=== PATIENT | male | born 1955 | race Caucasian/White ===

== ENCOUNTER 2023-03-21 09:50 | Outpatient (OUT) | payer MEDICARE, SELFPAY ==
--- NOTE | 2023-03-21 | XR_ITS ---
The [address] [address] Patient Name: KRISTINA HINOJOSA MRN: [id number] date: 1955 Sex: M Assigned Patient Location: [facility] Current Patient Location: Accession/Order Number: [id number] Exam Date: 03/21/2023 10:20 Report Date: 03/22/2023 11:05 At the request of: STEPHENIE JACK Procedure: XR ankle SHRUTHI min 3V EXAMINATION: XR foot SHRUTHI min 3V, XR ankle SHRUTHI min 3V HISTORY: BILATERAL FOOT PAIN , bilateral ankle pain COMPARISON: No relevant comparison available. FINDINGS: RIGHT FINDINGS: BONES: Calcaneal plantar spur. No significant arthropathy or acute abnormality. SOFT TISSUES: No visible soft tissue swelling. OTHER: Negative. LEFT FINDINGS: BONES: Prior amputation of the fourth toe at the proximal interphalangeal joint. Prior amputation of the fifth toe and majority of the metatarsal. Suspect old healed fractures of the second, third, and fourth metatarsals. No acute fracture, dislocation, or suspicious bone abnormality. SOFT TISSUES: No visible soft tissue swelling. OTHER: Negative. XR/XR ankle SHRUTHI min 3V IMPRESSION: RIGHT CONCLUSION: No acute bone abnormality or significant degenerative changes of the ankle or foot. LEFT CONCLUSION: Chronic surgical changes of the foot. No acute or suspicious findings of the ankle or foot. Electronically authenticated by: FRANCISCA HAWK Date: 03/22/2023 11:05
--- NOTE | 2023-03-21 | XR_ITS ---
The [address] [address] Patient Name: KRISTINA HINOJOSA MRN: [id number] date: 1955 Sex: M Assigned Patient Location: [facility] Current Patient Location: Accession/Order Number: [id number] Exam Date: 03/21/2023 10:20 Report Date: 03/22/2023 11:05 At the request of: STEPHENIE JACK Procedure: XR foot SHRUTHI min 3V EXAMINATION: XR foot SHRUTHI min 3V, XR ankle SHRUTHI min 3V HISTORY: BILATERAL FOOT PAIN , bilateral ankle pain COMPARISON: No relevant comparison available. FINDINGS: RIGHT FINDINGS: BONES: Calcaneal plantar spur. No significant arthropathy or acute abnormality. SOFT TISSUES: No visible soft tissue swelling. OTHER: Negative. LEFT FINDINGS: BONES: Prior amputation of the fourth toe at the proximal interphalangeal joint. Prior amputation of the fifth toe and majority of the metatarsal. Suspect old healed fractures of the second, third, and fourth metatarsals. No acute fracture, dislocation, or suspicious bone abnormality. SOFT TISSUES: No visible soft tissue swelling. OTHER: Negative. XR/XR foot SHRUTHI min 3V IMPRESSION: RIGHT CONCLUSION: No acute bone abnormality or significant degenerative changes of the ankle or foot. LEFT CONCLUSION: Chronic surgical changes of the foot. No acute or suspicious findings of the ankle or foot. Electronically authenticated by: FRANCISCA HAWK Date: 03/22/2023 11:05
== END 2023-03-21 09:51 | disposition home or self-care (01) ==
PROVIDERS: Visit Provider Podiatrist Foot & Ankle Surgery
DX: M25.571 Pain in right ankle and joints of right foot (principal); M25.572 Pain in left ankle and joints of left foot; M77.31 Calcaneal spur, right foot
CPT/HCPCS: 73610; 73630

== ENCOUNTER 2023-04-20 08:41 | Outpatient (OUT) | payer MEDICARE, SELFPAY ==
--- NOTE | 2023-04-20 08:43 | CT_ITS ---
[address] [address] Patient Name: KRISTINA HINOJOSA MRN: [id number] date: 1955 Sex: M Assigned Patient Location: CT Current Patient Location: CT Accession/Order Number: [id number] Exam Date: 04/20/2023 08:52 Report Date: 04/20/2023 09:49 At the request of: STEPHENIE JACK Procedure: CT ankle LT wo con EXAMINATION: CT ankle LT wo con HISTORY: Left Ankle Degenerative Joint Disease, Spastic Deformity COMPARISON: No relevant comparison available. TECHNIQUE: Multi-planar CT images were created without and/or with IV contrast according to examination type. Dose reduction techniques were achieved by using automated exposure control and/or adjustment of mA and/or kV according to patient size and/or use of iterative reconstruction technique. FINDINGS: BONES: No fracture, dislocation, bone lesion. SOFT TISSUES: Negative. No visible soft tissue swelling. EFFUSION: None visible. OTHER: Negative. CT/CT ankle LT wo con IMPRESSION: 1. No acute bone abnormality or suspicious bone lesion. 2. Minimal degenerative joint disease. Electronically authenticated by: FRANCISCA HAWK Date: 04/20/2023 09:49
--- NOTE | 2023-04-20 10:18 | CA_ITS ---
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 PVR waveforms with normal upstroke, blunted amplitude in the LLE and abnormal B/L JOHN Right: - no pressure gradients between cuffs - abnormal JOHN - normal TBI Left: - no pressure gradients between cuffs - abnormal JOHN - normal TBI Impression: - elevated indices (B/L thigh, right calf, right PT/DP and left PT) consistent with calcified, noncompressible arterial delcid. - nondiagnostic segmental pressures due to diffusely elevated indices, consistent with calcified arterial delcid. - B/L TBI, which are not influenced by arterial wall calcification, are not decreased and suggestive of normal arterial evaluation w/o hemodynamically significant stenosis. - clinical correlation advised Electronically Signed On 04-22-2023 11:39:19 EST by KAREN BOWMAN
== END 2023-04-20 08:42 | disposition home or self-care (01) ==
LOC: CT 08:41
PROVIDERS: Visit Provider Nurse Practitioner Family
DX: M19.072 Primary osteoarthritis, left ankle and foot (principal); M21.6X2 Other acquired deformities of left foot; R09.89 Other specified symptoms and signs involving the circulatory and respiratory systems
CPT/HCPCS: 73700; 93923

== ENCOUNTER 2023-08-31 15:56 | Emergency (ER) | payer MEDICARE, SELFPAY ==
[2023-08-31] VITALS (8 sets, daily range): BP systolic 143–178; BP diastolic 91–115; PULSE 91; TEMP 36.7; O2SAT 93–97; BMI 21.6
--- NOTE | 2023-08-31 16:23 | ED.FALL1 ---
Documented by User: Meagn Moran 08/31/23 18:24 HPI HPI - Fall General Chief Complaint: Fall Stated Complaint: LACERATION Time Seen by Provider: 08/31/23 16:02 Source: patient Mode of arrival: Wheelchair Limitations: no limitations History of Present Illness HPI Narrative: 67-year-old male presents to the emergency room by personal vehicle chief complaint of a laceration to the right forehead. Patient has significant laceration after he tripped over a rug in his kitchen.. Patient has no loss of consciousness. Denies any neck pain. He is alert and oriented no acute distress.Pain is noted upon arrival patient has a towel to his face.Patient is uncertain of his last tetanus immunization. Patient denies any headache blurred vision or double vision. He denies being on blood thinners. Related Data Home Medications ?Medication ?Instructions ?Recorded ?Confirmed atorvastatin 20 mg tablet mg 08/31/23 fluoxetine 10 mg capsule mg 08/31/23 pramipexole 0.5 mg tablet mg 08/31/23 Previous Rx's ?Medication ?Instructions ?Recorded cephalexin 500 mg capsule 500 mg PO BID 10 days #20 caps 08/31/23 Allergies Allergy/AdvReac Type Severity Reaction Status Date / Time Penicillins Allergy Intermediate Verified 08/31/23 16:00 acetaminophen [From Vicodin] AdvReac Intermediate Verified 08/31/23 16:00 hydrocodone [From Vicodin] AdvReac Intermediate Verified 08/31/23 16:00 Opioid HPI Opioid Management Most Recent Pain and Opioid Data: Last Pain Scale 3 08/31/23 18:13 Last MAR Pain Assessment 08/31/23 18:13 Review of Systems ROS Narrative All Systems are negative except as noted/marked.All systems reviewed and otherwise negative Exam Narrative Exam Narrative: A Nurses note and vital signs reviewed and patient is not hypoxic. General: The patient appears well and in no apparent distress. Patient is resting comfortably on cart. Skin: Warm, dry, no pallor noted. complex forehead laceration Head: Normocephalic, complex right forehead laceration measuring 3x0.5 cm in length and width, skull is visualized and intact, small portion of subcutaneous fat and muscle exposed neck: no midline tenderness, full range of motion Eye: Normal conjunctiva, no drainage, EOMI. PERRL Ears, Nose, Mouth, and Throat: oral mucosa is moist. Nares patent. Mouth without vesicles. Ear canals patent. Tm's without Erythema Cardiovascular: Regular Rate and Rhythm Respiratory: Patient is in no distress, no accessory muscle use, lungs are clear to auscultation, no wheezing, rales or rhonchi Back: non-tender, no CVA tenderness bilaterally to percussion. Musculoskeletal: The patient has no evidence of calf tenderness, no pitting edema, symmetrical pulses noted bilaterally Neurological: A&O x4, normal speech Psychiatric: Cooperative Constitutional Vital Signs, click to edit/add: Last Vital Signs Temp 98.0 F 08/31/23 16:01 Pulse 91 H 08/31/23 16:01 Resp 16 08/31/23 16:01 BP 153/99 H 08/31/23 18:12 Pulse Ox 95 08/31/23 18:12 O2 Del Method Room Air 08/31/23 16:01 Course Vital Signs Vital signs: Vital Signs Temperature 98.0 F 08/31/23 16:01 Pulse Rate 91 H 08/31/23 16:01 Respiratory Rate 16 08/31/23 16:01 Blood Pressure 178/115 H 08/31/23 16:01 Pulse Oximetry 97 08/31/23 16:01 Oxygen Delivery Method Room Air 08/31/23 16:01 Temperature 98.0 F 08/31/23 16:01 Pulse Rate 91 H 08/31/23 16:01 Respiratory Rate 16 08/31/23 16:01 Blood Pressure 153/99 H 08/31/23 18:12 Pulse Oximetry 95 08/31/23 18:12 Oxygen Delivery Method Room Air 08/31/23 16:01 MDM - Fall MDM Narrative Medical decision making narrative: 67-year-old male presents to the emergency room by personal vehicle chief complaint of a laceration to the right forehead. Patient has significant laceration after he tripped over a rug in his kitchen.witness by Patient had no loss of consciousness. alert and oriented, Denies any neck pain. He is alert and oriented no acute distress.Pain is noted upon arrival patient has a towel to his face.Patient is uncertain of his last tetanus immunization. Patient denies any headache blurred vision or double vision. He denies being on blood thinners. Emergency room, patient's laceration was examined, patient was alert and oriented had child with face. Complex laceration is noted. Patient was taken over CT scan after the wound was initially cleaned and pressure dressing was applied. CT scan was read negative by radiology. Patient is alert and oriented. He has been joking and laughing during the entire stay here in emergency room. Complex laceration was performed by myself.Will be discharged home he was medicated here with Tylenol and denied any other need for medication. He will be discharged home with close head injury, laceration and suture instructions. Patient and at bedside agree with plan of care. Patient will return to primary care physician for suture removal in 7 to 10 days. procedure note:3cm x 0.5cm complex Laceration was cleaned and prepped in sterile fashion. area was injected with lidocaine 1% x 6 cc locally to the area. Patient's wound was then vigorously irrigated with Hibiclens normal saline and hydrogen peroxide. Bleeding was controlled. No pulsatile bleeding is noted. Wound was closed in 2 layer fashion. 5-0 Vicryl were used to subcutaneously pulled muscle layer and subcutaneous fat reapproximated. Patient's external wound was then reapproximated with 6-0 Ethilon suture x 12 sutures Pulsatile bleeding was noted small area of swelling is noted pressure dressing applied by nursing staff as well as bacitracin. Patient was discharged home with Keflex. patient and agreed with plan of care where he would be discharged home. Differential Diagnosis Differential diagnosis: Likely other (fall, facial laceration, closed head injury) Medical Records Attestation: I reviewed the patient's medical records. Imaging Data head ct: Radiologist's impression: ITS Impressions Head CT 08/31/23 16:44 IMPRESSION: No CT evidence of acute intracranial abnormality. No acute fracture. Right supraorbital soft tissue hematoma with associated laceration. No evidence for orbital hematoma. Electronically authenticated by: ANNAMARIA VIDES Date: 08/31/2023 17:17 Discharge Plan Discharge Stand Alone Forms: Portal Instructions Chief Complaint: Fall Clinical Impression: Head injury, Fall, Complex laceration of face Patient Disposition: Home, Self-Care Time of Disposition Decision: 17:56 Condition: Good Prescriptions / Home Meds: New cephalexin 500 mg capsule 500 mg PO BID 10 Days Qty: 20 0RF No Action atorvastatin 20 mg tablet pramipexole 0.5 mg tablet fluoxetine 10 mg capsule Print Language: Bangladeshi Instructions: Laceration (ED), Head Injury (ED), Fall Prevention (ED) Referrals: Physician,Non-Staff, [Physician] - 1 week Discharge Date/Time: 08/31/23 18:30 Documented by User: Fidencio Ac MD 08/31/23 21:57 HPI HPI - Fall General Chief Complaint: Fall Stated Complaint: LACERATION Time Seen by Provider: 08/31/23 16:02 Related Data Home Medications ?Medication ?Instructions ?Recorded ?Confirmed atorvastatin 20 mg tablet mg 08/31/23 fluoxetine 10 mg capsule mg 08/31/23 pramipexole 0.5 mg tablet mg 08/31/23 Previous Rx's ?Medication ?Instructions ?Recorded cephalexin 500 mg capsule 500 mg PO BID 10 days #20 caps 08/31/23 Allergies Allergy/AdvReac Type Severity Reaction Status Date / Time Penicillins Allergy Intermediate Verified 08/31/23 16:00 acetaminophen [From Vicodin] AdvReac Intermediate Verified 08/31/23 16:00 hydrocodone [From Vicodin] AdvReac Intermediate Verified 08/31/23 16:00 Opioid HPI Opioid Management Most Recent Pain and Opioid Data: Last Pain Scale 3 08/31/23 18:13 Last MAR Pain Assessment 08/31/23 18:13 Exam Constitutional Vital Signs, click to edit/add: Last Vital Signs Temp 98.0 F 08/31/23 16:01 Pulse 91 H 08/31/23 16:01 Resp 16 08/31/23 16:01 BP 153/99 H 08/31/23 18:12 Pulse Ox 95 08/31/23 18:12 O2 Del Method Room Air 08/31/23 16:01 Course Vital Signs Vital signs: Vital Signs Temperature 98.0 F 08/31/23 16:01 Pulse Rate 91 H 08/31/23 16:01 Respiratory Rate 16 08/31/23 16:01 Blood Pressure 178/115 H 08/31/23 16:01 Pulse Oximetry 97 08/31/23 16:01 Oxygen Delivery Method Room Air 08/31/23 16:01 Temperature 98.0 F 08/31/23 16:01 Pulse Rate 91 H 08/31/23 16:01 Respiratory Rate 16 08/31/23 16:01 Blood Pressure 153/99 H 08/31/23 18:12 Pulse Oximetry 95 08/31/23 18:12 Oxygen Delivery Method Room Air 08/31/23 16:01 MDM - Fall MDM Narrative Medical decision making narrative: 67-year-old male presents to the emergency room by personal vehicle chief complaint of a laceration to the right forehead. Patient has significant laceration after he tripped over a rug in his kitchen.witness by Patient had no loss of consciousness. alert and oriented, Denies any neck pain. He is alert and oriented no acute distress.Pain is noted upon arrival patient has a towel to his face.Patient is uncertain of his last tetanus immunization. Patient denies any headache blurred vision or double vision. He denies being on blood thinners. Emergency room, patient's laceration was examined, patient was alert and oriented had child with face. Complex laceration is noted. Patient was taken over CT scan after the wound was initially cleaned and pressure dressing was applied. CT scan was read negative by radiology. Patient is alert and oriented. He has been joking and laughing during the entire stay here in emergency room. Complex laceration was performed by myself.Will be discharged home he was medicated here with Tylenol and denied any other need for medication. He will be discharged home with close head injury, laceration and suture instructions. Patient and at bedside agree with plan of care. Patient will return to primary care physician for suture removal in 7 to 10 days. procedure note:3cm x 0.5cm complex Laceration was cleaned and prepped in sterile fashion. area was injected with lidocaine 1% x 6 cc locally to the area. Patient's wound was then vigorously irrigated with Hibiclens normal saline and hydrogen peroxide. Bleeding was controlled. No pulsatile bleeding is noted. Wound was closed in 2 layer fashion. 5-0 Vicryl were used to subcutaneously pulled muscle layer and subcutaneous fat reapproximated. Patient's external wound was then reapproximated with 6-0 Ethilon suture x 12 sutures Pulsatile bleeding was noted small area of swelling is noted pressure dressing applied by nursing staff as well as bacitracin. Patient was discharged home with Keflex. patient and agreed with plan of care where he would be discharged home. I, Dr Ac, have reviewed the above progress note and course of action in the ER; agree with the above. I have gone over history and physical, and discussed disposition and treatment plan with the patient. Imaging Data head ct: Radiologist's impression: ITS Impressions Head CT 08/31/23 16:44
--- OUTSIDE RECORDS SUMMARY | 2023-08-31 16:31 | XMS_ITS | CCD ---
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 [id number]#1.00CD:127 [facility] Consent to Photographon Consent to Photograph [id number]#1.00CD:127 [facility] Correspondence - Woundon Correspondence - Wound [id number]#1.00CD:127 [facility] Correspondence - Wound [id number]#1.00CD:127 [facility] Correspondence - Wound [id number]#1.00CD:127 [facility] HIPAA Forms Officeon 023 HIPAA Forms Office [id number]#1.00CD:127 [facility] Consent for Treatmenton Consent for Treatment [id number]#1.00CD:127 [facility] Multi-Wound Charton 07-04-19 Multi-Wound Chart [id number]#1.00CD:127 [facility] Physician Orderon 07-04-2022 Physician Order [id number]#1.00CD:127 [facility] Procedure - Woundon 07-04-19 Procedure - Wound [id number]#1.00CD:127 [facility] Progress Note - Woundon Progress Note - Wound [id number]#1.00CD:127 [facility] Correspondence - Woundon Correspondence - Wound [id number]#1.00CD:127 [facility] Coding Summary.on 05-30-2022 Coding Summary. CD:[id number] Gh0bWw +PGhlYWQ+CD3FBZTbN56xsYUer K9XS7eYBQ1GTNCBQVIEKP8XCS7 epTR0PDrkV7RzntYj XmiwgHDnXH51KAb9VYL6kQigGW bjlN0xeHTlI4m1WfScZD68oU53 ZYfqEIFwVtD2JpBskeoshCTe J7rfRaYjwZDcFhr+PHRhYmxlIH zaCVLrWRxzAFMhQfJnyAmtQQ9v Nd3mDDDcELKwcKcznZQzBsKf g2hyVXDwOGvrGZ4ekXsgK9XstY D5UBMrf1g9Ci84lCE+PHRkIHN0 jDqhEMsbv532GtXad8ptEWE3 eIWiTSwbIFW4B97hz1R1KJGiWQ VfRDB0hKC6rD6hwRmcbqsxU5Av yACvTtV5EHD8eEPygF2qbUic zzjhvV0fVbd+Z28MUC5NPGLIMB 6JPue1J9QyUwjlrXJ+KT54PWDt LZ91pTSciKFib8vmcKx6KoEe UDMoSTG3wHokQSwvx7ZmHUDtE8 2wrJRxz8B4CIUclUdxdCDxFrEc oTR2vN4fBEysszdjk5dvuwkk Ttulr7ibvu53iE33X65aIUsqFV OlLFS4RTOxQMNshSucbo5izG7b Ii8+EXhlh1wbm5rmwDg0VyOo IDYosxPtoYluFHE4y7GfZq13O7 OqlUhsr8EwCki8vn11dBUoy9K6 uLD2KKwwVNElqF6mDOwpKgI0 MKAxKaWdhX48uXNqPNjzSl4vvN mqmKipOA5jYFXvkwdtLSQrpW5b QYHjmYIktMclMY2vDSOmvcau e190QxTtDCP3NLQxqKHgN9KudW 0vUdOxJOJhKMGmV2TmiZSmSYyj N991ZVllIyE3KPMlwoXcV8Oe LDXgbGcaTvW4g7D1Ye1Ov8Khul tdUVC7RJalHEDsOePrNgFbOrJ0 R1BpRqg8CQJvaVqnWI7wM6Hv MGZmvqaymfqxfHB6HUMfGYBkfH 58lZOkOAliFd1ts1J6x132PLWn WNJydJ63Bp8trZldXQGllJOO mG3ktcuay8qqwimzExQxFTYjEY i6FMr5BOCruRxnVeHdQCC1ZgS9 BMF7lTYpsW5klKnrswqjzO3z Oyc+D43qtR5aCLZ5FDH8obiaWP ScstNsMI70DM01C9JwSjkajRMi bGU+QFCyqyUoiGuiOH1iIkMp w7nes7IxAYeaX4NgBIUhIXccVv e7OYBpGPQ0rDL8gT2uHHKlJOjs k5S5aNS9X1EzykOmds0dz9pc BZCvPGmuB16cvIBeg1J5LZTjsD C8VCOkhJbpXxIhdX35Mpp+PGNv sIzbe6JxSlvgy8qjs3dbzAy4 KpVnBRPvajKxhXdhDEB8v3LvIb 67F20dMNbuLSVwSBZoONUtEUDq vAylym0hvK7cNa1+PGNvbCB3 wPX4fF1qKDXuUqD9RSjdO676Om NldAMcMfbcr3sab7svoPp1QrVy OJWebhVemWztDGX0i1CyUg01 T42tOGfbUBRfTLSyQQEgFSLxiN jnhp6ktQ9xVa3+DC0kz3wnxl70 cC65tLI+WENzCSE0rAchLHnx BCBieI7pKCulPuP8JWQsLnRciQ 10eDPvQAvbIy3wcRubcXdlNM9f XTPiuguih361CuWxz4bhLRVl dJQwTQvcAAK5R73aw8X0GWDpWI MyKIJ8kDP8lT0wvPbnehtcjEQq tTktkpNscMqnVXaiFJtzL870 IHRvcDsnPlBhdGllbnQgTmFtZT m8Y0IyOeu8NXLqqGzvYO2zfSFe BQmnUc1nbFcmcRxoVA5eQQNv dhitt271KpKct4axQDZhkBIrOA obHYI7H42xo7L4UOVgUZSbLPG9 bYS4pN2qyNmssiiocDIctRnw stVxdNlnILisUIqgL182VLHbdV qeOkUlcgWsISQylAK9JD95UF70 xFXnf2R1jKO8J9YxLYBbwqvf ogwprTO3KGEbTTSrbZ83Ci9yvP qfWc8hBCXgERE3LGYskYMrR6Uk fB1zSfXjCZZbLOHcG1HqkXRf QEkpF186RNblXuL7AJNfhkQqS2 XqCZWkvJakZaY7u4R3Jp4XO8H1 ZH46HG02yUXoy2T4fRP8I2Gl QDXfskefnajebYK8EWBkTSRkxW 75Pw6qqZmpCh8mDPAcEPK8MZYq aWLgJ6SxdH2fLdEnJRIgFHUd U0DvtGKdEKkjC362CHcjZbQ1EA PciiOvT4MkKRCzbYcgEbA6d3F0 Rj4IGFc3XR68SS78cBOmx4K3 sCE0O2MxMWPvgamrirzggTJ6QH CuBPOfqQ69Nf6jlFddCu7aRJMp ABQ2ERQghBBtR3OknO3yDbFl NPGtXIMdX9FppIPpYHveX806DQ nwHmT6TOEpbbLlR1AxLGXrkOdx RzH0o4B4Oy0EMHSiHR24FKQ1 bZC4EC01TH71J0WyGznhfCXjwJ U+PHRhYmxlIHdpZHRoPScxMDAl OtRvdRsoBC0wKo3qBEFyIOVw lHnwmEMvMqZfk7vqWIMqMEbuNV 5ibRpdC1QbkNI3AIBnl6i1Jz53 W99hA4TzoKV+USGsdFH1uFT4 xR4rJyDnIdJ5CRvwH676VsYehQ QcUmhkc7ykz6zulVc7MrZ0RXFr shBvpSufMTT4x7ZlZz78N22u IHdpZHRoPSIxNSUiIHZhbGlnbj 6wdS8qYg2+ZEMhbJW0pWB9gV5l GoUiQdX6JIwbU804DhMxhGMo Qptoz9bzd4aeoUz2VkUdQOCytd OtaWucHGS7p1WrPm34R0GkiHcx r0MgPsr0pe15wYCxz6T4aWO7 H1JoPMPcofkhvQKthFmzYQ4uGP LzqeyrTKHuaP3vZGTrT1k2MxQj EkB8FHnbO8TkjzM7SHIwhSOn MVgeTWZ2G75kz8Z4USEgTXRfEX S8fPP7dR1nqMtgvinrhKIbcDrq wmTvrTxfJHlcKGuhK204EMPv gXoqALFfqC9cGADbyTRqlUgoTA 4wNTBpbjsnPkxPTlosIERBVklE GN21H8EdOde8WMWtqFrhSJ5q jTPyCAqeRo7ifAuyrBvoDU8lGL TecyiwIMBwzT8wZOLpiKFqjVvo CS4hTSEofhzdx741WsCeENH0 ZZFsbZOwR3IcaJ3dQzMaVTJzND EvS7EhkQQiFMykD819TJakUuB1 UWYlpvDmN0EhHMVqyVgyGyC9 j0N3Ss2hGu5dLP3aHHU2LS48OP 21vIBbb9G0mEO1Q9StNATyqrad msdipVN9HTVjEFEazT97jXCi PKkhQk8wd4C1c531QQDcOBLfzQ 96Hw1tgQbgDAMnjWHCmM8rxclz d3feskibFnJsBUUjIJk2YKv5 NSWrzJuoEnGtLRY8GnW9CWE7mS GsaO6afWopbyvkgL7zJbn+Njgg GAZshuQ5P0VdFmj9ZAOmoJcp AR0unMAbGTmmGm2zwYevjCnyMO 1hBVCtsplbIFBfrT1fIZHkgVTd cJabQJ8wIWErionyu605WqHq INW6FQVxgZMpL0YpqN3xArNeLF BbJPLiN4NhxENwRQnzS235ILib QgL8QAHiolRoG6QtYMYsrNbo CmB7t5C8Jt1YCVcyUH58NY34gC Htq2V3ePG5Y3RlQSJebnwfpedb hBK5JRXwLCXqxW66nGHxVPaz Cz4oi2D6s943WCPvTYVfsN91Yz 0viMbcACDvsVBZiU9kzeife9sp jrurFpZdXZVvTCr1LSq6YGJj bEodIuMfLFX3GdU7BXZ0dOAleG 4uwKsoyflwaN8iVjj+TGFiIERy t5Hmz2MoKI13IL08X0EmVsmt dGFibGU+PHRhYmxlIHdpZHRoPS mpCNHsUjFsuXcjOC4sBv0jDHEw ZMNhzMydeVAvJeHoo5amBAEl OQhpFI0kxLabR3TcyQY5BOIjw5 n5Ri68P83eQ5ZpdRA+PGNvbCB3 kUS3hZ9lMsWkHnI6LJhhB018 NgBbtBWmVelmw1fws7gszCh8Db TbNLOanzAsnCodWWV0m9YuKt81 Q50rBPywCCLqWTEiNJMfUNYe zByccl4ciE5cAh6+AYTsoJR4zV D0sZ2zXjZfVfU8AJhyB961FzCs fZHcWdbwN45mJ4SmwQT+PHRy Cxf4QAReuNbcLU1kkJUdWZuwRr 2cYZO5DnLcRcYfPRhvV5AhOFPd lhhrvpwlgMX1EREyIVJjyS50 Te0pnAbmQx1nGRVjPMS7JZMhgF VgT7QglP4pMsPvXIWyPVZeE4Ox hJFgCQktG015JMlrPhT7USPx haCjM2UxPMUxuLikMxT0d8Z2Ew 9ZeUlqgPLkIZ7fSnWxIGn3Z5Ym Mzp1IBYsuZbeTC2cbVKhIFmu Qg5ktZtgsAouKZ0bLUAgsrpyn6 91JaJtj8ezRVVifVAwKOwiANS1 E79sg4M1RTCxPTOmDHI1yXV5 qQ9anHrbiztayDKslRzqogAlbA rbVKjjYSmnJ013BZLtfNczYkIP Toz7W9YnSlt9FECqtOgcOK6t iNMsOQgqKl6ruDdbzHpcEL0zQU Amhnhno107ZtKwd7baQTOkrKUk ZObdJGJ5K75qi1J6KLBuJFFh YUQ4wJP1eP0cgSqfimylyTEkqK cktmCfkKjcQInxUJodH789RTIt vPsiGp8ANcx9C5VoMco0WXKw yZihAT8maPWpJVhlEh4acQwnlT otVQ9wYAMsgrhtx001IfWrr1ht BZRpbRNrGQnrVGG9U26cm6L2 AFXaUPWwSKO6uVS7tF3ruZiddm ogbGVmdDsgdmVydGljYWwtYWxp P960ONNhlZbmGgRleRRbOldc dGQ+GN22da90Z0PwMyujZgs3JQ QpXAS5kZC3nS1rBRAgYXpxx2Q5 dVY3J6SnosDnuh2sy8fwMJFl ZTog (more content not included)... [facility] Physician Orderon 05-23-2022 Physician Order [id number]:127 Normal [facility] US liveron 09-19-[address] [address] Ultrasound Report Signed Patient: Kristina Hinojosa MR#: [id number] : 1955 Acct:[id number] Age/Sex: 65 / M ADM Date: 09/19/21 Loc: Room: Type: [facility] Attending Dr: Gordo White MD Ordering Provider: Gordo White MD Date of Service: 09/19/21 US/US liver: Abnormal liver enzymes;Hepatitis C Copies to: Gordo White MD EXAMINATION TYPE: US liver DATE OF EXAM ORDERED: 09/19/2021 7:51 AM HISTORY: History of gallstones. Hepatitis C. COMPARISON: 03/12/2010 TECHNIQUE: Realtime imaging limited to the right upper quadrant was performed. FINDINGS: Echogenic stones are noted in the gallbladder lumen some of which may be attached or adherent to the gallbladder wall. The largest measures 2.4 cm. There is echogenic debris similar to the prior exam. The gallbladder wall is mildly thickened at 4 mm in thickness. The common bile duct is normal in diameter at 4 mm. No intrahepatic or extrahepatic biliary dilatation is seen. The liver is echogenic in respect to the right renal cortex suggesting diffuse hepatocellular disease. This most likely represents hepatic steatosis. Hepatopedal flow is noted in the main portal vein. Partial visualization of the right kidney reveals no gross hydronephrosis. Partial visualization of the pancreas reveals no abnormality. ? US/US liver IMPRESSION: Stones are noted in the gallbladder lumen increasing when compared prior exam with mild gallbladder wall thickening measuring up to 4 mm. If there is ongoing clinical concern for acute cholecystitis, further evaluation with nuclear medicine hepatobiliary imaging may be helpful. The liver is echogenic in respect to the right renal cortex suggesting diffuse hepatocellular disease. This most likely represents hepatic steatosis. Hepatopedal flow is noted in the main portal vein. Impression dictated by: Jamie Maza M.D.09/19/2021 9:47 AM Dictation Location: [place] [address] Tech: [facility] Transcribed By: PRISCILA 09/19/21946 Dictated By: Jamie Maza II, MD 09/19/2139 Signed By: 09/19/21946 [facility] Complete Blood Count Auto Di ffon 09-14-2021 Basophils (Bld) [#/Vol] 0.0 10*3/uL Normal 0.0-0.2 [facility] Comment on above: Order Comment: Reaso n for Exam Abnormal liver enzymes;Hepatitis C Result Comment: PERF ORMED BY: [place] [address] PATHOLOGIST MATERIALS MANAGEMENT CLERK NEFTALY BRANDT M.D. Performed By: #### C BC, CMP, PT #### [address] #### HCV RNAQNT #### [facility] , Basophils/100 WBC (Bld) 0.1 % Normal . [facility] Comment on above: Order Comment: Reaso n for Exam Abnormal liver enzymes;Hepatitis C Performed By: #### C BC, CMP, PT #### [place] [address] [place] #### HCV RNAQNT #### [facility] , Eosinophils (Bld) [#/Vol] 0.4 10*3/uL Normal 0.0-0.45 [facility] Comment on above: Order Comment: Reaso n for Exam Abnormal liver enzymes;Hepatitis C Performed By: #### C BC, CMP, PT #### [address] #### HCV RNAQNT #### [facility] , Eosinophils/100 WBC (Bld) 3.4 % Normal . [facility] Comment on above: Order Comment: Reaso n for Exam Abnormal liver enzymes;Hepatitis C Performed By: #### C BC, CMP, PT #### [facility] [address] [place] [address] [place] #### HCV RNAQNT #### [facility] , Erythrocyte distribution width (RBC) [Ratio] 14.8 % Normal 12.0-14.8 [facility] Comment on above: Order Comment: Reaso n for Exam Abnormal liver enzymes;Hepatitis C Performed By: #### C BC, CMP, PT #### [facility] [address] [place] [address] [place] #### HCV RNAQNT #### [facility] , Hematocrit (Bld) [Volume fraction] 47.5 % Normal 38.8-50.0 [facility] Comment on above: Order Comment: Reaso n for Exam Abnormal liver enzymes;Hepatitis C Performed By: #### C BC, CMP, PT #### [facility] [address] [place] [address] [place] #### HCV RNAQNT #### [facility] , Hemoglobin (Bld) [Mass/Vol] 15.7 g/dL Normal 13.0-17.0 [facility] Comment on above: Order Comment: Reaso n for Exam Abnormal liver enzymes;Hepatitis C Performed By: #### C BC, CMP, PT #### [address] #### HCV RNAQNT #### [facility] , Lymphocytes (Bld) [#/Vol] 4.2 10*3/uL Normal 1.00-4.8 [facility] Comment on above: Order Comment: Reaso n for Exam Abnormal liver enzymes;Hepatitis C Performed By: #### C BC, CMP, PT #### [address] #### HCV RNAQNT #### [facility] , Lymphocytes/100 WBC (Bld) 39.8 % Normal . [facility] Comment on above: Order Comment: Reaso n for Exam Abnormal liver enzymes;Hepatitis C Performed By: #### C BC, CMP, PT #### [facility] [address] [place] [address] [place] #### HCV RNAQNT #### [facility] , MCH (RBC) [Entitic mass] 27.7 pg Normal 27.5-35.2 [facility] Comment on above: Order Comment: Reaso n for Exam Abnormal liver enzymes;Hepatitis C Performed By: #### C BC, CMP, PT #### [facility] [address] [place] [address] [place] #### HCV RNAQNT #### [facility] , MCV (RBC) [Entitic vol] 83.8 fL Normal 83.5-101 [facility] Comment on above: Order Comment: Reaso n for Exam Abnormal liver enzymes;Hepatitis C Performed By: #### C BC, CMP, PT #### [facility] [address] [place] [address] [place] #### HCV RNAQNT #### [facility] , Mean Corpuscular HGB Conc 33.0 g/dL Normal 32.5-35.6 [facility] Comment on above: Order Comment: Reaso n for Exam Abnormal liver enzymes;Hepatitis C Performed By: #### C BC, CMP, PT #### [facility] [address] [place] [address] #### HCV RNAQNT #### [facility] , Monocytes (Bld) [#/Vol] 1.1 10*3/uL High 0.0-0.8 [facility] Comment on above: Order Comment: Reaso n for Exam Abnormal liver enzymes;Hepatitis C Performed By: #### C BC, CMP, PT #### [facility] [address] [place] [address] #### HCV RNAQNT #### [facility] , Monocytes/100 WBC (Bld) 10.2 % Normal . [facility] Comment on above: Order Comment: Reaso n for Exam Abnormal liver enzymes;Hepatitis C Performed By: #### C BC, CMP, PT #### [facility] [address] [place] [address] [place] #### HCV RNAQNT #### [facility] , Neutrophils (Bld) [#/Vol] 4.9 10*3/uL Normal 1.8-7.7 [facility] Comment on above: Order Comment: Reaso n for Exam Abnormal liver enzymes;Hepatitis C Performed By: #### C BC, CMP, PT #### [facility] [address] [place] [address] [place] #### HCV RNAQNT #### [facility] , Neutrophils/100 WBC (Bld) 46.5 % Normal . [facility] Comment on above: Order Comment: Reaso n for Exam Abnormal liver enzymes;Hepatitis C Performed By: #### C BC, CMP, PT #### [facility] [address] [place] [address] [place] #### HCV RNAQNT #### [facility] , Nucleated RBC/100 WBC (Bld) [Ratio] 0.1 % Normal 0-0.5 [facility] Comment on above: Order Comment: Reaso n for Exam Abnormal liver enzymes;Hepatitis C Performed By: #### C BC, CMP, PT #### [facility] [address] [place] [address] [place] #### HCV RNAQNT #### [facility] , Platelet mean volume (Bld) [Entitic vol] 8.3 fL Normal 6.6-10.1 [facility] Comment on above: Order Comment: Reaso n for Exam Abnormal liver enzymes;Hepatitis C Performed By: #### C BC, CMP, PT #### [facility] [address] [place] [address] [place] #### HCV RNAQNT #### [facility] , Platelets (Bld) [#/Vol] 398 10*3/uL Normal 150-450 [facility] Comment on above: Order Comment: Reaso n for Exam Abnormal liver enzymes;Hepatitis C Performed By: #### C BC, CMP, PT #### [facility] [address] [place] [address] [place] #### HCV RNAQNT #### [facility] , RBC (Bld) [#/Vol] 5.67 10*6/uL High 3.90-5.60 [facility] Comment on above: Order Comment: Reaso n for Exam Abnormal liver enzymes;Hepatitis C Performed By: #### C BC, CMP, PT #### [facility] [address] [place] [address] #### HCV RNAQNT #### [facility] , WBC (Bld) [#/Vol] 10.6 10*3/uL Normal 4.5-11.0 [facility] Comment on above: Order Comment: Reaso n for Exam Abnormal liver enzymes;Hepatitis C Performed By: #### C BC, CMP, PT #### [facility] [address] [place] [address] #### HCV RNAQNT #### [facility] , Comprehensive Metabolic Pane tommy 09-14-2021 Albumin [Mass/Vol] 4.0 g/dL Normal 3.2-5.5 [facility] Comment on above: Order Comment: Reaso n for Exam Abnormal liver enzymes;Hepatitis C Performed By: #### C BC, CMP, PT #### [facility] [address] [place] [address] #### HCV RNAQNT #### [facility] , Albumin/Globulin [Mass ratio] 1.5 {ratio} Normal [facility] Comment on above: Order Comment: Reaso n for Exam Abnormal liver enzymes;Hepatitis C Performed By: #### C BC, CMP, PT #### [facility] [address] [place] [address] #### HCV RNAQNT #### [facility] , ALP [Catalytic activity/Vol] 52 U/L Normal 32-92 [facility] Comment on above: Order Comment: Reaso n for Exam Abnormal liver enzymes;Hepatitis C Result Comment: PERF ORMED BY: [place] [address] PATHOLOGIST MATERIALS MANAGEMENT CLERK NEFTALY BRANDT M.D. Performed By: #### C BC, CMP, PT #### [facility] [address] [place] [address] [place] #### HCV RNAQNT #### [facility] , ALT [Catalytic activity/Vol] 14 U/L Normal 10-60 [facility] Comment on above: Order Comment: Reaso n for Exam Abnormal liver enzymes;Hepatitis C Performed By: #### C BC, CMP, PT #### [facility] [address] [place] [address] #### HCV RNAQNT #### [facility] , AST [Catalytic activity/Vol] 12 U/L Normal 10-42 [facility] Comment on above: Order Comment: Reaso n for Exam Abnormal liver enzymes;Hepatitis C Performed By: #### C BC, CMP, PT #### [facility] [address] [place] [address] #### HCV RNAQNT #### [facility] , Bilirubin [Mass/Vol] 0.9 mg/dL Normal 0.3-1.2 [facility] Comment on above: Order Comment: Reaso n for Exam Abnormal liver enzymes;Hepatitis C Performed By: #### C BC, CMP, PT #### [facility] [address] [place] [address] [place] #### HCV RNAQNT #### [facility] , Calcium [Mass/Vol] 9.8 mg/dL Normal 8.2-10.2 [facility] Comment on above: Order Comment: Reaso n for Exam Abnormal liver enzymes;Hepatitis C Performed By: #### C BC, CMP, PT #### [facility] [address] [place] [address] [place] #### HCV RNAQNT #### [facility] , Chloride [Moles/Vol] 102 mmol/L Normal 95-114 [facility] Comment on above: Order Comment: Reaso n for Exam Abnormal liver enzymes;Hepatitis C Performed By: #### C BC, CMP, PT #### [facility] [address] [place] [address] [place] #### HCV RNAQNT #### [facility] , CO2 [Moles/Vol] 21.7 mmol/L Low 22.0-30.0 [facility] Comment on above: Order Comment: Reaso n for Exam Abnormal liver enzymes;Hepatitis C Performed By: #### C BC, CMP, PT #### [facility] [address] [place] [address] [place] #### HCV RNAQNT #### [facility] , Creatinine [Mass/Vol] 1.01 mg/dL Normal 0.64-1.27 [facility] Comment on above: Order Comment: Reaso n for Exam Abnormal liver enzymes;Hepatitis C Performed By: #### C BC, CMP, PT #### [facility] [address] [place] [address] [place] #### HCV RNAQNT #### [facility] , Estimated GFR ( Charmaine > 60 [facility] Comment on above: Order Comment: Reaso n for Exam Abnormal liver enzymes;Hepatitis C Result Comment: GFR estimated reference range: According to KDOQI guidelines, <60 ml/min/1.73m2 is sufficient to diagnose a patient with chronic kidney disease. Performed By: #### C BC, CMP, PT #### [facility] [address] [place] [address] [place] #### HCV RNAQNT #### [facility] , Estimated GFR (Non- Am > 60 Normal [facility] Comment on above: Order Comment: Reaso n for Exam Abnormal liver enzymes;Hepatitis C Performed By: #### C BC, CMP, PT #### [facility] [address] [place] [address] [place] #### HCV RNAQNT #### [facility] , Globulin (S) [Mass/Vol] 2.6 g/dL Normal [facility] Comment on above: Order Comment: Reaso n for Exam Abnormal liver enzymes;Hepatitis C Performed By: #### C BC, CMP, PT #### [facility] [address] [place] [address] [place] #### HCV RNAQNT #### [facility] , Glucose [Mass/Vol] 102 mg/dL High 70-100 [facility] Comment on above: Order Comment: Reaso n for Exam Abnormal liver enzymes;Hepatitis C Result Comment: [place] Glucose Reference Range is dependent on time and content of last meal. Glucose of more than 200 mg/dL in a nonstressed, ambulatory subject supports the diagnosis of Diabetes Mellitus. ADA recommended reference range Performed By: #### C BC, CMP, PT #### [facility] [address] [place] [address] [place] #### HCV RNAQNT #### [facility] , Potassium [Moles/Vol] 4.4 mmol/L Normal 3.5-5.1 [facility] Comment on above: Order Comment: Reaso n for Exam Abnormal liver enzymes;Hepatitis C Performed By: #### C BC, CMP, PT #### [place] [address] [place] #### HCV RNAQNT #### [facility] , Protein [Mass/Vol] 6.6 g/dL Normal 6.1-7.9 [facility] Comment on above: Order Comment: Reaso n for Exam Abnormal liver enzymes;Hepatitis C Performed By: #### C BC, CMP, PT #### [facility] [address] [place] [address] [place] #### HCV RNAQNT #### [facility] , Sodium [Moles/Vol] 135 mmol/L Low 136-146 [facility] Comment on above: Order Comment: Reaso n for Exam Abnormal liver enzymes;Hepatitis C Performed By: #### C BC, CMP, PT #### [facility] [address] [place] [address] [place] #### HCV RNAQNT #### [facility] , Urea nitrogen [Mass/Vol] 11 mg/dL Normal 9-23 [facility] Comment on above: Order Comment: Reaso n for Exam Abnormal liver enzymes;Hepatitis C Performed By: #### C BC, CMP, PT #### [facility] [address] [place] [address] [place] #### HCV RNAQNT #### [facility] , Hep C RT-PCR, Qnt (Non-Graph )on 09-14-2021 Hepatitis C Quantitation Not detected Normal . [facility] Comment on above: Order Comment: Reaso n for Exam Abnormal liver enzymes;Hepatitis C Performed By: #### C BC, CMP, PT #### [facility] [address] [place] [address] [place] #### HCV RNAQNT #### [facility] , Test Information: Normal . [facility] Comment on above: Order Comment: Reaso n for Exam Abnormal liver enzymes;Hepatitis C Result Comment: The quantitative range of this assay is 15 IU/mL to 100 million IU/mL. Performed at: [address] [id number] Commissioned Security Officer: Hipolito Galarza MD, Phone: [phone] PERFORMED BY: [place] [address] PATHOLOGIST MATERIALS MANAGEMENT CLERK NEFTALY BRANDT M.D. Performed By: #### C BC, CMP, PT #### [facility] [address] [place] [address] #### HCV RNAQNT #### [facility] , Prothrombin Time INRon 09-14 INR Coag (PPP) [Relative time] 1.2 {INR} Normal [facility] Comment on above: Order Comment: Reaso n for Exam Abnormal liver enzymes;Hepatitis C Result Comment: INR Therapeutic Range A) Pre- and Peroperative OAT started two weeks before surgery. NOT HIP SURGERY: 1.5 - 2.5 HIP SURGERY: 2 - 3 B) Primary and secondary prevention of venous THROMBOSIS: 2 - 3 C) Active venous thrombosis, pulmonary embolism and prevention of recurrent venous thrombosis: 2 - 3 D) Prevention of arterial thromboembolism including patients with mechanical heart valves: 3 - 4.5 PERFORMED BY: [place] [address] PATHOLOGIST MATERIALS MANAGEMENT CLERK NEFTALY BRANDT M.D. Performed By: #### C BC, CMP, PT #### [facility] [address] [place] [address] [place] #### HCV RNAQNT #### [facility] , PT Coag (PPP) [Time] 13.4 s High 9.0-12.9 [facility] Comment on above: Order Comment: Reaso n for Exam Abnormal liver enzymes;Hepatitis C Performed By: #### C BC, CMP, PT #### [facility] [address] #### HCV RNAQNT #### [facility] , COMPREHENSIVE METABOLIC PANE Tommy 06-21-2021 Albumin [Mass/Vol] 4.4 g/dL Normal 3.6-5.1 [facility] Comment on above: Performed By: #### 7 600, 50177 #### [facility] [place] [address] [employer]ing Machine Operator: Cullen Barroso MD Albumin/Globulin [Mass ratio] 1.5 {ratio} Normal 1.0-2.5 [facility] Comment on above: Performed By: #### 7 600, 66082 #### [facility] [place] [address] [employer]ing [employer] Operator: Cullen Barroso MD ALP [Catalytic activity/Vol] 59 U/L Normal 35-144 [facility] Comment on above: Performed By: #### 7 600, 97968 #### [facility] [place] [address] [employer]ing Machine Operator: Cullen Barroso MD ALT [Catalytic activity/Vol] 14 U/L Normal 9-46 [facility] Comment on above: Performed By: #### 7 600, 70989 #### [facility] [place] [address] [employer]ing Machine Operator: Cullen Barroso MD AST [Catalytic activity/Vol] 12 U/L Normal 10-35 [facility] Comment on above: Performed By: #### 7 600, 64381 #### [facility] [address] [place] [address] [employer]ing Machine Operator: Cullen Barroso MD Bilirubin [Mass/Vol] 0.6 mg/dL Normal 0.2-1.2 [facility] Comment on above: Performed By: #### 7 600, 94806 #### [facility] of [address], [address] [place] [address] [employer]ing Machine Operator: Cullen Barroso MD BUN/CREATININE RATIO NOT APPLICABLE Normal 6-22 [facility] Comment on above: Performed By: #### 7 600, 57747 #### [facility] of [address], [address] [place] [address] [employer]ing Machine Operator: Cullen Barroso MD Calcium [Mass/Vol] 10.0 mg/dL Normal 8.6-10.3 [facility] Comment on above: Performed By: #### 7 600, 51457 #### [facility] of [address], [address] [place] [address] [employer]ing Machine Operator: Cullen Barroso MD Chloride [Moles/Vol] 107 mmol/L Normal 98-110 [facility] Comment on above: Performed By: #### 7 600, 26060 #### [facility] of [address], [address] [place] [address] P[employer] Threading Machine Operator: Cullen Barroso MD CO2 [Moles/Vol] 28 mmol/L Normal 20-32 [facility] Comment on above: Performed By: #### 7 600, 86444 #### [facility] of [address], [address] [place] [address] [employer]ing Machine Operator: Cullen Barroso MD Creatinine [Mass/Vol] 0.89 mg/dL Normal 0.70-1.25 [facility] Comment on above: Result Comment: For patients >49 years of age, the reference limit for Creatinine is approximately 13% higher for people identified as -[place]ore[place]. Performed By: #### 7 600, 95361 #### [facility] of [address], [address] [place] [address] P[employer] Threading Machine Operator: Cullen Barroso MD eGFR NON-AFR. GIBRALTARIAN 88 mL/min/1.73m2 Normal > OR = 60 [facility] Comment on above: Performed By: #### 7 600, 55068 #### [facility] of [place] [address] P[employer] Threading Machine Operator: uCllen Barroso MD GFR/1.73 sq M.predicted among blacks MDRD (S/P/Bld) [Vol rate/Area] 103 mL/min/{1.73_m2} Normal > OR = 60 [facility] Comment on above: Performed By: #### 7 600, 29115 #### [facility] of [address], [address] [place] [address] P[employer] Threading Machine Operator: Cullen Barroso MD Globulin (S) [Mass/Vol] 2.9 g/dL Normal 1.9-3.7 [facility] Comment on above: Performed By: #### 7 600, 68591 #### [facility] of [place] [address] [employer]ipe Threading Machine Operator: Cullen Barroso MD Glucose [Mass/Vol] 88 mg/dL Normal 65-99 [facility] Comment on above: Result Comment: Fasting reference interval Performed By: #### 7 600, 48381 #### [facility] [place] [address] Pipe Threading Machine Operator: Cullen Barroso MD Potassium [Moles/Vol] 4.6 mmol/L Normal 3.5-5.3 [facility] Comment on above: Performed By: #### 7 600, 58039 #### [facility] of [place] [address] Pipe Threading Machine Operator: Cullen Barroso MD Protein [Mass/Vol] 7.3 g/dL Normal 6.1-8.1 [facility] Comment on above: Performed By: #### 7 600, 24808 #### [facility] of [place] [address] [employer]ing Machine Operator: Cullen Barroso MD Sodium [Moles/Vol] 140 mmol/L Normal 135-146 [facility] Comment on above: Performed By: #### 7 600, 10393 #### [facility] [address], [address] [place] [address] P[employer] Threading Machine Operator: Cullen Barroso MD Urea nitrogen [Mass/Vol] 24 mg/dL Normal 7-25 [facility] Comment on above: Performed By: #### 7 600, 42370 #### [facility] [address], [address] [place] [address] Pipe Threading Machine Operator: Cullen Barroso MD LIPID PANEL, [facility] 05-29 Cholesterol [Mass/Vol] 145 mg/dL Normal <200 [facility] Comment on above: Order Comment: FASTI NG:YES FASTING: YES Performed By: #### 7 600, 90515 #### [facility] [address], [address] [place] [address] Pipe Threading Machine Operator: Cullen Barroso MD Cholesterol in HDL [Mass/Vol] 39 mg/dL Low > OR = 40 [facility] Comment on above: Order Comment: FASTI NG:YES FASTING: YES Performed By: #### 7 600, 61279 #### [facility] [address], [address] [place] [address] Pipe Threading Machine Operator: Cullen Barroso MD Cholesterol in LDL [Mass/Vol] 93 mg/dL Normal [facility] Comment on above: Order Comment: FASTI NG:YES FASTING: YES Result Comment: Refe rence range: <100 Desirable range <100 mg/dL for primary prevention; <70 mg/dL for patients with CHD or diabetic patients with > or = 2 CHD risk factors. LDL-C is now calculated using the Rosales calculation, which is a validated novel method providing better accuracy than the Friedewald equation in the estimation of LDL-C. Frank SS et al. JOSE LUIS. 2013;310(19): 4320-8841 (http://education.Uber.com.Qloo/faq/WQR630) Performed By: #### 7 600, 77246 #### [facility] [address], [address] [place] [address] Pipe Threading Machine Operator: Cullen Barroso MD Cholesterol.total/ Cholesterol in HDL [Mass ratio] 3.7 {ratio} Normal <5.0 [facility] Comment on above: Order Comment: FASTI NG:YES FASTING: YES Performed By: #### 7 600, 29714 #### [facility] [place] [address] P[employer] Threading Machine Operator: Cullen Barroso MD NON HDL CHOLESTEROL 106 mg/dL (calc) Normal <130 [facility] Comment on above: Order Comment: FASTI NG:YES FASTING: YES Result Comment: For patients with diabetes plus 1 major ASCVD risk factor, treating to a non-HDL-C goal of <100 mg/dL (LDL-C of <70 mg/dL) is considered a therapeutic option. Performed By: #### 7 600, 49410 #### [facility] [place] [address] Pipe Threading Machine Operator: Cullen Barroso MD Triglyceride [Mass/Vol] 50 mg/dL Normal <150 [facility] Comment on above: Order Comment: FASTI NG:YES FASTING: YES Performed By: #### 7 600, 17535 #### [facility] [place] [address] Pipe Threading Machine Operator: Cullen Barroso MD [email or web address] 12-15-2020 Albumin [Mass/Vol] 4.5 g/dL Normal 3.6-5.1 [facility] Comment on above: Performed By: #### 1 0231, 14299, 3390 #### [facility] [place] [address] Pipe Threading Machine Operator: Cullen Barroso MD Albumin/Globulin [Mass ratio] 1.7 {ratio} Normal 1.0-2.5 [facility] Comment on above: Performed By: #### 1 0231, 85942, 1860 #### [facility] [place] [address] Pipe Threading Machine Operator: Cullen Barroso MD ALP [Catalytic activity/Vol] 56 U/L Normal 35-144 [facility] Comment on above: Performed By: #### 1 0231, 02598, 7600 #### [facility] of [address], [address] [place] [address] Pipe Threading Machine Operator: Cullen Barroso MD ALT [Catalytic activity/Vol] 17 U/L Normal 9-46 [facility] Comment on above: Performed By: #### 1 0231, 97212, 7600 #### [facility] of [address], [address] [place] [address] Pipe Threading Machine Operator: Cullen Barroso MD AST [Catalytic activity/Vol] 15 U/L Normal 10-35 [facility] Comment on above: Performed By: #### 1 0231, 43981, 7600 #### [facility] of [address], [address] [place] [address] Pipe Threading Machine Operator: Cullen Barroso MD Bilirubin [Mass/Vol] 0.5 mg/dL Normal 0.2-1.2 [facility] Comment on above: Performed By: #### 1 0231, 25844, 7600 #### [facility] of [address], [address] [place] [address] Pipe Threading Machine Operator: Cullen Barroso MD BUN/CREATININE RATIO NOT APPLICABLE Normal 6-22 [facility] Comment on above: Performed By: #### 1 0231, 28371, 7600 #### [facility] of [place] [address] Pipe Threading Machine Operator: Cullen Barroso MD Calcium [Mass/Vol] 10.3 mg/dL Normal 8.6-10.3 [facility] Comment on above: Performed By: #### 1 0231, 67693, 7600 #### [facility] of [place] [address] Pipe Threading Machine Operator: Cullen Barroso MD Chloride [Moles/Vol] 108 mmol/L Normal 98-110 [facility] Comment on above: Performed By: #### 1 0231, 20512, 7600 #### [facility] of [address], [address] [place] [address] Pipe Threading Machine Operator: Cullen Barroso MD CO2 [Moles/Vol] 24 mmol/L Normal 20-32 [facility] Comment on above: Performed By: #### 1 0231, 32798, 7600 #### [facility] [address], [address] [place] [address] Pipe Threading Machine Operator: Cullen Barroso MD Creatinine [Mass/Vol] 0.82 mg/dL Normal 0.70-1.25 [facility] Comment on above: Result Comment: For patients >49 years of age, the reference limit for Creatinine is approximately 13% higher for people identified as -[place]ore[place]. Performed By: #### 1 0231, 60292, 7600 #### [facility] [address], [address] [place] [address] Pipe Threading Machine Operator: Cullen Barroso MD eGFR NON-AFR. GIBRALTARIAN 92 mL/min/1.73m2 Normal > OR = 60 [facility] Comment on above: Performed By: #### 1 0231, 26308, 7600 #### [facility] [address], [address] [place] [address] Pipe Threading Machine Operator: Cullen Barroso MD GFR/1.73 sq M.predicted among blacks MDRD (S/P/Bld) [Vol rate/Area] 106 mL/min/{1.73_m2} Normal > OR = 60 [facility] Comment on above: Performed By: #### 1 0231, 56581, 7600 #### [facility] [place] [address] Pipe Threading Machine Operator: Cullen Barroso MD Globulin (S) [Mass/Vol] 2.6 g/dL Normal 1.9-3.7 [facility] Comment on above: Performed By: #### 1 0231, 99953, 7600 #### [facility] [place] [address] Pipe Threading Machine Operator: Cullen Barroso MD Glucose [Mass/Vol] 109 mg/dL Normal 65-139 [facility] Comment on above: Result Comment: Non-fasting reference interval For someone without known diabetes, a glucose value between 100 and 125 mg/dL is consistent with prediabetes and should be confirmed with a follow-up test. Performed By: #### 1 0231, 17303, 7600 #### [facility] [place] [address] Pipe Threading Machine Operator: Cullen Barroso MD Potassium [Moles/Vol] 4.5 mmol/L Normal 3.5-5.3 [facility] Comment on above: Performed By: #### 1 0231, 70522, 7600 #### [facility] [place] [address] Pipe Threading Machine Operator: Cullen Barroso MD Protein [Mass/Vol] 7.1 g/dL Normal 6.1-8.1 [facility] Comment on above: Performed By: #### 1 0231, 50232, 7600 #### [facility] [place] [address] Pipe Threading Machine Operator: Cullen Barroso MD Sodium [Moles/Vol] 139 mmol/L Normal 135-146 [facility] Comment on above: Performed By: #### 1 0231, 75251, 7600 #### [facility] [place] [address] Pipe Threading Machine Operator: Cullen Barroso MD Urea nitrogen [Mass/Vol] 19 mg/dL Normal 7-25 [facility] Comment on above: Performed By: #### 1 0231, 12509, 7600 #### [facility] [place] [address] Pipe Threading Machine Operator: Cullen Barroso MD HCV RNA, QN,REAL TIME PCR W/ REFL GENOTYPE, LIP[facility]on 12-15-2020 COMMENT Normal [facility] Comment on above: Result Comment: This test was performed using Real-Time Polymerase Chain Reaction. Reportable Range: 15 IU/mL to 100,000,000 IU/mL (1.18 Log IU/mL to 8.00 Log IU/mL). The analytical performance characteristics of this assay have been determined by [employer]. The modifications have not been cleared or approved by the FDA. This assay has been validated pursuant to the CLIA Regulations and is used for clinical purposes. For more information on this test, go to: http://Amoobi.Bringrr/faq/FAT36c1 (This link is being provided for informational/ Educational purposes only.) Performed By: #### 1 0231, 62795, 7600 #### [facility] [address], [address] [place] [address] Pipe Threading Machine Operator: Cullen Barroso MD HCV RNA, QUANTITATIVE REAL TIME PCR Not detected Normal NOT DETECTED [facility] Comment on above: Performed By: #### 1 0231, 07488, 7600 #### [facility] [address], [address] [place] [address] Pipe Threading Machine Operator: Cullen Barroso MD LIPID PANEL, [facility] 07- Cholesterol [Mass/Vol] 130 mg/dL Normal <200 [facility] Comment on above: Order Comment: FASTI NG:NO FASTING: NO Performed By: #### 1 0231, 89786, 7600 #### [facility] [address], [address] [place] [address] Pipe Threading Machine Operator: Cullen Barroso MD Cholesterol in HDL [Mass/Vol] 41 mg/dL Normal > OR = 40 [facility] Comment on above: Order Comment: FASTI NG:NO FASTING: NO Performed By: #### 1 0231, 27591, 7600 #### [facility] [address], [address] [place] [address] Pipe Threading Machine Operator: Cullen Barroso MD Cholesterol in LDL [Mass/Vol] 77 mg/dL Normal [facility] Comment on above: Order Comment: FASTI NG:NO FASTING: NO Result Comment: Refe rence range: <100 Desirable range <100 mg/dL for primary prevention; <70 mg/dL for patients with CHD or diabetic patients with > or = 2 CHD risk factors. LDL-C is now calculated using the Rosales calculation, which is a validated novel method providing better accuracy than the Friedewald equation in the estimation of LDL-C. Frank MOREIRA et al. JOSE LUIS. 2013;310(19): 2079-3500 (http://education.Uber.com.Qloo/faq/KIL113) Performed By: #### 1 0231, 50703, 7600 #### [facility] [address], [address] [place] [address] Pipe Threading Machine Operator: Cullen Barroso MD Cholesterol.total/ Cholesterol in HDL [Mass ratio] 3.2 {ratio} Normal <5.0 [facility] Comment on above: Order Comment: FASTI NG:NO FASTING: NO Performed By: #### 1 0231, 33986, 7600 #### [facility] [address], [address] [place] [address] Pipe Threading Machine Operator: Cullen Barroso MD NON HDL CHOLESTEROL 89 mg/dL (calc) Normal <130 [facility] Comment on above: Order Comment: FASTI NG:NO FASTING: NO Result Comment: For patients with diabetes plus 1 major ASCVD risk factor, treating to a non-HDL-C goal of <100 mg/dL (LDL-C of <70 mg/dL) is considered a therapeutic option. Performed By: #### 1 0231, 82218, 7600 #### [facility] [address], [address] [place] [address] Pipe Threading Machine Operator: Cullen Barroso MD Triglyceride [Mass/Vol] 42 mg/dL Normal <150 [facility] Comment on above: Order Comment: FASTI NG:NO FASTING: NO Performed By: #### 1 0231, 25283, 7600 #### [facility] [address], [address] [place] [address] Pipe Threading Machine Operator: Cullen Barroso MD OPERATIVE REPORT CLDon 10-15 OPERATIVE REPORT [facility] ([facility] [address] [facility] [address] [place], [place] [address] [place] [address] [place], [place] [address] [place], [place] [address] Patient Name: KRISTINA HINOJOSA Visit ID: [id number] : 1955 OPERATIVE REPORT Date: 10/16/2019 Surgeon: Benjamin Castrejon MD Anesthesia: Topical. PREOPERATIVE DIAGNOSIS: Cataract, left eye. POSTOPERATIVE DIAGNOSIS: Cataract, left eye. PROCEDURE: Phacoemulsification of the cataract in the left eye with posterior chamber lens implant of the left eye. OPERATIVE TECHNIQUE: The patient was given topical anesthesia and prepped and draped in the usual sterile manner. The operating microscope was placed over the eye. A wire lid speculum was placed. A clear corneal incision was made superiorly with the keratome. The anterior chamber was filled with preservative-free lidocaine then Viscoat. A stab incision was made at the 3 o'clock position. The anterior capsulotomy was performed via capsulorrhexis. Hydrodissection and then phacoemulsification of the lens nucleus was carried out without complications. Irrigation and aspiration were used to remove the cortical material. A posterior capsule polisher was then used. Provisc was used to inflate the capsular bag, and then a foldable posterior chamber lens implant was inserted into the capsular bag and well centered. Irrigation and aspiration were used to remove the Provisc. The wound was inspected and deemed to be watertight without sutures. Finally, moxifloxacin plus steroids were injected into the anterior chamber. The patient was then transferred to the recovery room in stable condition. Author: Benjamin Castrejon MD REID/MODL/[id number] Electronically Authenticated by: Benjamin Castrejon MD on 10/30/2019 12:[address] [facility] WITHOUT IV CONTRAST Patient Name: KRISTINA HINOJOSAPatient : 1955Examination: CT LUMBAR SPINE WITHOUT IV CONTRASTDate of Exam: 05/30/2018 7:57 PMOrdering Provider: SERA NESBITT MDComparison: NoneRelevant Clinical Information: Unspecified fall; Pain of left hipjointCONTRAST: None.TECHNIQUE: Axial imaging of the lumbar spine without intravenouscontrast. Sagittal and coronal reformats were performed. This CT examwas performed using one or more of the following dose reductiontechniques: automated exposure control, adjustment of the mA and/or kVaccording to patient size, or use of iterative reconstructiontechnique.DI SCUSSION:Bones: Vertebral height is preserved. No fracture. No interosseouslesion.Interve rtebral discs: Mild degenerative disc disease L1-L5.Degenerative change in facet joints at L4-S1. The sacroiliac joint isfused. Soft tissue: Prevertebral and paravertebral soft tissues are withinnormal limits.IMPRESSION: 1. Mild lumbar spondylosis.2. No acute findings.Professional Interpretation by RadiologyElectronically Signed By: Fidencio Rushing MD On: 05/30/2018 8:[address] [facility] HAND RIGHT MIN 3 VIEWSon HAND RIGHT MIN 3 VIEWS Patient Name: KRISTINA Mckenzie : 1955Examination: HAND RIGHT MIN 3 VIEWSDate of Exam: 05/30/2018 7:57 PMOrdering Provider: SERA NESBITT MDComparison: NoneRelevant Clinical Information: Unspecified fall; Pain in finger ofright handNUMBER OF VIEWS: 3DISCUSSION:Bones: No fracture or osseous lesion.Joints: Mild osteoarthritis at the third metacarpophalangeal joint.Osteoarthritis of the second distal interphalangeal joint. Milddegenerative change at the fifth IP joint.Soft tissues: Unremarkable.IMPRESSION:1. No acute osseous findings.2. Moderate osteoarthritis second DIP joint.3. Mild osteoarthritis third MCP and fifth DIP joints.Professional Interpretation by RadiologyElectronically Signed By: Fidencio Rushing MD On: 05/30/2018 8:[address] [facility] Vital Signs Date Time Vital Sign Value Performing Clinician Facility 11-09-2021 10:30-0400 Body height Gordo White Other [facility] Other 11-09-2021 10:30-0400 Body mass index (BMI) [Ratio] 22.71 kg/m2 Gordo White Other [facility] Other 11-09-2021 10:30-0400 Body weight 65.77 kg Gordo White Other [facility] Other 11-09-2021 10:30-0400 Diastolic blood pressure 96 mm[Hg] Gordo Hunt [facility] Other 11-09-2021 10:30-0400 Systolic blood pressure 137 mm[Hg] Gordo White Other [facility] Other 08-29-2021 14:15-0400 Body height Gordo White Other [facility] Other 08-29-2021 14:15-0400 Body mass index (BMI) [Ratio] 23.65 kg/m2 Gordo White Other [facility] Other 08-29-2021 14:15-0400 Body weight 68.49 kg Gordo White Other [facility] Other 08-29-2021 14:15-0400 Respiratory rate 18 /min Gordo White Other [facility] Other 08-29-2021 14:15-0400 SaO2% (BldA) [Mass fraction] 97 % Gordo White Other [facility] Other Encounters Encounter Date Encounter Type Care Provider Facility Start: 08-28-2023 [facility]ss[facility] Start: 07-18-2022 End: 07-19-2022 ambulatory Adonis Beebe [facility] Start: 07-18-2022 End: 07-18-2022 Patient encounter procedure Adonis Beebe [facility] Start: 07-11-2022 End: 07-12-2022 ambulatory Adonis Beebe [facility] Start: 07-11-2022 End: 07-11-2022 Patient encounter procedure Adonis Beebe [facility] Start: 07-04-2022 End: 07-05-2022 ambulatory Adonis Beebe Facility[facility] Start: 05-23-2022 End: 05-23-2022 Lab Drop off Adonis Beebe [facility] Start: 05-18-2022 End: 05-24-2022 ambulatory Adonis Beebe Facility[facility] Start: 11-09-2021 End: 11-09-2021 ambulatory Gordo Barneyormack Other [facility] Other Start: 11-09-2021 Office outpatient visit 15 minutes Gordo White [facility] Start: 08-29-2021 End: 08-29-2021 ambulatory Gordo White Other [facility] Other Start: 08-29-2021 Office outpatient ne w 45 minutes Gordo White [facility] Gastro[facility] Procedures Date Procedure Procedure Detail Performing Clinician Start: 04-04-2023 Adult depression scr eening assessment Tyler Billy DO Work Phone: Start: 02-28-2023 Colonoscopy Tyler lujan DO Work Phone: Plan of Treatment Date Care Activity Detail Author Start: 02-28-2033 Screening for malignant neoplasm of colon Colonoscopy [facility] Start: 09-13-2025 DTaP,Tdap and Td Vaccines (2 - Td or Tdap) DTaP,Tdap and Td Vaccines (2 - Td or Tdap) [facility] Start: 04-04-2024 Adult BMI Screening Adult BMI Screening [facility] Start: 04-04-2024 Depression Screening Depression Screening [facility] Start: 04-04-2024 Fall Risk Screening Fall Risk Screening [facility] Start: 04-04-2024 Tobacco Screening Tobacco Screening [facility] Start: 01-27-2024 Influenza vaccination Influenza Vaccine [facility] Start: 09-27-2023 End: 09-27-2023 Patient encounter procedure 09/27/2023 11:40 AM EDT Office Visit [facility] [address] [place] [address] [facility] Start: 09-22-2023 Medicare Annual Wellness Visit Medicare Annual Wellness Visit [facility] Start: 05-16-2017 Administration of varicella zoster vaccine Zoster (Shingles) Vaccine (2 of 3) [facility] Immunizations Immunization Date Immunization Notes Care Provider Fa cili 04-04-2023 Influenza Vaccine, Quadrivalent, Adjuvanted Tyler Furlong DO Work Phone: [facility] 04-04-2023 influenza virus vacc ine, unspecified formulation Tyler Furlong DO Work Phone: [facility] 02-06-2020 Seasonal, quadrivale nt, recombinant, injectable influenza vaccine, preservative free Tyler Furlong DO Work Phone: [facility] 01-29-2019 pneumococcal conjuga te vaccine, 13 valent Tyler Furlong DO Work Phone: [facility] 01-29-2019 Seasonal, quadrivale nt, recombinant, injectable influenza vaccine, preservative free Tyler Furlong DO Work Phone: [facility] 06-13-2018 influenza, injectabl e, quadrivalent, preservative free Tyler Furlong DO Work Phone: [facility] 03-21-2017 influenza, injectabl e, quadrivalent, preservative free Tyler Furlong DO Work Phone: [facility] 03-21-2017 zoster vaccine, live Tyler Furlong DO Work Phone: [facility] 03-21-2017 zoster vaccine, unspecified formulation Tyler Furlong DO Work Phone: [facility] 03-14-2016 influenza, injectabl e, quadrivalent, preservative free Tyler Furlong DO Work Phone: [facility] 09-14-2015 tetanus toxoid, redu marilin diphtheria toxoid, and acellular pertussis vaccine, adsorbed Tyler Billy DO Work Phone: [facility] [facility] 03-09-2015 influenza, high dose seasonal, preservative-free Tyler Billy DO Work Phone: [facility] 08-26-2014 meningococcal polysaccharide (groups A, C, Y and W-135) diphtheria toxoid conjugate vaccine (MCV4P) Tyler Billy DO Work Phone: [facility] 08-26-2014 pneumococcal polysaccharide vaccine, 23 valent Tyler Billy DO Work Phone: [facility] 02-08-2011 influenza, seasonal, injectable Tyler Billy DO Work Phone: [facility] 03-16-2008 influenza virus vacc ine, whole virus Tyler Billy DO Work Phone: [facility] Payers Date Payer Category Payer Medicare [employer] MEDICARE UHC MEDICARE ADVANTAGE HMO [id number] 2022-Present [phone] [address] [address] [place] [address] [id number] 2022 Self-pay 2022 Private Health Insurance [id number] 2021 Medicare [id number] 1955 Unknown [id number] 1955 Unknown [id number] 1955 Unknown [id number] 1955 Unknown [id number] Medicaid [id number] Medicare [id number] Social History Date Type Detail Facility Start: 09-21-2022 End: 04-04-2023 Sex Assigned At [facility] Tobacco smoking status No Smokin g Status Entered [facility] Start: 02-28-2023 Tobacco smoking stat us MDIS Ex-smoker [facility] End: 05-28-1996 History of tobacco use Current smoker [facility] End: 05-28-1996 History of tobacco use Cigarette Smoker [facility] Start: 09-21-2022 End: 02-28-2023 Cigarettes smoked current (pack per day) - Reported 1.5 [facility] Start: 02-28-2023 Tobacco use and exposure Forme r smokeless tobacco user [facility] End: 05-28-1998 History of tobacco use User of smokeless tobacco [facility] Start: 04-04-2023 Alcohol intake Ex-drinker (finding) [facility] Do you belong to any clubs or organizations such as lutheran groups, unions, fraternal or athletic groups, or school groups? No [facility] Are you now , , , , never or living with a partner? [facility] How often to you hav e a drink containing alcohol? Never [facility] How many standard dr inks containing alcohol do you have on a typical day? Patient does not drink [facility] Do you feel stress - tense, restless, nervous, or anxious, or unable to sleep at night because your mind is troubled all the time - these days [OSQ] Not at all [facility] Start: 1955 Sex Assigned At Not on file [facility] Evaluation note 11-09-2021 Note Date & Type Note Facility 11-09-2021 Evaluation note Encounter Date Diagnosis Assessment Notes Oct, Hepatitis C (ICD-10 - B19.20) Oct, Abnormal liver enzymes (ICD-10 - R74.8) RTO 1 YR 15 Oct, 2021 Fatty liver (ICD-10 - K76.0) START VITAMIN E [facility] [employer] Other Evaluation note 08-29-2021 Note Date & Type Note Facility 08-29-2021 Evaluation note Encounter Date Diagnosis Assessment Notes Aug, Abnormal liver enzymes (ICD-10 - R74.8) will order testing. Aug, Hepatitis C (ICD-10 - B19.20) we will order some testing for this as patient does want to donate blood. [employer] [facility] [employer] Other Evaluation + Plan note Note Date & Type Note Facility Evaluation + Plan note No data available for this section [facility] Evaluation + Plan note Note Date & Type Note Facility Evaluation + Plan note Future Appointments Appointment Date:07/18/2022 01:45:00 PM Scheduled Provider:Adonis Beebe DPM [facility] Appointment Type: Follow Up Visit ([facility]) [facility] History general Narrative - Reported Note Date & Type Note Facility History general Narrative - Reported Type Medical History Hep C Medical History hyperlpidemia Surgical History left foot [facility] [employer] Other Hospital Discharge instructions Note Date & Type Note Facility Hospital Discharge instructions No data available for this section [facility] Instructions Note Date & Type Note Facility Instructions Not on filedocumented in this en counter [employer] [facility] [facility] Progress note Note Date & Type Note Facility Progress note No data available for this section [facility] Summary Purpose Family History No Family History Records FoundNo Family History Records FoundNo Family History Records FoundNo Family History Records FoundNo Family History Records Found Advance Directives No Advanced Directives Records FoundNo Advanced Directives Records FoundNo Advanced Directives Records FoundNo Advanced Directives Records FoundNo Advanced Directives Records Found Additional Source Comments (unrecognized sect ion and content) No Status Records FoundNo Status Records FoundNo Status Records FoundNo Status Records FoundNo Status Records Found INFORMATION SOURCE (unrecogn ized section and content) DATE CREATED AUTHOR 05/31/2018 [facility] DATE CREATED AUTHOR AUTHOR'S ORGANIZ ATION 10/30/2019 [facility] DATE CREATED AUTHOR AUTHOR'S ORGANIZ ATION 06/21/2021 [facility] DATE CREATED AUTHOR AUTHOR'S ORGANIZ ATION 09/20/2021 [facility] DATE CREATED AUTHOR AUTHOR'S ORGANIZ ATION 10/04/2022 Blank[place]hip Eddi [facility] REASON FOR VISIT (unrecogniz ed section and content) Reason Comments Med Refill Patient Care team informatio n (unrecognized section and content) 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 This clinical summary was aggregated from multiple sources. Caution should be exercised in using it in the provision of clinical care. This summary normalizes information from multiple sources, and as a consequence, information in this document may materially change the coding, format and clinical context of patient data. In addition, data may be omitted in some cases. CLINICAL DECISIONS SHOULD BE BASED ON THE PRIMARY CLINICAL RECORDS. [employer] provides no warranty or guarantee of the accuracy or completeness of information in this document.
--- NOTE | 2023-08-31 16:44 | CT_ITS ---
The [address] [address] Patient Name: KRISTINA HINOJOSA MRN: [id number] date: 1955 Sex: M Assigned Patient Location: ER Current Patient Location: [facility] Accession/Order Number: [id number] Exam Date: 08/31/2023 16:40 Report Date: 08/31/2023 17:17 At the request of: CURT TO Procedure: CT head/brain wo con EXAM: CT head/brain wo con HISTORY: laceration fall right eyebrow COMPARISON: None. TECHNIQUE: Axial CT scans through the head were obtained without IV contrast administration. Dose reduction techniques were achieved by using: automated exposure control and/or adjustment of mA and /or kV according to patient size and/or use of iterative reconstruction technique. FINDINGS: There is no evidence of acute intracranial hemorrhage or abnormal extra-axial fluid collection. No mass effect or midline shift is seen. There is no evidence of large acute territorial infarction. There is no hydrocephalus. Mild enlarged ventricles and sulci, consistent with age appropriate cerebral atrophy. To the limit of CT, the posterior fossa appears unremarkable. No definite acute fracture is identified. There is right supraorbital soft tissue hematoma with dermal laceration. The visualized orbits show no abnormality. The visualized paranasal sinuses show no air-fluid level. Mastoid air cells are clear. CT/CT head/brain wo con IMPRESSION: No CT evidence of acute intracranial abnormality. No acute fracture. Right supraorbital soft tissue hematoma with associated laceration. No evidence for orbital hematoma. Electronically authenticated by: ANNAMARIA ROBERTSU Date: 08/31/2023 17:17
[2023-08-31] MEDS: ADACEL DIPH,PERTUSS(ACELL),TET VAC/PF 0.5 ML ADULT SYRINGE IM (16:54)
[2023-08-31] MEDS: LIDOCAINE HCL 1% 100 MG/10 ML MDV INJ (16:55)
[2023-08-31] MEDS: SODIUM CHLORIDE 0.9% IRRIG SOLUTION 1,000 ML BOTTLE 1000 ML IRR (17:37)
[2023-08-31] MEDS: ACETAMINOPHEN 500 MG TABLET 1000 MG PO (18:13)
[2023-08-31] MEDS: BACITRACIN 0.9 GM PACKET 1 PACKET TOPICAL (18:14)
== END 2023-08-31 18:30 | disposition home or self-care (01) ==
PROVIDERS: Emergency Provider Emergency Medicine; PCP Nurse Practitioner Family
DX: S01.81XA Laceration without foreign body of other part of head, initial encounter (principal); S09.90XA Unspecified injury of head, initial encounter; Z23 Encounter for immunization; W18.09XA Striking against other object with subsequent fall, initial encounter; Z79.899 Other long term (current) drug therapy
CPT/HCPCS: 12013; 70450; 90471; 90715; 99285

== ENCOUNTER 2023-10-17 08:44 | Emergency (ER) | payer MEDICARE, SELFPAY ==
[2023-10-17 08:52] VITALS: BP 116/80; PULSE 99; TEMP 37.1; O2SAT 97; BMI 20.8
--- OUTSIDE RECORDS SUMMARY | 2023-10-17 09:12 | XMS_ITS | CCD ---
Author Organization [facility] Care Team Providers Care Youth Development Professional Name Role Phone Gordo White Unavailable [phone] Tj Krishnan III Primary Care Physician Natividad Crowley Unavailable Unavailable DolAdonis nair Attending Unavailable DolceAdonis Referring Unavailable Dolce, Adonis Xiong Attending Unavailable DolceAdonis Attending Unavailable DolceAdonis Attending Unavailable DolAdonis nair Admitting Unavailable Gold BACTERIOLOGIST FOOD-Lizette PETERS Primary Care Provider MARY JO CUNHA Attending Unavailable LIZETTE MALCOLM Referring Unavailable LIZETTE MALCOLM Primary Care Unavailable TYLER BILLY Referring Unavailable LIZETTE MALCOLM Primary Care Unavailable LIZETTE MALCOLM Attending Unavailable LIZETTE MALCOLM Referring Unavailable LIZETTE MALCOLM Primary Care Unavailable Allergies Allergy Classification Reported Allergen(s) Allergy Type Date of Onset Reaction(s) Facility (2 sources) Penicillin G Drug Allergy Unknown [facility] Other (5 sources) Acetaminophen / HYDROcodone; Translations: [acetaminophen-hy drocodone] Drug Allergy 3 Nausea And Vomiting, Vomiting [facility] (6 sources) Penicillins; Translations: [penicillins] Drug allergy 3 Hives, Rash [facility] (1 source) Acetaminophen / HYDROcodone; Translations: [HYDROCODONE-ACET AMINOPHEN] Drug Allergy 3 [facility] Medications Current Medications Medication Drug Class(es) Dates [...] Refills(s) 0 Start Date: 09/18/20 Status: Ordered hojaavel-ffky-LF-calcium &mins (THERAGRAN-M) 9 mg iron-400 mcg tablet (1 source) yqrzdzfu-sgap-UA -calcium &mins (THERAGRAN-M) 9 mg iron-400 mcg tablet Take 1 tablet by mouth in the morning. 0 Active Oxybutinin XL 5mg (2 sources) Oxybutinin XL 5m g Active oxybutynin chloride 5 mg oral tablet (1 source) Cholinergic Muscarinic Antagonist Star t: 09-2 5-20 23 take 1 tablet by mouth three times daily oxybutynin (DITROPAN) 5 mg tablet Take 1 tablet (5 mg total) by mouth 3 (three) times a day. 270 tablet 1 02/19/2023 Active pramipexole dihydrochloride 0.5 mg oral tablet (4 sources) Nonergot Dopamine Agonist Star t: 05-0 08-14 23 End: 04-0 220 24 take 1 tablet by mouth once daily pramipexole (MIRAPEX) 0.5 mg tablet Take 1 tablet by mouth nightly 30 tablet 1 08/28/2023 Active take 1 tablet by josh th every twenty-four hours Pramipexole Dihydrochloride 0.125 MG 1 tablet Orally Once a day Active Problems Active Problems Problem Classification Problem Date Documented Date Episodic/Chronic Acquired foot deformities (3 sources) Acquired hallux valgus; Translations: [Hallux valgus [...] hepatitis C] Onset: 08-29-2021 Resolved: 11-09-2021 Episodic Intracranial injury (1 source) Unspecified intracranial injury with loss of consciousness of unspecified duration, sequela; Translations: [Unspecified intracranial injury with loss of consciousness of unspecified duration, sequela] Onset: 10-09-2023 Episodic Osteoarthritis (2 sources) Osteoarthritis of joint of right hand; Translations: [Primary osteoarthritis, right hand] Onset: 05-08-2019 02-08-2022 Chronic Other acquired deformities (1 source) Contracture of joint of left ankle; Translations: [Contracture, left ankle] Onset: 04-04-2023 04-04-2023 Chronic Other acquired deformities (1 source) Contracture, left ankle; Translations: [Contracture, left ankle] Onset: 04-04-2023 Chronic Other connective tissue disease (1 source) Contracture of muscle, left upper arm; Translations: [Contracture of muscle, left upper arm] Onset: 10-09-2023 Episodic Other diseases of bladder and urethra (1 source) Overactive bladder; Translations: [Overactive bladder] Onset: 02-06-2020 02-08-2022 Chronic Other hereditary and degenerative nervous system conditions (1 source) Restless legs; Translations: [Restless legs syndrome] Onset: 02-08-2022 02-08-2022 Chronic Other hereditary and degenerative nervous system conditions (1 source) Mild cognitive impairment, so stated; Translations: [Mild cognitive impairment of uncertain or unknown etiology] Onset: 10-09-2023 Chronic Other hereditary and degenerative nervous system conditions (1 source) Restless legs syndrome; Translations: [Restless legs syndrome] Onset: 02-08-2022 Chronic Other injuries and conditions due to external causes (1 source) History of falling; Translations: [History of falling] Onset: 10-09-2023 Episodic Other liver diseases (1 source) Steatosis of [...] ago caused residual problems with gait 11-05-2012 Unclassified (1 source) ER/ Stitch removal Onset: 09-10-2023 Past or Other Problems Problem Classification Problem Date Documented Da te Episodic/Chronic Acquired foot deformities (1 source) Acquired deformity of left foot; Translations: [Other acquired deformities of left foot] Onset: 04-04-2023 04-04-2023 Episodic Diabetes mellitus without complication (1 source) Prediabetes; Translations: [Prediabetes] Onset: 04-01-2015 09-14-2022 Episodic Mood disorders (1 source) Mood disorders [...] Facility Correspondence - Woundon Correspondence - Wound [id number]:127 Normal [facility] Nursing Note - Woundon 07-21 Nursing Note - Wound [id number]#[id number]:127 Normal [facility] Coding Summary.on 07-19-2022 Coding Summary. CD:[id number] Gh0bWw +PGhlYWQ+XZ7ZKPBnD21erHMmw V3OF9nDIU8WEXTAGMDPBY4WXR9 bnLT0YJvbI4WyaqXu IpmzjVCaTN06ENp0ACT7aGwrZP imoI3hjPGuB0i4KfGcCE51lE90 LGctHMFhGgP6CuRmphymzFBg C2keTpXgeXFsBcd+PHRhYmxlIH qkARFhTShsFBTeZoPqoMgvQR0a Kg0yUINcDTCsmIpllGZaAbMa r8zyKMRyFWivCO8vzDdlS1AtlM H2EXNze9b4Pv61aAC+PHRkIHN0 eVueNOtlx828TkDde8pjQCM4 kWYlABznFYR8F33ev4G5EFPfZN CdYZJ6vAA1hK3zfZuhhumzV7Hv tTGoQvD6AEN4oZGdbL4onZfl jppdjS8xIei+J37QTM2EMRZFDY 1QVuo3R3IzLinhvFS+KM11LSVc RC74vCTtqZBdh5blrEa5VtZa JDOgXBA6cXpgGSpfa8JgAOEoZ3 0igBRal3U1DIDdiTfxaMRxUoIx xKI0mX5yZRzgrgacw5azroai Ceucr3ejog03vK30N03fSOuzQR LtRMR9DXRhNMEzaEprfu3hxZ7c Ii8+JOhdd5gms0vylQq1AuMi GLJfycArcEffWGZ4r1FxOw87X1 SagEili6SmBmo8mk75iLLaj3K6 gKP2OZdzXBWzqC2iFHmmHoG5 XTXzXfNiaL40kJFoVHmdLd2lpV oriFbzNU0gBPFsvippYYCroM3d WDEkyGEmfEvxHN3iRDKpctes l486SfEnWEY3SDQqeLOlF5WjoB 4eKqKxBDSeMGJlD9IiwFSkQPoh Q701TAsiTpQ3VJCoxuMkF4Wo ZZVekUbnFbW0d8E2Ag8Wh7Rjcy frEUN4HLrtZHYvYoWjFwGkQxD5 E6LeKvi3PERjvSrpEN7sD9Ru XJWifdzumkpmsCD4TDMxNXYnfD 35yRClOCgeAk3bz2Q9r136UCGm XNPwhJ83Uu2xuTzhBTGasTTN fB7tdtfio6twwpeeIuAuISMsVA c6AIm8QXPvjGuvPvUcEVD0OaD6 GNL3oZZzdK7rjXagjflowL3f Oyc+W89yxT3tQER6TZX3htieAA LvapDaNX91EE52O7SvFivczFRv bGU+TXRagmCuqVaoRL6lSwSz l0ufj0KbJVovH8HiQQJqYZepQc y2PODhNVG9zDP4mW8dCKXmSMll y3S7dCM1Q5SormTmrq0pf0qy ZHDcUYspN47voJDsd2X1PZSomM G2QYJhpFrxXuFonH70Mvm+PGNv yEelp5AoToaan0sdc6onuHt8 ZiPlRYOiliXtjIxjXCM5n9HkKi 92O43wMOsyJOEoVISoZDNaYVLe eObwvg4izE7qKi1+PGNvbCB3 zQU9mF9wOVFnOuL5QIgnP129Hy JyaVJlHjdok8ein8xvzKn3WjZv UPSdhaDogBiiGGG7c3OnTg24 X69vAFnhOMHhTCDnMYDfQAZjtS viwl2sxO5wMv5+QK1dp9dtde82 iB61qVF+KAVkLBU6sFmdCKdv SCPjxA9xGZacZrC9KKAaAuUpdU 28vVPlKYawFe4adGcwaDcbWG0g DLGyyfxgp332HaIih2lzOGAz vOWoCCieWZM8T82jw7T8DNXfSW VtKKO8bZY5lC1mdHtfrbthqDBe fTmrwgXvkRtxZSwhUFgsL015 IHRvcDsnPlBhdGllbnQgTmFtZT q4O8OcAjq8KRLmqWgvWI9laOQn USkzPf1rrJhfrJfbTU2tWKAj qjspm807YqDme3beHOWitQDyWN nkGKT3C09sr0L2TYOuAMQeFUP0 dKQ7iC4xxFrurqjvzCLqkLab ifKvbSuqWKauQHlmU178YBPgeO ggXoThusFaCBVmfTA6SN84ON62 pEDiz0C9zFL1C0RpTNXtbtmx tqiolDI9SAVnYFIbiR43Eg4dqK wzJx7lSUXgTGT2EYXlkNClK0Yc kI1hZeGvZPSjDXEbP5OfnCVn HAeqM687NFteIhA5IIHqplIyX1 HyTKYacQzcHwF1c0W6Qi5CU5S1 AN06DG46nYAht4A9jRR2Z7Xy YOXllsaeyrpczBR9YJDeXVKmjD 56Nl2vkYfaIe4bDQFzXRI5PLFt qYEzG7TdkT1sFnYqWGBvQFJe Z3QriMHtRTjcA141OYfyTeH7IN GmkuPvO2HmHQPefMsaBlP9w0L0 Wh1IWOv9YQ69UM29vZWbi8Y2 uEV5U7UuIQNosskkfdvkgPE9ST FbMWEgsY60Zq0zuRgzVd9kDZRf NYA5CJWhyNWcL5OiyJ5bYlNa QOHeTEQgD9RruNAlXMcvW578GQ isQaH8BXHenyQqG8FwZKHocXew NeA4t4Z7Vd5UGHPoGD68VOP5 rSP8FK06DA34L0InRmpuxNWraM U+PHRhYmxlIHdpZHRoPScxMDAl JxVpgDibIR1sKt9lFHRvLUMz bQkpiYToTtVdf6quJKCzMXpiWZ 1wmTghK7WorMH0FJYgj4n1Tb45 H46vU7PrzVO+VMYfqZA3rKM7 bC6fPePbRrX1XQojD415ReDfiZ LuBjhin0sbq4mctOk8FoF7FKUc umMuqUjvKHW6g6FuSx75M61i IHdpZHRoPSIxNSUiIHZhbGlnbj 7zkX6lUm2+SZMwkKA2gZI7lU0z IqXwIxL8HIabP180IhFzbYCz Ztgjn8ksy5jjeYq3MsAvASStyz OkiDtiRBC3m1WzCs48M2OrnLcy x6ZoAuf2di30qKNnf8O2kIO3 T3WoHPCxtrcjbAWwmSvdPF0hFD DjcmrfPMFcxO5vGEXjS0s3XxCl SrR0TXpcS9ZywxZ9OZSsgHUz CKoqENN1N50qf0I5QFYbTGItEB Y6tHY8tK4kqJpdvvxnsZJqjUeo idJlhAvaXHphFCsxO602NRKw iEpcYEWqtL4qSFXgsZUetMejVM 4wNTBpbjsnPkxPTlosIERBVklE KY20I7DeYdk9MYXilVijID3q eKUxOPznXd9ivEcqqFbjAV0vDW JqyvksPKHxoL4lPIUanLKylZkp YK2sFTWomtpgo201KfSdDXB7 ERGxdRShI8HmcC7mFhJnVXMgWV JsK8DrcZImSDdpT709SBrjHfJ5 AYZgwdHqL0SgMVViuLrcWzB9 z3D0Bm8fUe7yCP1wDSI9YJ90PJ 74fQWob4W5wGG2I8HeXBTcsqkb iwgkfHU0GBKfTHFuyI08oZZs UClsTc1ae4X0v025XAHxEPWluQ 53Rh1alLcdDQTnlEUNrF5vqbbr b2czzksrEtZgZITiLHt0KGa2 RQNdkDkqTvGtLIO8HfE8ZWD9wZ UymO5ujGcgtojckM8nYfy+Njgg LKCqzoM0S1DgBmj2BUPfgAql PT4ruSHaHQqcTb1plWlszYwsQW 0uSINgmuerOLWfkE2fZPQmxQZx uLqeYY5lGVShilygo838MxQq OMZ1URLsdRZmG4PknC7pQgZbUA DaVSJfD5IwnKAyFUfvI961XMig LpV5CSSthpGrA9RdDGLwlPux QyO4m2J0Im9PZXyeCF85JN38aB Lvs3A5nGM6D5JmJOHyrfzkygjh mER9OOWsSJSxxT02zRRsXSnj Ee0wl1U9e742MBZxTXMkcL46Uq 3rxWwlWUNiuOFPzV0rdbowu5sk hwqfBtEaCTQeEWl6PRi1KMMf pZwhGtDqBKQ1EiZ6FQQ8zZYfjP 7vjYawoupmlL7sXdk+X5Y4jYQ6 aWVudDwvdGQ+AT31lt69D4Ym RiaiGat6WALnYRJ5jEF2pB8aWS RcZJkdh8Z7wMQ0K6PiznUneu7d x1ynPIRhPVieH12byFIpl1K1 AEOewMJ7WEZalUrpIjDuzU87Pi c+ANMvzLzsy0SgIkdyo4huq3xw nXz3JkXdHMQvcrEjsVzzUJJ9 l1YfIs93V63eZDfmCNZiKGBaAJ ViAITwwPomxi2ybC1wCq1+PGNv dOC5eJJ3wA7oMzBzDsZ5MBte X594SsAepPTwCqhms4lrb2gxdY r7NaJqXTCnqgEifVifTDS0f6Fu Qt85D2XcgBwkw6LsSeo2uw66 oZVdc1J1pCC6I6UgHAGlbzvbpS PodChbTM1zOHTyekiqIHJicX5b MIDiG5l3JvUvCeC8GQfwB3Xi ssG7IFGjgIBeOJXavLEAjB3dvm nca3zwqireAiYvUUJyMUf9SCi6 FSLeuKnoJwIlZCW9ByA7HUN0 tZPghQ6cjAkqojyxaZ5eAjy+UG j9m7lzwEYqDY5exNY7JF06FJ01 mUJvl7O4pUR1U1NfTRSacxht ikdxfKO2LOTgEONxdD41Ga4dgI okWx2nYGBxQVC5LUBzrLXuZ0Di lH6wJdQsLGCmGGWqJ6ItsUVe PBzjO865UBrrOaS0GIBhwdVoH7 KbWSXnaPkzYfB4o2X2Jz2WFE00 MJ31UH73zMCtd2W0tYL2X6Zb LSHfwmlgjlvcoJO4XMPhIZNlvV 88Wg3byLpqTy3fOYInMBB0EJSc uEGgD4XjkJ6eDhTkRGIqKIBs W2ImhVZsPMuoQ680STzyRjW6BG KatrXbQ3OsWYWntZimGnR1y0H1 Pr6RZf50NY35OM57dMWhb0E3 zGQ4K4CaYGOscmuusgkfvLX4HU ScSHClwO18Sh1iiOdbFu4xSJRk CNN3XGKdoEHdJ1AkpY9wViNf PFXlZPUkN3NvjKKwAPinI685KM kvKkY0RNEqubTdZ9AtBMYaqEdx FyC3p4X2Zp6QMTgryhd9J9Le PjwvdHI+NU47WOEfOV94aJYxiR Luy8qtiPg8EvBfXOQgKQO9aXqm SXsau0RlXWGcI26bvISpu5E4 IGNv (more content not included)... Normal [facility] Consent for Treatmenton 06-29 Consent for Treatment [id number]#1.00CD:127 Normal [facility] Multi-Wound Charton 07-18-19 Multi-Wound Chart [id number]#1.00CD:127 Normal [facility] Nursing Assessment - Woundon 07-18-2022 Nursing Assessment - Wound [id number]#1.00CD:127 Normal [facility] Physician Orderon 07-18-2022 Physician Order [id number]#1.00CD:127 Normal [facility] Progress Note - Woundon - Progress Note - Wound [id number]#1.00CD:127 Normal [facility] Coding Summary.on 07-12-2022 Coding Summary. CD:[id number] Gh0bWw +PGhlYWQ+EZ4TUDUyV68kiTYql Z7UG7xMYE4OMAIMPFUYDE3HRK4 slEA5KGbzW0XmmtMl XoigsRDpKH61YCb5DGV2hWliRZ xeqC2mrPQxO3r6OaQiCA71tS79 MZtuHFUjQpL5XhLjuqnnwRHo I0ajMiOjyNEmRzy+PHRhYmxlIH qgTOMyHHsvAKLkXnLfePxxVD9p Bn4vRRKyXTQdyCchjWXtSvHq g2qcKIOmRHhcRS5mjAatH0XibW R3BDRof8v5Mw12fLL+PHRkIHN0 dJmiZCnwi890YbKlj7itESC6 gGOuDVxzIND4K20jr6L3WTLlOG PfDGF7gPP4jE2oyAylojnoY1Vo bPGzTfW6SIU2bDJskT0qzRuz smtryY4eNey+A45VCJ4TRTVSJF 5TQqa6E9QfVglmdTD+XO41YRLd MF57dZJolKReu2tcqGn1MzSt GEIpETQ9bQsaNUcrc8DbGJRuB3 0tqHSvj2R3AMJupVttlIEyAqSa eKN0sW1fVEtbsxbux3jzjxlj Rgscf3tonx43mY86I54mSLssLH QmSMM9IAAqEOZudTuvbd9ffR8f Ii8+SCoty7vbz2stoOa0HvLr MCLjhyYluVymAAZ4p6NhUm31C7 UueKghp2LoVhw3nh06bJQyd7H3 wLQ4ZSsdOTAdoP3xFZprAfT6 WQSqUcVgnS56zJQdHVfpFj3fhX anfVekNT6iCEVtjoqsOSRxwN2c XNLluOUhmOtjFS4cYYQgbjij d837UjRkUEA5PKCqcMVxF0ZbfA 4nBmOlVLMcSHPrT7LdjGGfUTyx A278FEjpAsG1TYYptqNiH4Mv TZCwvYsiKuI8z4L7Mz1Nx3Ugrj hdWZQ7ZRuoVFPhSmD4QaYmGjJ5 N3EoLym5TSFaxJfbDG5oP8Xj EHHoqltvbwpvmND0VBVxPYWugF 88mAEuIAhaVi4xu5Q5k912PZAl ZMKrsS20Mo9tjRruSSAebAOW bQ1drxfop6qucvfwRbUmMDDuOA y3HAt6PATipBkgTjFuLAM6ZyB0 KMC7eNFkyB3kbCgyjoxkzT2h Oyc+G84heZ5oBVX7OIF4bdumLU EgloGaKM81QV04P8DgQmrorGCh bGU+CQVnuyPtwNpyBS3vXcEm m7bhx7OzZMkeW2RbZHMsIJpsSw e1SXUuCGA2dUE4pO4eJIDzXQce p6V0qOS2O9GfpxTung3au2qj IOBbGHfiL18rjLRcu3G4DJBhhZ T4VXJpkPqtCwRhuM42Fat+PGNv cLvxp0EvZljom9ozp8wapZf9 PqEvEPRpzqLvbLboVWV8w1SzNd 07U04nNSxaFKSpGVGcABRgPKUo uKslgr2sbW6mOb9+PGNvbCB3 wHS6zM2iIKEyPaX5TOnzL733Wh VycWHjCtzpq3tzt9dtqQb6MzPg LYGwpwDjlTdlIRN0r4KxEb34 E71lOQgvZIMsPRZkRZYgLQXfgA bccr2zzD5zMg6+QX6jq0pusj68 lH64aLR+EQKwFFZ2cDydBFza BYOcrA4oGMwfVlB1XLFfUdDfmL 40yQUsKYtiNt2fpFowtWoiJA6s YRQgxxfyn224SqVvk6plDPEm tXPtESbdRES6K77ns8E8HXBfTQ DyUJH5yLK8rX4wrYuyghdvxOAn oNjqsjNhyQilCQcyZDnmC679 IHRvcDsnPlBhdGllbnQgTmFtZT c2R3HsAhp8HVRqmIhiRY7zcRBe FKdcIr6stXuafVqoON7cGZAh suozq416NgCvu2fiJSXnxQVqFN xxFCG0I79gj6D7AWTzMLKjRQT0 zBR6pD6aeFseqeaehACinJqp duExnZmhGJfmPSguP534XINwcC tuMuXrngKeSAZbnBV5LB58VK36 qANkl7B0sFE0K8BtTIFndeks oqtcoBB4SSQlIOGuzF69Cm2mzQ vjBs2yWLCsCBK9BPMamXFgC6Mc uM1iGmPuVYCkISPmF8HthCHn GOczB232XFdoAbL2ZGZwokHgO1 SbJPLldGpoRhM7k3O5Uf8TU1L2 YR08HO16iMTxg6N6jKB4A0Ma UYCrxkhjaifpnXS3VKJeQOQfbS 66Qf6dvEhwQk5cZJXlVTX5IYCz bOZyP4GphS2pQeYyXOFdCGNz Z6AdtQNiSHgsZ476VTzgClT1UN RlkwTfB8ImHYGbtKqkGqX3g9D5 Gp9NWUc4MN99NH55hRKch0H7 hWL8K9CjTUQzclyvvmejdHB1AJ NnOEHbiK36Jo4rbWarKe4fVJHq IYY4BIKukLWhK9WlzY2rYfVw HZLkJSQvU0AvjUMcSIutN098ZS qhUoT1KCCehtSvX9TuMRJcoXrb IhO7e7I5Pk4QKRHyAU06EVT5 nWX5VD86BK16D8MkQyrxxRRkjB U+PHRhYmxlIHdpZHRoPScxMDAl CeMolHoaHH3aLl5pTMCnYKNz rCedeTTyNoOtp8krNKRdMKgqNL 0lkNjnJ2VfoPD3BXAeo1c5Tk20 H48xU7HacXF+HGHrpBP5yUR2 oW0uRsRxWrI3DOyeV534OcXnhC LuTbngp8zqw4kxqIc9VhF2OSUr fgOkmVrwRLF1q4UgSe06K71o IHdpZHRoPSIxNSUiIHZhbGlnbj 3klH9mIq4+GKOreFR0kQL0pO8l DvVtHcF0ZIizH867IhFleVWl Ffkcj2prt7vgtXz9TbGpDZObel JulQddCSE2p9IwHa70J6WdyKno s3RvObn4xx20eJYkg3Y1vRY2 G0VnAOKnapxwuCJcpKzmFE3jXZ BuqjqeHGTbvY6wOLLcB0p6LcTq StT2SGztB9HlhzT6AOCccXSl HDvhTRV8P34he3W4OZUvDHHwFY C7hTP9nE5vrRpsqyausJPcsCth snHvoBzpDBjmTXckP831FONx aGdjQIWtvJ7qQONtlXSjxYssJU 4wNTBpbjsnPkxPTlosIERBVklE BX95K0YuYos2DSSlgRztVY8j vAYjTThtXj9qxTvjlMdlIV6wOL BykbmzRYYsmI9kEZQmqSYtqNws RM7nSUDhojgao324KfVsYYO5 CNAccXKkK5FfyX7tVpJlUKYzNH ZsO2VzxMBwEAdlG919PCqkBmN3 IIYhjiWrZ2WgNPPjkMgvWuQ1 r7X0Sd9nRl6bHA1lDAS8DD20KG 75cTRrg7N7cXI5N4FeENTlmaui qodujTF8MOGiMJAubM58jYGi JUafWn9dn0K1v549VRDdOCVfuD 25So9qxAvpUPGznXMYnD1kihlh h2mhtttrOkBpSAThCNv1WSt7 TGJglEocPaBkKYT9LdY9QAI1wC TjhI8tfAptlgyrjB1tPoq+Njgg FHTbsmY0N7TnNus9RIOnhEkm JG8pjVKfTFxpZt4tbUcdoXgpOL 9aBXUghqpwNGWcmT8eVKYnaBVh rAmoKS5pUXZpxlllf613HsKy OMI9RXMceHIcO5BxzQ7iCpDzHV EqIIDqS5PreTCmDScuB401NBtu KrI5DBCplfHvI2QvBTIdwVcp UlJ1f6Z1Lg8DKSjyMR17VP65aX Ata5X3gTL2T5GeWXJvcpodmgyj tAC7NMYkVQPecG42jDKeWPxl Bc8aj2I3u561WEHvOUDwwS31Pt 5ojKibSKEfyCLUdB3skkljl9va lxerBhGnSPJeYWv9EDv4WUUw iJnfTkRcPJD1UfN2PEY8xLPjnZ 5qaEfvoularW8wPfl+F0C6eIU3 aWVudDwvdGQ+BD85nc90Q4Yg JmsiZpe4ZPZaSJK3pOU5bF5pKD KaYBbbp2T3lRV6H0EngaJscf4h c5vaEZFwMHtqC98xzXQri3I8 KRGbtGO3GRCpwBeoOuBvdR09Jj c+JKWrxNkad9FsEroyj8psn3fj vZz5FaUkLURqhxNxwLibJOS2 y3FwHm55E09rITjiJJYjFORfMD ApNQSvzUalfr3riU1fBx7+PGNv oYQ8dXP2wL0tUtUfEcY5EDdl J985YqKypDTrBfonm4off0snlD g9XiSkASYefpJheBrxWWW9s4Gs Ye86S7AhxGubj6LzKoo2wh84 nUZtx6N4zTW5K6KdXKVxjkahlZ KktFziKU3aWIUxitfiXDQkjQ3m ZRCtY2u4RvYiUiA9SAgyM1Hg lwF8ERMdxJDmHOMreHROvB8mvs jsw0bweyynMxQbNHHxMNu4XVp6 IKDsdPhqBbEqAYQ6EsV0NMG3 bWRozE2qxFvixuwltZ6eEnz+UG j7v3pzzOXfBQ1znZT9LP88OR48 kWOol9C7lDS4Y6MtYJMwpngv evulsSJ4ZMAkBSNljG13Vz4cvV qoMb2hSADaGWQ2YAHvhFKlD0He bU1gCjReOEHrXTPaC3KmaWEj BTjtN995QYzxYxS9OATpjgIvR5 MtLYJhrVuvNqW8x0T9Ls0NZZ34 DC53NC21eKMyo6M0tMC9U6Hu CTEolqbfnmgjtCR2BWGdNJBbaJ 67Xs7xsXmbOa8cWITiKRQ0XNTe nVQpF9JkoI4rGtKmXNKbSUUr H5SlrTDgQEcsO324LUhrScM7CR AvuyIkW0RjNWCzpFolBhI1y2Y3 Xw3QLe01PZ13TD50cPUms2B2 oYO2T8EfBIQpuatpqhikaFK8TZ MtMGCssH37Fu8hlUzgNp4iDVNm YCX9VJZfkMPoJ1EviX9sLeVe ASPbZDDiQ6CtoNPjXDggA289UH uoZlL2XXOhziEpX4GhFXFlrAxo RvA3x0Y8Zv0ELEzwypu7S6Ha PjwvdHI+EX95WXUfMK51wOBciB Jfc1wrbRy0GdCtJBXbGKN8vPza ZTbuw8GmOKGzJ76elPPbl7W4 IGNv (more content not included)... Normal [facility] Coding Summary.on 07-11-2022 Coding Summary. CD:[id number]:[id number] Gh0bWw +PGhlYWQ+LG6MTXRhJ25ilFRdz K7OC5mAZV4KFRTOJYJHTE2XQT7 wcMX8RFliM4JittHp BzlakMAjHY11VFa7ORR9kIhnIS nguA2cuVUzU7j1AkHxML50eM13 XWftWYAuOzT2GiYlnvmqeSEk A2riIdWysEVtEtz+PHRhYmxlIH wwBMJkKTdcLCTqXiGrwVqjIM6m Tz9bARWhTESblPrpvZHuBpIl b0dvJZLxBOxxZD3qqTrnO8AdfC O2XERpc0j1Rx37oCX+PHRkIHN0 aPdaHIvbp994McHen8dmAJB0 mXKrWRkkRNI5X81gi5K9CFHfGK NlXWI1sBT6qB4kyFnxobssH2Sq lLZyRbD4ZVT2rLOjeZ8zdBfd mbwhuB5xFzd+D41ORD8IRICGZK 0LOym3X4GySobonCY+NC10TLRi YY66oVYogSSct8szuOu3WvNe WBQfJNQ6gRnnUNfjk4ToCKEhQ9 4bhTQrq9H9LIKwjYpbgDElYxKu tEZ4pI5fVFjycrody3fldnic Bnczo8egyb69bR02N85bDXbwEF ViWDN0QLCvKWPrvAmalc1vfQ6n Ii8+DDymw2ioo0ertXr9OmVw ADAzzlTraEcyNSZ9i8CkJi09M2 HxcUxdf0EtPde5jn74pVAbx6V6 fVS8DVfhQGOteJ4nVJsyPaF6 LXEqNaWjeQ66zSQoHWcwIm3ydQ naqUzwCV1vWJMczpavVEMteD6v ULZtdAPiiVdlXR2pVUNhbovp s824GoUhLXO4HVUgfPZuQ1JaaQ 1uTvHuSDPgAYItN6BbfBVyWKiw D620SPowTdB5OAYlsdFeL9Fg ZLDilSnaXfT3t8S7Uj3Im9Aiod gqZBD5HXuxXKSuTiL9JoErBdP6 D6DpGnk7COHrtUixYV4sR3Sm HHNticzwdgtypJM5MIBoKVKmrM 36nIWcLFcdLq3wk6Z9r666ZGTs WYBktY35Jj8kdWtcJIMbqWAH kZ9kcjmyz7rvtkojOnVcQJSeSW f7CPg3GOYzeGfvQnBnXOA8XlL6 VJP6jLVdzZ7rjUjegnxizR8m Oyc+N62gkK0eFRU7EWE9zmdmWC JujgNuIJ08QP14A5CpWfbgwWMy bGU+GZRiyiOipNatXV0lMzJc b8owj4NrCVyiC9RjLOJuIKqwJt d2KJWeYBL0hTQ6bJ6fBYQnIOtf l5P5nPX1A7FfzfHhwq0fe0on XVNiDDpwO59rrHWjx5V7HMSxgV E4QHOwrYbeAkQdfK73Qes+PGNv hWmye9GsOcpiv4rqp1gtnVt3 KpKwOUOsiaItrRcqSBB9k6GnVp 65D13eXSybEMPhRVYgTFGlPCMm aKrcmr6adQ8sLg7+PGNvbCB3 gCU5dC3rXUInGhT7WWoyW766Dn FpkMIlQfznt6fin2pzdHc5OeZm ROKmviEpcAxiCHE7n2FhXx37 H79bEAnhIEVfECKrXHDyFGQtuA dedm1kxE7aHn3+YX5yg7ebri82 hB35sAN+KNIwINL9yIqsVOjd YPAvkM2oZIjiPhO5OGMtBwTwbA 78bFTqLVlrPr3jpQunpZdgQH4z RPQzalcob027LdJci2qrNWSs pYOuWJapWRN5H85kz5S5TWSrUF MpRYW5kGA4cS1dgAbipyukkYCv qOihwsSduCpfCPhhSPuiS173 IHRvcDsnPlBhdGllbnQgTmFtZT e0R0GgKtw3GMAvdDdgUK0uhLKv PHbeXf6agBztdEeeDV3cUZRr siuxq869EuFdy5riEHRvmVLaLI gqMFF3J27hi2T2FNQeVOReBUE6 oTE1xY0drHafswedlPNstCex feZtqKjlYBzeRErcQ518KLJjaZ iaObFubrLcICCheUH9PY58IV89 qZVdr3Z4nEW9Q0SmWGVqiova jfrwgEJ1ZGSxHEDibJ27Dn6rzM xxZi0uGIVfTNA4LEDciGPrA0Mj sO3dXkMtMWXeUXHeX1UluTSo TChcP965GBmvPwN6DSYtmpUuT0 PpSPDtxLawQvN8x7Y3Gh9EA2A0 RG16RA33xJHos6Q8bSW9C8Vj UAGartvhhobqfDO7NOEbJSXltB 68Nc0mvNsgWm7jFQLjYAF8BHSj dFUdL2GmxK6rMwXoOEJuZJHj Y9CsiCRnCUkkR428UDtsOpE6DK WiecXwQ1KzEECcjQodStU3p8A9 Ik7GATk7DK04ZD11uXZif1M4 xOS4J6WgTPOfiodulsczbCJ8NE KqINNecA79Mt9bzXuqKv9fAADc XQQ6MYKleHSxX3IiwR0oChOd RYLrARFaY1ZdoRDgOMboF791ID awTwK0EISsfeSgU5MdQFQagCgh TiH8z9J2Bm6WOZBdHJ47JTM7 pWD3JR89EF86U5ZoMryjrDCcvH U+PHRhYmxlIHdpZHRoPScxMDAl OvZnuNzwXP4hVv1bESUmAZVx tYxvgUBmZxNqk2dlTDYiHUfrIW 2myGpkH3DfjUD6FWYoe9h2Lv54 T31zC0BduDF+FGHqhPR0oZW8 sA5wHeNzPcR7OUaeS617ZrZldA HtLvnzz0vre3bpjAx7TsI7AZQh xrDbhPgfZUB7f4JfGw21M49x IHdpZHRoPSIxNSUiIHZhbGlnbj 8joD9tHy7+DVQtqIZ9sDX5jU8n BlGwCmV8NAbwS669IyDzpZZl Rrxlg0xol0usxSz2CiUkJSQxsf MujSsfYWW2x7UyNq01V7DqaYqz h1ZzRnl2il81nSWdo0K7vIV3 F9FvCOIjkqqxxYDwfSauEN4yGK DcallqPRIlqG6gKDJbR8x7FgFt EeM1PQwvL2GuxeR7INNkuNJc VMazCLG6R81wi8W4YLNmYXQgCJ G4pPL5wY3kzBeruasecFQelVvp wgFvwQhzARpvTTvyB334MBHc xObbGRIylI6zJPBsqZXfvApyWM 4wNTBpbjsnPkxPTlosIERBVklE GO80M5JkFwi8XNIowFxlQU0p uZDaPNujBg6zaGqtkFtyJG9hPV AcbjrqRKKtxD4cHEDjpVJouZmx QG5nQPAdeyyzk893QhAjBSK0 JPBybHZwL1YrzG4lAoFqUWRzJA IlC0YgbYUcYJfcN396HVyhKoJ7 UHXrngBjZ7DbJCWivYonQqN2 h3R4Qf0oOm4cUN5iZQV3BL32CU 55zPHgi8K2bGW4J8BeIVDvghwj ndxrkNA7AVSfZFSzuY89yLMg YXhfYq4yk4V1s911LELgCIQfsN 10Hb5elUqoXBDorRLAsA7wkqhh z7yzbpigXqQtBEPhPHp8ROh4 DHNjhSdmPtYjKMP1KuU2ZCE5iR QkkA2koWcxbzsckV4rEbv+Njgg JLHcvgK2C7XuMtf0VKKmgYwv DZ5khGKoOMclDd4bqElvxSluHP 8tEBNyoltnOEQfaL8oAODqwDBo yYntNX1qCKMqcclis122JjEo LUV6QJKcaNSiR2FftR4uAhHvZA IzHEKhG4SyyDQaLIpmG846YXnn QgF7NOQmfnOrP5OxQMRuiEtp ShP8y2D4Jk7QAIgrXB95GF39tU Bdg7B5yVO7W1WzAYKxwgudrrek gNY2OVAxTXCcjW69jBFgOQts Ye9yj7F5f286OLUgEQSefI04Mn 5dvGrfEPDszLCJfN3waocix3en kqaoOdTuJMXzZEj6TMq0WXZi dAkcEwRnNFF8NgL4CEJ8aLXdaQ 0dzIzvhqufwK2wGnx+L3C6tJW7 aWVudDwvdGQ+JQ67nb36N1Fb HvcmIif4YKVnKXD9sNU3gY0iZG IjYRkky8V8cGO7N1XdbiSjzi1a e4ktDBLjSTmoC12hxTStx4Y4 EZIygWT3OMPevJvyCdPsmG30Ke c+ZQWvrSsdk0SdFdmig5apc6ld lNi9TpGoHQMqydAnlSpxPKU5 p8GvSk70T11oQYotLTAxAWUaCY ImUKDkmQdjhy4vuG8vAr6+PGNv jNA4fWL7sX6hZlXbCpM7UHjb O353ZdRsxCZyEhaup9bfa8vaoI j0VdVrGBYyzwTybVqmIDX3t5Sc Qw10G7DhpExvh5PtNdv4aq27 qOVcf4N0nUB8W0IdGGGmafvvgQ FonMeaGG3zBMJvgipdAJScpB5d OVHhC6s5NlJuNeT1STirQ4Fc mtW5BBAmaDEdPSRzmNMCvB5fam ubc1jpolvkXpTeFWKtCNi7NJl5 AXUsaDxbPsOfZKJ5HeP4HEI7 gFKhgU4ksOpthspylL7rAlo+UG g9e8fzbRZxEP7pvCP2HA66FD95 lOIfy0U7bNX8L1TrZBFhbjuk jxdwnOT6LFTuEOYtgF04Cj6gfV phXv7gUBOkQYJ3CURdaJGvR7Ag wN2qLgZkXYMvIFPjB2PwyPUs VFjtA871LLdcFhQ8LEYpvnJwZ5 HiCGIarPjkNpP4w7O9Ij4FIE33 VV24HL14dLMco5V6uDS1M3Mr UTIqroltqpicaJC4PCNuDLYrkJ 26Rs3nfNxuSm2fHDIxGYS7GQJs pLIhP5MksO6sSuBzYWJwZZBx K0YrcHDlHZvoH019DSssTzG4OE HgcqJiM1TeVNTdaChpSvK3l8D7 Ke3EVr83ZU42LY67pNIle4K5 rVS1I3QdGFEtdtltqcjmvSP8SR NmXPCtbH06Sa7nmFmvIg5xTEXl PAV9XIEhcPWpB3ExrY9gPeXt PBYjQYGtI6ZgpLKtKHqpD173VH oxQiK1SSFxfeGcX3LcPHWsdOya XlM3n8Y5Li0XBIvhqal2C6Ef PjwvdHI+QV29GEOlNX31tLEhxM Uzl8npmRq4VoVkJGOcXXL8fVry WOzeo3NeKUNsU66fwOAxm5P3 IGNv (more content not included)... Normal [facility] Consent for Treatmenton 06-28 Consent for Treatment [id number]#1.00CD:127 Normal [facility] Multi-Wound Charton 07-11-19 Multi-Wound Chart [id number]#1.00CD:127 [facility] Nursing Note - Woundon 07-11 Nursing Note - Wound [id number]#1.00CD:127 [facility] Physician Orderon 07-11-2022 Physician Order [id number]#1.00CD:127 [facility] Nursing Note - Woundon 07-07 Nursing Note - Wound [id number]#2.00CD:127 [facility] Nursing Assessment - Woundon 07-06-2022 Nursing Assessment - Wound [id number]#1.00CD:127 [facility] Consent for Procedure/Surger yon 07-05-2022 Consent for Procedure/Surgery [id number]#1.00CD:127 [facility] Consent for Procedure/Surgery [id number]#1.00CD:127 [facility] Consent to Photographon Consent to Photograph [id number]#1.00CD:127 [facility] Correspondence - Woundon Correspondence - Wound [id number]#1.00CD:127 [facility] Correspondence - Wound [id number]#1.00CD:127 [facility] Correspondence - Wound [id number]#1.00CD:127 [facility] HIPAA Forms Officeon 023 HIPAA Forms Office [id number]#1.00CD:127 [facility] Consent for Treatmenton Consent for Treatment [id number]#1.00CD:127 [facility] Multi-Wound Charton 07-04-19 23 Multi-Wound Chart [id number]#1.00CD:127 [facility] Physician Orderon 07-04-2022 Physician Order [id number]#1.00CD:127 [facility] Procedure - Woundon 07-04-19 Procedure - Wound [id number]#1.00CD:127 [facility] Progress Note - Woundon Progress Note - Wound [id number]#1.00CD:127 [facility] Correspondence - Woundon Correspondence - Wound [id number]#1.00CD:127 [facility] Coding Summary.on 05-30-2022 Coding Summary. CD:[id number]:[id number] Gh0bWw +PGhlYWQ+IP0EBKBaA21yzQBtc F4EF5wEXC1TWUXXJOAQVV9HIW1 vvLP2COtlZ7TejvUe WnnqxRTdWS54WEf3FJX4yIruVD jioU0kxOTrP3y4QbTrMS70kO67 QUdtJLKiLeJ1AvXuvnmfyDCh H0xwXwCytCAwEoq+PHRhYmxlIH lrHMSgYDxzFDRwIfLfwQqjNI0t Wa7oONQiBQKbxNvksIDtSaEh a0mhUEWsNIqdMJ6cdHlnQ2IciN C5WADfu0f4Qm04sRF+PHRkIHN0 iScdLZssn913UcAsi8sjZDU7 jCBaSAnvLWF7X71bc9Z7LZOhPF OcNIY6tOG6qM5nrDafaarnX6Us vOBdTuJ9YTX4eUSmrU2gtKba rrvwpX1nXbw+W87OPO8OJOLLHP 7LDyq6B5EtFqjfiFY+WM78ZEYi TL55nMLymRLlu1pidUv7PeAy JSInUOS8iHqfZNikw8YzRSZyH9 0fiAOij6U7SWLntWljcEVzJkSi uRH0rB7wDInsobycm0sabeet Miqrp5pden70fP41Z32nBKyoGD TaXPZ7HLXcIOVnjHchup9nrX2z Ii8+SYnbn7jhk0vsqOg5NlRp TEKodkQxkYwfPHS0a8TnMv36V2 YwlQkpd5EgOln3sd44cUOnn3E9 oSW7UCvqQUCsuQ1mGOjnJlM8 WLVeNaRdcP92jVQlPNqdNy5hkB yknKlhFQ9qHMThdgdiPQDcuC2b ZOLblCAvvDxqEY3mILDwjtmb q177BfYoGQL3XZRblVHhA2YakQ 7mTvWzDQGyRTOkA4ZzaLNfVOlp L029PDpiDtE1WENukoEhD3Vd RRKnfUyaTlQ7w3B3Si0Ca4Rzpn eoYDR9VYarSQXmIrQhSxRaFxV9 E3AbSqq1SCTkjRojWZ0iS3Dp DKGvbhcbbwvhqQM2ZMAbYUKgbL 23qSFzCGysSe5sy1I8h375ZFRm FQAxkY13Yd3toZmjOQMnuBAD lC2mvzatq7jigydoAtCbAQTpWT d7QYv1JFIfdPhoDmGwVDO1LyS3 WBL2bBQydO3nnRjbwwnqkP7h Oyc+S67elW1bMDQ2XVH4bnjbJR LbonJzFP23NO43K7WcFpfmyMVm bGU+WEHjquOhkWisKS8eWfIb k1tud7ZnTKmsJ0KtDKUyRBcbBn g3AYOwSZJ7lXF4fX3qXBSsPLll g2D2yID3C0FsgrWoix1jq3vg TROgOIppS02dhTDvv4M7RWNqcJ J7WUJxpZotExCpgR51Npd+PGNv aWihn6JtBlhgv6uem4hkkPw2 OqZhHXGodsBnlFbbFTE3d0SeJw 88Y46lVZpwHFCkAFWsYJJaEUBg lSjkag7vtV0sDr6+PGNvbCB3 iHU7kQ4vBZVzQpN1CMubQ992Dj HrwFJaMheco6zxl7yrxCi3CjUy WKUtugRfnBgzMIX5o7QwQe05 M66vHOoxBEOdIJUyWBAhVJXglX ahsx2rjS6lBz9+UF1mp4obna31 zY59oAL+FUZiOYC8uSsfZJrv DENyuG9oUVuaQcY4HSWoFrOfmQ 12iFVnWCtrQq5hnYulvOegMT1k EUTrkkndf113QlDwx0ltARHc fWPbCCbuFXG0F63hy6C6XLIcZI VkMKF5wCR6xQ4rrGwxcnjbpZDw rDzryoElwBaoIFffWBsgI861 IHRvcDsnPlBhdGllbnQgTmFtZT g4C8KqEph9PLTwmVpeHG6clDGw QJniKi5ybPrszLheYN0tPRDz cflpg655LrGmk2qlPGWljXRiZO fvUQW9I37fw9R6DRRoIMUqXHP5 eMJ6gZ6eoYsgsprwrULtdUjo bqKoeNwdDNlgQJcgN432NOAqjP oxDdTbwvJcEPZmxZN6LJ01XG75 nRIha9U5uWC5T8JlOPJlbolt qhznrIL3UPXxAABumB46Nq4xfF vjYp7jDUXaKCR0BPWhgMYyL0Gm rZ6qArJrMOFzCMPsC8AhbJQy PZqwE508WYboPxZ6BFRkotVsA5 HzHHEpwHipCmD6y8E5Fh2NT5Y4 OQ69GY84tKItb0R0kYA5V7Vf WHGtftrstbuflXJ6OBTlTFEwkD 08Mz1pmEmkHd2sXJLmAOQ4NXYf xBHiI6HvuR2uOdSgGTKrNKWn F7EclMSrAFcaY870VXjkRjT3MK CxfkZzA7KuTWQnyBljTvO4l9Q2 Vx4SHMi1KH84QM77lSSjc7X8 pXY9B3JpQKIqlqrbiitclRD0LF FcTTWsyX08Wg3jgFiaVs6uZUGs JTE7KPHtuXSrV7HjbT4oFaDn LOElQILiS0FdpPYtIKopP266QP ihLoQ4GGLvpnIiV5BhUPVvaCml DiE6y2C5Mb7EHHGoQA94GYU8 gPB9TQ41TR90I4WdAjupnHNtqA U+PHRhYmxlIHdpZHRoPScxMDAl LhCtnVjnCP0yMb1rZYXhIHQc wDdzdBKjMsCxt0akLWObEFtlCM 5yhNglN9PjyMH4FFVht3h6Rg56 S26iU7XsmFG+CDMprTL0sIN2 bC2mDlHvZqO2KMgwJ765KnDjtY SrTwbep1dmn8vddXs8JdG4DTRq xzEemHaxBLY6p7HrYx69B76k IHdpZHRoPSIxNSUiIHZhbGlnbj 9ncK2hLs5+YXWqsJR2eDP1aD0m LjLjHlD4QQqlA394IkDwgQKv Oeesd7twn5sgdGg1QnRzDTSzvk XdmMrvYEF4x7XzPf97J9VhpPrl i3EeKuk7rg79zHMmi1I0wQW7 W3RpYTJmzgxrkQReoKxeCV1wFJ JyeuaoDDYodZ8mUFPjJ5b7TgHn TdU1OBpwA6QyeeT5GAXveKHw JBjhKQR1H84sx0R5BQKyBBNeSL X6sXW7lC4jpDqmprdosGTgkQnb ipWwbJljUYgqXPcrE258XVGw aXarRVPgkR1lVGPkwZBerSfmOE 4wNTBpbjsnPkxPTlosIERBVklE AC85W8RwIay5ZQKurNiqHL4n lVHpWJjoXm8tfMehpVndXX9uJF SemmwgWUEmjQ3lZUPuqIKvdOll MG9pIIYuoonle748RzBdPYK8 GGPryTArY8UfpE4eWpVmHHDbJL UtF3RxqLEhHZstW664OWibItH4 PACyvlJvF0ZzYLCjeRpuGrZ5 p4U9Ob5pGa9yDH2tWQA1BG22XY 71hAMen0I1bDP4R1LrJLBowxcq hyypgVX4FVPuFGFkfN29aKDk WEbkZg6da8V9d709GZYnVDUmoW 23Wa5fcGvrMXOveEKXzJ4hhwtq f8roeavcPwHoWOFcTMx8WUa4 KGMvtYnqNxPtEXG7ToS6YGO0bK ZkpQ0eiPfbesddoX1fKea+Njgg GAYvpzR1T5PfUlq2SYHmqHyx UJ0dmTNuKJiyNr9vnLafkIwtMG 7eZWEhgcpvQDOuvZ4eEXDxtDMp tNtcWI0cXKOtiyxsc180LzWm UIG0KZIhiSGvB2ApoT5lAuAjBA GuPJGaI1CahBKxEVphE273XAoq JqB7RMRmqlUtW5SyYVMdiNdr CpD2i6S9Tz8UDKblTV36AY74kU Rmg1Q4tRW6E7RkYHFpyrtjoegn hJN2BPVyCPVdlP82cWLsYNee My4sx1N5u515YPCwVUOwnB32Jk 5deScjWQFgdBPBsM8pinzqn5iq faovWhQjGIBxTRi9GBw3DJEe eHcoPyEgJKD5SpS6ZEU9fQNtbK 8bfKrcvyabcH0iCrc+TGFiIERy a5Xje8PmFW76OJ45H4OoRqjb dGFibGU+PHRhYmxlIHdpZHRoPS dzJCXkVuCteIwdMF2wNp7hMFWq GGGpoZwkuYVqQcIpo1jbQALd SHcsOY4thDgeW9PsqPD4FVCul1 k8Fy40F17nJ0VysKR+PGNvbCB3 nAY4rE1uBhVkQyP9QXudC176 KaLtlFHlHhsmq1xov4shuGk5Cl EjJBLqrvFexHarGKW7o6DjLn88 I72bOYjfXUThGQKuKFZeZKRp tObhdl6esH0ySl5+VJVtcVG4qL Q1nK7zVoVgMpI6RMxbZ486ImEy dYAfLjdqS45sR2GxzTQ+PHRy Xqu7BOOlyRaeJA6qnHScWQubKl 7qBHM7OnRwIrUfVKpdV3ViWWJl xucfcxcqlRH5OPWvXSFkuU65 Ft0pfDowZf0wJJPgVDU0CEKoxA AnM3XzpG0aMsBxSJZiCOUzD7Ku jUDlFBgnR732ECgrJlU0UNHr yqTaR5FhEVSnpOtyQdS4q9P2Vu 4MfQtalBRtEW1dCcQvZNs9O3Zp Ixr6MMBkuJxgOQ7ywLLvINco Qi2ehAyayRziZR4qKKScsyuat0 17HkXbe2vhTQQvgBIhIDvkZCQ6 L00jm5X4HKSpMKVjBXB3rRQ6 kR1sbXvvmpvthASueTrecqJbcL ttYWwlUQagI290VHSdrRrdUcQL Lzr9Q6PgIzv7YTGyrHcyHY8q eGAnTXurDq3kgItlzNnuVG1cFE Alniayf062WaPqa0ssFEIkwQLu RAwbAYM1Q66eg3A6KVCvNUKo FGU4zHC2sU6nzRqamoufzYXjzV gvunAwjWweNDntXWhuO643FOXn tDtnLb4CAck2F1KdZax5SYUi lNkaLP8foGErYJvrKk5alNydnG tdDY3dOHNbvtall976HsYfn9be OERmaQXgYSomTHN9D21tl9E6 MXLbDUQrFDC7mCS4nH4xoOnamr ogbGVmdDsgdmVydGljYWwtYWxp V286QSUkjCqiCqYbgKGgGbsx dGQ+DX86an33M8PgDdtsKge7OO NsTEL9bMB7wA0vXIChPAbkb8X6 kDF9S4QrawGetc0es0ztTJLi ZTog (more content not included)... Normal [facility] Physician Orderon 05-23-2022 Physician Order [id number] Normal [facility] US liveron 09-19-2021 [place] [address] Ultrasound Report Signed Patient: Kristina Hinojosa MR#: [id number] : 1955 Acct:[id number] Age/Sex: 65 / M ADM Date: 09/19/21 Loc: Room: Type: [facility] Attending Dr: Gordo White MD Ordering Provider: [...] Jamie Maza M.D.09/19/2021 9:47 AM Dictation Location: [place] [address] Tech: [facility] Transcribed By: PRISCILA 09/19/21 0947 Dictated By: Jamie Maza II, MD 09/19/21 0939 Signed By: 09/19/2147 Normal [facility] Complete Blood Count Auto Di ffon 09-14-2021 Basophils (Bld) [#/Vol] 0.0 10*3/uL Normal 0.0-0.2 [facility] Comment on above: Order Comment: Reaso n for Exam Abnormal liver enzymes;Hepatitis C Result Comment: PERF ORMED BY: [place] [address] PATHOLOGIST RECREATIONAL FACILITIES MOTEL MANAGER NEFTALY BRANDT M.D. Performed By: #### C BC, CMP, PT #### [facility] [address] [place] [address] [place] #### HCV RNAQNT #### [facility] , Basophils/100 WBC (Bld) 0.1 % Normal . [facility] Comment on above: Order Comment: Reaso n for Exam Abnormal liver enzymes;Hepatitis C Performed By: #### C BC, CMP, PT #### [facility] [address] [place] [address] #### HCV RNAQNT #### [facility] , Eosinophils (Bld) [#/Vol] 0.4 10*3/uL Normal 0.0-0.45 [facility] Comment on above: Order Comment: Reaso n for Exam Abnormal liver enzymes;Hepatitis C Performed By: #### C BC, CMP, PT #### [address] #### HCV RNAQNT #### [facility] , Eosinophils/100 WBC (Bld) 3.4 % Normal . [facility] Comment on above: Order Comment: Reaso n for Exam Abnormal liver enzymes;Hepatitis C Performed By: #### C BC, CMP, PT #### [facility] [address] [place] [address] [place] #### HCV RNAQNT #### [facility] , Erythrocyte distribution width (RBC) [Ratio] 14.8 % Normal 12.0-14.8 [facility] Comment on above: Order Comment: Reaso n for Exam Abnormal liver enzymes;Hepatitis C Performed By: #### C BC, CMP, PT #### [facility] [address] [place] [address] [place] #### HCV RNAQNT #### [facility] , Hematocrit (Bld) [Volume fraction] 47.5 % Normal 38.8-50.0 [facility] Comment on above: Order Comment: Reaso n for Exam Abnormal liver enzymes;Hepatitis C Performed By: #### C BC, CMP, PT #### [facility] [address] [place] [address] [place] #### HCV RNAQNT #### [facility] , Hemoglobin (Bld) [Mass/Vol] 15.7 g/dL Normal 13.0-17.0 [facility] Comment on above: Order Comment: Reaso n for Exam Abnormal liver enzymes;Hepatitis C Performed By: #### C BC, CMP, PT #### [facility] [address] [place] [address] #### HCV RNAQNT #### [facility] , Lymphocytes (Bld) [#/Vol] 4.2 10*3/uL Normal 1.00-4.8 [facility] Comment on above: Order Comment: Reaso n for Exam Abnormal liver enzymes;Hepatitis C Performed By: #### C BC, CMP, PT #### [address] #### HCV RNAQNT #### [facility] , Lymphocytes/100 WBC (Bld) 39.8 % Normal . [facility] Comment on above: Order Comment: Reaso n for Exam Abnormal liver enzymes;Hepatitis C Performed By: #### C BC, CMP, PT #### [facility] [address] [place] [address] [place] #### HCV RNAQNT #### [facility] , MCH (RBC) [Entitic mass] 27.7 pg Normal 27.5-35.2 [facility] Comment on above: Order Comment: Reaso n for Exam Abnormal liver enzymes;Hepatitis C Performed By: #### C BC, CMP, PT #### [facility] [address] [place] [address] [place] #### HCV RNAQNT #### [facility] , MCV (RBC) [Entitic vol] 83.8 fL Normal 83.5-101 [facility] Comment on above: Order Comment: Reaso n for Exam Abnormal liver enzymes;Hepatitis C Performed By: #### C BC, CMP, PT #### [facility] [address] [place] [address] [place] #### HCV RNAQNT #### [facility] , Mean Corpuscular HGB Conc 33.0 g/dL Normal 32.5-35.6 [facility] Comment on above: Order Comment: Reaso n for Exam Abnormal liver enzymes;Hepatitis C Performed By: #### C BC, CMP, PT #### [facility] [address] [place] [address] #### HCV RNAQNT #### [facility] , Monocytes (Bld) [#/Vol] 1.1 10*3/uL High 0.0-0.8 [facility] Comment on above: Order Comment: Reaso n for Exam Abnormal liver enzymes;Hepatitis C Performed By: #### C BC, CMP, PT #### [address] #### HCV RNAQNT #### [facility] , Monocytes/100 WBC (Bld) 10.2 % Normal . [facility] Comment on above: Order Comment: Reaso n for Exam Abnormal liver enzymes;Hepatitis C Performed By: #### C BC, CMP, PT #### [facility] [address] [place] [address] [place] #### HCV RNAQNT #### [facility] , Neutrophils (Bld) [#/Vol] 4.9 10*3/uL Normal 1.8-7.7 [facility] Comment on above: Order Comment: Reaso n for Exam Abnormal liver enzymes;Hepatitis C Performed By: #### C BC, CMP, PT #### [facility] [address] [place] [address] [place] #### HCV RNAQNT #### [facility] , Neutrophils/100 WBC (Bld) 46.5 % Normal . [facility] Comment on above: Order Comment: Reaso n for Exam Abnormal liver enzymes;Hepatitis C Performed By: #### C BC, CMP, PT #### [facility] [address] [place] [address] [place] #### HCV RNAQNT #### [facility] , Nucleated RBC/100 WBC (Bld) [Ratio] 0.1 % Normal 0-0.5 [facility] Comment on above: Order Comment: Reaso n for Exam Abnormal liver enzymes;Hepatitis C Performed By: #### C BC, CMP, PT #### [facility] [address] [place] [address] [place] #### HCV RNAQNT #### [facility] , Platelet mean volume (Bld) [Entitic vol] 8.3 fL Normal 6.6-10.1 [facility] Comment on above: Order Comment: Reaso n for Exam Abnormal liver enzymes;Hepatitis C Performed By: #### C BC, CMP, PT #### [facility] [address] [place] [address] #### HCV RNAQNT #### [facility] , Platelets (Bld) [#/Vol] 398 10*3/uL Normal 150-450 [facility] Comment on above: Order Comment: Reaso n for Exam Abnormal liver enzymes;Hepatitis C Performed By: #### C BC, CMP, PT #### [facility] [address] [place] [address] [place] #### HCV RNAQNT #### [facility] , RBC (Bld) [#/Vol] 5.67 10*6/uL High 3.90-5.60 [facility] Comment on above: Order Comment: Reaso n for Exam Abnormal liver enzymes;Hepatitis C Performed By: #### C BC, CMP, PT #### [facility] [address] [place] [address] [place] #### HCV RNAQNT #### [facility] , WBC (Bld) [#/Vol] 10.6 10*3/uL Normal 4.5-11.0 [facility] Comment on above: Order Comment: Reaso n for Exam Abnormal liver enzymes;Hepatitis C Performed By: #### C BC, CMP, PT #### [facility] [address] [place] [address] #### HCV RNAQNT #### [facility] , Comprehensive Metabolic Pane tommy 09-14-2021 Albumin [Mass/Vol] 4.0 g/dL Normal 3.2-5.5 [facility] Comment on above: Order Comment: Reaso n for Exam Abnormal liver enzymes;Hepatitis C Performed By: #### C BC, CMP, PT #### [facility] [address] [place] [address] #### HCV RNAQNT #### [facility] , Albumin/Globulin [Mass ratio] 1.5 {ratio} Normal [facility] Comment on above: Order Comment: Reaso n for Exam Abnormal liver enzymes;Hepatitis C Performed By: #### C BC, CMP, PT #### [facility] [address] [place] [address] #### HCV RNAQNT #### [facility] , ALP [Catalytic activity/Vol] 52 U/L Normal 32-92 [facility] Comment on above: Order Comment: Reaso n for Exam Abnormal liver enzymes;Hepatitis C Result Comment: PERF ORMED BY: [place] [address] PATHOLOGIST RECREATIONAL FACILITIES MOTEL MANAGER NEFTALY BRANDT M.D. Performed By: #### C BC, CMP, PT #### [facility] [address] [place] [address] #### HCV RNAQNT #### [facility] , ALT [Catalytic activity/Vol] 14 U/L Normal 10-60 [facility] Comment on above: Order Comment: Reaso n for Exam Abnormal liver enzymes;Hepatitis C Performed By: #### C BC, CMP, PT #### [facility] [address] [place] [address] [place] #### HCV RNAQNT #### [facility] , AST [Catalytic activity/Vol] 12 U/L Normal 10-42 [facility] Comment on above: Order Comment: Reaso n for Exam Abnormal liver enzymes;Hepatitis C Performed By: #### C BC, CMP, PT #### [facility] [address] [place] [address] [place] #### HCV RNAQNT #### [facility] , Bilirubin [Mass/Vol] 0.9 mg/dL Normal 0.3-1.2 [facility] Comment on above: Order Comment: Reaso n for Exam Abnormal liver enzymes;Hepatitis C Performed By: #### C BC, CMP, PT #### [facility] [address] [place] [address] #### HCV RNAQNT #### [facility] , Calcium [Mass/Vol] 9.8 mg/dL Normal 8.2-10.2 [facility] Comment on above: Order Comment: Reaso n for Exam Abnormal liver enzymes;Hepatitis C Performed By: #### C BC, CMP, PT #### [facility] [address] [place] [address] #### HCV RNAQNT #### [facility] , Chloride [Moles/Vol] 102 mmol/L Normal 95-114 [facility] Comment on above: Order Comment: Reaso n for Exam Abnormal liver enzymes;Hepatitis C Performed By: #### C BC, CMP, PT #### [facility] [address] [place] [address] #### HCV RNAQNT #### [facility] , CO2 [Moles/Vol] 21.7 mmol/L Low 22.0-30.0 [facility] Comment on above: Order Comment: Reaso n for Exam Abnormal liver enzymes;Hepatitis C Performed By: #### C BC, CMP, PT #### [facility] [address] [place] [address] [place] #### HCV RNAQNT #### [facility] , Creatinine [Mass/Vol] 1.01 mg/dL Normal 0.64-1.27 [facility] Comment on above: Order Comment: Reaso n for Exam Abnormal liver enzymes;Hepatitis C Performed By: #### C BC, CMP, PT #### [facility] [address] [place] [address] [place] #### HCV RNAQNT #### [facility] , Estimated GFR ( Charmaine > 60 Normal [facility] Comment on above: Order Comment: Reaso n for Exam Abnormal liver enzymes;Hepatitis C Result Comment: GFR estimated reference range: According to KDOQI guidelines, <60 ml/min/1.73m2 is sufficient to diagnose a patient with chronic kidney disease. Performed By: #### C BC, CMP, PT #### [facility] [address] [place] [address] [place] #### HCV RNAQNT #### [facility] , Estimated GFR (Non- Am > 60 Normal [facility] Comment on above: Order Comment: Reaso n for Exam Abnormal liver enzymes;Hepatitis C Performed By: #### C BC, CMP, PT #### [facility] [address] [place] [address] [place] #### HCV RNAQNT #### [facility] , Globulin (S) [Mass/Vol] 2.6 g/dL Normal [facility] Comment on above: Order Comment: Reaso n for Exam Abnormal liver enzymes;Hepatitis C Performed By: #### C BC, CMP, PT #### [facility] [address] [place] [address] [place] #### HCV RNAQNT #### [facility] , Glucose [Mass/Vol] 102 mg/dL High 70-100 [facility] Comment on above: Order Comment: Reaso n for Exam Abnormal liver enzymes;Hepatitis C Result Comment: Ponce om Glucose Reference Range is dependent on time and content of last meal. Glucose of more than 200 mg/dL in a nonstressed, ambulatory subject supports the diagnosis of Diabetes Mellitus. ADA recommended reference range Performed By: #### C BC, CMP, PT #### [facility] [address] [place] [address] [place] #### HCV RNAQNT #### [facility] , Potassium [Moles/Vol] 4.4 mmol/L Normal 3.5-5.1 [facility] Comment on above: Order Comment: Reaso n for Exam Abnormal liver enzymes;Hepatitis C Performed By: #### C BC, CMP, PT #### [facility] [address] [place] [address] [place] #### HCV RNAQNT #### [facility] , Protein [Mass/Vol] 6.6 g/dL Normal 6.1-7.9 [facility] Comment on above: Order Comment: Reaso n for Exam Abnormal liver enzymes;Hepatitis C Performed By: #### C BC, CMP, PT #### [facility] [address] [place] [address] [place] #### HCV RNAQNT #### [facility] , Sodium [Moles/Vol] 135 mmol/L Low 136-146 [facility] Comment on above: Order Comment: Reaso n for Exam Abnormal liver enzymes;Hepatitis C Performed By: #### C BC, CMP, PT #### [facility] [address] [place] [address] [place] #### HCV RNAQNT #### [facility] , Urea nitrogen [Mass/Vol] 11 mg/dL Normal 9-23 [facility] Comment on above: Order Comment: Reaso n for Exam Abnormal liver enzymes;Hepatitis C Performed By: #### C BC, CMP, PT #### [facility] [address] [place] [address] [place] #### HCV RNAQNT #### [facility] , Hep C RT-PCR, Qnt (Non-Graph )on 09-14-2021 Hepatitis C Quantitation Not detected Normal . [facility] Comment on above: Order Comment: Reaso n for Exam Abnormal liver enzymes;Hepatitis C Performed By: #### C BC, CMP, PT #### [facility] [address] [place] [address] [place] #### HCV RNAQNT #### [facility] , Test Information: Normal . [facility] Comment on above: Order Comment: Reaso n for Exam Abnormal liver enzymes;Hepatitis C Result Comment: The quantitative range of this assay is 15 IU/mL to 100 million IU/mL. Performed at: [address] [id number] Machine Strap Buckler: Hipolito Galarza MD, Phone: [phone] PERFORMED BY: [place] [address] PATHOLOGIST RECREATIONAL FACILITIES MOTEL MANAGER NEFTALY BRANDT M.D. Performed By: #### C BC, CMP, PT #### [address] #### HCV RNAQNT #### [facility] , Prothrombin Time INRon 09-14 INR Coag (PPP) [Relative time] 1.2 {INR} Normal [facility] Comment on above: Order Comment: Reaso n [...] heart valves: 3 - 4.5 PERFORMED BY: [place] [address] PATHOLOGIST RECREATIONAL FACILITIES MOTEL MANAGER NEFTALY BRANDT M.D. Performed By: #### C BC, CMP, PT #### [place] [address] [place] #### HCV RNAQNT #### [facility] , PT Coag (PPP) [Time] 13.4 s High 9.0-12.9 [facility] Comment on above: Order Comment: Reaso n for Exam Abnormal liver enzymes;Hepatitis C Performed By: #### C BC, CMP, PT #### [place] [address] [place] #### HCV RNAQNT #### [facility] , COMPREHENSIVE METABOLIC PANE Tommy 06-21-2021 Albumin [Mass/Vol] 4.4 g/dL Normal 3.6-5.1 [facility] Comment on above: Performed By: #### 7 600, [id number] #### [facility] of [place] [address] Loop Tender: Cullen Barroso MD Albumin/Globulin [Mass ratio] 1.5 {ratio} Normal 1.0-2.5 [facility] Comment on above: Performed By: #### 7 600, [id number] #### [facility] [place] [address] [address] Tender: Cullen Barroso MD ALP [Catalytic activity/Vol] 59 U/L Normal 35-144 [facility] Comment on above: Performed By: #### 7 600, 41004 #### [facility] [place] [address] [address] Tender: Cullen Barroso MD ALT [Catalytic activity/Vol] 14 U/L Normal 9-46 [facility] Comment on above: Performed By: #### 7 600, [id number] #### [facility] [place] [address] [address] Tender: Cullen Barroso MD AST [Catalytic activity/Vol] 12 U/L Normal 10-35 [facility] Comment on above: Performed By: #### 7 600, [id number] #### [facility] [place] [address] [address] Tender: Cullen Barroso MD Bilirubin [Mass/Vol] 0.6 mg/dL Normal 0.2-1.2 [facility] Comment on above: Performed By: #### 7 600, [id number] #### [facility] [place] [address] [address] Tender: Cullen Barroso MD BUN/CREATININE RATIO NOT APPLICABLE Normal 6-22 [facility] Comment on above: Performed By: #### 7 600, [id number] #### [facility] of [address], [address] [place] [address] Loop Tender: Cullen Barroso MD Calcium [Mass/Vol] 10.0 mg/dL Normal 8.6-10.3 [facility] Comment on above: Performed By: #### 7 600, [id number] #### [facility] of [address], [address] [place] [address] Loop Tender: Cullen Barroso MD Chloride [Moles/Vol] 107 mmol/L Normal 98-110 [facility] Comment on above: Performed By: #### 7 600, [id number] #### [facility] of [place] [address] [address] Tender: Cullen Barroso MD CO2 [Moles/Vol] 28 mmol/L Normal 20-32 [facility] Comment on above: Performed By: #### 7 600, [id number] #### [facility] [place] [address] Loop Tender: Cullen Barroso MD Creatinine [Mass/Vol] 0.89 mg/dL Normal 0.70-1.25 [facility] Comment on above: Result Comment: For patients >49 years of age, the reference limit for Creatinine is approximately 13% higher for people identified as -[place]. Performed By: #### 7 600, [id number] #### [facility] [place] [address] Loop Tender: Cullen Barroso MD eGFR NON-AFR. FRENCH 88 mL/min/1.73m2 Normal > OR = 60 [facility] Comment on above: Performed By: #### 7 600, [id number] #### [facility] of [place] [address] Loop Tender: Cullen Barroso MD GFR/1.73 sq M.predicted among blacks MDRD (S/P/Bld) [Vol rate/Area] 103 mL/min/{1.73_m2} Normal > OR = 60 [facility] Comment on above: Performed By: #### 7 600, [id number] #### [facility] of [place] [address] [employer] Tender: Cullen Barroso MD Globulin (S) [Mass/Vol] 2.9 g/dL Normal 1.9-3.7 [facility] Comment on above: Performed By: #### 7 600, [id number] #### [facility] of [place] [address] [employer] Tender: Cullen Barroso MD Glucose [Mass/Vol] 88 mg/dL Normal 65-99 [facility] Comment on above: Result Comment: Fasting reference interval Performed By: #### 7 600, [id number] #### [facility] of [place] [address] [employer] Tender: Cullen Barroso MD Potassium [Moles/Vol] 4.6 mmol/L Normal 3.5-5.3 [facility] Comment on above: Performed By: #### 7 600, [id number] #### [facility] of [place] [address] [employer] Tender: Cullen Barroso MD Protein [Mass/Vol] 7.3 g/dL Normal 6.1-8.1 [facility] Comment on above: Performed By: #### 7 600, [id number] #### [facility] of [place] [address] [employer] Tender: Cullen Barroso MD Sodium [Moles/Vol] 140 mmol/L Normal 135-146 [facility] Comment on above: Performed By: #### 7 600, 21646 #### [facility] of [place] [address] [employer] Tender: Cullen Barroso MD Urea nitrogen [Mass/Vol] 24 mg/dL Normal 7-25 [facility] Comment on above: Performed By: #### 7 600, [id number] #### [facility] of [place] [address] [address] Tender: Cullen Barroso MD LIPID PANEL, [facility] 05-29 Cholesterol [Mass/Vol] 145 mg/dL Normal <200 [facility] Comment on above: Order Comment: FASTI NG:YES FASTING: YES Performed By: #### 7 600, [id number] #### [facility] [address], [address] [place] [address] Loop Tender: Cullen Barroso MD Cholesterol in HDL [Mass/Vol] 39 mg/dL Low > OR = 40 [facility] Comment on above: Order Comment: FASTI NG:YES FASTING: YES Performed By: #### 7 600, [id number] #### [facility] [address], [address] [place] [address] Loop Tender: Cullen Barroso MD Cholesterol in LDL [Mass/Vol] [...] Frank SS et al. JOSE LUIS. 2013;310(19): 6320-1515 ([email or web address]) Performed By: #### 7 600, [id number] #### [facility] [address], [address] [place] [address] Loop Tender: Cullen Barroso MD Cholesterol.total/ Cholesterol in HDL [Mass ratio] 3.7 {ratio} Normal <5.0 [facility] Comment on above: Order Comment: FASTI NG:YES FASTING: YES Performed By: #### 7 600, 66020 #### [facility] [address], [address] [place] [address] Loop Tender: Cullen Barroso MD NON HDL CHOLESTEROL 106 mg/dL (calc) Normal <130 [facility] Comment on above: Order Comment: FASTI NG:YES FASTING: YES Result Comment: For patients with diabetes plus 1 major ASCVD risk factor, treating to a non-HDL-C goal of <100 mg/dL (LDL-C of <70 mg/dL) is considered a therapeutic option. Performed By: #### 7 600, 06677 #### [facility] [place] [address] Loop Tender: Cullen Barroso MD Triglyceride [Mass/Vol] 50 mg/dL Normal <150 [facility] Comment on above: Order Comment: FASTI NG:YES FASTING: YES Performed By: #### 7 600, 29720 #### [facility] [address], [address] [place] [address] Loop Tender: Cullen Barroso MD [facility] 12-15-2020 Albumin [Mass/Vol] 4.5 g/dL Normal 3.6-5.1 [facility] Comment on above: Performed By: #### 1 0231, 79254, 7600 #### [facility] [place] [address] Loop Tender: Cullen Barroso MD Albumin/Globulin [Mass ratio] 1.7 {ratio} Normal 1.0-2.5 [facility] Comment on above: Performed By: #### 1 0231, 97855, 7600 #### [facility] [place] [address] Loop Tender: Cullen Barroso MD ALP [Catalytic activity/Vol] 56 U/L Normal 35-144 [facility] Comment on above: Performed By: #### 1 0231, 29670, 7600 #### [facility] [place] [address] Loop Tender: Cullen Barroso MD ALT [Catalytic activity/Vol] 17 U/L Normal 9-46 [facility] Comment on above: Performed By: #### 1 0231, 00820, 7600 #### [facility] [place] [address] Loop Tender: Cullen Barroso MD AST [Catalytic activity/Vol] 15 U/L Normal 10-35 [facility] Comment on above: Performed By: #### 1 0231, 55433, 7600 #### [facility] of [place] [address] Loop Tender: Cullen Barroso MD Bilirubin [Mass/Vol] 0.5 mg/dL Normal 0.2-1.2 [facility] Comment on above: Performed By: #### 1 0231, 44648, 7600 #### [facility] of [place] [address] Loop Tender: Cullen Barroso MD BUN/CREATININE RATIO NOT APPLICABLE Normal 6-22 [facility] Comment on above: Performed By: #### 1 0231, 27198, 7600 #### [facility] of [place] [address] Loop Tender: Cullen Barroso MD Calcium [Mass/Vol] 10.3 mg/dL Normal 8.6-10.3 [facility] Comment on above: Performed By: #### 1 0231, 81640, 7600 #### [facility] [place] [address] Loop Tender: Cullen Barroso MD Chloride [Moles/Vol] 108 mmol/L Normal 98-110 [facility] Comment on above: Performed By: #### 1 0231, 91920, 7600 #### [facility] of [place] [address] Loop Tender: Cullen Barroso MD CO2 [Moles/Vol] 24 mmol/L Normal 20-32 [facility] Comment on above: Performed By: #### 1 0231, 88210, 7600 #### [facility] of [place] [address] Loop Tender: Cullen Barroso MD Creatinine [Mass/Vol] 0.82 mg/dL Normal 0.70-1.25 [facility] Comment on above: Result Comment: For patients >49 years of age, the reference limit for Creatinine is approximately 13% higher for people identified as -[place]. Performed By: #### 1 0231, 88092, 7600 #### [facility] of [address], [address] [place] [address] Loop Tender: Cullen Barroso MD eGFR NON-AFR. FRENCH 92 mL/min/1.73m2 Normal > OR = 60 [facility] Comment on above: Performed By: #### 1 0231, 72541, 7600 #### [facility] [address], [address] [place] [address] Loop Tender: Cullen Barroso MD GFR/1.73 sq M.predicted among blacks MDRD (S/P/Bld) [Vol rate/Area] 106 mL/min/{1.73_m2} Normal > OR = 60 [facility] Comment on above: Performed By: #### 1 0231, 35485, 7600 #### [facility] of [address], [address] [place] [address] Loop Tender: Cullen Barroso MD Globulin (S) [Mass/Vol] 2.6 g/dL Normal 1.9-3.7 [facility] Comment on above: Performed By: #### 1 0231, 57192, 7600 #### [facility] [address], [address] [place] [address] Loop Tender: Cullen Barroso MD Glucose [Mass/Vol] 109 mg/dL Normal 65-139 [facility] Comment on above: Result Comment: Non-fasting reference interval For someone without known diabetes, a glucose value between 100 and 125 mg/dL is consistent with prediabetes and should be confirmed with a follow-up test. Performed By: #### 1 0231, 57776, 7600 #### [facility] [address], [address] [place] [address] Loop Tender: Cullen Barroso MD Potassium [Moles/Vol] 4.5 mmol/L Normal 3.5-5.3 [facility] Comment on above: Performed By: #### 1 0231, 47409, 7600 #### [facility] [address], [address] [place] [address] Loop Tender: Cullen Barroso MD Protein [Mass/Vol] 7.1 g/dL Normal 6.1-8.1 [facility] Comment on above: Performed By: #### 1 023, 28304, 7600 #### [facility] [address], [address] [place] [address] Loop Tender: Cullen Barroso MD Sodium [Moles/Vol] 139 mmol/L Normal 135-146 [facility] Comment on above: Performed By: #### 1 023, 73021, 7600 #### [facility] [address], [address] [place] [address] Loop Tender: Cullen Barroso MD Urea nitrogen [Mass/Vol] 19 mg/dL Normal 7-25 [facility] Comment on above: Performed By: #### 1 230, 84289, 7600 #### [facility] [address], [address] [place] [address] Loop Tender: Cullen Barroso MD HCV RNA, QN,REAL TIME PCR W/ REFL GENOTYPE, LIPAon 12-15-2020 COMMENT Normal [facility] Comment on above: Result Comment: This test was performed using Real-Time Polymerase Chain Reaction. Reportable Range: 15 IU/mL to 100,000,000 IU/mL (1.18 Log IU/mL to 8.00 Log IU/mL). The analytical performance characteristics of this assay have been determined by [employer]. The modifications have not been cleared or approved by the FDA. This assay has been validated pursuant to the CLIA Regulations and is used for clinical purposes. For more information on this test, go to: http://education.ironSource.TapZen/faq/AXF20v7 (This link is being provided for informational/ Educational purposes only.) Performed By: #### 1 230, 62044, 7600 #### [facility] [address], [address] [place] [address] Loop Tender: Cullen Barroso MD HCV RNA, QUANTITATIVE REAL TIME PCR Not detected Normal NOT DETECTED [facility] Comment on above: Performed By: #### 1 023, 93662, 7600 #### [facility] [address], [address] [place] [address] Loop Tender: Cullen Barroso MD LIPID PANEL, [facility] Cholesterol [Mass/Vol] 130 mg/dL Normal <200 [facility] Comment on above: Order Comment: FASTI NG:NO FASTING: NO Performed By: #### 1 0231, 37283, 7600 #### [facility] [address], [address] [place] [address] Loop Tender: Cullen Barroso MD Cholesterol in HDL [Mass/Vol] 41 mg/dL Normal > OR = 40 [facility] Comment on above: Order Comment: FASTI NG:NO FASTING: NO Performed By: #### 1 0231, 11463, 7600 #### [facility] [address], [address] [place] [address] Loop Tender: Cullen Barroso MD Cholesterol in LDL [Mass/Vol] 77 mg/dL Normal [facility] Comment on above: Order Comment: FASTI NG:NO FASTING: NO Result Comment: Refe rence range: <100 Desirable range <100 mg/dL for primary prevention; <70 mg/dL for patients with CHD or diabetic patients with > or = 2 CHD risk factors. LDL-C is now calculated using the Frank-Jack calculation, which is a validated novel method providing better accuracy than the Friedewald equation in the estimation of LDL-C. Frank MOREIRA et al. JOSE LUIS. 2013;310(19): 1871-0958 (http://education.[employer].TapZen/faq/MJB865) Performed By: #### 1 0231, 68170, 7600 #### [facility] [address], [address] [place] [address] Loop Tender: Cullen Barroso MD Cholesterol.total/ Cholesterol in HDL [Mass ratio] 3.2 {ratio} Normal <5.0 [facility] Comment on above: Order Comment: FASTI NG:NO FASTING: NO Performed By: #### 1 0231, 41097, 7600 #### [facility] [address], [address] [place], [place] [address] Loop Tender: Cullen Barroso MD NON HDL CHOLESTEROL 89 mg/dL (calc) Normal <130 [facility] Comment on above: Order Comment: FASTI NG:NO FASTING: NO Result Comment: For patients with diabetes plus 1 major ASCVD risk factor, treating to a non-HDL-C goal of <100 mg/dL (LDL-C of <70 mg/dL) is considered a therapeutic option. Performed By: #### 1 0231, 52586, 6180 #### [facility] [address], [address] [place] [address] Loop Tender: Cullen Barroso MD Triglyceride [Mass/Vol] 42 mg/dL Normal <150 [facility] Comment on above: Order Comment: FASTI NG:NO FASTING: NO Performed By: #### 1 0231, 15218, 1280 #### [facility] [address], [address] [place] [address] Loop Tender: Cullen Barroso MD OPERATIVE REPORT [facility] 10-15 OPERATIVE REPORT [place] [id number] [place] [id number] Patient Name: KRISTINA HINOJOSA Visit ID: [id number] : 1955 OPERATIVE REPORT Date: 10/16/2019 Surgeon: [...] in stable condition. Author: Benjamin Castrejon MD REID/MODL/[id number] Electronically Authenticated by: Benjamin Castrejon MD on 10/30/2019 12:19 PM EDT [facility] CT LUMBAR SPINE WITHOUT IV C ONTRASTon 05-30-2018 CT LUMBAR SPINE WITHOUT IV CONTRAST Patient Name: KRISTINA Mckenzie : 1955Examination: CT LUMBAR SPINE WITHOUT IV [...] Fidencio Rushing MD On: 05/30/2018 8:04 PM [facility] HAND RIGHT MIN 3 VIEWSon HAND RIGHT [...] Fidencio Rushing MD On: 05/30/2018 8:06 PM [facility] Vital Signs Date Time Vital Sign Value Performing Clinician Facility 11-09-2021 10:30-0400 Body height Gordo White Other [facility] Other 11-09-2021 10:30-0400 Body mass index (BMI) [Ratio] 22.71 kg/m2 Gordo White Other [facility] Other 11-09-2021 10:30-0400 Body weight 65.77 kg Gordo White Other [facility] Other 11-09-2021 10:30-0400 Diastolic blood pressure 96 mm[Hg] Gordo White Other [facility] Other 11-09-2021 10:30-0400 Systolic blood pressure 137 mm[Hg] Gordo White Other [facility] Other 08-29-2021 14:15-0400 Body height Gordo White Other [facility] Other 08-29-2021 14:15-0400 Body mass index (BMI) [Ratio] 23.65 kg/m2 Gordo Huangack Other [facility] Other 08-29-2021 14:15-0400 Body weight 68.49 kg Gordo Huangack Other [facility] Other 08-29-2021 14:15-0400 Respiratory rate 18 /min Gordo Huangack Other [facility] Other 08-29-2021 14:15-0400 SaO2% (BldA) [Mass fraction] 97 % Gordo Huangack Other [facility] Other Encounters Encounter Date Encounter Type Care Provider Facility Start: 10-09-2023 End: 10-09-2023 ambulatory [facility] Start: 09-27-2023 End: 09-27-2023 ambulatory [facility] Start: 09-10-2023 End: 09-10-2023 ambulatory MARY JO Barriga [facility] Start: 08-28-2023 Refill [facility] DO Work Phone: [facility] Start: 07-18-2022 End: 07-19-2022 ambulatory Adonis Beebe Facility:[facility] Start: 07-18-2022 End: 07-18-2022 Patient encounter procedure Adonis Beebe [facility] Start: 07-11-2022 End: 07-12-2022 ambulatory Adonis Beebe Facility:[facility] Start: 07-11-2022 End: 07-11-2022 Patient encounter procedure Adonis Beebe [facility] Start: 07-04-2022 End: 07-05-2022 ambulatory Adonis Beebe Facility:[facility] Start: 05-23-2022 End: 05-23-2022 Lab Drop off [facility] Start: 05-18-2022 End: 05-24-2022 ambulatory Adonis Beebe Facility:[facility] Start: 11-09-2021 End: 11-09-2021 ambulatory Gordo White Other [facility] Other Start: 11-09-2021 Office outpatient visit 15 minutes Gordo Barneyormack [facility] Start: 08-29-2021 End: 08-29-2021 ambulatory Gordo White Other [facility] Other Start: 08-29-2021 Office outpatient ne w 45 minutes Gordo Christopher [facility] Procedures Date Procedure Procedure Detail Performing Clinician Start: 04-04-2023 Adult depression scr eening assessment Tyler Billy DO Work Phone: Start: 02-28-2023 Colonoscopy Tyler lujan DO Work Phone: Plan of Treatment Date Care Activity Detail Author Start: 02-28-2033 Screening for malignant neoplasm of colon Colonoscopy [facility] Start: 09-13-2025 DTaP,Tdap and Td Vaccines (2 - Td or Tdap) DTaP,Tdap and Td Vaccines (2 - Td or Tdap) [facility] Start: 04-04-2024 Adult BMI Screening Adult BMI Screening [facility] Start: 04-04-2024 Depression Screening Depression Screening [facility] Start: 04-04-2024 Fall Risk Screening Fall Risk Screening [facility] Start: 04-04-2024 Tobacco Screening Tobacco Screening [facility] Start: 01-27-2024 Influenza vaccination Influenza Vaccine [facility] Start: 09-27-2023 End: 09-27-2023 Patient encounter procedure 09/27/2023 11:40 AM EDT Office Visit [facility] [address] [place] [address] [facility] Start: 09-22-2023 Medicare Annual Wellness Visit Medicare Annual Wellness Visit [facility] Start: 05-16-2017 Administration of varicella zoster vaccine Zoster (Shingles) Vaccine (2 of 3) [facility] Immunizations Immunization Date Immunization Notes Care Provider Lopez grimes 04-04-2023 Influenza Vaccine, Quadrivalent, Adjuvanted Tyler Furlong DO Work Phone: [facility] 04-04-2023 influenza virus vacc ine, unspecified formulation Tyler Furlong DO Work Phone: [facility] 02-06-2020 Seasonal, quadrivale nt, recombinant, injectable influenza vaccine, preservative free Tyler Furlong DO Work Phone: [facility] 01-29-2019 pneumococcal conjuga te vaccine, 13 valent Tyler Furlong DO Work Phone: [facility] 01-29-2019 Seasonal, quadrivale nt, recombinant, injectable influenza vaccine, preservative free Tyler Furlong DO Work Phone: [facility] 06-13-2018 influenza, injectabl e, quadrivalent, preservative free Tyler Furlong DO Work Phone: [facility] 03-21-2017 influenza, injectabl e, quadrivalent, preservative free Tyler Furlong DO Work Phone: [facility] 03-21-2017 zoster vaccine, live Tyler Furlong DO Work Phone: [facility] 03-21-2017 zoster vaccine, unspecified formulation Tyler Furlong DO Work Phone: [facility] 03-14-2016 influenza, injectabl e, quadrivalent, preservative free Tyler Furlong DO Work Phone: [facility] 09-14-2015 tetanus toxoid, redu marilin diphtheria toxoid, and acellular pertussis vaccine, adsorbed Tyler Furlong DO Work Phone: [facility] 03-09-2015 influenza, high dose seasonal, preservative-free [facility] Billy [facility] 08-26-2014 meningococcal polysaccharide (groups A, C, Y and W-135) diphtheria toxoid conjugate vaccine (MCV4P) Tyler Billy DO [facility] 08-26-2014 pneumococcal polysaccharide vaccine, 23 valent Tyler Billy DO Work Phone: [facility] 02-08-2011 influenza, seasonal, injectable Tyler Billy DO Work Phone: [facility] 03-16-2008 influenza virus vacc ine, whole virus Tyler Billy DO Work Phone: [facility] Payers Date Payer Category Payer Medicare [employer] MEDICARE UHC MEDICARE ADVANTAGE [id number] 2022-Present [phone] [address] [address] [place] [address] [id number] 2022 Medicare [id number] 2022 Self-pay 2022 Private Health Insurance [id number] 2021 Medicare [id number] 1955 Unknown [id number] [id number] 1955 Unknown [id number] [id number] 1955 Unknown [id number] [id number] 1955 Unknown [id number] [id number] 1955 Unknown [id number] [id number] 1955 Unknown [id number] [id number] 1955 Unknown [id number] [id number] Medicaid [id number] Medicare [id number] Social History Date Type Detail Facility Start: 09-21-2022 End: 04-04-2023 Sex Assigned At [facility] Tobacco smoking status No Smokin g Status Entered [facility] Start: 02-28-2023 [facility] End: 05-28-1996 History of tobacco use Current smoker [facility] End: 05-28-1996 History of tobacco use Cigarette Smoker [facility] Start: 09-21-2022 End: 02-28-2023 Cigarettes smoked current (pack per day) - Reported 1.5 [facility] Start: 02-28-2023 Tobacco use and exposure Forme r smokeless tobacco user [facility] End: 05-28-1998 History of tobacco use User of smokeless tobacco [facility] Start: 04-04-2023 Alcohol intake Ex-drinker (finding) [facility] Do you belong to any clubs or organizations such as tenriism groups, unions, fraternal or athletic groups, or school groups? No [facility] Are you now , , , , never or living with a partner? [facility] How often to you hav e a drink containing alcohol? Never [facility] How many standard dr inks containing alcohol do you have on a typical day? Patient does not drink [facility] Do you feel stress - tense, restless, nervous, or anxious, or unable to sleep at night because your mind is troubled all the time - these days [OSQ] Not at all [facility] Start: 1955 Sex Assigned At Not on file P [facility] Evaluation note 11-09-2021 Note Date & Type Note Facility 11-09-2021 Evaluation note Encounter Date Diagnosis Assessment Notes Oct, Hepatitis C (ICD-10 - B19.20) Oct, Abnormal liver enzymes (ICD-10 - R74.8) RTO 1 YR Oct, Fatty liver (ICD-10 - K76.0) START VITAMIN E [facility] Other Evaluation note 08-29-2021 Note Date & Type Note Facility 08-29-2021 Evaluation note Encounter Date Diagnosis Assessment Notes Aug, Abnormal liver enzymes (ICD-10 - R74.8) will order testing. Aug, Hepatitis C (ICD-10 - B19.20) we will order some testing for this as patient does want to donate blood. [facility] Other Evaluation + Plan note Note Date & Type Note Facility Evaluation + Plan note No data available for this section [facility] Evaluation + Plan note Note Date & Type Note Facility Evaluation + Plan note Future Appointments Appointment Date:07/18/2022 01:45:00 PM Scheduled Provider:Adonis Beebe DPM [facility] Appointment Type:[facility] Follow Up Visit ([facility]) [facility] History general Narrative - Reported Note Date & Type Note Facility History general Narrative - Reported Type Medical History Hep C Medical History hyperlpidemia Surgical History left foot [facility] Other Hospital Discharge instructions Note Date & Type Note Facility Hospital Discharge instructions No data available for this section [facility] Instructions Note Date & Type Note Facility Instructions Not on filedocumented in this en counter [facility] Progress note Note Date & Type Note Facility Progress note No data available for this section [facility] Summary Purpose Family History No Family [...] section and content) DATE CREATED AUTHOR 05/31/2018 [facility] DATE CREATED AUTHOR AUTHOR'S ORGANIZ ATION 10/30/2019 [facility] DATE CREATED AUTHOR AUTHOR'S ORGANIZ ATION 06/21/2021 [facility] DATE CREATED AUTHOR AUTHOR'S ORGANIZ ATION 09/20/2021 [facility] DATE CREATED AUTHOR AUTHOR'S ORGANIZ ATION 10/04/2022 [facility] DATE CREATED AUTHOR AUTHOR'S ORGANIZ ATION 10/11/2023 [facility] REASON FOR VISIT (unrecogniz ed section and content) Reason Comments Med Refill Patient Care team informatio n (unrecognized section and content) Youth Development Professional Relationship Specialty Start Date End Date Lizette Malcolm, [facility] [place] [address] [place] [address] PCP - General Internal Medicine 02/14/23 FOR [...] BE BASED ON THE PRIMARY CLINICAL RECORDS. [employer] [facility]. provides no warranty or guarantee of the accuracy or completeness of information in this document.
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
== END 2023-10-17 09:44 | disposition home or self-care (01) ==
PROVIDERS: Emergency Provider Emergency Medicine; PCP Nurse Practitioner Family
DX: S01.81XA Laceration without foreign body of other part of head, initial encounter (principal); S09.90XA Unspecified injury of head, initial encounter; W19.XXXA Unspecified fall, initial encounter; G81.94 Hemiplegia, unspecified affecting left nondominant side; Z79.899 Other long term (current) drug therapy
CPT/HCPCS: 12011; 99282

== ENCOUNTER 2023-10-23 11:49 | Emergency (ER) | payer MEDICARE, SELFPAY ==
[2023-10-23 12:01] VITALS: BP 131/83; PULSE 72; TEMP 36.6; O2SAT 95; BMI 22.6
--- NOTE | 2023-10-23 12:14 | ED_ITS ---
HPI HPI - Fall General Chief Complaint: Fall Stated Complaint: FALL Time Seen by Provider: 10/23/23 12:09 Source: patient Mode of arrival: walk-in Limitations: no limitations History of Present Illness HPI Narrative: 67-year-old male presents to the emergency department for a chief complaint of injury to his head. She had initially fallen about 6 days ago and was seen here and had a CAT scan. He had sustained a laceration above his left eye and Steri- Strips were placed. He fell again today and hit the same area causing a new wound. The old Steri-Strips also fell off. Family member states that he vomited afterwards. He does not take any blood thinners and he sustained no other injury such as to his extremities. Related Data Home Medications ?Medication ?Instructions ?Recorded ?Confirmed atorvastatin 20 mg tablet mg 08/31/23 fluoxetine 10 mg capsule mg 08/31/23 pramipexole 0.5 mg tablet mg 08/31/23 Previous Rx's ?Medication ?Instructions ?Recorded cephalexin 500 mg capsule 500 mg PO TID 10 days #30 caps 10/23/23 Allergies Allergy/AdvReac Type Severity Reaction Status Date / Time Penicillins Allergy Intermediate Verified 08/31/23 16:00 acetaminophen [From Vicodin] AdvReac Intermediate Verified 08/31/23 16:00 hydrocodone [From Vicodin] AdvReac Intermediate Verified 08/31/23 16:00 Opioid HPI Opioid Management Most Recent Pain and Opioid Data: Last Pain Scale 0 10/17/23 09:12 Last ED Pain Assessment 10/17/23 09:12 Review of Systems ROS Narrative A ten point review of systems is negative except as noted above. Exam Narrative Exam Narrative: Nurses note and vital signs reviewed and patient is not hypoxic. General: The patient appears in no apparent distress. Patient is resting comf ortably on cart. Skin: Warm, dry, no pallor noted. There is no rash noted. Head: Normocephalic, atraumatic, cervical spine nontender Eye: Normal conjunctiva, no drainage, EOMI. PERRL. He has 2 parallel transverse superficial lacerations present above his left eye, laterally. There is no active bleeding. Ears, Nose, Mouth, and Throat: oral mucosa is moist. Nares patent. Cardiovascular: Regular Rate and Rhythm Respiratory: Patient is in no distress, no accessory muscle use, lungs are clear to auscultation, no wheezing, rales or rhonchi Back: non-tender GI: Soft and nontender Musculoskeletal: The patient has no evidence of calf tenderness, no pitting edema, symmetrical pulses noted bilaterally Neurological: Awake and alert Psychiatric: Cooperative Constitutional Vital Signs, click to edit/add: Last Vital Signs Temp 97.8 F 10/23/23 12:01 Pulse 79 10/23/23 13:09 Resp 20 10/23/23 13:09 BP 137/94 H 10/23/23 13:09 Pulse Ox 97 10/23/23 13:09 O2 Del Method Room Air 10/23/23 13:09 Course Vital Signs Vital signs: Vital Signs Temperature 97.8 F 10/23/23 12:01 Pulse Rate 72 10/23/23 12:01 Respiratory Rate 18 10/23/23 12:01 Blood Pressure 131/83 10/23/23 12:01 Pulse Oximetry 95 10/23/23 12:01 Oxygen Delivery Method Room Air 10/23/23 12:01 Temperature 97.8 F 10/23/23 12:01 Pulse Rate 79 10/23/23 13:09 Respiratory Rate 20 10/23/23 13:09 Blood Pressure 137/94 H 10/23/23 13:09 Pulse Oximetry 97 10/23/23 13:09 Oxygen Delivery Method Room Air 10/23/23 13:09 MDM - Fall MDM Narrative Medical decision making narrative: Left maxillary sinus fractures are identified, minimally displaced. There is no extraocular muscle entrapment, his extraocular movements are intact. I have spoken to Dr. Umana, plastic surgeon at [facility]. He will follow- up with the patient next week and request that the patient be placed on Keflex. Treatment diagnosis and follow-up were discussed with the patient and his family. The wound cannot be closed with sutures. Differential Diagnosis Differential diagnosis: Likely other (Facial contusion, facial fracture, intracranial hemorrhage) Imaging Data CT scan - head: Radiologist's impression: ITS Impressions Head CT 10/23/23 12:24 IMPRESSION: 1. Normal CT appearance the brain. No intracranial hemorrhage. 2. Suspect fracture of the posterior wall and roof of left maxillary sinus. Consider CT facial bones for further evaluation. Electronically authenticated by: FRANCISCA HAWK Date: 10/23/2023 12:[address] 10/23/23 13:24 IMPRESSION: 1. Mildly displaced fractures involving the left maxillary sinus anterior wall, posterior wall, and roof with subcutaneous air within the lateral left facial soft tissues. Clotted blood products filling the left maxillary sinus. 2. Small focus of free air within left orbit secondary to orbital floor fracture. 3. Left periorbital subcutaneous bruising/edema. 4. Minimally displaced left nasal bone fracture. Electronically authenticated by: FRANCISCA HAWK Date: 10/23/2023 13:53 Discharge Plan Discharge Stand Alone Forms: Portal Instructions Chief Complaint: Fall Clinical Impression: Facial fracture Patient Disposition: Home, Self-Care Time of Disposition Decision: 15:06 Condition: Good Mode of Transportation: Private Vehicle Prescriptions / Home Meds: New cephalexin 500 mg capsule 500 mg PO TID 10 Days Qty: 30 0RF No Action atorvastatin 20 mg tablet pramipexole 0.5 mg tablet fluoxetine 10 mg capsule Print Language: Surinamese Instructions: Facial Fracture (ED) Additional Instructions: Do not blow your nose. No exertional activity. See Dr. Umana next week. [phone] Referrals: HYUN GALE [Primary Care Provider] - 1 week
--- OUTSIDE RECORDS SUMMARY | 2023-10-23 12:17 | XMS_ITS ---
Patient Summarization (C-CDA 2.1 CCD) Created on: October 23, 2023 KRISTINA HINOJOSA : 1955 Sex: Undifferentiated Author Organization Sample organization Care Team Providers Care Eyelet Operator Name Role Phone Gordo White Unavailable Tj Krishnan III Primary Care Physician [phone] Natividad Crowley Unavailable Unavailable Dolce, Adonis Xiong Attending Unavailable Dolce, Adonis Xiong Referring Unavailable Dolce, Adonis Xiong Attending Unavailable Dolce, Adonis Xiong Attending Unavailable Dolce, Adonis Xiong Attending Unavailable DolAdonis nair Admitting Unavailable Gold CLINICAL ASSOCIATE-NUCLEAR SECURITY OFFICERLizette Byrd Primary Care Provider MARY JO CUNHA Attending Unavailable LIZETTE MALCOLM Referring Unavailable LIZETTE MALCOLM Primary Care Unavailable TYLER BILLY Referring Unavailable LIZETTE MALCOLM Primary Care Unavailable LIZETTE MALCOLM Attending Unavailable LIZETTE MALCOLM Referring Unavailable LIZETTE MALCOLM Primary Care Unavailable Allergies Allergy Classification Reported Allergen(s) Allergy Type Date of Onset Reaction(s) Facility (2 sources) Penicillin G Drug Allergy Unknown [facility] Other (5 sources) Acetaminophen / HYDROcodone; Translations: [acetaminophen-hy drocodone] Drug Allergy 3 Nausea And Vomiting, Vomiting [facility] (6 sources) Penicillins; Translations: [penicillins] Drug allergy 3 Hives, Rash [facility] (1 source) Acetaminophen / HYDROcodone; Translations: [HYDROCODONE-ACET AMINOPHEN] Drug Allergy 3 [facility] Encounters Encounter Date Encounter Type Care Provider Facility Start: 10-09-2023 End: 10-09-2023 ambulatory LIZETTE MALCOLM [facility] Start: 09-27-2023 End: 09-27-2023 ambulatory TYLER BILLY [facility] Start: 09-10-2023 End: 09-10-2023 ambulatory MARY JO CUNHA [facility] Start: 08-28-2023 Refill Tyler rossi DO Work Phone: [facility] Start: 07-18-2022 End: 07-19-2022 ambulatory Adonis Beebe Facility:[facility] Start: 07-18-2022 End: 07-18-2022 Patient encounter procedure Adonis Beebe [facility] Start: 07-11-2022 End: 07-12-2022 ambulatory Adonis Beebe Facility:[facility] Start: 07-11-2022 End: 07-11-2022 Patient encounter procedure Adonis Beebe [facility] Start: 07-04-2022 End: 07-05-2022 ambulatory Adonis Beebe Facility:[facility] Start: 05-23-2022 End: 05-23-2022 Lab Drop off Adonis Beebe [facility] Start: 05-18-2022 End: 05-24-2022 ambulatory Adonis Beebe Facility:[facility] Start: 11-09-2021 End: 11-09-2021 ambulatory Gordo White Other [facility] Other Start: 11-09-2021 Office outpatient visit 15 minutes Gordo White [facility] Start: 08-29-2021 End: 08-29-2021 ambulatory Gordo White Other [facility] Other Start: 08-29-2021 Office outpatient ne w 45 minutes Gordo White [facility] Immunizations Immunization Date Immunization Notes Care Provider Lopez grimes 04-04-2023 Influenza Vaccine, Quadrivalent, Adjuvanted Tyler Reyestai DO Work Phone: [facility] 04-04-2023 influenza virus vacc ine, unspecified formulation Tyler Furlong DO Work Phone: [facility] 02-06-2020 Seasonal, quadrivale nt, recombinant, injectable influenza vaccine, preservative free Tyler Furlong DO Work Phone: [facility] 01-29-2019 pneumococcal conjuga te vaccine, 13 valent Tyler Furlong DO Work Phone: [facility] 01-29-2019 Seasonal, quadrivale nt, recombinant, injectable influenza vaccine, preservative free Tyler Furlong DO Work Phone: [facility] 06-13-2018 influenza, injectabl e, quadrivalent, preservative free Tyler Furlong DO Work Phone: [facility] 03-21-2017 influenza, injectabl e, quadrivalent, preservative free Tyler Furlong DO Work Phone: [facility] 03-21-2017 zoster vaccine, live Tyler Furlong DO Work Phone: [facility] 03-21-2017 zoster vaccine, unspecified formulation Tyler Furlong DO Work Phone: [facility] 03-14-2016 influenza, injectabl e, quadrivalent, preservative free Tyler Furlong DO Work Phone: [facility] 09-14-2015 tetanus toxoid, redu marilin diphtheria toxoid, and acellular pertussis vaccine, adsorbed Tyler Furlong DO Work Phone: [facility] 03-09-2015 influenza, high dose seasonal, preservative-free Tyler Furlong DO Work Phone: [facility] 08-26-2014 meningococcal polysaccharide (groups A, C, Y and W-135) diphtheria toxoid conjugate vaccine (MCV4P) Tyler Furlong DO Work Phone: [facility] 08-26-2014 pneumococcal polysaccharide vaccine, 23 valent Tyler Furlong DO Work Phone: [facility] 02-08-2011 influenza, seasonal, injectable Tyler Billy DO Work Phone: [facility] 03-16-2008 influenza virus vacc ine, whole virus Tyler Billy DO Work Phone: [facility] Medications Current Medications Medication Drug Class(es) Dates [...] Refills(s) 0 Start Date: 09/18/20 Status: Ordered vedwohje-wzgu-JW-calcium &mins (THERAGRAN-M) 9 mg iron-400 mcg tablet (1 source) oolawofl-wxsr-VW -calcium &mins (THERAGRAN-M) 9 mg iron-400 mcg tablet Take 1 tablet by mouth in the morning. 0 Active Oxybutinin XL 5mg (2 sources) Oxybutinin XL 5m g Active oxybutynin chloride 5 mg oral tablet (1 source) Cholinergic Muscarinic Antagonist Star t: 01-27 23 take 1 tablet by mouth three [...] 1 tablet Orally Once a day Active Payers Date Payer Category Payer Medicare [employer] UHC MEDICARE ADVANTAGE HMO [id number] 2022-Present [phone] [address] [address] [place] [address] [id number] 2022 Medicare [id number] 2022 Self-pay 2022 Private Health Insurance [id number] 2021 Medicare [id number] 1955 Unknown [id number]. [id number] 1955 Unknown [id number] [id number]. 2.727 1955 Unknown [id number] [id number]. 2.727 1955 Unknown [id number] [id number]. 2.727 1955 Unknown [id number] [id number]. 2.1286 1955 Unknown [id number] [id number]. 2.1286 1955 Unknown [id number]. 2.1286 Medicaid [id number] Medicare [id number] Plan of Treatment Date Care Activity Detail Author Start: 02-28-2033 Screening for malignant neoplasm of colon Colonoscopy [facility] Start: 09-13-2025 DTaP,Tdap and Td Vaccines (2 - Td or Tdap) DTaP,Tdap and Td Vaccines (2 - Td or Tdap) [facility] Start: 04-04-2024 Adult BMI Screening Adult BMI Screening [facility] Start: 04-04-2024 Depression Screening Depression Screening [facility] Start: 04-04-2024 Fall Risk Screening Fall Risk Screening [facility] Start: 04-04-2024 Tobacco Screening Tobacco Screening [facility] Start: 01-27-2024 Influenza vaccination Influenza Vaccine [facility] Start: 09-27-2023 End: 09-27-2023 Patient encounter procedure 09/27/2023 11:40 AM EDT Office Visit [facility] [place] [address] [facility] Start: 09-22-2023 Medicare Annual Wellness Visit Medicare Annual Wellness Visit [facility] Start: 05-16-2017 Administration of varicella zoster vaccine Zoster (Shingles) Vaccine (2 of 3) [facility] Problems Active Problems Problem Classification Problem Date [...] serum enzymes Onset: 08-29-2021 Resolved: 11-09-2021 Episodic Procedures Date Procedure Procedure Detail Performing Clinician Start: 04-04-2023 Adult depression scr eening assessment Tyler Brightng DO Work Phone: Start: 02-28-2023 Colonoscopy Tyler lujan DO Work Phone: Results Test Name Value Interpretation Reference Range Facility Correspondence - Woundon Correspondence - Wound [id number]#1.00CD:127 [facility] Nursing Note - Woundon 07-21 Nursing Note - Wound [id number]#2.00CD:127 [facility] Coding Summary.on 07-19-2022 Coding Summary. CD:[id number] Gh0bWw +PGhlYWQ+NM6BKKVlA06yyPViy G6FJ6xDUY4GDJHHJYJATW7VBW8 zuYX7JXtkR4VougHg PhncmYTeCO95IZw4CDY8mIzeHU wlrG4puLYpP6q7YpCqDR35eV89 NSbwMTKnRvH1PaGnevlzbQXs P0xaPvRmoPNqDyy+PHRhYmxlIH jbUNBvYGbvVAPzSqXlyCjnOE2b Wy2kSHOiZPBvyUfoiDYqZbEn w0yfGKRjPAseAC0dcVerZ4XgcS W5MWRbs5i7Hh79sDX+PHRkIHN0 gCljRBydc761PlTps7maKZJ6 wUHaKOfbZFB9R97tr6A8TEQjKN NmJDD8zMO4uY1reXiipydlN6Ea dCGkKjH5RCO7gTIxgE9cqXtn assjpH5mVgy+I74DOU1QYJVXQD 5GZid1H4JhAmiejIK+GD13DPSd LS46cWMopFAyr5wnwVj2IeSo WHZoUSH8xYrsPGpzj8CiGUIlJ1 1gyDIkq8E8OHPvdCtvhHOyNjSu eVP6mU1nVSvglucex3tpgoxb Wdltq1kigh46xG90B10jEJqtLX LkSAF4HYRvQKGazDtfjg6kjG3q Ii8+MUgkr1loz1yytXp2WyFg GLLljiCjbCifBFP2t7UkVs11F6 RsaBprj3XcRxv2xg39kBJsh2F5 sBF8EZzmXRIbgT3iZUfcKlU2 AEBdVnEpnT26eTMuIKlxVe1rlN teaIctNN3fKNEgtputBZMtcP6e KIYilJNntZxwGC1wTXWcbszc o639QiEcJAZ9LEYdaLIfE4CrzW 8pXhJnKARfPFZoS6PcqLXeRSci M017YVcfZxP0IIZsqbQpI5Pi FXCswDxxIgD0e6M3Gs0Mz7Famo ebVXY3CLeoFXAwCyDfWtGuAfY2 U2ZwNug8IXLeiUstYI5rW5Ou UKCnvxisujunqHY8TDAsYKDvfA 48uLVhIIouUq4la8C7j985QWQr QGXvlX80Xw8jlRslLFFucMML tS4mneesk2bochxjHtGpIEYcWF w9MAd2CENtpNckInMvRUE5BnC9 HPH3hDVjhH2mdShkjuoqeS2x Oyc+M19eiT7fDTK3MDN5mfvdFZ LdcoNvJS39HX68E1CqNggaxHUy bGU+ZIZfdnPupShoQS9iNeXp p7rkx7GyGZfxP7TdEHTaLTjkFu e3PGAkNVN7qMZ1xX4jYKAiILcf z0L0kDH5X7NxaeRwyn3qe6ur HVPfTSwuF07vbGOhq5D8IUZciF R1YNFjxHjcUtQtuU44Gxy+PGNv vNmrk5OxRftxe1jiu4vomCx2 KqTwXRIebpWcvVvpGFD4y4VsFq 13Y97tTAwgGRDyDKWlUYEuMEGs iHivhe5jmI6zFn0+PGNvbCB3 fIP6zT9vOUHxTfV4FDhmW007Dc SlePNgGyipi4owf1ddfQq9CnFc CENyniQzdPjuZEJ6s1ZiCy62 Z50oHJsuFZPxEXWsXCIlTHIpsX pjly3hpC1gVh0+RY8ba5hvmf39 mO30hPU+ZVZjQPA9mGzpUHmk QZAcjD9dTDinJpX8VUJfWkJcpZ 32kTWaVHznWb8jxCzhfVgeLQ6v QQWdpxljr235SjRoo9rxBURt nKSoJAofCEB8U47mc4R4UUWiNP EsHHI6eZD9bO8haDnvluwcrJHu gMqhfyZwgGywJRknVBjtZ112 IHRvcDsnPlBhdGllbnQgTmFtZT s4C8UwLog2IDTkgUjkQC8tmQYu WIunCj7afVaxoDmlAT9xLBEb vxmrh128FiZvl7kjCHDejUXyNX yvSDJ4Y43au6U0VXEcQCEfNXU3 sWP4uZ2xzPcumejwkIBwuFlh hyIlqIqgLQdmJYybU409XDIxmR xiGtMdjmXgPMLjmOQ4JF78GC69 kCNom5O9xMC9T4RbYBGfhuxb hzrevGG3SWGsQPRvcT43Uu9ocU aoEj5wEHBwQHI1LPZiuHIwR5Io gW4nRjCxDBRuNFYwM2QleIKy JRamK245KVlfIpQ7DQPmcjJuV2 XiNZMexElxOzJ6e2D9Np2IW8E9 PB16QU21bHRec8E6nSP1N7He ZHWpefblrpaidKD4DGBtPWKlhH 07Am0yyJhcOb9eNDSlNVG8NOOf oIJfU7FgeF0wIsUlEZIfMFRv E3PxxKLlEJqwY265QRdjQqY7MI BkuvOpS5OhSAWwbOhnZkT0z4I1 Ww1SAZb7LA50ZD07fZYwv3G2 xIG8H3PcJZQsdqswhoggcBF6IZ IyMQDrzX65Ll4xeLnxWp0dGHOc CPW5JWStbMQbO9HzzJ2gVcNm WYLgVGTdP4ZmuRCvGEswO398KH dhXbF3RDIyizMcY9LvPNSjiUcl VkY1y9N9Vf5TTOOiWI17RDX9 hEO3WS25RH16U3RfKjxfxGXuxM U+PHRhYmxlIHdpZHRoPScxMDAl AqMbiGtqMZ6nIm9nIHWwCHFe pWysxXVuLqMjj6msPXMpVSqxIE 8fcRsyL2VvyWM1GZAeo5h1Xm91 U29wH0QuwHR+XVWflAW1dEW2 dP0xFsMxNwC7KFowG801NrAghI EuDnmwk7gwp0fakPe3PeC9DKOu pwIisGtcOWN7q8GiIo08Z08k IHdpZHRoPSIxNSUiIHZhbGlnbj 8kaO8nFy9+PCRmyBT4aLE3xF8r WcLvXlM7ZDeqI257PrKxkJZd Eujee0yzv5xcnVz7YxWdHTTjzb VpgBenJXK4u7XvTh55A1NnbZcw h0KhDqk0wi62hOFei9Y4uFT1 P2ZlQZBqymcsnDNpdLolHS1cGL StdksxDVKjfR2xVUAkU7w8SsFs NtS2YWywV6JdwiK3MTZxqLTh ZVsbHVA2C17iv3J8QPYnARVlUB P1bMO1bX0naUvjvhexgSOwlSjo mwKzfUnvEOcxBYknJ364IVAm aAovNSWqmJ1uOFWnzQJcsWqySG 4wNTBpbjsnPkxPTlosIERBVklE YJ40O8XoUbs8UWPuoRyxBJ2p fDTmWGlzZl2tdJybvAipXE9xWS HrumftXGNinT2tBYObfISwrQnm OQ9xSSNdioupr449BkNuQVA3 WIHffVUsA1OjeR9fTvBfIPRbHG NrY4NvtJUwOMgbI058GYkbCiO2 SUHcwqAmC4OsHYDwjBgtXtT1 b3G7Mi9gVz2vEU0qPDA8BD37KT 70qRZyf8F0wHZ3M9HrCQSnihzc ffspvAI9FLLaPQLgnL57wXLz XNgmLz3xo6S7n336ZZCaTOXrjW 92Uc4kgHywBWQamQZOlU4vsfjh i8wbswkkIiTuJBOiQOy6ESu8 IIUitItwApHjCEY5OcP6WUB8sS WsnG7puGkzktpxmG4fXiu+Njgg IZWndfE2W1YfAgz8SZVlgKam KW2eoDOiKWajTb7qeAkbaIhxYC 5tHAAcrmueKRBifI3iBOTsrWRg tOgyEG2qLOAzzqfsf736DeTr PTR9SDUzvAAyA9RgvX1xRaAaUD PnBRRvK3ZmuJNzGYqbA909WZdk PlV1XMGmiePbU9DnWPWqgMor HnR4z8F4Ag3XVJrrYX80PQ63lZ Ymk1O3eRZ6H1RmSXGjrawaeccf gQE7IQGlFVCasS90rUYvZAwb Hr6ci5R4u346OBIqPQDrvW19Kw 8agRlhWWFnjNSGjT8iigvrr6ct hxxwLoFuKIOlSJc6PXo1TPPr jIjpXbXzJNZ5NrM0OWB2sPEkmP 4jeYmlagkxnR0vCxa+W7E9uCL2 aWVudDwvdGQ+WY12lh42E2Qh IabyQml5HBDmENE3mBJ9qG7wFI LgBOsth3B5nBP4Q7UpbaAwac0d g3ecRNMuXNkpY18pdIKdm4Y9 KSTsnTO8IENofVlnPlNuzS27Tn c+LKVcrEtyo5NaZofol5laq2nq eAm3BdVdHJZmnkCjdOyxEIC7 e7YmFy23R85bOEjhBGBmPAMfEN JnOKZqgIriwa8kjE6mVz1+PGNv tOU4eHX4pO7bOxKrPbS0KCho K123WvXaqFFwYbuev1xfx5boxD y5PvHjHZYgfoAllHeaUNT0w3Mr Pt56D9DaiRlsz4UlMby5ma80 yRDwp8Q0tVY4Q6MqBDNwrzyzaB CarPlbJX2aZBWtjiawIFVepE8t LVKjY2s3DjHzOyJ2CAmoJ0Jb bkP5NRXpsNWyDWCbkSSFwD3zor ddp1gixeggFsKhKTRkCPn5GKd6 AWOlxTspThEcDPB3GdZ1MFA3 aMXeoC6pbWgkoicvkC3fIke+UG a2v8pyxGUsWE9beEW7GR94YY55 nFExp9K2yJZ1Y7DmMMJvovxc sssvbZO9UQIcEKJlkL41Ei1wjU slVp5yFNLwEQD7BPBluGWgK7Wj eH8iDfWfASJpNVBlX3UteYCa GEjsH326LBkyWcR4YXFwblHwA5 ZhLRFnkVthMkI7l5S7Ny0EZB62 WY65IR65eFBxu7G0wJV8U8Is CKHqmdufblrmyVM3YSOmXFJfqJ 98Mv1usZauFe2iOYWdBCA5LRPg pWFpS6MdmZ9hMiPoHQGeCCNp A3NmaEJsTWoxA341TRtnZeM0EJ NsfuXzR4QjSRHypRecBlR6h9K7 Dv4CDa24HU38QM90fIIer0G8 rDZ0G9QxVZIkgfudwodecDC2CZ OkKYXpfT74Br4mlFpcPk4rJJCn ICX2NZNxmZTwM0NqhS0iKeEh OWNfOZWjR9PriTIsYDvhW339CT blMeN5INOpebGbL9FmTLBsfGwg VuL1l5A0Vq8HJBzshdy3T4Cx PjwvdHI+OX00PSNjXD13zYBycE Uxs6lqyGk6GgRqSEGhIMZ6kIud SAcvg3NyCIIeF07wvXTio6Y1 IGNv (more content not included)... Normal [facility] Consent for Treatmenton 06-29 Consent for Treatment [id number]#1.00CD:127 Normal [facility] Multi-Wound Charton 07-18-19 Multi-Wound Chart [id number]#1.00CD:127 [facility] Nursing Assessment - Woundon 07-18-2022 Nursing Assessment - Wound [id number]#1.00CD:127 Normal [facility] Physician Orderon 07-18-2022 Physician Order [id number]#1.00CD:127 [facility] Progress Note - Woundon -2 Progress Note - Wound [id number]#1.00CD:127 [facility] Coding Summary.on 07-12-2022 Coding Summary. CD:[id number] Gh0bWw +PGhlYWQ+UK4HCTRbX65ivHZko P6HU2yHFW1JRQTFGSIYFD7NJB6 hkHV3YXokC1GlaeJi MrmmrMUvTX29MPg7YQA5yLliFY bybO3esSVkO6a2PjExIW51mL16 BZwfOEHxVlF3VsPswrjpgYHz U9hgPeFkbEFbJow+PHRhYmxlIH ifDSFmPXgdGJCxCpFbqUuwGZ7l Xc1lXSQwMFZpdTzovYNqWdMb s8pcIENtQJgcKZ4pnScwK5JnxE C5ERYrr0q1Ys02hME+PHRkIHN0 oYnqBEsdt205XjGos7joDZB2 tHXpOPtzEKV7X26nx7I4NYDzSH IcFCJ6tNP2eE5qnXxnhyazQ4Tx xQSoCtA0GJW4wOHnfM5adHpv okolvH6uLqh+K07UUZ5QIMEWGD 4CTiq0Y6HzJqablYE+GA81MJIl YU74uIVtrAAdg2nxxOy7UsUa MIOjSJP5tGjjQVjub0ZiXTAeC7 0nfVFlv7N1XPXfyBoapTPvSfPa uVA7lX4fYVmaypyyc0ificvw Zixjl4zzon80aW38V59hNVjyKJ MfFLV4LNXfHTXljTawkb9zqE1t Ii8+GUwni1gha6ybiMu5SuYc TMUcvnShmYvyYSE2v0EvWd60N4 FlwSlmz3KgDbc1bk00eBHkv4T1 fNK7LJsxEULdtH3kUBevFyI9 XJYsJbIciI92pVQeAUmuLf0mxC fvsYqfDH4sAZNpnugcPWZozJ8r LGGisRMotFrtUH0uQXPxlnww z989ZoKjPTG4HEJndNTvW7CfbK 6dFxEmHGYiMRGwF8RcwXFmGQgv A010VOlzBmF0QTDnefAuY8Vs IRDlcYytZvT5c3O5Xb1Az6Vhdh wtUQT2YYxaFCLhOdC1IcYtSxG5 S2PyNzu8OYZsfFrxMF2lI6Fk DQKajmfnlgcrcWY8VILtZAYqzF 83fMUmDSucJh1bo5R4k883SLIo PNWurI57Ko6ooPnoMTPosLWX iG5ubuxvs6zfosrzNiDfBLKnRI v2QCw5LFFflQwbYxBvLNK4NqD2 USC9tWXrzB6usFetucdfpW6g Oyc+U01qfC4uSUQ5UHW0xfpsFM JuiyReWB76ST42Q3YoKymbqYWw bGU+ZQRbgeBfiHdqRN0vJpKy u6bgd1GsAKphC3PcSLAnMAkjMj d9YAShGTL0qQV3bX1pBFTrSIpw v7Q8oJX2U3XsedLyeo3cc4od RKEeBKduU43dxDQwy9U8ITSbfQ G8LKYmwGnuRkLdaA43Xav+PGNv sAhpu1AbLmtuc0zfh2kwiYq1 KnGkCHMuhnNsuDbyQRA6b6WaQb 98H03iEMrgYQFiZZCgPBIcYTVu hGeazm0ukS8vZu5+PGNvbCB3 aGN4sB5cRLDoXbL6GMvmF599Qg ZnxQUuXlnld0mcg8thpOf8BhIu KHBgvxFofBhiSLY0f2XqYm03 A92qHBdlATNkNRRdBYEiQJBojF idud1ryV3xDm9+VG3nk3scnx07 mG09aTY+NIRgKQI6mTlhJUch EULpqW2fUVklDyX4KAQtLxQrdQ 79rOUsUNvcZs9nrNxacMekIK5w WSJkqdbqe823UdJyl1vcUFXd pCIuWNzfLCM4X34ye1F8NACoEG KkVHI6oBY8tC3jbLgqciokaQBk sOzrnwTiuCemFXexORzlZ430 IHRvcDsnPlBhdGllbnQgTmFtZT h1Y5FtNla9EFDtmVcvUW0kbQRj NEdjAq8nmMdopJulED0tCZWu cagaq432OtUda7xqVTPleWReOT qxHZA3Z84pb8X8AWNjWINlRWW6 qIU3vL7cgDpoomscfBSstXbd cdNvmQdcCPcxJRqlP084SIDztP ocUsJfzuMdFRPglHV6DT35QU42 zZVey8I6gMR0W7QsJLQllmtm cxpimCI3XEYbJRUzaI94Ng7zoD nuMh1dEAJmLMY8OVSxaZBwV6Bc kI4pRkEuGNEeULYdD3HabISj MMayM248FCezMwU6PBHpmmNsD3 CiMHYxpBxcTcF2e6D2Ua9CQ4E5 FF54HL39fPMdz0I2xAX4W6He VQBjwpivikuinZL0VTDbYYDfdS 13In5pwBafTh0tYJKaXKA6KHZw zBStG6YrqJ1iJpUsHDHaUZYz V1YwiTSrMJhzU784VHtmIrN0QJ IfkvSbK2AjKMZgqNdlQaC9h8S5 Re9CCNl7TG44SM57oABnl2C0 oHY2B7CiKKChqfwjcoyomAW2QI KhRSVwoE18Lz9ksGpnSa5gPKLx VON3GHCpgXVxZ6ZesG5cAqSp TBFqAERdH4QoaYRjHPpkF837MA uiCiT5IJJgwbRcR3JzLWYgaDmk NpD1z7U9Fn6OTZGlYM05TDK6 fTX2ZP40QL11P3CoSijexZTgwD U+PHRhYmxlIHdpZHRoPScxMDAl ZsNyfHyuYR2vFi0sABWoHLZq uObzzADwRtTid4uzSWKiOGasSJ 2duBnhH7ZgdJT5OKUej2b9Rn85 Z94vR2NshIV+XWNfiDB3fQK0 dN5aHtGgUqR5WXsaT758MkZvcX JsQixtk2yvd4rdsGn7CoR1DGJl qpIhfNxkNTC6b2BrAw04X07c IHdpZHRoPSIxNSUiIHZhbGlnbj 7pvD5fZr3+BSGtnNI9tDU3cR5l JnVgOcH1XXvuW235DxZgeUZw Pchag4gvj9iglCt7HkCmMVMkcs LimQkdIXB9a7UkFq84P8HcyBoz x9GlKoy4lq67qVZli6F6zNY4 L6DrUFGqaqsjkYAmoXcoPD6gOB ChmhyfKGEqhZ3nXVAsV3f8TlGv KcC7RTvcS4OxzlI5QZZncEPs DQhlFRZ2G70xf3T0VPQeYKKmYC R4nNM9zX0clGhgzvdmjTPioCvf xtUmkZnpGIcoQDewE804DLEy vJgwDWNrzO5yNGUfuIHqqIfnSJ 4wNTBpbjsnPkxPTlosIERBVklE HO25S4ZlVpt7EEEpfCpyHY9d yXGmIHfnFn5uyIkshNtfIC5bKP BfwvxmAOJuhA5iAWLkpLTcsHji HL4kSMSgiuasp198FiWaEVX5 GIAlxTUgD0ZkdK8bOrLgZZFrGE OxC8BxxPVvPScrF729QFxiJyS3 AIVkodEfF3GgAIJwbLbfHtT1 g2G9Tv1sWp1yYF6aMQP2NV61DO 65jQDrs4G5eYM2F4XlMNVqyhwd wshviXT0FUAyGUGelZ37wHIr UZijQe2mz1Y9h677AFLxDTGntU 13Cz2vrCvfDABitHSEbF8takaf p3dptbbgEvCnXFXdLBh3EZn5 ZMQptVrdSbXeIMK0RxM1AFF6pY EgrI7euJmmzrlxfR4bPjm+Njgg IUXfcxS3Z2CbEph3YSDkrEka XC1xlPKrBZtxVq6ewJgpaLphBA 1yJTQbepvjKKKweN2cRAEneRXl tLseMW1mMQFcrfjho863LtFo GWO7PZHawXCyU1KniS4vHkOhUX NkOCKzX9VttTOcAIptC776SLlm PxK2BQJqbcBrX4AhBMXyiWqa SeW3p3L8Oy7PHRsoYX51LG42bU Ofo9R5tAX6H2PoVQLvzhfrkxul vKO5EYGlYBTcrJ04mIQlPHzq Nq2dc5G2q055WBXsOPGmrJ62Ea 1kkHmoBZYxgPYRvX8oqlnqp9ch norrQiNzENNvGJe8BTe2TTVi zKiuTdMgXAE2XyS4SEB0gAGdhI 9msJhgrfeziF2mOza+F1P2kAV5 aWVudDwvdGQ+YR84ur69B8Lt RccjLzg5NDKrAWH0kQD8gR7uVM DzKHkbe0K0pCT6R9XeqxKbju6p w5hnPPTkADjcN81ybHQkw6B3 RFBpnRO4HFDftGayTiSopG18Yi c+IFOpmSqey2ZqYioew0ace1ns aRg5CpKyHTRjpxXnwKdrZNS0 q4OpNp75C34zWMbmGQOvSXYzQY EpBDLsgYasrm6bbC4tDr9+PGNv yDB6cYB6jI6jTzXhKtP4ELqi D390SnBooQRzZopxc1yfq0jnpH k8EzDyWZXcxfLrtJhuSUB9w5Gq Vd43G2PeuIxbo9JqYmp7ph25 rJQsz5N0rBE1U2EkMGYfntdpzD MbfYflYW2kPQSlruknIMWgxP9e TLEiS9x8TwUpMnL3QTqaV4Wh vpL4KYPcnEOnYEBdyTYCyA2amj qyk2jhxvopNvNzOGYsHZg7XGi7 GVAyeHgpVtZvTEV4WwP2IDG9 xUPujG9ycNpbrjabuF3jRvu+UG t8j2losGUgFX6tsWT1LA14HA63 eZSnj1D1tTY6I4UrGDXugizn hjkopSD7ZLSoMFCxgN90Mn4clK qsTw1rKLGuVUO0RHDosYImX8Iz gD1kRnDkABGvUMRpF3NzaXRj WLuuD169SDoaZyT6TROachVkK0 UqUIOuvPypVyE7f9Q3Mz1PBH31 OT46PL29xMZud0W3rPM7J8Dg CWZdfzicrpjkgIK5GLVuPHWnjX 97Af3mjInnPo8lNWCjGHM8GJWv jBGxS8GkcB5uVzUlAZGdMXDm D2ScxYKqYGwrK850KRklWjB7TK RpcdVlR8GzORDomXepRuQ9u4L4 Id2CGw43XL25BH05eBLlb0X2 fMK5Z2PcHQRxkrcuczujxDY5JI XtLVUwgJ04Fa1ytEsnTe3nBAZa TJO7IGYooJGsK0TjiU7dFwXx UEEgHGZxB7YtoLOoIHbyH280PN azTvD2LQTirtIlE0UhNANxbJne TyF7c4J2Hq2ANQpaqtx8R6Dh PjwvdHI+UE69XIZgTR05iEWmuM Pti5eqnOb6AoHwWWPjVOE1jVed PBpdy0JgNPIhQ87vaKEek4B7 IGNv (more content not included)... [facility] Coding Summary.on 07-11-2022 Coding Summary. CD:[id number] Gh0bWw +PGhlYWQ+ZJ4GSDJgH34zgXTgz W4BP1qRYE5RDYJIVTVIPF0BXQ7 rlYI6TAmmI0HfbpZx LljzbPGpDC90OLk2IGI0vYbnWB vjuA0gxCHlX1h5PiFvMK44dD87 MNzfGHYtDwD3RsDbkmhpnKJa O0hcGpOhoLFgWoh+PHRhYmxlIH dqYGIcEOwaZLAxKqJaqZqkVU0v Gj2nQJHkHKTrlAhpnFZdLkPg n2anCWOrWCnfMN4woPtdE8KagF V3TTQlc4b4Pr05qED+PHRkIHN0 rFinXRyoi823FkRpd6hzTUB1 sOUwAVwcSOU3Q25zr1M3VLTfHS QiZCD3pNH6bG6ntZofidtwJ3Ak iQHyOeM9SET0lKMqqQ8ssUpd djndjH7uQld+X46AHJ3WGAZBEG 6BBea4H3DiDvhnlKV+OV85EKMu CD70sGEskYMzu1msfCa8GuQk RCXkOIC8kNmoROcjs2FbQXJxK7 6ehTZoe6U3RVRucMuywQQdDjVv pOP9iT8dBGmfpudel0jhjvdy Wbpal7stds81nX57R34dMVeqDX WbUNZ9TZUgNYXzkIhakb9ojT2y Ii8+WCkok1jqv8jefHo9SiYp QIFarwTkrBtjTQP4x5SiIl57H3 WwvChbg9QkItl8lg93fALfj2G6 mFW5EKrfJBUcmI1sTMsaChP2 RCZvWhYbkC08hAJfLKoaYk1pqP jaqJudCL8aNJIgfcqmYPWpdF6p UJCvqRSntBrfRD9oOJEgexep z703YoLtKSH1YGPqoKHfM2UtqA 9nBrQbJSZiQLFrB3SwyXSkBDyk L963VCdwUcE8ZTIorhTpX4Yf KRTqpLywEeM1b9V6Cr5Tf2Ffpt omEYZ1GLjrCTJaKeK1SsFlUzO6 D4AbFcu3JWKfvJsmLM3yV7Wm BLZmoyrdlwuatJH2GPEkKWFosI 37kAZmIQbhJt5ke2X1x271UKFn VGWheK07Bl2xfSnsPOEmeIBC xG9xyzgkl1angvssXiSlUOZwZZ t6CYy2RVNrkXhaKbBnDDX1UgA7 EVG4bYOhkZ9qvYbccxqykV5k Oyc+R99ipF4nEWY3VIG5yizgJH EutuEzIQ25BC47S9HgCziaxADo bGU+ORGqshWgrOafBL6iTsCj s7vwt5SwDNxdN3PwMUXpPUinPb m5KNWpXNV9wUL0tM6qIHXcCTzl q5P2zWJ2D9QqdbUgbq2xb3rw FNCjJNziG44euJYsc5A9NKXogQ S3GEQddIchDlAkxF87Tcv+PGNv lJopt6AjSkwff5veg0qdsGd5 CiSyQEKwkaJmmLctXBY1d8WcIj 01V50eOOwzGPGxWWJeUKQlTCDv oVwdpa5mhX1iLg9+PGNvbCB3 xZL4rT5uRMFbRgI4RLigN303Pa MolDLjWrvqy4tby0tqxMv3QzBs XJWjwtRqeFntJER9b5FcPr25 X35fTRhgDRXeQPTdNJJvSSGmyS ekcu6cmM5iZp7+PD1co5cnbu72 yO41xBX+OMVxZXS3kVcsDUhu BJNpnX8pJWtuBzR5TIWlRjCtcE 31dATnFXkdCf7ecNtqhWzwTV5b YCDgebztw399ZqQaa9wzXIDy yAUbKQxbKAD6B15kd3T3USCdGF WwENN5wMC1iE6mfPpyayzqmDUv zCiftlTutJvrIMbjOYjjQ590 IHRvcDsnPlBhdGllbnQgTmFtZT a2H5TyJih7SQRdvUohUU8uvSFt BZgyOn5xzYofgIadCG6yVIMt eimfs490GdLdd4klQFAmbHNgBF dgFKP9B48ot1U1RMQwQSGzAOJ9 wDD0xP5wdWihthgyyGPbsKws lvDfoWnnHFxpSMeqK786UDKaaX dtTdTtvdGmPOFgpRX6IU20YL35 yGGgt8R7lQH6N9NcRDTeqcwc ekhdiJB5UJYsNVZltY37Cc5duX ieRj7yEYBmJIF6XCHhsZUzK4Id mU7eMtRtVSAsLDCjZ5ZnmNMa NIcjT716DTmtLjC7QTFqnhYwI0 CxZNHlgHrxAaQ7e0I0Ar7BS1Y7 UJ61LP02mOUie3L4dFQ8T5Rx TAOzyezbhzupfSP0VYBzNPVnnS 49Zf7blWsxQu6iSIDdSVI7ZSNa tOAnR0IucR4uTzViKMNgRXSr P2DwaQIlRIvkN964WCktZnX7NX LlsuVpZ7WzXKPhxDcfMtB4y7T8 Ks5AXAl2AZ06GQ32qVPoz2Y2 gPS5M8XoXPIuibeyhldbfOY1TN HjHIBcfU76Vo2ibOvbJn2cDLJc CJI1BSVmpCOqH4CocG0hUzMb HDNzPJNkP5ErePFyANfjI978ST lyIzO7OPFsaaDyI2ZcQWLjnOvy BcP0c9H8Xm3LPAIgNN38XXT3 lEG7VC40ZO56L0TrEkmofKIrsP U+PHRhYmxlIHdpZHRoPScxMDAl GaVgyGcgAF9cGu5fSUCyWXKq oEuecJXmFpPda2liNLZsQMntQO 5weBzuV8RslCL8DVJzy5c5Ym91 O80oK2JfhES+IWEqqNJ2mKG9 kE0mOfFyRwI5DSxpN572AgDjhD QsFuwmn8jkb5wdeVv9EeU3RGQo buHpgVfqRSR6i5ChCa22K90m IHdpZHRoPSIxNSUiIHZhbGlnbj 3ofU5yYk2+OJRztRX9gEJ0bC9h ByVpHhF4ISxiR522GaGokRDf Sayko8ugj1mxxBp9OgByPWBucw XejHdaBSV5y1CuDy90Q3CivTek c5JcJtt8es60oTGgt3P0yMF7 Y1FuWHBpbqtbhOGjnVttJY9sLQ LbainvUDYwqZ4oOFIeJ7d2IkKq TkG4QWzkX8UcseR6CWGbiHTy EEpkXFS6K61dn3J0WFZrCEMnVK N9tZJ8yW6ikXrrksqmxXLgdAtd ioYtnBrgJWtpUCicJ518KPSp hBxeLASdbC4vRFXjpHBceKkuIV 4wNTBpbjsnPkxPTlosIERBVklE UD57C8PaMsb7KEUedAvzLL1h gELmETmhBf2wpYojpRtpTC4xGA KjjowsDZYosL7jEWBbqCFopQpf PU7qOMCeinkzh084GcFkPRX3 WQRsjPJqU7AzuE5tIbOiSKEcZJ AaH9RmgKOgVEnkH628WErjMsM6 QPSaqlCaA3PqWPQifMnsEcZ3 g4L4Yb8sHv7yBD8zGUE0GH63CW 29pEFxu6M4xCE8C0AtMMLvkjbk qbfpqMD8HMWfYEYqhG16nXGh COdpOy0lo4P3s572DTEfIQRcqH 03Mm5giDgcCDBodBRAmD2xscjz z5pkuxvtAwWeRDTaZPs4SNv8 TRWoxAzvOgFpYRR8WxM2ZAO0rX BalH4bcAvfjbzzxE1eTam+Njgg YGYescK5U9OrIya5WDFydOdb KF7tqIGjAZucRi7mhCddyWmoHU 9yWQMuzwekSHNctP7wYVOnaHRs kWukTG7eEGWahknyv827PjKv IAJ2DVPafGJzF6ZjxA7dIgThBA HnBAHdR0CnmOUqPFcrD227BKqa GiW9CAYafwBjY4AoOQLjxAko XsH1s2C9Oh2QOZqlQE78YI18gC Ogu4I3cUN9B1JmZMDfnohmkuqo uXJ0USSrOHEpxM41aPKkBDrb Kb3fj8L2e934XZGuADBxpE38Dc 8miEmzBPYadUYWdU6yhmayn6xw xdlhCyQfFLNdQIt4XLc7NIFo xJmcSyEsUGP0AfD7EVK9xTHfdF 4ryUaznigscE7rLzc+I7F8yFH8 aWVudDwvdGQ+AS46kb62O5Vq RcivZtw3VLBnXRP6bLZ5uJ3yGN BrPNlse0P4cTC4D3WbqgYqdz9b l3yrUEFmODieX19amFGog4W9 VIRtlGA1BIKmeJasFnJocI36Gr c+PMObiEnjq3WxSorpo0qdz7ho jEa1PcOsHGChhtHjoDleXRW2 g9QmPi41G52dYXraYLSwOJPtEI LbTSLmnMsgpb3pxY7iBy6+PGNv mZV7zIE6uW5kXfIoQfM2FZjc T561KjRltIJyAsqks0pwp1pzzN t7XyYnEBLguuTfwAsbYNA6g6Km Cb22E8IheIjxx6HxDqt9za15 bDDla3X9jTL7W2FyDGZzisnphJ RaoXtvKK9pZPKftofyUMOzuW4h ZLAtU6r6UnLgGnX3XAszX4Tk hcH7EROdgIZbQVMzzKLAkU6vnx fba5pravewQbRbQHJfVXg9QIs8 EJWiaHmkDcKoTBP2CsT6ECL3 xSXsmG1vkYzuqjwxjL3tVjv+UG h5r3csiUVnXN1qtDZ8BQ40FE72 yFBhd1Z7mLO5I8DlPUNfchgz wqyssSU9DEScLREmcH07Wo8itZ srKb7kPPCxDKC0MWJpuBFoU8Hg gM4zQhMoZKVgHZCoJ1RzqSQd QOpwV670AAosTvF4NRVzymHkZ3 UsKXWhbUzlVbG1g3Y9Cq3TPP68 TK68CV46rRQoj0S6eSD0N1Ai FVFqsdoccdgkyTB2ZUFrNRBliZ 10Ou4mrExxUe3lUQRcACT2QWBx hYEuT7CduG9uNxPoECEgMKVb L8YwdRWrINvrV609JSjxWsG2YR DtctAcC5DrMOZigKxeLbL4i8O5 Qj7FOq39NI21TI17bLKsu6C4 aPM1R0NjFQGltfeshuluzIL9II NdCZNzeN12Rc2icRfuIq1hFEDf HAO8NCPhuLTiK0MdmK4vGpAm GZTaVSUxF3GuuXXyCSydB275CJ urJmY1YVFnoxZuV6QtTHNzbRxe WzD6b9D8Xo6GNPoqbhq8I4Yd PjwvdHI+YZ43XESdEL61qZKegF Ywg9npiNh3LmXlNALdCDH3hSrk EItps9BtZYElL35akDBqy5B8 IGNv (more content not included)... Normal [facility] Consent for Treatmenton 06-28 Consent for Treatment [id number]#1.00CD:127 Normal [facility] Multi-Wound Charton 07-11-19 Multi-Wound Chart [id number]#1.00CD:127 Normal [facility] Nursing Note - Woundon 07-11 Nursing Note - Wound [id number]#1.00CD:127 Normal [facility] Physician Orderon 07-11-2022 Physician Order [id number]#1.00CD:127 [facility] Nursing Note - Woundon 07-07 Nursing Note - Wound [id number]#2.00CD:127 [facility] Nursing Assessment - Woundon 07-06-2022 Nursing Assessment - Wound [id number]#1.00CD:127 [facility] Consent for Procedure/Surger yon 07-05-2022 Consent for Procedure/Surgery [id number]#1.00CD:127 [facility] Consent for Procedure/Surgery [id number]#1.00CD:127 [facility] Consent to Photographon Consent to Photograph [id number]#1.00CD:127 [facility] Correspondence - Woundon Correspondence - Wound [id number]#1.00CD:127 [facility] Correspondence - Wound [id number]#1.00CD:127 [facility] Correspondence - Wound [id number]#1.00CD:127 [facility] HIPAA Forms Officeon 023 HIPAA Forms Office [id number]#1.00CD:127 [facility] Consent for Treatmenton Consent for Treatment [id number]#1.00CD:127 [facility] Multi-Wound Charton 07-04-19 Multi-Wound Chart [id number]#1.00CD:127 [facility] Physician Orderon 07-04-2022 Physician Order [id number]#1.00CD:127 [facility] Procedure - Woundon 07-04-19 Procedure - Wound [id number]#1.00CD:127 Normal [facility] Progress Note - Woundon 02-0 Progress Note - Wound [id number]#1.00CD:127 [facility] Correspondence - Woundon Correspondence - Wound [id number]#1.00CD:127 [facility] Coding Summary.on 05-30-2022 Coding Summary. CD:[id number]:[id number] Gh0bWw +PGhlYWQ+RA0KPBOjD04acKRsb B5AW4dADU4JQFQKFAZRSO7OHX9 mnNP1AEebT7JoheMx UgiyvSMhOF24NHo7FRQ9pXvfQB nccS2frTUyD2g4QsHsWO50pQ45 HCyrAKStHkU9OiIgeysbiATi N5mfJxBbvJNoZuv+PHRhYmxlIH rcDTGqRQvfVXKeIdKwsXdmQT7r Sh0oNGZoDIGzeInouYElEyTf p7pmTSCkUEliPY8mnThuB3XhpC R9QGAmc0t7Uv91rLF+PHRkIHN0 xUcaHVljq452ZuFsj5puBPP2 pWFaHPklMRP2X98hk5S5JDAmOQ LsAFE9oDW1qW6brYetfkgjB2Kf rAHwDtN9CZR1qGBqkV0gxWmh onkclU6iFwd+Q91AEX4CYETAFA 2EOeu0B0MySfocbAR+CT94MHLg SC46mBEptUOlw0aeeHe3FsWm KWJaUYK2qXmiIYqaz9NsWARqJ1 1mzIOij6N1JMRtuLpxpHJuHeWx nEU2bB4hUYdvkoxmc7qzmqkw Vbkut4imaw47oN89C34xFOmpMH KuMDT3OZSqGFGjmBjsuo4ogT0b Ii8+XTqly0sig9jyzUx8TkXz DQQeigYlrAlcVXH3h6HfHw00H6 HikHdwk9WaIoo4ev56hMAzz6M2 vNJ3XMhpQIRmdM0rRSxaScQ1 ZHSbAuLwqH51xJQlHEdcFb2saF kzpLdsIV7bBOZwexqxKSVkdA0l PSIknPVpiBdxDK9jBVIvearl h122MyCrXJN6TGErySFtT6HbfH 7bIcOxABZpITYqJ0XzrRMaCFxy I196KFwfAiP6KWDuoiOaT4Ge AORtaKwmBpM3y5X4Vc2Ge7Ydlu ykSES3QUrsTLVdXgYmXeTtLaC2 E6DdKhx0HXZcdPtzHT1yJ7Hv AOCybkedcxqdxME9ANYqIMVjcS 71oSUcOMccFh1yi3H4s705RNBf NQRjnA78Sq2paKnaAUJcjMTY hA3vorfps0ioykloMkTyJWReLM w3RSp2FXLqvWerPaQyJOI9RsN9 MFD9yFFduW8zaOnwjvlciP9x Oyc+Q15ivJ2kGHQ1GPB3qmwfRN LtutDdFZ82IP57S2JbNylvqULv bGU+XZThhaQycTqcRM3sFsPl u3zwv4ExYBguK7JbJXFvTSkpLl i7TUBmRYZ3kMG9eS3lOICvDGye p5S7hCW3N2GmekLqjb1xf6th DIXyXWnbK93xbRPvq6W8APFbnU F1FFGyaEgeYrFccO15Pjk+PGNv dSuoj4YkTxmku6ckz6lhmHi3 BaGnEAVbaiYteDzcMMM7g3SmFm 00N05gLPmdRGOeKTIcYBIxKZRj rCfmol7caT2mPp2+PGNvbCB3 kCW7pU7hQOXrCqL9HPnmK466Zf EanFEwBoxdq3fuh3crjWx2SpVf KOVyreGhgZjhVCJ4e8NjAd46 W74vFZinYUZnWQIzGFScFSLtaY biqg0icN4gTs9+HJ0ei6jlbh00 fG26wOL+ZGWrVMP7yBhjWCkc WCQhrS1uHWdpGjM9KYItBuMbwD 37jOTtSKykTx3kbPycgPoiFM0i VVOobswgi141GzWkf6lyQBPm aAQpASkzHLB9V05qu7P8FKHeGG GkXHH2mVI8sZ9dcOlviffxiNJb rWvicwIjyPbkDYanCDlxA478 IHRvcDsnPlBhdGllbnQgTmFtZT g0D5JaGzw8FRMzfBfvOT8iqITj VXdlGd6nlQrraIftRV8xQJEd jfjfd186IzBlq2khGCDwuEHsPH jaZJU9E06pn0I3LZPwYYUbLXK9 eEP7tN2roVsjatmbcLTieMeo ofVdtQxcWScrWGskF768MYGprP yiPwIeiiOzATNyhUI5YB57RM38 sBGzd8P1gAA2H9ZjCWGqsuzh xjwhlAG6LROyCCAghS26Ke5kiT oeGb7iYGTrCOB4JOVlxUTkR3Kt cN8gUsNyCUKmBOQwO3NhmKFm FLygM042SIfhTaB7YHFydmDeP1 VwWTQwtBvaApK0s2D9Ft7WS1D4 OQ40XJ21sHFpw1C2gXK4Z3Fu PHBnqykvmsxncJQ7RNWwEPCfdO 10Rn2aeBagMf7gQSLcIJO0LONp gISrD0JblR2lAlUlSKUoEAKd H7EysLGwDHjwL137MHpiLoZ8SG OrrrYsB2NhOINyrHnhLiW0k3K4 Ek3COFc3MM65ZV50hSXyc2M4 oER3B5CoINHcochslmzcqMZ5BT KtXRBptB16Wn8brLtnTb9qFXPb GED7ZALmsYMaE3NicR1cIdRy RMOuSNDhW9MmkYKhLFzhV849PB lyRmH8IYKmhpPaI8FoAPWccTyz GiH2o3S1Kz9MWARrOK15YII5 cQS4VZ79UW68O6NfLdrcpYYcoY U+PHRhYmxlIHdpZHRoPScxMDAl DgVusIjkEN5rLf1hMLNcLROj qZmckVDcHaQtj2iiTJUtQEkwLD 0bsUjqC2WieEY9NOFry9r4Iu26 J34oO2SmoDG+IVIhiKE9iSB6 oE3yVkFuMmT8WVvjD887XuKodH EdOtkij8ejz8xoaWt9AiE7WAQv fnKqhBusDIM0s1DxPl99Q29p IHdpZHRoPSIxNSUiIHZhbGlnbj 3vxK7nDk1+MZGfiSQ3wAH3uL4y PpZxIcA5EZivW445GiBhhEFh Yrlok0doc4dmmOk6PhWzDPSnaz MliUcoDKX2c8XtUs65M4XhvEgz c7VfEra9sm87cJSek9R5bDS0 J1TkTDPvfoinvSNnrTtjBD6gEJ LwkdpjFBMbrF0uREWxZ9q0PfXi VbD9KBfmG9IqwnF6EFPofSRb NEmhLAW3T93qx9Q8EWDtEXPvSC K3kGX4yK1igAtuffobuAXxkMdq arRqbGidBXglPVogD630HKWb nMviDRTslX6zMYSsvDRjtZqzIP 4wNTBpbjsnPkxPTlosIERBVklE GQ79I6FyYmh8AQZvxNhkNA2d hQBfKGyhZg9yqZetkWysQK3tEU EkxwycSZBkgG1gETRpqOMxlMdk CG7jDTVrqcjns183EcCbDBA6 IKWjqCUoC1JkmV7aIpGqUKWaJC EgL5UylNTjDCxeG799EKvwKlP1 PGUtsyJsJ5HjBIJayArqHaI7 h7S7By6pRr2vUS7hHVS4LE90TM 14vPYfl6I8sQG3W8MqGTHldgit nocbfPA4TCPhEVSfgN63dQUp MAtoEv4pn0E1w011EIPlFXFerJ 86My2xrBznPNYeiRJEhG5gcull t3arqmnfGaJqJZOcAHa2LDl6 UIBpoWfsZsJvADH4CxX6RWX8zS ZiwS2nzTikcnolyR9uNrr+Njgg UPPxfjY6L5RjJhp7TCFekBxq GR4fcXItGKxdWa9kaTijbTvsAS 4qTNUyquczNZNbrZ3yELQooIEm sHysOU8qITMurymjk348NbPo JUM5NZXowSPuW8AfoW8pThYqBN MrJUErK0QpmWMoEDegW051ARly XhJ3OAEwtoDzR7TeVJMoiTtk NpY2r7B9Xv7GRYtnTR01NJ95sV Hwp5F0sTG5R7AlIAYdguwqyfkw tRW3ALHhUUUwlC92cTVaUCsy Hk5nm5P2m704YXWaJXFvlM71Ng 4phWfwKUTscGAFdC2zqzksl4ag esmdPlAqKPCwHVa0SYg7SFNk yIfdPjGbFMB7YwS7DSH5eUDknB 2hkMqcjwhsnL6wJil+TGFiIERy u5Rdm0HxWB92HC07O2YeTqzy dGFibGU+PHRhYmxlIHdpZHRoPS meJZUuOcZzwPxjMD3sOa8sYHHs WDTttZaqyJDhEzLvj0ymNQLp PEqtFP2csOwxX2YbnPX9LTKcx2 f8Fm30Z62wG9TxgLO+PGNvbCB3 oJQ3vN0vJrKdBaI4HGndO786 SnEdwOGjRlgjr8syf9hhuAc6Lj RgQBFozpCgoOgwELT3h0NkNc41 J76iBCqyUHGwJMIiDVOfIKYm cBaynf4jiU4uCp9+FLPkyQA7dN V8oX7pVmLvRdP3JCuqX465DgRj cWYoMwmdG98uT6AtuMF+PHRy Ufv5NDWauXoxIL2xjSGcMJrrFj 8yJKM2DzJeSbUsSVysB7IcAUTa oelqrytyfZW7XZPjRRUrzG99 Gg4eeHkdZv9uZMRiKME9AWXzrU ZxE0EvtF5xSsSzEOBuTNEwF4Oo iNPqIKqoY028WVloRqP7KRGb nrNpM1WaBODymAxcVrU7y8L5Aw 5UkGwrbXCvXP5sAcWfIVo3C8Hy Dua6USZrkTeaEX7doIOzIPcq Zq0hkJjhfXhdQF5wEDCsismlj0 00SuSku2dpMAHbmZNzMBfrWHV6 E23zy7J8VMXcKGAaWUR4sQY0 nC2odMxjzbqenQVqpVkfueVbjN blIPzdXTgqK103SYOqcYqnRzWW Lzd0H8XcSoh7KOZxgLfgXS1o qZMoAVplHx6wfFigzTirOF3iPO Vlcinta545QaFre2jwFQFleGQq VDhkWSI5R15jc6O0SLCbDLAz ZQD0mNV5yO2rqIyiafbtjSYfbE flwdYrkKwcHYvxDOvtI118QXHz lNtwOy9YVjm9B8CcZpb0VDZw yAijNX0cjTBsDBphVb7eiJavxJ jmMO1wCAHwzpxac403SfVqa2cf EHRvgHVjPVbzKWQ6T84yi9S7 KCMjYFOvNUC4xLG8fF0apAwhlb ogbGVmdDsgdmVydGljYWwtYWxp F654KZQntDfrEpTsgYKpJzwq dGQ+RT57km23F0NxDauyOtb5PD EwCVJ3nQV4kY5lUUDyOStak5J5 gXK7I0PqflNzmr8yg3rhLCEl ZTog (more content not included)... Normal [facility] Physician Orderon 05-23-2022 Physician Order [id number]#1.00CD:127 Normal [facility] US liveron 09-19-2021 [facility] [place] [address] Ultrasound Report Signed Patient: Kristina Hinojosa MR#: [id number] : 1955 Acct:[id number] Age/Sex: 65 / M ADM Date: 09/19/21 Loc: Room: Type: [facility] Attending Dr: Gordo White MD Ordering Provider: [...] Jamie Maza M.D.09/19/2021 9:47 AM Dictation Location: [place] [address] Tech: [facility] Transcribed By: PRISCILA 09/19/21 0947 Dictated By: Jamie Maza II, MD 09/19/21 0939 Signed By: 09/19/[address] [facility] Complete Blood Count Auto Di ffon 09-14-2021 Basophils (Bld) [#/Vol] 0.0 10*3/uL Normal 0.0-0.2 [facility] Comment on above: Order Comment: Reaso n for Exam Abnormal liver enzymes;Hepatitis C Result Comment: PERF ORMED BY: [place] [address] PATHOLOGIST COMPUTERIZED TABLE CUTTER NEFTALY BRANDT M.D. Performed By: #### C BC, CMP, PT #### [facility] [address] [place] [address] [place] #### HCV RNAQNT #### [facility] , Basophils/100 WBC (Bld) 0.1 % Normal . [facility] Comment on above: Order Comment: Reaso n for Exam Abnormal liver enzymes;Hepatitis C Performed By: #### C BC, CMP, PT #### [facility] [address] [place] [address] [place] #### HCV RNAQNT #### [facility] , Eosinophils (Bld) [#/Vol] 0.4 10*3/uL Normal 0.0-0.45 [facility] Comment on above: Order Comment: Reaso n for Exam Abnormal liver enzymes;Hepatitis C Performed By: #### C BC, CMP, PT #### [facility] [address] [place] [address] #### HCV RNAQNT #### [facility] , Eosinophils/100 WBC (Bld) 3.4 % Normal . [facility] Comment on above: Order Comment: Reaso n for Exam Abnormal liver enzymes;Hepatitis C Performed By: #### C BC, CMP, PT #### [address] #### HCV RNAQNT #### [facility] , Erythrocyte distribution width (RBC) [Ratio] 14.8 % Normal 12.0-14.8 [facility] Comment on above: Order Comment: Reaso n for Exam Abnormal liver enzymes;Hepatitis C Performed By: #### C BC, CMP, PT #### [facility] [address] [place] [address] [place] #### HCV RNAQNT #### [facility] , Hematocrit (Bld) [Volume fraction] 47.5 % Normal 38.8-50.0 [facility] Comment on above: Order Comment: Reaso n for Exam Abnormal liver enzymes;Hepatitis C Performed By: #### C BC, CMP, PT #### [place] [address] [place] #### HCV RNAQNT #### [facility] , Hemoglobin (Bld) [Mass/Vol] 15.7 g/dL Normal 13.0-17.0 [facility] Comment on above: Order Comment: Reaso n for Exam Abnormal liver enzymes;Hepatitis C Performed By: #### C BC, CMP, PT #### [facility] [address] [place] [address] [place] #### HCV RNAQNT #### [facility] , Lymphocytes (Bld) [#/Vol] 4.2 10*3/uL Normal 1.00-4.8 [facility] Comment on above: Order Comment: Reaso n for Exam Abnormal liver enzymes;Hepatitis C Performed By: #### C BC, CMP, PT #### [place] [address] [place] #### HCV RNAQNT #### [facility] , Lymphocytes/100 WBC (Bld) 39.8 % Normal . [facility] Comment on above: Order Comment: Reaso n for Exam Abnormal liver enzymes;Hepatitis C Performed By: #### C BC, CMP, PT #### [address] #### HCV RNAQNT #### [facility] , MCH (RBC) [Entitic mass] 27.7 pg Normal 27.5-35.2 [facility] Comment on above: Order Comment: Reaso n for Exam Abnormal liver enzymes;Hepatitis C Performed By: #### C BC, CMP, PT #### [facility] [address] [place] [address] [place] #### HCV RNAQNT #### [facility] , MCV (RBC) [Entitic vol] 83.8 fL Normal 83.5-101 [facility] Comment on above: Order Comment: Reaso n for Exam Abnormal liver enzymes;Hepatitis C Performed By: #### C BC, CMP, PT #### [place] [address] [place] #### HCV RNAQNT #### [facility] , Mean Corpuscular HGB Conc 33.0 g/dL Normal 32.5-35.6 [facility] Comment on above: Order Comment: Reaso n for Exam Abnormal liver enzymes;Hepatitis C Performed By: #### C BC, CMP, PT #### [place] [address] [place] #### HCV RNAQNT #### [facility] , Monocytes (Bld) [#/Vol] 1.1 10*3/uL High 0.0-0.8 [facility] Comment on above: Order Comment: Reaso n for Exam Abnormal liver enzymes;Hepatitis C Performed By: #### C BC, CMP, PT #### [facility] [address] [place] [address] [place] #### HCV RNAQNT #### [facility] , Monocytes/100 WBC (Bld) 10.2 % Normal . [facility] Comment on above: Order Comment: Reaso n for Exam Abnormal liver enzymes;Hepatitis C Performed By: #### C BC, CMP, PT #### [facility] [address] [place] [address] #### HCV RNAQNT #### [facility] , Neutrophils (Bld) [#/Vol] 4.9 10*3/uL Normal 1.8-7.7 [facility] Comment on above: Order Comment: Reaso n for Exam Abnormal liver enzymes;Hepatitis C Performed By: #### C BC, CMP, PT #### [facility] [address] [place] [address] [place] #### HCV RNAQNT #### [facility] , Neutrophils/100 WBC (Bld) 46.5 % Normal . [facility] Comment on above: Order Comment: Reaso n for Exam Abnormal liver enzymes;Hepatitis C Performed By: #### C BC, CMP, PT #### [facility] [address] [place] [address] [place] #### HCV RNAQNT #### [facility] , Nucleated RBC/100 WBC (Bld) [Ratio] 0.1 % Normal 0-0.5 [facility] Comment on above: Order Comment: Reaso n for Exam Abnormal liver enzymes;Hepatitis C Performed By: #### C BC, CMP, PT #### [facility] [address] [place] [address] [place] #### HCV RNAQNT #### [facility] , Platelet mean volume (Bld) [Entitic vol] 8.3 fL Normal 6.6-10.1 [facility] Comment on above: Order Comment: Reaso n for Exam Abnormal liver enzymes;Hepatitis C Performed By: #### C BC, CMP, PT #### [facility] [address] [place] [address] #### HCV RNAQNT #### [facility] , Platelets (Bld) [#/Vol] 398 10*3/uL Normal 150-450 [facility] Comment on above: Order Comment: Reaso n for Exam Abnormal liver enzymes;Hepatitis C Performed By: #### C BC, CMP, PT #### [facility] [address] [place] [address] #### HCV RNAQNT #### [facility] , RBC (Bld) [#/Vol] 5.67 10*6/uL High 3.90-5.60 [facility] Comment on above: Order Comment: Reaso n for Exam Abnormal liver enzymes;Hepatitis C Performed By: #### C BC, CMP, PT #### [facility] [address] [place] [address] #### HCV RNAQNT #### [facility] , WBC (Bld) [#/Vol] 10.6 10*3/uL Normal 4.5-11.0 [facility] Comment on above: Order Comment: Reaso n for Exam Abnormal liver enzymes;Hepatitis C Performed By: #### C BC, CMP, PT #### [facility] [address] [place] [address] [place] #### HCV RNAQNT #### [facility] , Comprehensive Metabolic Pane tommy 09-14-2021 Albumin [Mass/Vol] 4.0 g/dL Normal 3.2-5.5 [facility] Comment on above: Order Comment: Reaso n for Exam Abnormal liver enzymes;Hepatitis C Performed By: #### C BC, CMP, PT #### [facility] [address] [place] [address] [place] #### HCV RNAQNT #### [facility] , Albumin/Globulin [Mass ratio] 1.5 {ratio} Normal [facility] Comment on above: Order Comment: Reaso n for Exam Abnormal liver enzymes;Hepatitis C Performed By: #### C BC, CMP, PT #### [facility] [address] [place] [address] [place] #### HCV RNAQNT #### [facility] , ALP [Catalytic activity/Vol] 52 U/L Normal 32-92 [facility] Comment on above: Order Comment: Reaso n for Exam Abnormal liver enzymes;Hepatitis C Result Comment: PERF ORMED BY: [place] [address] PATHOLOGIST COMPUTERIZED TABLE CUTTER NEFTALY BRANDT M.D. Performed By: #### C BC, CMP, PT #### [address] #### HCV RNAQNT #### [facility] , ALT [Catalytic activity/Vol] 14 U/L Normal 10-60 [facility] Comment on above: Order Comment: Reaso n for Exam Abnormal liver enzymes;Hepatitis C Performed By: #### C BC, CMP, PT #### [facility] [address] [place] [address] #### HCV RNAQNT #### [facility] , AST [Catalytic activity/Vol] 12 U/L Normal 10-42 [facility] Comment on above: Order Comment: Reaso n for Exam Abnormal liver enzymes;Hepatitis C Performed By: #### C BC, CMP, PT #### [facility] [address] [place] [address] [place] #### HCV RNAQNT #### [facility] , Bilirubin [Mass/Vol] 0.9 mg/dL Normal 0.3-1.2 [facility] Comment on above: Order Comment: Reaso n for Exam Abnormal liver enzymes;Hepatitis C Performed By: #### C BC, CMP, PT #### [facility] [address] [place] [address] [place] #### HCV RNAQNT #### [facility] , Calcium [Mass/Vol] 9.8 mg/dL Normal 8.2-10.2 [facility] Comment on above: Order Comment: Reaso n for Exam Abnormal liver enzymes;Hepatitis C Performed By: #### C BC, CMP, PT #### [facility] [address] [place] [address] #### HCV RNAQNT #### [facility] , Chloride [Moles/Vol] 102 mmol/L Normal 95-114 [facility] Comment on above: Order Comment: Reaso n for Exam Abnormal liver enzymes;Hepatitis C Performed By: #### C BC, CMP, PT #### [facility] [address] [place] [address] #### HCV RNAQNT #### [facility] , CO2 [Moles/Vol] 21.7 mmol/L Low 22.0-30.0 [facility] Comment on above: Order Comment: Reaso n for Exam Abnormal liver enzymes;Hepatitis C Performed By: #### C BC, CMP, PT #### [facility] [address] [place] [address] [place] #### HCV RNAQNT #### [facility] , Creatinine [Mass/Vol] 1.01 mg/dL Normal 0.64-1.27 [facility] Comment on above: Order Comment: Reaso n for Exam Abnormal liver enzymes;Hepatitis C Performed By: #### C BC, CMP, PT #### [facility] [address] [place] [address] [place] #### HCV RNAQNT #### [facility] , Estimated GFR ( Charmaine > [address] [facility] Comment on above: Order Comment: Reaso n for Exam Abnormal liver enzymes;Hepatitis C Result Comment: GFR estimated reference range: According to KDOQI guidelines, <60 ml/min/1.73m2 is sufficient to diagnose a patient with chronic kidney disease. Performed By: #### C BC, CMP, PT #### [facility] [address] [place] [address] [place] #### HCV RNAQNT #### [facility] , Estimated GFR (Non- Am > [address] [facility] Comment on above: Order Comment: Reaso n for Exam Abnormal liver enzymes;Hepatitis C Performed By: #### C BC, CMP, PT #### [place] [address] [place] #### HCV RNAQNT #### [facility] , Globulin (S) [Mass/Vol] 2.6 g/dL Normal [facility] Comment on above: Order Comment: Reaso n for Exam Abnormal liver enzymes;Hepatitis C Performed By: #### C BC, CMP, PT #### [place] [address] [place] #### HCV RNAQNT #### [facility] , Glucose [Mass/Vol] 102 mg/dL High 70-100 [facility] Comment on above: Order Comment: Reaso n for Exam Abnormal liver enzymes;Hepatitis C Result Comment: [place] om Glucose Reference Range is dependent on time and content of last meal. Glucose of more than 200 mg/dL in a nonstressed, ambulatory subject supports the diagnosis of Diabetes Mellitus. ADA recommended reference range Performed By: #### C BC, CMP, PT #### [place] [address] [place] #### HCV RNAQNT #### [facility] , Potassium [Moles/Vol] 4.4 mmol/L Normal 3.5-5.1 [facility] Comment on above: Order Comment: Reaso n for Exam Abnormal liver enzymes;Hepatitis C Performed By: #### C BC, CMP, PT #### [place] [address] [place] #### HCV RNAQNT #### [facility] , Protein [Mass/Vol] 6.6 g/dL Normal 6.1-7.9 [facility] Comment on above: Order Comment: Reaso n for Exam Abnormal liver enzymes;Hepatitis C Performed By: #### C BC, CMP, PT #### [facility] [address] [place] [address] [place] #### HCV RNAQNT #### [facility] , Sodium [Moles/Vol] 135 mmol/L Low 136-146 [facility] Comment on above: Order Comment: Reaso n for Exam Abnormal liver enzymes;Hepatitis C Performed By: #### C BC, CMP, PT #### [facility] [address] [place] [address] #### HCV RNAQNT #### [facility] , Urea nitrogen [Mass/Vol] 11 mg/dL Normal 9-23 [facility] Comment on above: Order Comment: Reaso n for Exam Abnormal liver enzymes;Hepatitis C Performed By: #### C BC, CMP, PT #### [facility] [address] [place] [address] #### HCV RNAQNT #### [facility] , Hep C RT-PCR, Qnt (Non-Graph )on 09-14-2021 Hepatitis C Quantitation Not detected Normal . [facility] Comment on above: Order Comment: Reaso n for Exam Abnormal liver enzymes;Hepatitis C Performed By: #### C BC, CMP, PT #### [facility] [address] [place] [address] [place] #### HCV RNAQNT #### [facility] , Test Information: Normal . [facility] Comment on above: Order Comment: Reaso n for Exam Abnormal liver enzymes;Hepatitis C Result Comment: The quantitative range of this assay is 15 IU/mL to 100 million IU/mL. Performed at: [address] [id number] E Business Consultant: Hipolito Galarza MD, Phone: [phone] PERFORMED BY: [address] [place] [address] PATHOLOGIST COMPUTERIZED TABLE CUTTER NEFTALY BRANDT M.D. Performed By: #### C BC, CMP, PT #### [address] #### HCV RNAQNT #### [facility] , Prothrombin Time INRon 09-14 INR Coag (PPP) [Relative time] 1.2 {INR} Normal [facility] Comment on above: Order Comment: Reaso [...] heart valves: 3 - 4.5 PERFORMED BY: [place] [address] PATHOLOGIST COMPUTERIZED TABLE CUTTER NEFTALY BRANDT M.D. Performed By: #### C BC, CMP, PT #### [address] #### HCV RNAQNT #### [facility] , PT Coag (PPP) [Time] 13.4 s High 9.0-12.9 [facility] Comment on above: Order Comment: Reaso n for Exam Abnormal liver enzymes;Hepatitis C Performed By: #### C BC, CMP, PT #### [address] #### HCV RNAQNT #### [facility] , COMPREHENSIVE METABOLIC PANE Tommy 06-21-2021 Albumin [Mass/Vol] 4.4 g/dL Normal 3.6-5.1 [facility] Comment on above: Performed By: #### 7 600, [id number] #### [facility] [address], [address] [place] [address] Gritting Machine Operator: Cullen Barroso MD Albumin/Globulin [Mass ratio] 1.5 {ratio} Normal 1.0-2.5 [facility] Comment on above: Performed By: #### 7 600, [id number] #### [facility] of [address], [address] [place] [address] Gritting Machine Operator: Cullen Barroso MD ALP [Catalytic activity/Vol] 59 U/L Normal 35-144 [facility] Comment on above: Performed By: #### 7 600, [id number] #### [facility] of [address], [address] [place] [address] Gritting Machine Operator: Cullen Barroso MD ALT [Catalytic activity/Vol] 14 U/L Normal 9-46 [facility] Comment on above: Performed By: #### 7 600, [id number] #### [facility] of [address], [address] [place] [address] Gritting Machine Operator: Cullen Barroso MD AST [Catalytic activity/Vol] 12 U/L Normal 10-35 [facility] Comment on above: Performed By: #### 7 600, [id number] #### [facility] of [address], [address] [place] [address] Gritting Machine Operator: Cullen Barroso MD Bilirubin [Mass/Vol] 0.6 mg/dL Normal 0.2-1.2 [facility] Comment on above: Performed By: #### 7 600, [id number] #### [facility] of [address], [address] [place] [address] Gritting Machine Operator: Cullen Barroso MD BUN/CREATININE RATIO NOT APPLICABLE Normal 6-22 [facility] Comment on above: Performed By: #### 7 600, [id number] #### [facility] of [address], [address] [place] [address] Gritting Machine Operator: Cullen Barroso MD Calcium [Mass/Vol] 10.0 mg/dL Normal 8.6-10.3 [facility] Comment on above: Performed By: #### 7 600, [id number] #### [facility] of [address], [address] [place] [address] Gritting Machine Operator: Cullen Barroso MD Chloride [Moles/Vol] 107 mmol/L Normal 98-110 [facility] Comment on above: Performed By: #### 7 600, [id number] #### [facility] [place] [address] Gritting Machine Operator: Cullen Barroso MD CO2 [Moles/Vol] 28 mmol/L Normal 20-32 [facility] Diagnostics Comment on above: Performed By: #### 7 600, 09194 #### [facility] [place] [address] Gritting Machine Operator: Cullen Barroso MD Creatinine [Mass/Vol] 0.89 mg/dL Normal 0.70-1.25 [facility] Comment on above: Result Comment: For patients >49 years of age, the reference limit for Creatinine is approximately 13% higher for people identified as -Lithuanian. Performed By: #### 7 600, 13005 #### [facility] [place] [address] Gritting Machine Operator: Cullen Barroso MD eGFR NON-AFR. JORDANIAN 88 mL/min/1.73m2 Normal > OR = 60 [facility] Comment on above: Performed By: #### 7 600, 34478 #### [facility] [place] [address] Gritting Machine Operator: Cullen Barroso MD GFR/1.73 sq M.predicted among blacks MDRD (S/P/Bld) [Vol rate/Area] 103 mL/min/{1.73_m2} Normal > OR = 60 [facility] Comment on above: Performed By: #### 7 600, 13651 #### [facility] [place] [address] Gritting Machine Operator: Cullen Barroso MD Globulin (S) [Mass/Vol] 2.9 g/dL Normal 1.9-3.7 [facility] Comment on above: Performed By: #### 7 600, 07619 #### [facility] [place] [address] Gritting Machine Operator: Cullen Barroso MD Glucose [Mass/Vol] 88 mg/dL Normal 65-99 [facility] Comment on above: Result Comment: Fasting reference interval Performed By: #### 7 600, 83561 #### [facility] [place] [address] Gritting Machine Operator: Cullen Barroso MD Potassium [Moles/Vol] 4.6 mmol/L Normal 3.5-5.3 [facility] Comment on above: Performed By: #### 7 600, 86055 #### [facility] [place] [address] Gritting Machine Operator: Cullen Barroso MD Protein [Mass/Vol] 7.3 g/dL Normal 6.1-8.1 [facility] Comment on above: Performed By: #### 7 600, 59312 #### [facility] [place] [address] Gritting Machine Operator: Cullen Barroso MD Sodium [Moles/Vol] 140 mmol/L Normal 135-146 [facility] Comment on above: Performed By: #### 7 600, 20137 #### [facility] [place] [address] Gritting Machine Operator: Cullen Barroso MD Urea nitrogen [Mass/Vol] 24 mg/dL Normal 7-25 [facility] Comment on above: Performed By: #### 7 600, 87810 #### [facility] [place] [address] Gritting Machine Operator: Cullen Barroso MD LIPID PANEL, [facility] 05-29 Cholesterol [Mass/Vol] 145 mg/dL Normal <200 [facility] Comment on above: Order Comment: FASTI NG:YES FASTING: YES Performed By: #### 7 600, 52742 #### [facility] [place] [address] Gritting Machine Operator: Cullen Barroso MD Cholesterol in HDL [Mass/Vol] 39 mg/dL Low > OR = 40 [facility] Comment on above: Order Comment: FASTI NG:YES FASTING: YES Performed By: #### 7 600, 38002 #### [facility] [address], [address] [place] [address] Gritting Machine Operator: Cullen Barroso MD Cholesterol in [...] Frank SS et al. JOSE LUIS. 2013;310(19): 0229-8223 (http://education.[employer]/faq/ECL284) Performed By: #### 7 600, 92145 #### [facility] [address], [address] [place] [address] Gritting Machine Operator: Cullen Barroso MD Cholesterol.total/ Cholesterol in HDL [Mass ratio] 3.7 {ratio} Normal <5.0 [facility] Comment on above: Order Comment: FASTI NG:YES FASTING: YES Performed By: #### 7 600, 07391 #### [facility] [address], [address] [place] [address] Gritting Machine Operator: Cullen Barroso MD NON HDL CHOLESTEROL 106 mg/dL (calc) Normal <130 [facility] Comment on above: Order Comment: FASTI NG:YES FASTING: YES Result Comment: For patients with diabetes plus 1 major ASCVD risk factor, treating to a non-HDL-C goal of <100 mg/dL (LDL-C of <70 mg/dL) is considered a therapeutic option. Performed By: #### 7 600, 40125 #### [facility] [address], [address] [place] [address] Gritting Machine Operator: Cullen Barroso MD Triglyceride [Mass/Vol] 50 mg/dL Normal <150 [facility] Comment on above: Order Comment: FASTI NG:YES FASTING: YES Performed By: #### 7 600, 62164 #### [facility] [place] [address] Gritting Machine Operator: Cullen Barroso MD [facility] 12-15-2020 Albumin [Mass/Vol] 4.5 g/dL Normal 3.6-5.1 [facility] Comment on above: Performed By: #### 1 0231, 82950, 7600 #### [facility] of [address], [address] [place] [address] Gritting Machine Operator: Cullen Barroso MD Albumin/Globulin [Mass ratio] 1.7 {ratio} Normal 1.0-2.5 [facility] Comment on above: Performed By: #### 1 0231, 96120, 7600 #### [facility] [place] [address] Gritting Machine Operator: Cullen Barroso MD ALP [Catalytic activity/Vol] 56 U/L Normal 35-144 [facility] Comment on above: Performed By: #### 1 0231, 61006, 7600 #### [facility] [place] [address] Gritting Machine Operator: Cullen Barroso MD ALT [Catalytic activity/Vol] 17 U/L Normal 9-46 [facility] Comment on above: Performed By: #### 1 0231, 45844, 7600 #### [facility] [place] [address] Gritting Machine Operator: Cullen Barroso MD AST [Catalytic activity/Vol] 15 U/L Normal 10-35 [facility] Comment on above: Performed By: #### 1 0231, 77096, 7600 #### [facility] [place] [address] Gritting Machine Operator: Cullen Barroso MD Bilirubin [Mass/Vol] 0.5 mg/dL Normal 0.2-1.2 [facility] Comment on above: Performed By: #### 1 0231, 04068, 7600 #### [facility] of [address], [address] [place] [address] Gritting Machine Operator: Cullen Barroso MD BUN/CREATININE RATIO NOT APPLICABLE Normal 6-22 [facility] Comment on above: Performed By: #### 1 0231, 50326, 7600 #### [facility] [address], [address] [place] [address] Gritting Machine Operator: Cullen Barroso MD Calcium [Mass/Vol] 10.3 mg/dL Normal 8.6-10.3 [facility] Comment on above: Performed By: #### 1 0231, 57450, 7600 #### [facility] [place] [address] Gritting Machine Operator: Cullen Barroso MD Chloride [Moles/Vol] 108 mmol/L Normal 98-110 [facility] Comment on above: Performed By: #### 1 0231, 38397, 7600 #### [facility] [address], [address] [place] [address] Gritting Machine Operator: Cullen Barroso MD CO2 [Moles/Vol] 24 mmol/L Normal 20-32 [facility] Comment on above: Performed By: #### 1 0231, 46764, 7600 #### [facility] [place] [address] Gritting Machine Operator: Cullen Barroso MD Creatinine [Mass/Vol] 0.82 mg/dL Normal 0.70-1.25 [facility] Comment on above: Result Comment: For patients >49 years of age, the reference limit for Creatinine is approximately 13% higher for people identified as -Lithuanian. Performed By: #### 1 0231, 29207, 7600 #### [facility] [place] [address] Gritting Machine Operator: Cullen Barroso MD eGFR NON-AFR. JORDANIAN 92 mL/min/1.73m2 Normal > OR = 60 [facility] Comment on above: Performed By: #### 1 0231, 21851, 7600 #### [facility] [place] [address] [place] [address] Gritting Machine Operator: Cullen Barroso MD GFR/1.73 sq M.predicted among blacks MDRD (S/P/Bld) [Vol rate/Area] 106 mL/min/{1.73_m2} Normal > OR = 60 [facility] Comment on above: Performed By: #### 1 0231, 26342, 7600 #### [facility] [place] [address] Gritting Machine Operator: Cullen Barroso MD Globulin (S) [Mass/Vol] 2.6 g/dL Normal 1.9-3.7 [facility] Comment on above: Performed By: #### 1 0231, 85619, 7600 #### [facility] [place] [address] Gritting Machine Operator: Cullen Barroso MD Glucose [Mass/Vol] 109 mg/dL Normal 65-139 [facility] Comment on above: Result Comment: Non-fasting reference interval For someone without known diabetes, a glucose value between 100 and 125 mg/dL is consistent with prediabetes and should be confirmed with a follow-up test. Performed By: #### 1 0231, 62350, 7600 #### [facility] [place] [address] Gritting Machine Operator: Cullen Barroso MD Potassium [Moles/Vol] 4.5 mmol/L Normal 3.5-5.3 [facility] Comment on above: Performed By: #### 1 0231, 74550, 7600 #### [facility] [place] [address] Gritting Machine Operator: Cullen Barroso MD Protein [Mass/Vol] 7.1 g/dL Normal 6.1-8.1 [facility] Comment on above: Performed By: #### 1 0231, 49016, 7600 #### [facility] [place] [address] Gritting Machine Operator: Cullen Barroso MD Sodium [Moles/Vol] 139 mmol/L Normal 135-146 [facility] Comment on above: Performed By: #### 1 0231, 60412, 7600 #### [facility] [place] [address] Gritting Machine Operator: Cullen Barroso MD Urea nitrogen [Mass/Vol] 19 mg/dL Normal 7-25 [facility] Comment on above: Performed By: #### 1 0231, 17324, 7600 #### [facility] [address], [address] [place] [address] Gritting Machine Operator: Cullen Barroso MD HCV RNA, QN,REAL TIME PCR W/ REFL GENOTYPE, LIPAon 12-15-2020 COMMENT Normal [facility] Comment on above: Result Comment: This test was performed using Real-Time Polymerase Chain Reaction. Reportable Range: 15 IU/mL to 100,000,000 IU/mL (1.18 Log IU/mL to 8.00 Log IU/mL). The analytical performance characteristics of this assay have been determined by [employer]. The modifications have not been cleared or approved by the FDA. This assay has been validated pursuant to the CLIA Regulations and is used for clinical purposes. For more information on this test, go to: http://education.[employer].myaNUMBER/faq/AMY68e2 (This link is being provided for informational/ Educational purposes only.) Performed By: #### 1 0231, 22941, 7600 #### [facility] [place] [address] Gritting Machine Operator: Cullen Barroso MD HCV RNA, QUANTITATIVE REAL TIME PCR Not detected Normal NOT DETECTED [facility] Comment on above: Performed By: #### 1 0231, 29350, 7600 #### [facility] [place] [address] Gritting Machine Operator: Cullen Barroso MD LIPID PANEL, STANDARDon 11-26 Cholesterol [Mass/Vol] 130 mg/dL Normal <200 [facility] Comment on above: Order Comment: FASTI NG:NO FASTING: NO Performed By: #### 1 0231, 20516, 7600 #### [facility] [place] [address] Gritting Machine Operator: Cullen Barroso MD Cholesterol in HDL [Mass/Vol] 41 mg/dL Normal > OR = 40 [facility] Comment on above: Order Comment: FASTI NG:NO FASTING: NO Performed By: #### 1 0231, 96339, 7600 #### [facility] [address], [address] [place] [address] Gritting Machine Operator: Cullen Barroso MD Cholesterol in [...] Frank SS et al. JOSE LUIS. 2013;310(19): 9269-2078 (http://education.[employer].myaNUMBER/faq/RXF023) Performed By: #### 1 0231, 85533, 7600 #### [facility] [place] [address] Gritting Machine Operator: Cullen Barroso MD Cholesterol.total/ Cholesterol in HDL [Mass ratio] 3.2 {ratio} Normal <5.0 [facility] Comment on above: Order Comment: FASTI NG:NO FASTING: NO Performed By: #### 1 0231, 88127, 7600 #### [facility] [place] [address] Gritting Machine Operator: Cullen Barroso MD NON HDL CHOLESTEROL 89 mg/dL (calc) Normal <130 [facility] Comment on above: Order Comment: FASTI NG:NO FASTING: NO Result Comment: For patients with diabetes plus 1 major ASCVD risk factor, treating to a non-HDL-C goal of <100 mg/dL (LDL-C of <70 mg/dL) is considered a therapeutic option. Performed By: #### 1 0231, 57775, 7600 #### [facility] [address], [address] [place] [address] Gritting Machine Operator: Cullen Barroso MD Triglyceride [Mass/Vol] 42 mg/dL Normal <150 [facility] Comment on above: Order Comment: FASTI NG:NO FASTING: NO Performed By: #### 1 0231, 51787, 7600 #### [facility] [address], [address] [place] [address] Gritting Machine Operator: Cullen Barroso MD OPERATIVE REPORT CLDon 10-15 OPERATIVE REPORT [place] [id number] [place], [place] [address] Patient Name: KRISTINA HINOJOSA Visit ID: [id number] : 1955 OPERATIVE REPORT Date: 10/16/2019 Surgeon: [...] in stable condition. Author: Benjamin Castrejon MD REID/MODL/[id number] Electronically Authenticated by: Benjamin Castrejon MD on 10/30/2019 12:19 PM EDT [facility] WITHOUT IV CONTRAST [...] MCP and fifth DIP joints.Professional Interpretation by FW RadiologyElectronically Signed By: Fidencio Rushing MD On: 05/30/2018 8:06 PM [facility] Social History Date Type Detail Facility Start: 04-04-2023 Alcohol intake Ex-drinker (finding) [facility] Start: 02-28-2023 Tobacco smoking stat us [facility] Ex-smoker [facility] Start: 09-21-2022 End: 02-28-2023 Cigarettes smoked current (pack per day) - Reported 1.5 [facility] Start: 02-28-2023 Tobacco use and exposure Forme r smokeless tobacco user [facility] Start: 09-21-2022 End: 04-04-2023 Sex Assigned At [facility] Start: 1955 Sex Assigned At Not on file P [facility] Tobacco smoking status No Smokin g Status Entered [facility] End: 05-28-1996 History of tobacco use Current smoker [facility] End: 05-28-1996 History of tobacco use Cigarette Smoker [facility] End: 05-28-1998 History of tobacco use User of smokeless tobacco [facility] Do you belong to any clubs or organizations such as nondenominational groups, unions, fraternal or athletic groups, or school groups? No [facility] Are you now , , , , never or living with a partner? [facility] How often to you hav e a drink containing alcohol? Never [facility] How many standard dr inks containing alcohol do you have on a typical day? Patient does not drink [facility] Do you feel stress - tense, restless, nervous, or anxious, or unable to sleep at night because your mind is troubled all the time - these days [OSQ] Not at all [facility] Vital Signs Date Time Vital Sign Value Performing Clinician Facility 11-09-2021 10:30-0400 Body height Gordo Huangack Other [facility] Other 11-09-2021 10:30-0400 Body mass index (BMI) [Ratio] 22.71 kg/m2 Gordo White Other [facility] Other 11-09-2021 10:30-0400 Body weight 65.77 kg Gordo White Other [facility] Other 11-09-2021 10:30-0400 Diastolic blood pressure 96 mm[Hg] Gordo White Other [facility] Other 11-09-2021 10:30-0400 Systolic blood pressure 137 mm[Hg] Gordo White Other [facility] Other 08-29-2021 14:15-0400 Body height Gordo White Other [facility] Other 08-29-2021 14:15-0400 Body mass index (BMI) [Ratio] 23.65 kg/m2 Gordo White Other [facility] Other 08-29-2021 14:15-0400 Body weight 68.49 kg Gordo White Other [facility] Other 08-29-2021 14:15-0400 Respiratory rate 18 /min Gordo White Other [facility] Other 08-29-2021 14:15-0400 SaO2% (BldA) [Mass fraction] 97 % Gordo White Other [facility] Other Evaluation note 11-09-2021 Note Date & Type Note Facility 11-09-2021 Evaluation note Encounter Date Diagnosis Assessment Notes Oct, Hepatitis C (ICD-10 - B19.20) Oct, Abnormal liver enzymes (ICD-10 - R74.8) RTO 1 YR Oct, Fatty liver (ICD-10 - K76.0) START VITAMIN E [facility] Other Evaluation note 08-29-2021 Note Date & Type Note Facility 08-29-2021 Evaluation note Encounter Date Diagnosis Assessment Notes Aug, Abnormal liver enzymes (ICD-10 - R74.8) will order testing. Aug, Hepatitis C (ICD-10 - B19.20) we will order some testing for this as patient does want to donate blood. [facility] Other Evaluation + Plan note Note Date & Type Note Facility Evaluation + Plan note No data available for this section [facility] Evaluation + Plan note Note Date & Type Note Facility Evaluation + Plan note Future Appointments Appointment Date:07/18/2022 01:45:00 PM Scheduled Provider:Adonis Beebe DPM [facility] Appointment Type: Follow Up Visit ([facility]) [facility] History general Narrative - Reported Note Date & Type Note Facility History general Narrative - Reported Type Medical History Hep C Medical History hyperlpidemia Surgical History left foot [facility] Other Hospital Discharge instructions Note Date & Type Note Facility Hospital Discharge instructions No data available for this section [facility] Instructions Note Date & Type Note Facility Instructions Not on filedocumented in this en counter [facility] Progress note Note Date & Type Note Facility Progress note No data available for this section [facility] Summary Purpose Family History No [...] DATE CREATED AUTHOR AUTHOR'S ORGANIZ ATION 09/20/2021 [facility] DATE CREATED AUTHOR AUTHOR'S ORGANIZ ATION 10/04/2022 [facility] DATE CREATED AUTHOR AUTHOR'S ORGANIZ ATION 10/11/2023 [facility] REASON FOR VISIT (unrecogniz ed section and content) Reason Comments Med Refill Patient Care team informatio n (unrecognized section and content) Eyelet Operator Relationship Specialty Start Date End Date Lizette Malcolm, LEBRON-FRAN [address] [id number] PCP - General Internal Medicine 02/14/23 FOR [...] BE BASED ON THE PRIMARY CLINICAL RECORDS. [facility] provides no warranty or guarantee of the accuracy or completeness of information in this document.
--- NOTE | 2023-10-23 12:24 | CT_ITS ---
The [address] [address] Patient Name: KRISTINA HINOJOSA MRN: [id number] date: 1955 Sex: M Assigned Patient Location: ER Current Patient Location: ER Accession/Order Number: [id number] Exam Date: 10/23/2023 12:20 Report Date: 10/23/2023 12:54 At the request of: MADISON ROWAN Procedure: CT head/brain wo con EXAMINATION: CT head/brain wo con HISTORY: fall ; struck left side of head on floor COMPARISON: CT head 08/31/2023 TECHNIQUE: Axial CT images were obtained without IV contrast. Dose reduction techniques were achieved by using automated exposure control and/or adjustment of mA and/or kV according to patient size and/or use of iterative reconstruction technique. FINDINGS: BRAIN: No edema, hemorrhage, mass, acute infarction, or inappropriate atrophy. CSF SPACES: No hydrocephalus, subarachnoid hemorrhage, or mass. Appropriate for age. SKULL: No fracture, mass, or other significant visible lesion. SINUSES: Fluid and air-filled left maxillary sinus. Suspect fracture of the posterior wall and possibly the roof. ORBITS: Tiny focus of air suspected to be within the inferior aspect of the orbit adjacent the floor which raises concern for fracture of the floor. No appreciable abnormality of the globe, intraorbital fat, and musculature. OTHER: Negative CT/CT head/brain wo con IMPRESSION: 1. Normal CT appearance the brain. No intracranial hemorrhage. 2. Suspect fracture of the posterior wall and roof of left maxillary sinus. Consider CT facial bones for further evaluation. Electronically authenticated by: FRANCISCA HAWK Date: 10/23/2023 12:54
--- NOTE | 2023-10-23 12:25 | PC.NURSE ---
Patient reports tripping on carpet this morning at approx. 0430, causing laceration above left eye. Patient had laceration from previous fall 10 days ago and already had bruising, swelling and laceration with steri strips, steri strips came off with fall this morning. Patient has 2 lacerations above left eye, area cleansed with Hibi cleanse and ice pack applied.
[2023-10-23 13:09] VITALS: BP 137/94; PULSE 79; O2SAT 97
--- NOTE | 2023-10-23 13:24 | CT_ITS ---
The [address] [address] Patient Name: KRISTINA HINOJOSA MRN: [id number] date: 1955 Sex: M Assigned Patient Location: ER Current Patient Location: ER Accession/Order Number: [id number] Exam Date: 10/23/2023 13:21 Report Date: 10/23/2023 13:53 At the request of: MADISON ROWAN Procedure: CT facial bones wo con EXAMINATION: CT facial bones wo con HISTORY: poss fracture on CT brain COMPARISON: No relevant comparison available. TECHNIQUE: Axial, Coronal, and Sagittal CT images created without IV contrast. Dose reduction techniques were achieved by using automated exposure control and/or adjustment of mA and/or kV according to patient size and/or use of iterative reconstruction technique. FINDINGS: FACIAL BONES: Minimally displaced fracture of left nasal bone. Mildly depressed fracture of the anterior and posterior delcid and roof of the left mastoid sinus. SINUSES: Air and fluid-filled left maxillary sinus, likely mixture of acute blood products. NASAL FOSSA: No mass, fracture, or significant septal deviation. SKULL BASE: No mass or bone destruction. ORBITS: Small focus of free air within left orbit adjacent the floor at site of fracture. No intraorbital hemorrhage, edema, or involvement of the intraorbital fat/muscle. Intact globe. OTHER: Left periorbital subcutaneous bruising/edema. CT/CT facial bones wo con IMPRESSION: 1. Mildly displaced fractures involving the left maxillary sinus anterior wall, posterior wall, and roof with subcutaneous air within the lateral left facial soft tissues. Clotted blood products filling the left maxillary sinus. 2. Small focus of free air within left orbit secondary to orbital floor fracture. 3. Left periorbital subcutaneous bruising/edema. 4. Minimally displaced left nasal bone fracture. Electronically authenticated by: FRANCISCA HAWK Date: 10/23/2023 13:53
== END 2023-10-23 15:26 | disposition home or self-care (01) ==
PROVIDERS: Emergency Provider Emergency Medicine; PCP Nurse Practitioner Family
DX: S02.19XA Other fracture of base of skull, initial encounter for closed fracture (principal); W19.XXXA Unspecified fall, initial encounter
CPT/HCPCS: 70450; 70486; 99284

== ENCOUNTER 2023-11-26 21:00 | Emergency (ER) | payer MEDICARE, SELFPAY ==
[2023-11-26] VITALS (11 sets, daily range): BP systolic 73–122; BP diastolic 54–90; PULSE 128–160; RESP 14; TEMP 39.4–40.3; O2SAT 84–100; BMI 22.3
--- OUTSIDE RECORDS SUMMARY | 2023-11-26 21:07 | XMS_ITS ---
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 98Jg7drMomPc0cFVXxLDH6QLTo fIZmV2JtgD6qRqHqQZIdPFWc R3TgjNRiOLtsQ919DFrzSlS5WV QhyoCcG0TgAYTtvKagKxH2y6I3 Nv9NZKo0TU94QL23rTDgm8B0 pHA1W3PmCABhlnsithlhlWW2CN PuRMQitN47Wy1jdCirHe5iPDKi BHX9ENPmtDEeC7YwfO6iGuXo IXJpXYHsN8IqhHZuCSxlM086VV ytOnX2OQXwjhPlZ7WmPCTxpPmr FqQ2g6I4Op3FZYJpWY65GDU4 iGG2FH03HE11V2ZcBmmawAQrxJ U+PHRhYmxlIHdpZHRoPScxMDAl WhMfoCemTN7aMg5vEYVdVAXf fDoviJGjKePkb4xjQSXkEIzwSV 0paBhaF7IwcGR6LCRxa1w8Mb71 Q99xR3IpxZC+QPMswJU9hTN9 pD5cNyFbXrZ2YVicT892DlJquK HwLvmpd0rpv7pbdPz3IwG1HVGw nbCndRisWMF5u8AaAg68V67k IHdpZHRoPSIxNSUiIHZhbGlnbj 9ykO9yUx4+SIQlbVV2dLT5mU7d XjGoIqM4CVrwE543AnCwyTYs Vvpge5daa7xijPn0IfKaLMGzbz DqoDqnBYD5t3CkGt72U9UezAqc t7QeQox7lc57tDPmb6O7eIT7 X3RlJXAbptwtcMZvtAxaMM0uNA BfahqwNERehR2qUUPhV6m1ObTz AdT5JNdcW7ErcjQ0IOEltSSu RRifOGY9U42mv9E5RZDmOFMbWE C9yIG3uD8krHfcluvhuEZayIwv gpLoxRvjXQtaKDxxA737KCFb uHgmABQhtL9pJIGstUHwnIfmHP 4wNTBpbjsnPkxPTlosIERBVklE CY98Q7HuWyl8GLPkvUqwLN6v sHUmKFdvZy7eeDbiiTeaST3vID WvfiosUBIsjD0yRZDmaDEvtAsr RP5fOYJkvvspu869PnXqOLO2 UNMevHDkV9MumE6lChEfQLGkDY QrS4QltAEtNNuqD318VYlzDlO2 SCBouyQdL9XmZQKpeBlgLbF0 z8P7Hq0aKl7pHQ2jVJY9IZ65XI 68jWNwj0G9dYK0K0TvXDMpuupo aqczzDO8ZZAxXDQuqX59nAXe XSckHi4up0Z8b659UHJzBTZykP 20Jz8lzMyxTJSexPNSbX8ualpi w7ursvnqZmOrVBInUUh8EYj4 PDCvtXarChAxXLO3UlE9GQR9pK MqdV6vbNpuuevhcX1rYjc+Njgg UCDysvT8S7MoWma3AEZbaDqo FH9ndLWcIZcsIi8wjCvgjNviFG 9eVRKjeuvuFPHsqX6lULIffPXt uSqxVI7gATAssgqdu911QdXe XWW4TRKqxIZgZ4CgoW3tBjKePW WeBPZsV1YbsFBgWEonT642LZpn IuU7AVMufaRlV5KmDHTshVgk UrY4w3Q1Uf7PIDyqBJ58OM54lJ Zcm8K2jFQ5M7IeOUArmeajztws oVG8GELoLIBquP53zIBjLXvu Nj3gm9T3g955JBZtXPVdaQ44Yb 4igCbmJDFajPPShX3qpgzqe9lb fqhvQvQbJUOaWAo3FOy6JPFm vAocGdXrTWL3ZbV3XQQ1wRUalR 2wrRuglfkhlE5aNzv+X4B6yIB5 aWVudDwvdGQ+GM88ay70Y9Bo UqzrKwi1DGArGSY6yJE5kN0gUB RzEOkya0F8pWJ3Q8IhdiNvws6k r3ifXCFvZZprD67hwPYkq9E0 HAKopKT9CSEqfDagLeZqsY68Ka c+YAAimLhru0CxPmdhj6dfx6am aXt6FsSqKLCggxEsiNmbZLH6 e0HlLr64V29kAIqvYWYkAAZlTY FjLJNljHzkie8biZ6yRo5+PGNv sMJ0jRM2aT6wAxYcZoL9TOcv C423HwOlmORiHhyda9oqh9hdkL a1YrJrMFQoehKmeUhjFOP8o4Qk Zw08D4MlmNkxp4KdBpg8ib59 bGLux2E8wCS7U6QnZGPgjtonnW SdwKkpFN3iNHRafbdxXTOkkC9c TWUiC4x6RqQeBeP2JXflQ8Ft vlI6HVCjgKRoASCpuMRGnR0eiv buy7fypixjLoSbAAOdVAo4USd3 RCAuvBlaHuBrFWM3TxE1XBS9 wCZqnZ2hdWerajrsfH5tAlw+UG s1f0sodEGnFJ3hqOR5HN44NR09 zCKmc8F8oIF5K8DiQWOhotdb srimzRF3NKHiXSMwiR99Cz6juE rhKf0vCXZsPJF3VEZdsOTnT0Lv lG0sWxMoZSEuLTPuP4FppMIt HVzgZ767KAcvJaO1LRKoyxZjW6 MqBFPmaVyjWyJ0s5G2Bl4TQS70 QB09RJ41rAIjh2L0eJH0D2Lx XAHejqcektzlvBD6PKUtDCBljZ 59Bk7clKpdUz8pPJGdVMV4MHLo vMLaV7IttV3nTcJbRMTmJUFv A2KhiUZxYLpmG775QAlsJiQ4HH WkakWeH4PgKZJzqScrJjQ8f2E6 Ds2LIl70FZ11JI90fQLhx3F0 fTF2N9OgKMTwdzyzkcddbZM0TW AtHUBbrD69Tv7fnZruKl7pSJDl BNC1IMUnnQFcX9KqeF4kSuRe XIZmGBUuT2RheOGaIRktX947AL fzDlD8INHyswEeZ4SsUQIvbQol PcD1x6P1Ee2DEMglhoh4A6Yp PjwvdHI+PW38QOEoVQ25pOAqhR Bmh7nmwIx0FiUvNKRsVKW4zGlt ORgrl0OgTEMcX17leCRld7Y0 IGNv (more content not included)... Normal [facility] Coding Summary.on 07-11-2022 Coding Summary. CD:[id number]:[id number] Gh0bWw +PGhlYWQ+DN8EOBXrU40yyYBpx N3ZW2vUHJ3XAWIKICTGDT3KAT2 mgNE3WOotI9GhmoEq GsauoKPuGD99VMz2ITL1bJqfXW uywJ9npEOcT8w3LnBpJI04fA90 YManYBPkEiV0TrNnranbdXGx G8vuAmJjxZDhTrs+PHRhYmxlIH ovSBOqMTsgXDIiUwXidHxhXS3h Ut0pDHCgHODlaBzlnHWsFvBf v1fvBKGdTBaaUZ0vxRhkE3OtdH P5OIFzq0d9Wz68vJR+PHRkIHN0 kJurJFaku951MtIve3yaONW7 tBGzCXpcRZN4Y31km7G1CKQlRZ WeNHY5nTY2tG3ajSgzhjnjO4Kw vCKrQsG6ZGJ2gVVexH6ywWhq asqaqZ0pNun+Y03HMR4IDRAVQZ 9QEso1M1ZhRahleZR+KX24SRGx ZI74pRTjhFPel1saiVi6GwWz XLYdMSG9gJtdVZazh5XcKXRsG5 6arVErp6S2LWRnsSrvpHVeMuSz sDQ2aO1wBOurvlivj6qttcdi Vznxs6rrau94lT42O79xMFasHC YzQTT0SRYcBAUszRtvav3gxT5n Ii8+GAdwm5trk6bgnLz8EtYd HRVgovFnaKusMSB3y3NjZg69I1 AbyXazh8HaPih8hn83vCJmj1V0 hYI9ROgfKMXufA1eUPfrPjL7 SOIdIrMmhJ15nQCnDLdgOl0qlX lzrNqvCY2mRGBtkhbwYUCicQ1s XMOevTOldIwzVC6mKMAzgqaa b450EwLeWGY0RUPquDZhE4CcpN 1sObWqTKXfQYIbF7HouEZuPQjn N187NMjoDlB2YLEuejPiU5Ei ANBspKboVwO1x9B6Cn4Tu5Kjyn ltRLD9JGicQXYaOnO1MlBvTwT3 F0QrWri4XJRsrYfbCV8bV4Wc FMRrsfnkvknmaUI3QSUpLDJamR 24qNWtUWrtYv1ot1U0a252UEJd BXFhgK63Lg4xyMjoFONziDPU nY2mikkqa1ctishwIgUyARSaDD b2MKm9ZZBjvSifAbHfWYQ5RsI0 GFI8lGAcfR6doPpcaeykpJ1v Oyc+L33iqF2iEON2ERI3gjcfEJ TjrmXgWQ66VT84H5JlCcrhdTFo bGU+CUChewKjcTaaOZ4qLyNh m5rmy0DkTEwgU2FiAVRdURduBw o2XJOmIPT1sUM1xX8hDGNqBPvf z7M7jFI8K4RlziDjgc5vz8rl TCAjNAwtX78tmFYiq8Y9YAArwI T4PALsfNzyTlLypC46Qpj+PGNv eQyxp4NtHtosi5iio8kccYn4 ExLgJMOabrFkxIjuRFX9r0GbTl 87Y70nJDomRVFzBAVjPQDwIMYp iEzykw5zsK8cFz4+PGNvbCB3 eVW0lM9mYIKmTqG1YCygU639Jl QdwLZiGfaxa7psq2szqQr8UlTf TPFthbHyoJffIMI3c0DlLq98 U26jUKnoOXBiQYJxOJPwMREllD fosw7laK0fGx9+WE3un4xdfk71 kY31pKD+OVTrTAR6jAcyMKdm PEMhbB2gGUzoGxV6QOIlLaMuoJ 48wAQzQRglVq2shJokaVcfDL5v XXUxzjlkg874KsIdt1cbQOIx gRLeNXiqZCY5J08gp5M2ZRFuEK ZeUNU5kRZ4cY0foPawtdpeyVPj lGpgrpLyeZaqDIvzHOuxF266 IHRvcDsnPlBhdGllbnQgTmFtZT s0D4VyRwa1JWZwtRewRL4tzEYj PSdhLj4yrMuyrCijRA5xLUIf hrlvw200LiDcs2kkFGGcvZRmSB nwAGI8Y16sj8C0KSOzXSUsTAO4 kJZ7hK1tjGvoqlnsiSLgmLac pyFyhYjhCYurFJxrA272JLHflC lxOvEyeuGzGOWhpXP6FE65MI42 wBBik3Z0vGU4D7WgLSZrweky ncubiOM8AZZbCJHvoC05Db2jnK ukSj9dTOWfTKU6HHJtkZFfM9Kn qT6tJbJtOAQfDEVgT6UqmRTy BVgxT548QIzxAuX3PWGremUhR8 IkZVFrtKhlDwD2i5H7Rh5SP6B2 IY69PF55kNRkz2K3nXL4U9Ah NJLinsojaaqzqPR8BVGgQTUzaJ 28Ry0tsIsoBz5jEDWoSKD2FRAz mHBjO7XbwV8jCmZtLTGjVXRf A9FwrKHhTIyoF121FXlaGbY0HM GqifDhK0TjPVAboOxsAhM7q7M9 Cb1PJPh1QU80QL29dXIgm0X7 xVQ9J7WwOZGaknleuijkfEX9SZ KfRJSknU31Lv2hhPsdNk5oCKBf WPG4XJZwjOBzP2CaqB1eDxFf TJSjGAYdQ6MjdAAoNMyxP264WT pcEwF7FCXamjEnR9TqDCIqbEtp QpY2o9B6Ca6YLEBjBR51RLM9 rBC9CT73ZZ43I6ZhVydyfHFwqG U+PHRhYmxlIHdpZHRoPScxMDAl AcBkaCbxZN0mFg7vKPMfFMEj tYhxqZWeGnJop4txXVXeCVlvXF 6vgQjqF2VpnBE6OWAme3s8Dz24 F21vY9UryNQ+EMUlyBB5cEQ7 pF1gImRbNcA2AJaiE574EpSksO YnIjjbn7pks4bpgEo2JjN9KMQt ulFkhBfvSZZ2y2VpDk69O64o IHdpZHRoPSIxNSUiIHZhbGlnbj 3myO0sRo5+QSQzpQR3sZZ5bC0d UxOiQtE7SXncY579IpLvuWId Piphq4qdl7qorKp8FeCwJQDeoi UrzHkeAGA3j9ElRn86Q1JkiOqv q1ZoGmh0mq45zTRdy3G9hPF3 I8RzKNMjejnfoIOmvJktRR3rLS EsfsncUTQecV7zXCVtI6q4MxXg ArQ6GBuaE3OsgzQ6DMEbqMFc EOyxLNU5T76ed9F9ZGQaAZSnKX K6sWF3qO0nvAjsjewkqABtyRfa gmKexBipITxqVJemI924ERFh sPrtARJfxT7zZBMugTZblWzqUW 4wNTBpbjsnPkxPTlosIERBVklE YP59Z5RuEwr0GKCfaStfKV7i rYXyZNclIt4unMytyGxyJH6aKB VfyucxXJJcrG1pTAQacHOfpEbz LB5bUDUhyizyh914IdOjLDY0 SIFwyCOgN6XsnR6rJtNhMDQzFH CtS9DwlNTgCWiwY209XUeaWiA7 MAMxmwHuY7NiLYSwwIqhVbG5 g8B7Nd7dKd8uUU6mETY5WJ49RX 07oTQni9Q1gXO3N2NxLJEauexj wffxaQA1VWKsIDDhuM35nEXu KUddQv5ts8C0p328RJTwCFFnuC 69Fm1efEwgCYOqfJHYlW1nirov g5qfbrdgZkIeULUkCOo3WCy3 HXAqiFgzVpXsSNE2QhA1FVZ7iU BceZ1tyXhfpevdgQ1lYvj+Njgg IZTdibE9Z4NvQyj9ESCcqGzt FL6kxLRyEUepHv4ylRkifGgjNO 7tFFKqturhCYEzrS4zPKJkfMNs mBycCJ7eIZFfrmzmh108DkAg NXA2VPAhmUCaZ4XyzD9oByVgQO XrVIGjX8NmyDOsRLelC649ZQfk JtL9VKWxjzOoX4TfVGIeoBff ZpY5p7P4Oi4LWTckBO56UB64wR Uat1Z8yQC3R8NfWBBlrhjjdnri uWJ6PFIhKJUnpL86uONgMPks Bk8jt6R5h628WUBfNOYvyG53Wr 7hlVfcYZPjdHDSeL1virduu1ip tsqvWcLzDIImNZf4HOq8XJQp uYhxKwIwMGH9RaH6BRA3dIBgaB 6yzRjidzcodH1aQlx+L1T0nFE3 aWVudDwvdGQ+AV89mt07M3Ln ClllZgk9OPZcMAA7xWF4fM3tMT AkOVtoj5L3uTF9M3TnbuPale3y h4kiCYFkPPisS34kbLSks6Y7 KQIybML9XVYbuXtvPpXrsT70Ho c+IUTxgOpkm9AdIhbcy7jxq4xe gTk2DrGrRKPsskTanVkdERN6 r2DdSw70D87eHJyyLMFeOCFgWJ PuWTVehUonhj4zoU7gUp1+PGNv bGQ7dRZ7gH2gHjPqAxI7ONvu R496PjPrxHZmWvuur0gbs0uklL e8MjQnVCTxnhAxaButPWW9k0Tn Ry26W4FijBjok2TmSwo2wo15 yZZyl2J9dBG9V7MmXIOuerzddJ BcaQhiKC9fXSHzaidvJNPvxQ5o SHEgP4x0LvGnUcI2TAmnX5Ny wrH4REVfzXEbWARfgZJLsL2wsh jue4vqlgqhHcSuBGLvUMy3MEf5 LGKsmYtkKiVdZUM2McR3FBK7 uSKhdK3pzMyirckjwA5wYsq+UG o7u8hwgNNwRV6byVO8UW98HH57 xFEbs8B0sKE6C8OiFUMngbfp nxarsAU0JXEzFGNtfW27Jp6qbH jzKu8lCJFiZRV0NJVaiQXgE3Xd eE5pOwVdUNWaKJRfU4HltRBp RPmrR741GBtlOmJ7HGFefcZeM9 MuBXZdnKsaLrA0j3C2Dr0SYP77 EF32HL40hNUsq1M6eAZ6U9Di ZDSnyrwihjyikXI7NPOuQDPicG 14Ei9vmVmsJf2hMFKiNBL7HUQz xQZfB8KccO1fWmBqGEMeVKKb F8CucGIpBEulN825MSvxXiF0PV WoggFrM5RjOGXsuTkzQtR1s3N0 Fa6MVp53WE38OZ28xASlt4Z0 hFV1F9TlUBSpvkrdehxycUC2SB ZwABNfjK21Ch7ptNdpOs8gKEWi CGR5TTWngLFuM0FjnO2dDjXm MZGcRLKxW9WxfYZmKKwcA012DP ulIyO6ITYvlgFuR5LwQTNopTas UdI2b7G2Nz8SVCpxtie8D6Rv PjwvdHI+MY95GBTqHX02jERueW Amx3avaQl3XtTcUSOmRQK9cKto ZHsrg6VhHCFhC17osYQrb9A5 IGNv (more content not included)... [place] Consent for Treatmenton 06-28 Consent for Treatment [id number]#1.00CD:127 [place] Multi-Wound Charton 07-11-19 Multi-Wound Chart [id number]#1.00CD:127 [place] Nursing Note - Woundon 07-11 Nursing Note - Wound [id number]#1.00CD:127 [place] Physician Orderon 07-11-2022 Physician Order [id number]#1.00CD:127 [place] Nursing Note - Woundon 07-07 Nursing Note - Wound [id number]#2.00CD:127 [place] Nursing Assessment - Woundon 07-06-2022 Nursing Assessment - Wound [id number]#1.00CD:127 [place] Consent for Procedure/Surger yon 07-05-2022 Consent for Procedure/Surgery [id number]#1.00CD:127 [place] Consent for Procedure/Surgery [id number]#1.00CD:127 [place] Consent to Photographon Consent to Photograph [id number]#1.00CD:127 [place] Correspondence - Woundon Correspondence - Wound [id number]#1.00CD:127 [place] Correspondence - Wound [id number]#1.00CD:127 [place] Correspondence - Wound [id number]#1.00CD:127 [place] HIPAA Forms Officeon 023 HIPAA Forms Office [id number]#1.00CD:127 [place] Consent for Treatmenton Consent for Treatment [id number]#1.00CD:127 [place] Multi-Wound Charton 07-04-19 Multi-Wound Chart [id number]#1.00CD:127 [place] Physician Orderon 07-04-2022 Physician Order [id number]#1.00CD:127 [place] Procedure - Woundon 07-04-19 Procedure - Wound [id number]#1.00CD:127 [place] Progress Note - Woundon Progress Note - Wound [id number]#1.00CD:127 [place] Correspondence - Woundon Correspondence - Wound [id number]#1.00CD:127 [place] Coding Summary.on 05-30-2022 Coding Summary. CD:292563MC:[id number] Gh0bWw +PGhlYWQ+JD5FDTJbA02ooHBgl U9DT1uZHM8CECZPBTWATI8QYP3 hhKV8RWmtW4IxurLc TigprZUiIX57JYr8BNN5wZzhOX qntO6zaQNuH0r6TkHiYN45lX11 KNusEPMoYqZ4JcUrvklfaWDl V9htCuQusJItTyc+PHRhYmxlIH kuUXDqGThqIWTxSjDphXabKV5s Ht8lDXWcDGJioUhccAUpYkIs p2seNFEcVRqoAQ7wbZioB9RcaZ Q0DPNxq7w2Qm76bLH+PHRkIHN0 gZgsPLlap472RtXof3izMRC9 uWTgAPugQWJ5Y30jk9P2UTLgFB BhRNF5cMU7gS6jrLckxkyyY8Go fEQpJtS3DBV9pFNcjJ4rgCqm wjosmD2uEfa+B00AJX0DRJCDFK 8CWqa4E4QdWopthUS+EI27LEDs IZ67qPNrfUMly9ldgEt7AjOg VJTlSCH5rFqlCBveh7YvGSDtD0 8kcYDsq7Z1JHHutJagfYRlLcAv fKB7dZ4gBZglirmbu5zqnkkh Dmxzh2bwke11vY27S94iUIjeUF XgSRW4DHDgQQIypOkfmq1nvQ6d Ii8+HRmpv5ico2gfrJe6ChNf LJCorbQysZnlIBM2c5NvDk82I0 GctHlhk2DlXtp7lx03cPLix2P6 eNM6HBvjPKLnnI5qZFtdAjH1 PPVqJcZnwJ36mBUrHXmhQj0orL ctzVydXV7uYRScubiyHIJiwJ9n PCEcfFMzuSdiIY3eRZOsifje v921XuUrDOI8EYOlaTLcP2SreQ 5yBjBjYYQoAWJbP0OzpPZdYCrm Q830KBkwOmJ1PEJfhfPeO9Jz IMOrmToaExB3a3O3Fh4Mu7Rcpz lrHJO4TMljYAJrKzLjLiPyRmT1 M2IxDwl8ODLroQmfWK1vL2Yu QHGhspaolxoucXZ9HSLfCBBefT 93oLYqKFjzNo4iq8J0x566GICo EPMeqA98Wh2kqNyzSFSunSQH vM9rbsfss2lslfwwUcKlNBUlDF t8DHq0KOXsuVspGfZaEIS3GgE0 FYA2zELjkU0vqIceojoraA2k Oyc+A50hgW9dNKP6KNR7ncjkPT VywyXpIW73XJ24Z6IsPyzzsNLr bGU+ANIvhrGtiQyoPM1eKlAb r4udr4AsAIxeJ2CgTYYjXEvwLg y5NHVjCPG7eEI1cR6pUQQgPZrc w7J3lLW2A5LzluQwkp3yt9lg EQVzWUvuK82rnRZpu7J1XQTxmZ N0CORsdQstXjDryE13Zcp+PGNv aOjnw8NvFhdwf7arg1ypyLg5 VfOeSCJbyhCfdZjiBXG4w7ZeWd 53V80yJYbiPNPfIZQxBIWhJCIg rAggfe7ipT4uEo8+PGNvbCB3 fWX2sD6sOSNiVrL6YWsmJ603Ln HrxINfDmmjw4zse9jxdQm6JtTa MPQiiaZukPruSVO8m4LiZx75 T77zIIyhMXGiDFNtVKCbXOHnlK elnu2qxC7cIu6+KK0ck6tzyd78 bO65mMJ+BHLvABI4dOpwKYdo JEZxsT9yPZcdCfO9MLMkYwNdvG 56mXGySIoaKm3gkZiruZkxDJ0a BBSghgohl659BnFcq3rfTYQp sKTqQOesKGO7M85ez6F2AEQqYG RuUOH7tOR9hM1npIizmpxuiVPd oPyhxoMagLrpIUsbOGvxX702 IHRvcDsnPlBhdGllbnQgTmFtZT d9I2HdHbd3FFQdcOhxXE2lhPWp HMjgCt6stIfdsLqhHB4dZQLb uzoso924GyRxv8hwUDGjyBEsWF oaOIR5V21nu5T4NIApYLSoELA2 lLY9eL0zoAawpjgznHSxdIrd bzRdyWmoWBesRHmgP071TGVsbW vfErMoxiAkIHOlwRI4RN35DQ58 vCIpu3E2cMV1O9TbTEFllgbe ijmcwTC0WDVlLPUtrX15Sn3onM fwEl3hTDJqSIC1UUKihYRjP7Po oM6dYyYpMHLoTFFmE9DmoDFp ITihQ231CKofDvH4CQXfiuXdU6 PqNJWavDviDtL2g3I4Js5YO4T5 IP41PN60dBAoj7T3hYE8J9Lv MROrpcvrlwlytLL1CXYpWLAymR 17Cl4uoVufNs4rIRBvHRX1GAHw nFVwV7CskJ4zNrQiEJJmXOCq F1XksJZfPKsfL845YXqdCoU8MA LpipZcM9XfBFTdsQlhAjH4j6G1 Qp5NENi5GE78SE63hFFts2C1 eCP5Q8SvNSUhlyvsztjvrEP7KB CmBJZfnL96Mv6owHzgOe3pRZOz QWR7GQWlgEAbO7SikB1sMsAw MFVzMXVsD9HpzEZkSBwpH843PO wnErK1LNEvurDoD3XjZWWbuPhs IxC7g7W6Df2RMSQfRY16IKX7 kSF9JZ32GR47K4PcBohhzKDlmI U+PHRhYmxlIHdpZHRoPScxMDAl VhBxsKdgIC9aOh1nLRIuKIUa kRrimHYiRtXjc4erDIWeGAfzCP 0esJxmK7OpfRG9QAOsc5l3Up91 L06xQ4LcqGE+YLSrcDG8uMI8 pY3aXvNiDjX4UIdxN396JyMzjG KfXavkw7vvl1gvvQw8XzZ5BHKr wbSyfVmbJQM7c5UpDd02O65u IHdpZHRoPSIxNSUiIHZhbGlnbj 5niD8pNj9+MMKtsTG1wGM7rY1m PqScWaQ5GKgkX103CdXgcAMv Umgus3exq0qabVb5ZrDiWVXhzm JxqJycGFI0a4GsCk73D9DqiQuz b8KrUly8hv07sHEhu1S0eEI5 H5PxMCHsunpupTBlqWolKE7nOT FrzogoQHZxeJ7vVEVuB3w3PdAv YrB6SIjzQ3FrivO3PAIxiSDw FFvnAOA3G35hp2S4SHTgLJZnIJ P2wDU6jF7isGutrujolBPzwUpm xnDzhRhvVObfRAaeL523WFLn yLupHRGxsJ8zNLPmuLNdnUgcIG 4wNTBpbjsnPkxPTlosIERBVklE PW20T5NcXpw0FMScrMlaYC0z gJQpHTdkEd0fiLclrQknQJ8gEQ IfurmjZQNqfW0gVQHfmRHvdGms RU6lJKRlzextl211WuShUNF0 NDZxsKSwZ9ZbuQ0oXpMpWZSpKD YrZ9GgbRGzSXniX307GZwvDgW7 TENcslWaD7PzPFMkySijBvQ2 w7T0Wp7fJl7wKD1oMPV7SQ61AX 56mZQja3B8hFT6Y0RkPTBsqzpq svffuPV6LNFlRWTckQ46oTMm TQgqGp7iu5X8o776NUNzOYAhhP 07De8zbVdzVLJnhKVJvH0xuzfs j2ykulmmHsRqSWWaRQf2GSf7 WTWocSrlSpCdGWS0GrT4ZZX4wW GmbF4joLckbegcuH0kTgc+Njgg HHBpnhS9A8XuUxp6LOEvpMbc AD7hxULyXXpfLd7tcWivlWpgIU 5iKLKnvtqrFJZmpN7nDKQhmQKv zYqjPK6jUBUxeetcf034TgCl JRI4CWDdkJFlR1JowS2rWyPwYL GgNUGqX6GnrZCrLDasS389EJet UdE6WJVfvfTwQ9BaTWPvtAdm HlY5w5A9Dt7SVJljYM34LL22lN Toe6H8eJX8O3AdYGNgmnflkxac dQT2QPSzPWYidO46nFNnEEpy Tl7tq9M0h067YBTrVUWocH88Tm 6yqBbmFGEtbKQJtC0pqrdsr5sl ypkdWqOkBQMiQYy2EAs0NEOp iSxtHkUoEFF5CwD9GTE2gYAmqZ 9fsZjgdkfacI7tGpv+TGFiIERy d5Pyb5NrBZ14ZE12Z6XvCvzt dGFibGU+PHRhYmxlIHdpZHRoPS trQMAaPmXleKvvEK6gGd4pHUPt UKZneHbdoPEqEiVfy2knFUAc RYuzBY6cvFxeQ6BtbLB4VVJwm7 x7Ir80P61xV3KpzWK+PGNvbCB3 uDD3zX7sCzQxJgW4OAzxH242 OpQayMMrXszoc4ejz4xfrOi2Pi VrZEQxpmIteJdsEOW4x6MjYs91 U06eDMuxHIOgYIFnPESzNINm qXthnw5haS0sVx9+WEEptNF2iQ T8rU2pZaSxBdL7KQqvY599GnXk cCQuOipeY87nZ1HeaQQ+PHRy Czt6LUTcxFxrNF0buHKwOZhoIm 1rOKC9FiGkBoRnZViaX6XfCUDc mmlxoeyxnSF7GBPvNXYmsF80 Jz1klXawRc4bYLQgJRN6XZXeyF SzB2KiaT3sPdUhKKUlWCWhM7Vv fIAkMJlrX616CPfbMgL2AHId jeWoU7YaUEHilBdyYrL2k7Q7Pi 6SjKlbtXSrRH4iBgXpRJw3R3Ki Lyc0QKLxlXkjYP7xmMHmTXdd Yx1aqZbgaVjaNO2rFUIcydyxs2 56NrQrs9kiXIHhxUHmJIwvRGF2 C11an6E0CTLhQAAoTFJ4jKW1 gV4htRmodsznrIVtfFaneoTwbR opTXviQSdiQ584VBWezDybDoUY Qto5Q8GjLrx1IUWqfIwdXK6j yAUmJFnbHv8baVpjaQziAX8dBE Usszelk745LqDax4ifXVVayWYf PSusDRN5P98np7G2RRTuKZHf RZU8kXK3lC2ujXfhbbczfJCczX iccvYhgHpsPNiyFWwtR583CVTl vHxoEl6ANid5O2LoVds9JOWy yPpoOT0mtVAxAWwgZq0qgMmpvC zhJE8oQUPlvcrie631VfHcg8bm FNOhaVIvVQtgWNU3T85lk9H3 YOFkSYDpKLW0iTJ4gE7kdKjrgq ogbGVmdDsgdmVydGljYWwtYWxp N879XBXfvPdtIrYtjDAgFdht dGQ+JQ62jy63T8KuLxqiXqr4BB DhALO9vIC4iU4lWRHfFYutp3V4 rRW9S5DlddJvfc6li7znENCs ZTog (more content not included)... Normal [facility] Physician Orderon 05-23-2022 Physician Order [id number]:127 Normal [facility] US liveron 09-19-2021 [place] [address] Ultrasound Report Signed Patient: Kristina Hinojosa MR#: [id number] : 1955 Acct:[id number] Age/Sex: 65 / M ADM Date: 09/19/21 Loc: Room: Type: [facility] Attending Dr: Gordo White MD Ordering Provider: [...] Jamie Maza M.D.09/19/2021 9:47 AM Dictation Location: [place] [address] Tech: [facility] Transcribed By: PRISCILA 09/19/21946 Dictated By: Jamie Maza II, MD 09/19/21 0939 Signed By: 09/19/21946 Normal [facility] Complete Blood Count Auto Di ffon 09-14-2021 Basophils (Bld) [#/Vol] 0.0 10*3/uL Normal 0.0-0.2 [facility] Comment on above: Order Comment: Reaso n for Exam Abnormal liver enzymes;Hepatitis C Result Comment: PERF ORMED BY: [place] [address] PATHOLOGIST WINDERMAN NEFTALY BRANDT M.D. Performed By: #### C BC, CMP, PT #### [address] #### HCV RNAQNT #### [facility] , Basophils/100 WBC (Bld) 0.1 % Normal . [facility] Comment on above: Order Comment: Reaso n for Exam Abnormal liver enzymes;Hepatitis C Performed By: #### C BC, CMP, PT #### [facility] [address] [place] [address] #### HCV RNAQNT #### [facility] , Eosinophils (Bld) [#/Vol] 0.4 10*3/uL Normal 0.0-0.45 [facility] Comment on above: Order Comment: Reaso n for Exam Abnormal liver enzymes;Hepatitis C Performed By: #### C BC, CMP, PT #### [facility] [address] [place] [address] #### HCV RNAQNT #### [facility] , Eosinophils/100 WBC (Bld) 3.4 % Normal . [facility] Comment on above: Order Comment: Reaso n for Exam Abnormal liver enzymes;Hepatitis C Performed By: #### C BC, CMP, PT #### [facility] [address] [place] [address] #### HCV RNAQNT #### [facility] , Erythrocyte distribution width (RBC) [Ratio] 14.8 % Normal 12.0-14.8 [facility] Comment on above: Order Comment: Reaso n for Exam Abnormal liver enzymes;Hepatitis C Performed By: #### C BC, CMP, PT #### [facility] [address] [place] [address] [place] #### HCV RNAQNT #### [facility] , Hematocrit (Bld) [Volume fraction] 47.5 % Normal 38.8-50.0 [facility] Comment on above: Order Comment: Reaso n for Exam Abnormal liver enzymes;Hepatitis C Performed By: #### C BC, CMP, PT #### [facility] [address] [place] [address] [place] #### HCV RNAQNT #### [facility] , Hemoglobin (Bld) [Mass/Vol] 15.7 g/dL Normal 13.0-17.0 [facility] Comment on above: Order Comment: Reaso n for Exam Abnormal liver enzymes;Hepatitis C Performed By: #### C BC, CMP, PT #### [address] #### HCV RNAQNT #### [facility] , Lymphocytes (Bld) [#/Vol] 4.2 10*3/uL Normal 1.00-4.8 [facility] Comment on above: Order Comment: Reaso n for Exam Abnormal liver enzymes;Hepatitis C Performed By: #### C BC, CMP, PT #### [facility] [address] [place] [address] #### HCV RNAQNT #### [facility] , Lymphocytes/100 WBC (Bld) 39.8 % Normal . [facility] Comment on above: Order Comment: Reaso n for Exam Abnormal liver enzymes;Hepatitis C Performed By: #### C BC, CMP, PT #### [address] #### HCV RNAQNT #### [facility] , MCH (RBC) [Entitic mass] 27.7 pg Normal 27.5-35.2 [facility] Comment on above: Order Comment: Reaso n for Exam Abnormal liver enzymes;Hepatitis C Performed By: #### C BC, CMP, PT #### [facility] [address] [place] [address] [place] #### HCV RNAQNT #### [facility] , MCV (RBC) [Entitic vol] 83.8 fL Normal 83.5-101 [facility] Comment on above: Order Comment: Reaso n for Exam Abnormal liver enzymes;Hepatitis C Performed By: #### C BC, CMP, PT #### [place] [address] [place] #### HCV RNAQNT #### [facility] , Mean Corpuscular HGB Conc 33.0 g/dL Normal 32.5-35.6 [facility] Comment on above: Order Comment: Reaso n for Exam Abnormal liver enzymes;Hepatitis C Performed By: #### C BC, CMP, PT #### [facility] [address] [place] [address] #### HCV RNAQNT #### [facility] , Monocytes (Bld) [#/Vol] 1.1 10*3/uL High 0.0-0.8 [facility] Comment on above: Order Comment: Reaso n for Exam Abnormal liver enzymes;Hepatitis C Performed By: #### C BC, CMP, PT #### [facility] [address] [place] [address] #### HCV RNAQNT #### [facility] , Monocytes/100 WBC (Bld) 10.2 % Normal . [facility] Comment on above: Order Comment: Reaso n for Exam Abnormal liver enzymes;Hepatitis C Performed By: #### C BC, CMP, PT #### [address] #### HCV RNAQNT #### [facility] , Neutrophils (Bld) [#/Vol] 4.9 10*3/uL Normal 1.8-7.7 [facility] Comment on above: Order Comment: Reaso n for Exam Abnormal liver enzymes;Hepatitis C Performed By: #### C BC, CMP, PT #### [facility] [address] [place] [address] [place] #### HCV RNAQNT #### [facility] , Neutrophils/100 WBC (Bld) 46.5 % Normal . [facility] Comment on above: Order Comment: Reaso n for Exam Abnormal liver enzymes;Hepatitis C Performed By: #### C BC, CMP, PT #### [place] [address] [place] #### HCV RNAQNT #### [facility] , Nucleated RBC/100 WBC (Bld) [Ratio] 0.1 % Normal 0-0.5 [facility] Comment on above: Order Comment: Reaso n for Exam Abnormal liver enzymes;Hepatitis C Performed By: #### C BC, CMP, PT #### [facility] [address] [place] [address] [place] #### HCV RNAQNT #### [facility] , Platelet mean volume (Bld) [Entitic vol] 8.3 fL Normal 6.6-10.1 [facility] Comment on above: Order Comment: Reaso n for Exam Abnormal liver enzymes;Hepatitis C Performed By: #### C BC, CMP, PT #### [facility] [address] [place] [address] [place] #### HCV RNAQNT #### [facility] , Platelets (Bld) [#/Vol] 398 10*3/uL Normal 150-450 [facility] Comment on above: Order Comment: Reaso n for Exam Abnormal liver enzymes;Hepatitis C Performed By: #### C BC, CMP, PT #### [facility] [address] [place] [address] #### HCV RNAQNT #### [facility] , RBC (Bld) [#/Vol] 5.67 10*6/uL High 3.90-5.60 [facility] Comment on above: Order Comment: Reaso n for Exam Abnormal liver enzymes;Hepatitis C Performed By: #### C BC, CMP, PT #### [facility] [address] [place] [address] [place] #### HCV RNAQNT #### [facility] , WBC (Bld) [#/Vol] 10.6 10*3/uL Normal 4.5-11.0 [facility] Comment on above: Order Comment: Reaso n for Exam Abnormal liver enzymes;Hepatitis C Performed By: #### C BC, CMP, PT #### [facility] [address] [place] [address] [place] #### HCV RNAQNT #### [facility] , Comprehensive Metabolic Pane tommy 09-14-2021 Albumin [Mass/Vol] 4.0 g/dL Normal 3.2-5.5 [facility] Comment on above: Order Comment: Reaso n for Exam Abnormal liver enzymes;Hepatitis C Performed By: #### C BC, CMP, PT #### [facility] [address] [place] [address] #### HCV RNAQNT #### [facility] , Albumin/Globulin [Mass ratio] 1.5 {ratio} Normal [facility] Comment on above: Order Comment: Reaso n for Exam Abnormal liver enzymes;Hepatitis C Performed By: #### C BC, CMP, PT #### [facility] [address] [place] [address] #### HCV RNAQNT #### [facility] , ALP [Catalytic activity/Vol] 52 U/L Normal 32-92 [facility] Comment on above: Order Comment: Reaso n for Exam Abnormal liver enzymes;Hepatitis C Result Comment: PERF ORMED BY: [place] [address] PATHOLOGIST WINDERMAN NEFTALY BRANDT M.D. Performed By: #### C BC, CMP, PT #### [facility] [address] [place] [address] #### HCV RNAQNT #### [facility] , ALT [Catalytic activity/Vol] 14 U/L Normal 10-60 [facility] Comment on above: Order Comment: Reaso n for Exam Abnormal liver enzymes;Hepatitis C Performed By: #### C BC, CMP, PT #### [facility] [address] [place] [address] [place] #### HCV RNAQNT #### [facility] , AST [Catalytic activity/Vol] 12 U/L Normal 10-42 [facility] Comment on above: Order Comment: Reaso n for Exam Abnormal liver enzymes;Hepatitis C Performed By: #### C BC, CMP, PT #### [facility] [address] [place] [address] [place] #### HCV RNAQNT #### [facility] , Bilirubin [Mass/Vol] 0.9 mg/dL Normal 0.3-1.2 [facility] Comment on above: Order Comment: Reaso n for Exam Abnormal liver enzymes;Hepatitis C Performed By: #### C BC, CMP, PT #### [facility] [address] [place] [address] [place] #### HCV RNAQNT #### [facility] , Calcium [Mass/Vol] 9.8 mg/dL Normal 8.2-10.2 [facility] Comment on above: Order Comment: Reaso n for Exam Abnormal liver enzymes;Hepatitis C Performed By: #### C BC, CMP, PT #### [address] #### HCV RNAQNT #### [facility] , Chloride [Moles/Vol] 102 mmol/L Normal 95-114 [facility] Comment on above: Order Comment: Reaso n for Exam Abnormal liver enzymes;Hepatitis C Performed By: #### C BC, CMP, PT #### [facility] [address] [place] [address] #### HCV RNAQNT #### [facility] , CO2 [Moles/Vol] 21.7 mmol/L Low 22.0-30.0 [facility] Comment on above: Order Comment: Reaso n for Exam Abnormal liver enzymes;Hepatitis C Performed By: #### C BC, CMP, PT #### [facility] [address] [place] [address] [place] #### HCV RNAQNT #### [facility] , Creatinine [Mass/Vol] 1.01 mg/dL Normal 0.64-1.27 [facility] Comment on above: Order Comment: Reaso n for Exam Abnormal liver enzymes;Hepatitis C Performed By: #### C BC, CMP, PT #### [facility] [address] [place] [address] [place] #### HCV RNAQNT #### [facility] , Estimated GFR ( Charmaine > 60 Normal [facility] Comment on above: Order Comment: Reaso n for Exam Abnormal liver enzymes;Hepatitis C Result Comment: GFR estimated reference range: According to KDOQI guidelines, <60 ml/min/1.73m2 is sufficient to diagnose a patient with chronic kidney disease. Performed By: #### C BC, CMP, PT #### [facility] [address] [place] [address] [place] #### HCV RNAQNT #### [facility] , Estimated GFR (Non- Am > 60 Normal [facility] Comment on above: Order Comment: Reaso n for Exam Abnormal liver enzymes;Hepatitis C Performed By: #### C MILDRED, CMP, PT #### [facility] [address] [place] [address] [place] #### HCV RNAQNT #### [facility] , Globulin (S) [Mass/Vol] 2.6 g/dL Normal [facility] Comment on above: Order Comment: Reaso n for Exam Abnormal liver enzymes;Hepatitis C Performed By: #### C MILDRED, CMP, PT #### [facility] [address] [place] [address] [place] #### HCV RNAQNT #### [facility] , Glucose [Mass/Vol] 102 mg/dL High 70-100 [facility] Comment on above: Order Comment: Reaso n for Exam Abnormal liver enzymes;Hepatitis C Result Comment: [place] Glucose Reference Range is dependent on time and content of last meal. Glucose of more than 200 mg/dL in a nonstressed, ambulatory subject supports the diagnosis of Diabetes Mellitus. ADA recommended reference range Performed By: #### C BC, CMP, PT #### [facility] [address] [place] [address] [place] #### HCV RNAQNT #### [facility] , Potassium [Moles/Vol] 4.4 mmol/L Normal 3.5-5.1 [facility] Comment on above: Order Comment: Reaso n for Exam Abnormal liver enzymes;Hepatitis C Performed By: #### C BC, CMP, PT #### [facility] [address] [place] [address] [place] #### HCV RNAQNT #### [facility] , Protein [Mass/Vol] 6.6 g/dL Normal 6.1-7.9 [facility] Comment on above: Order Comment: Reaso n for Exam Abnormal liver enzymes;Hepatitis C Performed By: #### C BC, CMP, PT #### [facility] [address] [place] [address] #### HCV RNAQNT #### [facility] , Sodium [Moles/Vol] 135 mmol/L Low 136-146 [facility] Comment on above: Order Comment: Reaso n for Exam Abnormal liver enzymes;Hepatitis C Performed By: #### C BC, CMP, PT #### [facility] [address] [place] [address] [place] #### HCV RNAQNT #### [facility] , Urea nitrogen [Mass/Vol] 11 mg/dL Normal 9-23 [facility] Comment on above: Order Comment: Reaso n for Exam Abnormal liver enzymes;Hepatitis C Performed By: #### C BC, CMP, PT #### [facility] [address] [place] [address] #### HCV RNAQNT #### [facility] , Hep C RT-PCR, Qnt (Non-Graph )on 09-14-2021 Hepatitis C Quantitation Not detected Normal . [facility] Comment on above: Order Comment: Reaso n for Exam Abnormal liver enzymes;Hepatitis C Performed By: #### C BC, CMP, PT #### [facility] [address] [place] [address] [place] #### HCV RNAQNT #### [facility] , Test Information: Normal . [facility] Comment on above: Order Comment: Reaso n for Exam Abnormal liver enzymes;Hepatitis C Result Comment: The quantitative range of this assay is 15 IU/mL to 100 million IU/mL. Performed at: [address], [place], [place] [id number] Soap Maker: Hipolito Galarza MD, Phone: [phone] PERFORMED BY: [place] [address] PATHOLOGIST WINDERMAN NEFTALY BRANDT M.D. Performed By: #### C BC, CMP, PT #### [address] #### HCV RNAQNT #### [facility] , Prothrombin Time INRon 09-14 INR Coag (PPP) [Relative time] 1.2 {INR} Normal [facility] Comment on above: Order Comment: Reaso [...] heart valves: 3 - 4.5 PERFORMED BY: [place] [address] PATHOLOGIST WINDERMAN NEFTALY BRANDT M.D. Performed By: #### C BC, CMP, PT #### [place] [address] [place] #### HCV RNAQNT #### [facility] , PT Coag (PPP) [Time] 13.4 s High 9.0-12.9 [facility] Comment on above: Order Comment: Reaso n for Exam Abnormal liver enzymes;Hepatitis C Performed By: #### C BC, CMP, PT #### [place] [address] [place] #### HCV RNAQNT #### [facility] , COMPREHENSIVE METABOLIC PANE Tommy 06-21-2021 Albumin [Mass/Vol] 4.4 g/dL Normal 3.6-5.1 [facility] Comment on above: Performed By: #### 7 600, 66411 #### [facility] of [address], [address] [place] [address] Assistant Attorney General: Cullen Barroso MD Albumin/Globulin [Mass ratio] 1.5 {ratio} Normal 1.0-2.5 [facility] Comment on above: Performed By: #### 7 600, 21022 #### [facility] of [address], [address] [place] [address] Assistant Attorney General: Cullen Barroso MD ALP [Catalytic activity/Vol] 59 U/L Normal 35-144 [facility] Comment on above: Performed By: #### 7 600, 07185 #### [facility] of [address], [address] [place] [address] Assistant Attorney General: Cullen Barroso MD ALT [Catalytic activity/Vol] 14 U/L Normal 9-46 [facility] Comment on above: Performed By: #### 7 600, 07288 #### [facility] of [address], [address] [place] [address] Assistant Attorney General: Cullen Barroso MD AST [Catalytic activity/Vol] 12 U/L Normal 10-35 [facility] Comment on above: Performed By: #### 7 600, 53647 #### [facility] of [address], [address] [place] [address] Assistant Attorney General: Cullen Barroso MD Bilirubin [Mass/Vol] 0.6 mg/dL Normal 0.2-1.2 [facility] Comment on above: Performed By: #### 7 600, 73378 #### [facility] of [place] [address] Assistant Attorney General: Cullen Barroso MD BUN/CREATININE RATIO NOT APPLICABLE Normal 6-22 [facility] Comment on above: Performed By: #### 7 600, 58445 #### [facility] of [address], [address] [place] [address] Assistant Attorney General: Cullen Barroso MD Calcium [Mass/Vol] 10.0 mg/dL Normal 8.6-10.3 [facility] Comment on above: Performed By: #### 7 600, 52937 #### [facility] [address], [address] [place] [address] Assistant Attorney General: Cullen Barroso MD Chloride [Moles/Vol] 107 mmol/L Normal 98-110 [facility] Comment on above: Performed By: #### 7 600, 48769 #### [facility] [address], [address] [place] [address] Assistant Attorney General: Cullen Barroso MD CO2 [Moles/Vol] 28 mmol/L Normal 20-32 [facility] Comment on above: Performed By: #### 7 600, 07324 #### [facility] [place] [address] Assistant Attorney General: Cullen Barroso MD Creatinine [Mass/Vol] 0.89 mg/dL Normal 0.70-1.25 [facility] Comment on above: Result Comment: For patients >49 years of age, the reference limit for Creatinine is approximately 13% higher for people identified as -Andorran. Performed By: #### 7 600, 76366 #### [facility] [place] [address] Assistant Attorney General: Cullen Barroso MD eGFR NON-AFR. [place] 88 mL/min/1.73m2 Normal > OR = 60 [facility] Comment on above: Performed By: #### 7 600, 61028 #### [facility] [place] [address] Assistant Attorney General: Cullen Barroso MD GFR/1.73 sq M.predicted among blacks MDRD (S/P/Bld) [Vol rate/Area] 103 mL/min/{1.73_m2} Normal > OR = 60 [facility] Comment on above: Performed By: #### 7 600, 90995 #### [facility] [address], [address] [place] [address] Assistant Attorney General: Cullen Barroso MD Globulin (S) [Mass/Vol] 2.9 g/dL Normal 1.9-3.7 [facility] Comment on above: Performed By: #### 7 600, 25363 #### [facility] [place] [address] Assistant Attorney General: Cullen Barroso MD Glucose [Mass/Vol] 88 mg/dL Normal 65-99 [facility] Comment on above: Result Comment: Fasting reference interval Performed By: #### 7 600, 19164 #### [facility] [place] [address] Assistant Attorney General: Cullen Barroso MD Potassium [Moles/Vol] 4.6 mmol/L Normal 3.5-5.3 [facility] Comment on above: Performed By: #### 7 600, 48375 #### [facility] [place] [address] Assistant Attorney General: Cullen Barroso MD Protein [Mass/Vol] 7.3 g/dL Normal 6.1-8.1 [facility] Comment on above: Performed By: #### 7 600, 49024 #### [facility] [place] [address] Assistant Attorney General: Cullen Barroso MD Sodium [Moles/Vol] 140 mmol/L Normal 135-146 [facility] Comment on above: Performed By: #### 7 600, 15148 #### [facility] [place] [address] Assistant Attorney General: Cullen Barroso MD Urea nitrogen [Mass/Vol] 24 mg/dL Normal 7-25 [facility] Comment on above: Performed By: #### 7 600, 88134 #### [facility] [place] [address] Assistant Attorney General: Cullen Barroso MD LIPID PANEL, [facility] [place] 05-29 Cholesterol [Mass/Vol] 145 mg/dL Normal <200 [facility] Comment on above: Order Comment: FASTI NG:YES FASTING: YES Performed By: #### 7 600, 36688 #### [facility] [address], [address] [place] [address] Assistant Attorney General: Cullen Barroso MD Cholesterol in HDL [Mass/Vol] 39 mg/dL Low > OR = 40 [facility] Comment on above: Order Comment: FASTI NG:YES FASTING: YES Performed By: #### 7 600, 45512 #### [facility] [address], [address] [place] [address] Assistant Attorney General: Cullen Barroso MD Cholesterol in LDL [Mass/Vol] [...] Frank MOREIRA et al. JOSE LUIS. 2013;310(19): 3384-2687 (http://education.[employer].Zubie/faq/KDH934) Performed By: #### 7 600, 96211 #### [facility] [address], [address] [place] [address] Assistant Attorney General: Cullen Barroso MD Cholesterol.total/ Cholesterol in HDL [Mass ratio] 3.7 {ratio} Normal <5.0 [facility] Comment on above: Order Comment: FASTI NG:YES FASTING: YES Performed By: #### 7 600, 45883 #### [facility] [address], [address] [place] [address] Assistant Attorney General: Cullen Barroso MD NON HDL CHOLESTEROL 106 mg/dL (calc) Normal <130 [facility] Comment on above: Order Comment: FASTI NG:YES FASTING: YES Result Comment: For patients with diabetes plus 1 major ASCVD risk factor, treating to a non-HDL-C goal of <100 mg/dL (LDL-C of <70 mg/dL) is considered a therapeutic option. Performed By: #### 7 600, 00683 #### [facility] of [address], [address] [place] [address] Assistant Attorney General: Cullen Barroso MD Triglyceride [Mass/Vol] 50 mg/dL Normal <150 [facility] Comment on above: Order Comment: FASTI NG:YES FASTING: YES Performed By: #### 7 600, 30814 #### [facility] of [address], [address] [place] [address] Assistant Attorney General: Cullen Barroso MD [facility] 12-15-2020 Albumin [Mass/Vol] 4.5 g/dL Normal 3.6-5.1 [facility] Comment on above: Performed By: #### 1 0231, 33222, 7600 #### [facility] [place] [address] Assistant Attorney General: Cullen Barroso MD Albumin/Globulin [Mass ratio] 1.7 {ratio} Normal 1.0-2.5 [facility] Comment on above: Performed By: #### 1 0231, 50539, 7600 #### [facility] [place] [address] Assistant Attorney General: Cullen Barroso MD ALP [Catalytic activity/Vol] 56 U/L Normal 35-144 [facility] Comment on above: Performed By: #### 1 0231, 50348, 7600 #### [facility] of [place] [address] Assistant Attorney General: Cullen Barroso MD ALT [Catalytic activity/Vol] 17 U/L Normal 9-46 [facility] Comment on above: Performed By: #### 1 0231, 76211, 7600 #### [facility] of [place] [address] Assistant Attorney General: Cullen Barroso MD AST [Catalytic activity/Vol] 15 U/L Normal 10-35 [facility] Comment on above: Performed By: #### 1 0231, 58269, 7600 #### [facility] of [place] [address] [place] [address] Assistant Attorney General: Cullen Barroso MD Bilirubin [Mass/Vol] 0.5 mg/dL Normal 0.2-1.2 [facility] Comment on above: Performed By: #### 1 0231, 86634, 7600 #### [facility] of [address], [address] [place] [address] Assistant Attorney General: Cullen Barroso MD BUN/CREATININE RATIO NOT APPLICABLE Normal 6-22 [facility] Comment on above: Performed By: #### 1 0231, 69344, 7600 #### [facility] of [address], [address] [place] [address] Assistant Attorney General: Cullen Barroso MD Calcium [Mass/Vol] 10.3 mg/dL Normal 8.6-10.3 [facility] Comment on above: Performed By: #### 1 0231, 58177, 7600 #### [facility] of [address], [address] [place] [address] Assistant Attorney General: Cullen Barroso MD Chloride [Moles/Vol] 108 mmol/L Normal 98-110 [facility] Comment on above: Performed By: #### 1 0231, 44742, 7600 #### [facility] of [address], [address] [place] [address] Assistant Attorney General: Cullen Barroso MD CO2 [Moles/Vol] 24 mmol/L Normal 20-32 [facility] Comment on above: Performed By: #### 1 0231, 52809, 7600 #### [facility] of [address], [address] [place] [address] Assistant Attorney General: Cullen Barroso MD Creatinine [Mass/Vol] 0.82 mg/dL Normal 0.70-1.25 [facility] Comment on above: Result Comment: For patients >49 years of age, the reference limit for Creatinine is approximately 13% higher for people identified as -Andorran. Performed By: #### 1 0231, 66101, 7600 #### [facility] of [address], [address] [place] [address] Assistant Attorney General: Cullen Barroso MD eGFR NON-AFR. [place] 92 mL/min/1.73m2 Normal > OR = 60 [facility] Comment on above: Performed By: #### 1 0231, 82134, 7600 #### [facility] [place] [address] Assistant Attorney General: Cullen Barroso MD GFR/1.73 sq M.predicted among blacks MDRD (S/P/Bld) [Vol rate/Area] 106 mL/min/{1.73_m2} Normal > OR = 60 [facility] Comment on above: Performed By: #### 1 0231, 33088, 7600 #### [facility] [place] [address] Assistant Attorney General: Cullen Barroso MD Globulin (S) [Mass/Vol] 2.6 g/dL Normal 1.9-3.7 [facility] Comment on above: Performed By: #### 1 230, 74677, 0 #### [facility] [place] [address] Assistant Attorney General: Cullen Barroso MD Glucose [Mass/Vol] 109 mg/dL Normal 65-139 [facility] Comment on above: Result Comment: Non-fasting reference interval For someone without known diabetes, a glucose value between 100 and 125 mg/dL is consistent with prediabetes and should be confirmed with a follow-up test. Performed By: #### 1 230, 12019, 7600 #### [facility] [place] [address] Assistant Attorney General: Cullen Barroso MD Potassium [Moles/Vol] 4.5 mmol/L Normal 3.5-5.3 [facility] Comment on above: Performed By: #### 1 023, 35783, 7600 #### [facility] [place] [address] Assistant Attorney General: Cullen Barroso MD Protein [Mass/Vol] 7.1 g/dL Normal 6.1-8.1 [facility] Comment on above: Performed By: #### 1 0231, 76122, 7600 #### [facility] [address], [address] [place] [address] Assistant Attorney General: Cullen Barroso MD Sodium [Moles/Vol] 139 mmol/L Normal 135-146 [facility] Comment on above: Performed By: #### 1 0231, 57733, 7600 #### [facility] [address], [address] [place] [address] Assistant Attorney General: Cullen Barroso MD Urea nitrogen [Mass/Vol] 19 mg/dL Normal 7-25 [facility] Comment on above: Performed By: #### 1 0231, 71630, 7600 #### [facility] [address], [address] [place] [address] Assistant Attorney General: Cullen Barroso MD HCV RNA, QN,REAL TIME PCR W/ REFL GENOTYPE, LIPAon 12-15-2020 COMMENT Normal [facility] Comment on above: Result Comment: This test was performed using Real-Time Polymerase Chain Reaction. Reportable Range: 15 IU/mL to 100,000,000 IU/mL (1.18 Log IU/mL to 8.00 Log IU/mL). The analytical performance characteristics of this assay have been determined by [employer]. The modifications have not been cleared or approved by the FDA. This assay has been validated pursuant to the CLIA Regulations and is used for clinical purposes. For more information on this test, go to: http://education.[employer].Zubie/faq/AZU72m3 (This link is being provided for informational/ Educational purposes only.) Performed By: #### 1 0231, 79337, 7600 #### [facility] [address], [address] [place] [address] Assistant Attorney General: Cullen Barroso MD HCV RNA, QUANTITATIVE REAL TIME PCR Not detected Normal NOT DETECTED [facility] Comment on above: Performed By: #### 1 0231, 47938, 7600 #### [facility] [address], [address] [place] [address] Assistant Attorney General: Cullen Barroso MD LIPID PANEL, [facility] [place] 07-2 Cholesterol [Mass/Vol] 130 mg/dL Normal <200 [facility] Comment on above: Order Comment: FASTI NG:NO FASTING: NO Performed By: #### 1 0231, 35651, 7600 #### [facility] [address], [address] [place] [address] Assistant Attorney General: Cullen Barroso MD Cholesterol in HDL [Mass/Vol] 41 mg/dL Normal > OR = 40 [facility] Comment on above: Order Comment: FASTI NG:NO FASTING: NO Performed By: #### 1 0231, 60642, 7600 #### [facility] [address], [address] [place] [address] Assistant Attorney General: Cullen Barroso MD Cholesterol in LDL [Mass/Vol] [...] Frank MOREIRA et al. JOSE LUIS. 2013;310(19): 8818-4429 (http://education.[employer]/faq/EGA116) Performed By: #### 1 0231, 60491, 9100 #### [facility] [address], [address] [place] [address] Assistant Attorney General: Cullen Barroso MD Cholesterol.total/ Cholesterol in HDL [Mass ratio] 3.2 {ratio} Normal <5.0 [facility] Comment on above: Order Comment: FASTI NG:NO FASTING: NO Performed By: #### 1 0231, 84863, 7600 #### [facility] [address], [address] [place] [address] Assistant Attorney General: Cullen Barroso MD NON HDL CHOLESTEROL 89 mg/dL (calc) Normal <130 [facility] Comment on above: Order Comment: FASTI NG:NO FASTING: NO Result Comment: For patients with diabetes plus 1 major ASCVD risk factor, treating to a non-HDL-C goal of <100 mg/dL (LDL-C of <70 mg/dL) is considered a therapeutic option. Performed By: #### 1 0231, 19186, 7600 #### [facility] [address], [address] [place] [address] Assistant Attorney General: Cullen Barroso MD Triglyceride [Mass/Vol] 42 mg/dL Normal <150 [facility] Comment on above: Order Comment: FASTI NG:NO FASTING: NO Performed By: #### 1 0231, 97577, 7600 #### [facility] [address] [place] [address], [address] [place] [address] Assistant Attorney General: Cullen Barroso MD OPERATIVE REPORT [facility] 10-15 OPERATIVE REPORT [place] [id number] [place] [address] Patient Name: KRISTINA HINOJOSA Visit ID: [id number] : 1955 OPERATIVE REPORT Date: 10/16/2019 Surgeon: [...] in stable condition. Author: Benjamin Castrejon MD REID/MODL/[id number] Electronically Authenticated by: Benjamin Castrejon MD on 10/30/2019 12:19 PM EDT [facility] CT LUMBAR SPINE WITHOUT IV C ONTRASTon [...] Fidencio Rushing MD On: 05/30/2018 8:04 PM [facility] HAND RIGHT MIN 3 VIEWSon HAND [...] Fidencio Rushing MD On: 05/30/2018 8:06 PM [facility] Social History Date Type Detail Facility Start: 04-04-2023 Alcohol intake Ex-drinker (finding) [facility] Start: 02-28-2023 Tobacco smoking stat us [facility] Ex-smoker [facility] Start: 09-21-2022 End: 02-28-2023 Cigarettes smoked current (pack per day) - Reported 1.5 [facility] Start: 02-28-2023 Tobacco use and exposure Forme r smokeless tobacco user [facility] Start: 09-21-2022 End: 04-04-2023 Sex Assigned At [facility] Start: 1955 Sex Assigned At Not on file [facility] Tobacco smoking status No Smokin g Status Entered [facility] End: 05-28-1996 History of tobacco use Current smoker [facility] End: 05-28-1996 History of tobacco use Cigarette Smoker [facility] End: 05-28-1998 History of tobacco use User of smokeless tobacco [facility] Do you belong to any clubs or organizations such as denominational groups, unions, fraternal or athletic groups, or school groups? No [facility] Are you now , , , , never or living with a partner? [facility] How often to you hav e a drink containing alcohol? Never [facility] How many standard dr inks containing alcohol do you have on a typical day? Patient does not drink [facility] Do you feel stress - tense, restless, nervous, or anxious, or unable to sleep at night because your mind is troubled all the time - these days [OSQ] Not at all [facility] Vital Signs Date Time Vital Sign Value Performing Clinician Facility 11-09-2021 10:30-0400 Body height Gordo White Other [facility] Other 11-09-2021 10:30-0400 Body mass index (BMI) [Ratio] 22.71 kg/m2 Gordo Huangack Other [facility] Other 11-09-2021 10:30-0400 Body weight 65.77 kg Gordo Christopher Other [facility] Other 11-09-2021 10:30-0400 Diastolic blood pressure 96 mm[Hg] Gordo Christopher Other [facility] Other 11-09-2021 10:30-0400 Systolic blood pressure 137 mm[Hg] Gordo Christopher Other [facility] Other 08-29-2021 14:15-0400 Body height Gordo White Other [facility] Other 08-29-2021 14:15-0400 Body mass index (BMI) [Ratio] 23.65 kg/m2 Gordo Christopher Other [facility] Other 08-29-2021 14:15-0400 Body weight 68.49 kg Gordo Christopher Other [facility] Other 08-29-2021 14:15-0400 Respiratory rate 18 /min Gordo Christopher Other [facility] Other 08-29-2021 14:15-0400 SaO2% (BldA) [Mass fraction] 97 % Gordo White Other [facility] Other Evaluation note 11-09-2021 Note Date & Type Note Facility 11-09-2021 Evaluation note Encounter Date Diagnosis Assessment Notes Oct, Hepatitis C (ICD-10 - B19.20) Oct, Abnormal liver enzymes (ICD-10 - R74.8) RTO 1 YR Oct, Fatty liver (ICD-10 - K76.0) START VITAMIN E [facility] Other Evaluation note 08-29-2021 Note Date & Type Note Facility 08-29-2021 Evaluation note Encounter Date Diagnosis Assessment Notes Aug, Abnormal liver enzymes (ICD-10 - R74.8) will order testing. Aug, Hepatitis C (ICD-10 - B19.20) we will order some testing for this as patient does want to donate blood. [facility] Other Evaluation + Plan note Note Date & Type Note Facility Evaluation + Plan note No data available for this section [facility] Evaluation + Plan note Note Date & Type Note Facility Evaluation + Plan note Future Appointments Appointment Date:07/18/2022 01:45:00 PM Scheduled Provider:Adonis Beebe DPM [facility] Appointment Type:[facility] Follow Up Visit (FT) [facility] History general Narrative - Reported Note Date & Type Note Facility History general Narrative - Reported Type Medical History Hep C Medical History hyperlpidemia Surgical History left foot [facility] Other Hospital Discharge instructions Note Date & Type Note Facility Hospital Discharge instructions No data available for this section [facility] Instructions Note Date & Type Note Facility Instructions Not on filedocumented in this en counter [facility] Progress note Note Date & Type Note Facility Progress note No data available for this section [facility] Summary Purpose Family History No Family History [...] section and content) DATE CREATED AUTHOR 05/31/2018 [facility] DATE CREATED AUTHOR AUTHOR'S ORGANIZ ATION 10/30/2019 [facility] DATE CREATED AUTHOR AUTHOR'S ORGANIZ ATION 06/21/2021 [facility] DATE CREATED AUTHOR AUTHOR'S ORGANIZ ATION 09/20/2021 [facility] DATE CREATED AUTHOR AUTHOR'S ORGANIZ ATION 10/04/2022 [facility] DATE CREATED AUTHOR AUTHOR'S ORGANIZ ATION 11/02/2023 [facility] DATE CREATED AUTHOR AUTHOR'S ORGANIZ ATION 11/03/2023 [facility] REASON FOR VISIT (unrecogniz ed section and content) Reason Comments Med Refill Patient Care team informatio n (unrecognized section and content) [employer] Clerk Relationship Specialty Start Date End Date Lizette Malcolm, [employer] [address] [place] [address] PCP - General Internal Medicine 02/14/23 FOR [...] BE BASED ON THE PRIMARY CLINICAL RECORDS. [employer] provides no warranty or guarantee of the accuracy or completeness of information in this document.
--- NOTE | 2023-11-26 21:11 | CT_ITS ---
The [address] [address] Patient Name: KRISTINA HINOJOSA MRN: [id number] date: 1955 Sex: M Assigned Patient Location: ER Current Patient Location: ER Accession/Order Number: [id number] Exam Date: 11/26/2023 23:15 Report Date: 11/27/2023 01:02 At the request of: IBETH PAREDES Procedure: CT head/brain wo con INDICATION: 67 years old; Male. Closed head trauma status post fall. TECHNIQUE: CT Head (ax/cor/sag reformats). Ionizing radiation dose reduced via iterative reconstruction/FBP blend and body size kV/mA adjustment. Comparison: Head CT dated 10/23/2023. FINDINGS: POSTOPERATIVE CHANGES: None. BRAIN PARENCHYMA: No intraparenchymal or extra-axial hemorrhage. No mass effect. No midline shift or herniation. Normal sarah/white differentiation. VENTRICLES/EXTRA-AXIAL SPACES: Enlarged, consistent with atrophy. SINUSES/MASTOIDS: Please see the facial bone portion of this report. Mastoids and middle ears are clear. MSK: No displaced or depressed calvarial fracture. Generalized bony demineralization. Supraorbital soft tissue swelling on the right. OTHER: No hyperdense intraluminal thrombus. Vascular calcifications are present. Incidental note is made of disconjugate gaze. There is external strabismus bilaterally worse on the right than the left. TECHNIQUE: CT of the facial bones was performed. IV contrast: None. Axial, coronal, sagittal reformats were created and reviewed. Dose reduction techniques were achieved by using automated exposure control and/or adjustment of mA and/or kV according to patient size and/or use of iterative reconstruction technique. COMPARISON: Facial bone CT dated 10/23/2023. FINDINGS: FRONTAL BONES: SUPRAORBITAL SOFT TISSUES: Supraorbital soft tissue swelling on the right. ORBITS: Globes: Normal without proptosis or evidence of disruption or intraocular foreign body. Disconjugate gaze Retrobulbar fat: normal without mass or hematoma. Extraocular Muscles: Normal and symmetric without prolapse or evidence of entrapment. Optic Nerves: Normal without mass-effect or evidence of disruption. Preseptal Soft Tissues: Normal without swelling, laceration or foreign body. Browning: No orbital wall fracture or bony dehiscence is appreciated. MAXILLA AND MANDIBLE: Maxillary and buccal soft tissues: No hematoma is seen. Maxillary bones: Patient is edentulous. There is redemonstration of fractures involving the anterior, posterolateral, and posterior wall the maxillary sinus on the left. The posterolateral component is comminuted. This is unchanged from the prior study. There is no change in the appearance of mild depression of the fracture of the anterior wall as compared to the prior study. The fractures extend into the base of the maxillary sinus on the lateral wall. This appearance is unchanged as compared to the prior study. Mandible: Patient is edentulous. No mandibular fracture is present. TMJ are symmetric. Nasal bones and septum: There is nondisplaced fracture of the nasal bones and the midline. This finding is unchanged as compared to the prior examination. Fracture the nasal process of the maxilla on the left is also unchanged. Nasal septum deviated to the left anteriorly. S-shaped posterior nasal septal deviation. Maxillary spine is intact. PARANASAL SINUSES: Frontal: Hypoplastic left frontal sinus. Ethmoid: Clear. Maxillary: Maxillary thickening on the left. Sphenoid: Clear. Zygomatic arch: Intact bilaterally. Pterygoid plates: Intact bilaterally. CT/CT head/brain wo con IMPRESSION: 1. No acute intracranial abnormality. No hemorrhage or mass effect. 2. Atrophy. 3. Supraorbital soft tissue swelling on the right. 4. Vascular calcification. 5. No new fracture is appreciated. There is redemonstration and no change in the appearance of fractures involving the maxillary sinus on the left as well as the nasal bones. Electronically authenticated by: NIK JIMENEZ Date: 11/27/2023 01:02
--- NOTE | 2023-11-26 21:11 | CT_ITS ---
The [address] [address] Patient Name: KRISTINA HINOJOSA MRN: [id number] date: 1955 Sex: M Assigned Patient Location: ER Current Patient Location: ER Accession/Order Number: [id number] Exam Date: 11/26/2023 23:15 Report Date: 11/27/2023 01:02 At the request of: IBETH PAREDES Procedure: CT facial bones wo con INDICATION: 67 years old; Male. Closed head trauma status post fall. TECHNIQUE: CT Head (ax/cor/sag reformats). Ionizing radiation dose reduced via iterative reconstruction/FBP blend and body size kV/mA adjustment. Comparison: Head CT dated 10/23/2023. FINDINGS: POSTOPERATIVE CHANGES: None. BRAIN PARENCHYMA: No intraparenchymal or extra-axial hemorrhage. No mass effect. No midline shift or herniation. Normal sarah/white differentiation. VENTRICLES/EXTRA-AXIAL SPACES: Enlarged, consistent with atrophy. SINUSES/MASTOIDS: Please see the facial bone portion of this report. Mastoids and middle ears are clear. MSK: No displaced or depressed calvarial fracture. Generalized bony demineralization. Supraorbital soft tissue swelling on the right. OTHER: No hyperdense intraluminal thrombus. Vascular calcifications are present. Incidental note is made of disconjugate gaze. There is external strabismus bilaterally worse on the right than the left. TECHNIQUE: CT of the facial bones was performed. IV contrast: None. Axial, coronal, sagittal reformats were created and reviewed. Dose reduction techniques were achieved by using automated exposure control and/or adjustment of mA and/or kV according to patient size and/or use of iterative reconstruction technique. COMPARISON: Facial bone CT dated 10/23/2023. FINDINGS: FRONTAL BONES: SUPRAORBITAL SOFT TISSUES: Supraorbital soft tissue swelling on the right. ORBITS: Globes: Normal without proptosis or evidence of disruption or intraocular foreign body. Disconjugate gaze Retrobulbar fat: normal without mass or hematoma. Extraocular Muscles: Normal and symmetric without prolapse or evidence of entrapment. Optic Nerves: Normal without mass-effect or evidence of disruption. Preseptal Soft Tissues: Normal without swelling, laceration or foreign body. Browning: No orbital wall fracture or bony dehiscence is appreciated. MAXILLA AND MANDIBLE: Maxillary and buccal soft tissues: No hematoma is seen. Maxillary bones: Patient is edentulous. There is redemonstration of fractures involving the anterior, posterolateral, and posterior wall the maxillary sinus on the left. The posterolateral component is comminuted. This is unchanged from the prior study. There is no change in the appearance of mild depression of the fracture of the anterior wall as compared to the prior study. The fractures extend into the base of the maxillary sinus on the lateral wall. This appearance is unchanged as compared to the prior study. Mandible: Patient is edentulous. No mandibular fracture is present. TMJ are symmetric. Nasal bones and septum: There is nondisplaced fracture of the nasal bones and the midline. This finding is unchanged as compared to the prior examination. Fracture the nasal process of the maxilla on the left is also unchanged. Nasal septum deviated to the left anteriorly. S-shaped posterior nasal septal deviation. Maxillary spine is intact. PARANASAL SINUSES: Frontal: Hypoplastic left frontal sinus. Ethmoid: Clear. Maxillary: Maxillary thickening on the left. Sphenoid: Clear. Zygomatic arch: Intact bilaterally. Pterygoid plates: Intact bilaterally. CT/CT facial bones wo con IMPRESSION: 1. No acute intracranial abnormality. No hemorrhage or mass effect. 2. Atrophy. 3. Supraorbital soft tissue swelling on the right. 4. Vascular calcification. 5. No new fracture is appreciated. There is redemonstration and no change in the appearance of fractures involving the maxillary sinus on the left as well as the nasal bones. Electronically authenticated by: NIK JIMENEZ Date: 11/27/2023 01:02
--- NOTE | 2023-11-26 21:11 | ECG_ITS ---
The 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
--- NOTE | 2023-11-26 21:11 | CT_ITS ---
The [address] [address] Patient Name: KRISTINA HINOJOSA MRN: [id number] date: 1955 Sex: M Assigned Patient Location: ER Current Patient Location: [facility] Accession/Order Number: [id number] Exam Date: 11/26/2023 23:15 Report Date: 11/27/2023 00:57 At the request of: IBETH PAREDES Procedure: CT cervical spine wo con EXAM: CT chest wo con, CT abdomen pelvis wo con, CT cervical spine wo con HISTORY: fall acute dysphagia. Vomiting. Weakness. COMPARISON: None. TECHNIQUE: Nonenhanced CT imaging of the cervical spine, chest, abdomen and pelvis was performed with sagittal and coronal reconstructions. Dose reduction techniques were achieved by using automated exposure control and/or adjustment of mA and/or kV according to patient size and/or use of iterative reconstruction technique. FINDINGS: CT CERVICAL SPINE: No acute osseous or articular abnormality is seen. There is are chronic fractures involving the tips of the C7 and T1 spinous processes. Nuchal calcifications are incidentally noted in the posterior neck soft tissues. The cervical vertebral bodies are normal in height and alignment. There is severe degenerative disc disease at C4-C7. Skull base alignment is normal. The articular facets are normally aligned with multilevel facet arthrosis and uncovertebral joint hypertrophy resulting in bilateral neural foraminal stenosis. Neural foraminal stenosis is severe at C3-C4 and moderately severe at C4-C7 bilaterally. There is mild spinal canal stenosis at C5-C6. The imaged sphenoid sinuses and mastoid air cells are clear. There is a rim calcified left thyroid lobe lesion measuring 1.1 cm, with a 1.7 cm hypodense lesion in the posterior left thyroid lobe on image 7. CT CHEST: The exam is limited by the lack of IV contrast. No mediastinal injury is seen. The heart is unremarkable. There is no coronary arterial calcification or pericardial effusion. There are very mild aortic calcifications without aneurysm. The lungs are degraded by motion artifact. There is mild dependent atelectasis in the posterior lower lobes. No pulmonary contusion, pleural fluid or pneumothorax is seen. There are nonacute incompletely healed fractures involving the left third through seventh anterolateral ribs. There is a mild anterior compression fracture involving the superior endplate of T4. No acute osseous injury is seen in the chest. CT ABDOMEN: The abdomen is degraded by motion artifact as well as beam attenuation artifact from the patient being scanned with his arms at his sides. It is further limited by the lack of IV contrast. Solid organ lesions or acute abnormalities could be missed. Cholelithiasis is noted with mild gallbladder wall thickening. There is no biliary ductal dilatation. Age-related pancreatic atrophy is noted. 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 The liver, adrenal glands, kidneys, stomach and small bowel are grossly unremarkable. There are mild to moderate aortic and iliac calcifications without aneurysm. The IVC is unremarkable. CT PELVIS: No acute pelvic organ injury is seen. The pelvic small bowel loops, colon and urinary bladder are unremarkable. The prostate is enlarged with mild calcification. The appendix is not seen. No free fluid, loculated fluid, free air, soft tissue gas or acute osseous injury is seen in the abdomen or pelvis. CT/CT cervical spine wo con IMPRESSION: 1. No acute cervical spine findings. Chronic changes are described above. 2. Allowing for exam limitations due to motion artifact, beam attenuation and the lack of contrast, no acute traumatic change is seen in the chest, abdomen or pelvis. 3. Cholelithiasis with mild nonspecific gallbladder wall thickening. If there is clinical concern for cholecystitis, further evaluation with a nuclear HIDA scan could be considered. 4. Splenectomy. 5. Prostatomegaly. 6. Nonspecific left thyroid lobe lesions as above. Elective thyroid ultrasound could further evaluate. Electronically authenticated by: SOCO NGUYEN Date: 11/27/2023 00:57
--- NOTE | 2023-11-26 21:14 | ED_ITS ---
Documented by User: LELE Basurto 11/26/23 21:50 HPI HPI - General Adult General Chief complaint: Weakness Stated complaint: l side weakness Time Seen by Provider: 11/26/23 21:10 History of Present Illness HPI narrative: Patient is a 67-year-old male brought to the emergency department by his for 3 days of increasing generalized weakness. Patient has a history of these episodes in the past for over a year. He was initially seen by his primary care provider after a fall with generalized weakness for CTs of the head and facial bones. is the primary historian. She states he has been seen in this emergency department multiple times for falls. No cause has been found. For the last 3 days the patient has had an increase in generalized weakness. denies that he has any history of COPD, diabetes. Patient is noted to have significant global weakness and difficulty with transferring, he is unable to stand or transfer to the exam cart on his own and had to be lifted out of a vehicle into a wheelchair to be brought to the ER. He denies chest pain, shortness of breath. Patient denies fevers although he is noted to have a 103.0F axillary temperature on arrival to the ER. He has chronic back pain which is not new or worse. This morning he had a fall from a low height, he was unable to get himself up and the patient's had to wait for a family member to come so they could load him into the car and bring him to the ER. He did hit his left moravian in the fall. No loss of consciousness. Related Data Home Medications ?Medication ?Instructions ?Recorded ?Confirmed atorvastatin 20 mg tablet 20 mg PO DAILY 08/31/23 11/26/23 fluoxetine 10 mg capsule 10 mg PO DAILY 08/31/23 11/26/23 pramipexole 0.5 mg tablet 0.5 mg PO BID 08/31/23 11/26/23 multivitamin (Daily Multi-Vitamin 1 tab PO DAILY 11/26/23 11/26/23 tablet) Previous Rx's ?Medication ?Instructions ?Recorded cephalexin 500 mg capsule 500 mg PO TID 10 days #30 caps 10/23/23 Allergies Allergy/AdvReac Type Severity Reaction Status Date / Time Penicillins Allergy Intermediate Hives Verified 11/26/23 21:25 acetaminophen [From Vicodin] AdvReac Intermediate Hives Verified 11/26/23 21:25 hydrocodone [From Vicodin] AdvReac Intermediate Hives Verified 11/26/23 21:25 Opioid HPI Opioid Management Most Recent Opioid Data: Last Pain Scale 6 11/26/23 22:09 Last ED Pain Assessment 11/26/23 22:09 Last MAR Pain Assessment 11/27/23 02:39 Ur Phencyclidine Scrn Negative (NEGATIVE) 11/27/23 01:15 Review of Systems ROS Constitutional Reports: fever; Denies: chills Ears, nose, mouth, and throat Denies: throat pain or nasal congestion Cardiovascular Denies: chest pain Respiratory Denies: shortness of breath Gastrointestinal Denies: abdominal pain, nausea or vomiting Genitourinary Denies: painful urination Musculoskeletal Reports: back pain; Denies: neck pain Integumentary/Breast Denies: rash Neurological Denies: headache Hematologic/Lymphatic Denies: easy bruising or easy bleeding Exam Narrative Exam Narrative: Gen.: Awake, alert, in no distress Head: Normocephalic, atraumatic ENT: Moist mucous membranes; Patient with small area of faint ecchymosis to the left moravian adjacent to the left eye. Disconjugate gaze that is chronic for him. No other dental injuries noted. No cervical spine tenderness Respiratory: No respiratory distress, lungs clear bilaterally Cardio: Tachycardia, Small area of ecchymosis to the left chest wall Gastrointestinal: Abdomen is soft, nondistended and nontender to palpation Back: No bony tenderness of the T-spine or L-spine, no abrasions or ecchymosis of the posterior chest wall Extremities: Generalized weakness although the patient is able to flex and extend his toes, normal software trainer strength with contracture of the left wrist Psych: Normal mood and affect Neuro: No focal neuro deficit Skin: Warm, dry, intact Constitutional Vital Signs, click to edit/add: Last Vital Signs Temp 99.9 F 11/27/23 00:22 Pulse 137 H 11/27/23 02:46 Resp 56 H 11/27/23 02:46 BP 102/75 11/27/23 02:46 Pulse Ox 93 L 11/27/23 02:46 O2 Del Method BIPAP 11/27/23 02:46 FiO2 40 11/26/23 22:38 Course Vital Signs Vital signs: Vital Signs Pulse Oximetry 84 L 11/26/23 21:10 Oxygen Delivery Method Room Air 11/26/23 21:10 Temperature 99.9 F 11/27/23 00:22 Pulse Rate 137 H 11/27/23 02:46 Respiratory Rate 56 H 11/27/23 02:46 Blood Pressure 102/75 11/27/23 02:46 Pulse Oximetry 93 L 11/27/23 02:46 Oxygen Delivery Method BIPAP 11/27/23 02:46 Fraction of Inspired Oxygen 40 11/26/23 22:38 Medical Decision Making MDM Narrative Medical decision making narrative: 2144: On arrival to the emergency department, patient was lifted into a wheelchair and immediately brought to a trauma room. He was immediately evaluated by myself and Dr. Leggett. History was obtained from the patient's . He was placed on cardiac monitoring and an IV was established. Patient was given IV fluids, found to have a fever as well as tachycardia and tachypnea. Respiratory was called to the bedside and the patient was started on BiPAP. EKG shows sinus tachycardia at a rate in the 150s. IV fluids, rectal Tylenol were ordered for the patient. Full sepsis orders were obtained as well. Imaging of the head, facial bones and neck were obtained for the fall as well as imaging of the chest to rule out pulmonary Embolism or acute abdominal pathology. 0.5 mg of IV Ativan were given to the patient so that he would tolerate the BiPAP better. BiPAP did improve his respiratory status although he remains tachycardic. Case is turned over to attending physician at this time for further physician SHARED APC VISIT, PHYSICIAN ATTESTATION: [id number] I performed a substantive part of the MDM during the patient?s E/M visit. I personally evaluated and examined the patient. I personally made or approved the documented management plan and acknowledge its risk of complications. Medical Records Medical records reviewed: Yes I reviewed the patient's medical records Lab Data Lab results reviewed: Yes I reviewed the patient's lab results Labs: Lab Results 11/26/23 11/26/23 11/27/23 Range/Units 21:37 22:15 00:37 WBC 11.1 H (4.0-11.0) 10^3/uL RBC 5.71 (4.70-6.10) 10^6/uL Hgb 15.6 (14.0-18.0) g/dL Hct 49.1 (42.0-54.0) % MCV 86.0 (80.0-94.0) fL MCH 27.3 (25.9-34.0) pg MCHC 31.8 (29.9-35.2) g/dL RDW 15.8 H (11.0-15.0) % Plt Count 147 L (150-450) 10^3/uL MPV 9.4 L (9.5-13.5) fL Seg Neuts % (Manual) 64.0 Band Neutrophils % 32.0 H (0-5) % Lymphocytes % (Manual) 2.0 L (20.5-60.0) % Atypical Lymphs % (Man) 1.0 % Monocytes % (Manual) 1.0 L (1.7-12.0) % Eosinophils % (Manual) 0.0 L (0.9-7.0) % Basophils % (Manual) 0.0 L (0.2-2.0) % Neutrophils # (Manual) 7.10 H (1.4-6.5) 10^3/uL Band Neutrophils # 3.6 H (0.0-0.3) 10^3/uL Lymphocytes # (Manual) 0.22 L (1.20-3.80) 10^3/uL Abs Atypical Lymphs Man 0.11 Monocytes # (Manual) 0.11 L (0.30-0.80) 10^3/uL Eosinophils # (Manual) 0.00 (0.00-0.70) 10^3/uL Basophils # (Manual) 0.00 (0.00-0.10) 10^3/uL Toxic Vacuolation 2+ Giant Platelets 2+ PT 14.3 H (9.0-11.6) sec INR 1.39 VBG pH 7.384 (7.330-7.430) VBG pCO2 30.3 L (40.0-52.0) mmHg Sodium 138 (136-145) mmol/L Potassium 3.3 L (3.5-5.1) mmol/L Chloride 100 (98-107) mmol/L Carbon Dioxide 19.8 L (21.0-32.0) mmol/L Anion Gap 21.5 BUN 37.0 H (7.0-18.0) mg/dL Creatinine 2.65 H (0.70-1.30) mg/dL Est GFR ( Amer) 29 L (>=60) Est GFR (Non-Af Amer) 24 L (>=60) BUN/Creatinine Ratio 14.0 Glucose 79 (74-106) mg/dL Lactate 8.4 H* 7.1 H* (0.4-2.0) mmol/L Calcium 10.6 H (8.5-10.1) mg/dL Total Bilirubin 1.7 H (0.2-1.0) mg/dL AST 85 H (15-37) U/L ALT 61 (16-63) U/L Alkaline Phosphatase 270 H (46-116) U/L Total Creatine Kinase 1463 H* (39-308) U/L Troponin I High Sens 141.7 H* 169.1 H* (4.0-76.1) pg/mL NT-Pro-B Natriuret Pep 65156.0 H* (<=900.0) pg/mL Total Protein 7.6 (6.4-8.2) g/dL Albumin 3.5 (3.4-5.0) g/dL Globulin 4.1 g/dL Albumin/Globulin Ratio 0.9 Procalcitonin 57.84 H (0.00-0.50) ng/mL TSH 0.426 (0.358-3.740) uIU/mL Urine Color (YELLOW) Urine Clarity (CLEAR) Urine pH (5.0-9.0) Ur Specific [place] (1.005-1.025) Urine Protein (NEG/TRACE) mg/dL Urine Glucose (UA) (NEGATIVE) mg/dL Urine Ketones (NEGATIVE) mg/dL Urine Occult Blood (NEGATIVE) Urine Nitrite (NEGATIVE) Urine Bilirubin (NEGATIVE) Urine Urobilinogen (0.2-1.0) EU/dL Ur Leukocyte Esterase (NEGATIVE) Urine RBC (0-2) #/HPF Urine WBC (NONE SEEN) #/HPF Ur Squamous Epith Cells (NONE/RARE) #/LPF Urine Crystals (None Seen) #/HPF Amorphous Sediment Urine Bacteria (NONE SEEN) #/HPF Urine Casts (NONE SEEN) #/LPF Hyaline Casts Fine Granular Casts Urine Mucus (NONE SEEN) Urine Sperm Ur Culture Indicated? Urine Opiates Screen (NEGATIVE) Ur Buprenorphine Scrn (NEGATIVE) Ur Oxycodone Screen (NEGATIVE) Urine Methadone Screen (NEGATIVE) Ur Barbiturates Screen (NEGATIVE) U Tricyclic Antidepress (NEGATIVE) Ur Phencyclidine Scrn (NEGATIVE) Ur Amphetamines Screen (NEGATIVE) U Methamphetamines Scrn (NEGATIVE) U Benzodiazepines Scrn (NEGATIVE) Urine Cocaine Screen (NEGATIVE) U Cannabinoids Screen (NEGATIVE) Ethanol Quant <3 mg/dL SARS-CoV-2 Ag (CV2AG) Negative (NEGATIVE) 11/27/23 Range/Units 01:15 WBC (4.0-11.0) 10^3/uL RBC (4.70-6.10) 10^6/uL Hgb (14.0-18.0) g/dL Hct (42.0-54.0) % MCV (80.0-94.0) fL MCH (25.9-34.0) pg MCHC (29.9-35.2) g/dL RDW (11.0-15.0) % Plt Count (150-450) 10^3/uL MPV (9.5-13.5) fL Seg Neuts % (Manual) Band Neutrophils % (0-5) % Lymphocytes % (Manual) (20.5-60.0) % Atypical Lymphs % (Man) % Monocytes % (Manual) (1.7-12.0) % Eosinophils % (Manual) (0.9-7.0) % Basophils % (Manual) (0.2-2.0) % Neutrophils # (Manual) (1.4-6.5) 10^3/uL Band Neutrophils # (0.0-0.3) 10^3/uL Lymphocytes # (Manual) (1.20-3.80) 10^3/uL Abs Atypical Lymphs Man Monocytes # (Manual) (0.30-0.80) 10^3/uL Eosinophils # (Manual) (0.00-0.70) 10^3/uL Basophils # (Manual) (0.00-0.10) 10^3/uL Toxic Vacuolation Giant Platelets PT (9.0-11.6) sec INR VBG pH (7.330-7.430) VBG pCO2 (40.0-52.0) mmHg Sodium (136-145) mmol/L Potassium (3.5-5.1) mmol/L Chloride (98-107) mmol/L Carbon Dioxide (21.0-32.0) mmol/L Anion Gap BUN (7.0-18.0) mg/dL Creatinine (0.70-1.30) mg/dL Est GFR ( Amer) (>=60) Est GFR (Non-Af Amer) (>=60) BUN/Creatinine Ratio Glucose (74-106) mg/dL Lactate (0.4-2.0) mmol/L Calcium (8.5-10.1) mg/dL Total Bilirubin (0.2-1.0) mg/dL AST (15-37) U/L ALT (16-63) U/L Alkaline Phosphatase (46-116) U/L Total Creatine Kinase (39-308) U/L Troponin I High Sens (4.0-76.1) pg/mL NT-Pro-B Natriuret Pep (<=900.0) pg/mL Total Protein (6.4-8.2) g/dL Albumin (3.4-5.0) g/dL Globulin g/dL Albumin/Globulin Ratio Procalcitonin (0.00-0.50) ng/mL TSH (0.358-3.740) uIU/mL Urine Color Dk. yellow (YELLOW) Urine Clarity Clear (CLEAR) Urine pH 6.0 (5.0-9.0) Ur Specific [place] 1.025 (1.005-1.025) Urine Protein 100 A (NEG/TRACE) mg/dL Urine Glucose (UA) Negative (NEGATIVE) mg/dL Urine Ketones Trace A (NEGATIVE) mg/dL Urine Occult Blood Moderate A (NEGATIVE) Urine Nitrite Negative (NEGATIVE) Urine Bilirubin Small A (NEGATIVE) Urine Urobilinogen 1.0 (0.2-1.0) EU/dL Ur Leukocyte Esterase Negative (NEGATIVE) Urine RBC 2-5 A (0-2) #/HPF Urine WBC 0-2 A (NONE SEEN) #/HPF Ur Squamous Epith Cells Rare (NONE/RARE) #/LPF Urine Crystals None seen (None Seen) #/HPF Amorphous Sediment Few Urine Bacteria None seen (NONE SEEN) #/HPF Urine Casts Seen A (NONE SEEN) #/LPF Hyaline Casts Few Fine Granular Casts Few Urine Mucus None seen (NONE SEEN) Urine Sperm Seen Ur Culture Indicated? No Urine Opiates Screen Negative (NEGATIVE) Ur Buprenorphine Scrn Negative (NEGATIVE) Ur Oxycodone Screen Negative (NEGATIVE) Urine Methadone Screen Negative (NEGATIVE) Ur Barbiturates Screen Negative (NEGATIVE) U Tricyclic Antidepress Negative (NEGATIVE) Ur Phencyclidine Scrn Negative (NEGATIVE) Ur Amphetamines Screen Negative (NEGATIVE) U Methamphetamines Scrn Negative (NEGATIVE) U Benzodiazepines Scrn Negative (NEGATIVE) Urine Cocaine Screen Negative (NEGATIVE) U Cannabinoids Screen Positive A (NEGATIVE) Ethanol Quant mg/dL SARS-CoV-2 Ag (CV2AG) (NEGATIVE) ECG Data Attestation: I personally reviewed and interpreted this ECG as follows: (Sinus tachycardia at a rate of 158, no obvious acute ST elevation or ectopy. EKG reviewed by attending physician) Critical Care Time Critical Care Time Critical Care Time: Yes Total Critical Care Time: 35 Attestation: 35 min of critical care time for evaluation and treatment of critical illness in the ED Discharge Plan Discharge Chief Complaint: Weakness Clinical Impression: Sepsis, Acute kidney injury, Cholelithiasis, Acquired asplenia, Fall, Elevated troponin, Bandemia, Septic shock Patient Disposition: [facility] Time of Disposition Decision: 02:29 Discharge Location: [facility] Condition: Critical Documented by User: Kortney Leggett MD 11/27/23 03:02 HPI HPI - General Adult General Chief complaint: Weakness Stated complaint: l side weakness Time Seen by Provider: 11/26/23 21:10 Source: patient and family History of Present Illness HPI narrative: Patient is a 67-year-old male brought to the emergency department by his for 3 days of increasing generalized weakness. Patient has a history of these episodes in the past for over a year. He was initially seen by his primary care provider after a fall with generalized weakness for CTs of the head and facial bones. is the primary historian. She states he has been seen in this emergency department multiple times for falls. No cause has been found. For the last 3 days the patient has had an increase in generalized weakness. denies that he has any history of COPD, diabetes. Patient is noted to have sign ificant global weakness and difficulty with transferring, he is unable to stand or transfer to the exam cart on his own and had to be lifted out of a vehicle into a wheelchair to be brought to the ER. He denies chest pain, shortness of breath. Patient denies fevers although he is noted to have a 103.0F axillary temperature on arrival to the ER. He has chronic back pain which is not new or worse. This morning he had a fall from a low height, he was unable to get himself up and the patient's had to wait for a family member to come so they could load him into the car and bring him to the ER. He did hit his left moravian in the fall. No loss of consciousness. The patient's also states that he has had nausea and vomiting for the past 3 days and has been unable to keep anything down. She also states that he has a history of hepatitis C but had the [place] and his numbers have been normal since that time. He denies a history of alcohol use or tobacco use. Related Data Home Medications ?Medication ?Instructions ?Recorded ?Confirmed atorvastatin 20 mg tablet 20 mg PO DAILY 08/31/23 11/26/23 fluoxetine 10 mg capsule 10 mg PO DAILY 08/31/23 11/26/23 pramipexole 0.5 mg tablet 0.5 mg PO BID 08/31/23 11/26/23 multivitamin (Daily Multi-Vitamin 1 tab PO DAILY 11/26/23 11/26/23 tablet) Previous Rx's ?Medication ?Instructions ?Recorded cephalexin 500 mg capsule 500 mg PO TID 10 days #30 caps 10/23/23 Allergies Allergy/AdvReac Type Severity Reaction Status Date / Time Penicillins Allergy Intermediate Hives Verified 11/26/23 21:25 acetaminophen [From Vicodin] AdvReac Intermediate Hives Verified 11/26/23 21:25 hydrocodone [From Vicodin] AdvReac Intermediate Hives Verified 11/26/23 21:25 Opioid HPI Opioid Management Most Recent Opioid Data: Last Pain Scale 6 11/26/23 22:09 Last ED Pain Assessment 11/26/23 22:09 Last MAR Pain Assessment 11/27/23 02:39 Ur Phencyclidine Scrn Negative (NEGATIVE) 11/27/23 01:15 Exam Narrative Exam Narrative: Gen.: Ill-appearing adult male, he is febrile, tachycardic, tachypneic and mildly hypoxic Head: Normocephalic, atraumatic ENT: Moist mucous membranes; Patient with small area of faint ecchymosis to the left moravian adjacent to the left eye. Disconjugate gaze that is chronic for him. No other dental injuries noted. 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 Psych: Normal mood and affect Neuro: Generally appears weak, unable to support his weight or transfer independently, software trainer strength is intact bilaterally and he is able to move his lower extremities Skin: Warm, dry, intact Constitutional Vital Signs, click to edit/add: Last Vital Signs Temp 99.9 F 11/27/23 00:22 Pulse 137 H 11/27/23 02:46 Resp 56 H 11/27/23 02:46 BP 102/75 11/27/23 02:46 Pulse Ox 93 L 11/27/23 02:46 O2 Del Method BIPAP 11/27/23 02:46 FiO2 40 11/26/23 22:38 Course Vital Signs Vital signs: Vital Signs Pulse Oximetry 84 L 11/26/23 21:10 Oxygen Delivery Method Room Air 11/26/23 21:10 Temperature 99.9 F 11/27/23 00:22 Pulse Rate 137 H 11/27/23 02:46 Respiratory Rate 56 H 11/27/23 02:46 Blood Pressure 102/75 11/27/23 02:46 Pulse Oximetry 93 L 11/27/23 02:46 Oxygen Delivery Method BIPAP 11/27/23 02:46 Fraction of Inspired Oxygen 40 11/26/23 22:38 Medical Decision Making MDM Narrative Medical decision making narrative: 2144: On arrival to the emergency department, patient was lifted into a wheelchair and immediately brought to a trauma room. He was immediately evaluated by myself and Dr. Leggett. History was obtained from the patient's . He was placed on cardiac monitoring and an IV was established. Patient was given IV fluids, found to have a fever as well as tachycardia and tachypnea. Respiratory was called to the bedside and the patient was started on BiPAP. EKG shows sinus tachycardia at a rate in the 150s. IV fluids, rectal Tylenol were ordered for the patient. Full sepsis orders were obtained as well. Imaging of the head, facial bones and neck were obtained for the fall as well as imaging of the chest to rule out pulmonary Embolism or acute abdominal pathology. 0.5 mg of IV Ativan were given to the patient so that he would tolerate the BiPAP better. BiPAP did improve his respiratory status although he remains tachycardic. Case is turned over to attending physician at this time for further physician. The patient was medicated with IV fluids per sepsis protocol, his blood pressure continued to decline and he was started on IV Levophed after CT scan. He remained tachycardic with pulse in the 130s-150s. I discussed the severity of his condition with his who verbalizes understanding and states she thought something was seriously wrong with him. She then explained to me that he has had nausea and vomiting for the past 3 days and been unable to keep anything down. His vomiting has been bilious in nature. He was empirically medicated with IV Levaquin for intra-abdominal infection as well as IV Flagyl and vancomycin. He has an elevated white count at 11 with marked bandemia of 32. He has a stable hemoglobin of 15.1. Lactic acid is markedly elevated at 8.4 and procalcitonin is elevated at 57. BUN is elevated at 37 and creatinine is 2.65. Troponins elevated at 141 and BNP is elevated at 18,000. Noncontrast CT scans were ordered due to the acute kidney injury. CT scan of the brain is negative for acute findings. CT scan of the facial bones shows healing fractures of the left sinuses, overall there is no new acute findings. CT scan of the chest abdomen pelvis which is also included in the body of this report shows no acute pneumonia, healing left sided rib fractures and it shows that the patient is status post splenectomy and also has cholelithiasis with mild gallbladder wall thickening. A flowers catheter was placed and urine was sent to the lab. it is negative for infection and positive for THC Repeat lactic acid is 7.1 and repeat troponin is 169. COVID 19 testing is negative. The case was discussed with Dr Polanco at [facility] in [place] who requests addition of Imipenum/meropenum for more broad coverage of gram negative bacteria. SHARED APC VISIT, PHYSICIAN ATTESTATION: [id number] I performed a substantive part of the MDM during the patient?s E/M visit. I personally evaluated and examined the patient. I personally made or approved the documented management plan and acknowledge its risk of complications. Medical Records Medical records narrative: [place] [address] CT Scan Report Signed Patient: KRISTINA HINOJOSA MR#: [id number] : 1955 Acct:[id number] Age/Sex: 67 / M ADM Date: 11/26/23 Loc: ER Attending Dr: Ordering Physician: Ibeth Paredes Date of Service: 11/26/23 Procedure(s): CT chest wo con Accession Number(s): [id number] cc: HYUN GALE [facility] [place] [id number] Patient Name: KRISTINA HINOJOSA MRN: [id number] date: 1955 Sex: M Assigned Patient Location: ER Current Patient Location: ED.MAIN Accession/Order Number: [id number] Exam Date: 11/26/2023 23:15 Report Date: 11/27/2023 00:57 At the request of: IBETH PAREDES Procedure: CT chest wo con EXAM: CT chest wo con, CT abdomen pelvis wo con, CT cervical spine wo con HISTORY: fall acute dysphagia. Vomiting. Weakness. COMPARISON: None. TECHNIQUE: Nonenhanced CT imaging of the cervical spine, chest, abdomen and pelvis was performed with sagittal and coronal reconstructions. Dose reduction techniques were achieved by using automated exposure control and/or adjustment of mA and/or kV according to patient size and/or use of iterative reconstruction technique. FINDINGS: CT CERVICAL SPINE: No acute osseous or articular abnormality is seen. There is are chronic fractures involving the tips of the C7 and T1 spinous processes. Nuchal calcifications are incidentally noted in the posterior neck soft tissues. The cervical vertebral bodies are normal in height and alignment. There is severe degenerative disc disease at C4-C7. Skull base alignment is normal. The articular facets are normally aligned with multilevel facet arthrosis and uncovertebral joint hypertrophy resulting in bilateral neural foraminal stenosis. Neural foraminal stenosis is severe at C3-C4 and moderately severe at C4-C7 bilaterally. There is mild spinal canal stenosis at C5-C6. The imaged sphenoid sinuses and mastoid air cells are clear. There is a rim calcified left thyroid lobe lesion measuring 1.1 cm, with a 1.7 cm hypodense lesion in the posterior left thyroid lobe on image 7. CT CHEST: The exam is limited by the lack of IV contrast. No mediastinal injury is seen. The heart is unremarkable. There is no coronary arterial calcification or pericardial effusion. There are very mild aortic calcifications without aneurysm. The lungs are degraded by motion artifact. There is mild dependent atelectasis in the posterior lower lobes. No pulmonary contusion, pleural fluid or pneumothorax is seen. There are nonacute incompletely healed fractures involving the left third through seventh anterolateral ribs. There is a mild anterior compression fracture involving the superior endplate of T4. No acute osseous injury is seen in the chest. CT ABDOMEN: The abdomen is degraded by motion artifact as well as beam attenuation artifact from the patient being scanned with his arms at his sides. It is further limited by the lack of IV contrast. Solid organ lesions or acute abnormalities could be missed. Cholelithiasis is noted with mild gallbladder wall thickening. There is no biliary ductal dilatation. Age-related pancreatic atrophy is noted. 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 The liver, adrenal glands, kidneys, stomach and small bowel are grossly unremarkable. There are mild to moderate aortic and iliac calcifications without aneurysm. The IVC is unremarkable. CT PELVIS: No acute pelvic organ injury is seen. The pelvic small bowel loops, colon and urinary bladder are unremarkable. The prostate is enlarged with mild calcification. The appendix is not seen. No free fluid, loculated fluid, free air, soft tissue gas or acute osseous injury is seen in the abdomen or pelvis. CT/CT chest wo con IMPRESSION: 1. No acute cervical spine findings. Chronic changes are described above. 2. Allowing for exam limitations due to motion artifact, beam attenuation and the lack of contrast, no acute traumatic change is seen in the chest, abdomen or pelvis. 3. Cholelithiasis with mild nonspecific gallbladder wall thickening. If there is clinical concern for cholecystitis, further evaluation with a nuclear HIDA scan could be considered. 4. Splenectomy. 5. Prostatomegaly. 6. Nonspecific left thyroid lobe lesions as above. Elective thyroid ultrasound could further evaluate. Electronically authenticated by: SOCO NGUYEN Date: 11/27/2023 00:[address] [address] [address] Scan Report Signed Patient: KRISTINA HINOJOSA MR#: [id number] : 1955 Acct:[id number] Age/Sex: 67 / M ADM Date: 11/26/23 Loc: ER Attending Dr: Ordering Physician: Ibeth Paredes Date of Service: 11/26/23 Procedure(s): CT head/brain wo con Accession Number(s): [id number] cc: HYUN GALE ~ [address] [address] Patient Name: KRISTINA HINOJOSA MRN: [id number] date: 1955 Sex: M Assigned Patient Location: ER Current Patient Location: ER Accession/Order Number: [id number] Exam Date: 11/26/2023 23:15 Report Date: 11/27/2023 01:02 At the request of: IBETH PAREDES Procedure: CT head/brain wo con INDICATION: 67 years old; Male. Closed head trauma status post fall. TECHNIQUE: CT Head (ax/cor/sag reformats). Ionizing radiation dose reduced via iterative reconstruction/FBP blend and body size kV/mA adjustment. Comparison: Head CT dated 10/23/2023. FINDINGS: POSTOPERATIVE CHANGES: None. BRAIN PARENCHYMA: No intraparenchymal or extra-axial hemorrhage. No mass effect. No midline shift or herniation. Normal sarah/white differentiation. VENTRICLES/EXTRA-AXIAL SPACES: Enlarged, consistent with atrophy. SINUSES/MASTOIDS: Please see the facial bone portion of this report. Mastoids and middle ears are clear. MSK: No displaced or depressed calvarial fracture. Generalized bony demineralization. Supraorbital soft tissue swelling on the right. OTHER: No hyperdense intraluminal thrombus. Vascular calcifications are present. Incidental note is made of disconjugate gaze. There is external strabismus bilaterally worse on the right than the left. TECHNIQUE: CT of the facial bones was performed. IV contrast: None. Axial, coronal, sagittal reformats were created and reviewed. Dose reduction techniques were achieved by using automated exposure control and/or adjustment of mA and/or kV according to patient size and/or use of iterative reconstruction technique. COMPARISON: Facial bone CT dated 10/23/2023. FINDINGS: FRONTAL BONES: SUPRAORBITAL SOFT TISSUES: Supraorbital soft tissue swelling on the right. ORBITS: Globes: Normal without proptosis or evidence of disruption or intraocular foreign body. Disconjugate gaze Retrobulbar fat: normal without mass or hematoma. Extraocular Muscles: Normal and symmetric without prolapse or evidence of entrapment. Optic Nerves: Normal without mass-effect or evidence of disruption. Preseptal Soft Tissues: Normal without swelling, laceration or foreign body. Browning: No orbital wall fracture or bony dehiscence is appreciated. MAXILLA AND MANDIBLE: Maxillary and buccal soft tissues: No hematoma is seen. Maxillary bones: Patient is edentulous. There is redemonstration of fractures involving the anterior, posterolateral, and posterior wall the maxillary sinus on the left. The posterolateral component is comminuted. This is unchanged from the prior study. There is no change in the appearance of mild depression of the fracture of the anterior wall as compared to the prior study. The fractures extend into the base of the maxillary sinus on the lateral wall. This appearance is unchanged as compared to the prior study. Mandible: Patient is edentulous. No mandibular fracture is present. TMJ are symmetric. Nasal bones and septum: There is nondisplaced fracture of the nasal bones and the midline. This finding is unchanged as compared to the prior examination. Fracture the nasal process of the maxilla on the left is also unchanged. Nasal septum deviated to the left anteriorly. S-shaped posterior nasal septal deviation. Maxillary spine is intact. PARANASAL SINUSES: Frontal: Hypoplastic left frontal sinus. Ethmoid: Clear. Maxillary: Maxillary thickening on the left. Sphenoid: Clear. Zygomatic arch: Intact bilaterally. Pterygoid plates: Intact bilaterally. CT/CT head/brain wo con IMPRESSION: 1. No acute intracranial abnormality. No hemorrhage or mass effect. 2. Atrophy. 3. Supraorbital soft tissue swelling on the right. 4. Vascular calcification. 5. No new fracture is appreciated. There is redemonstration and no change in the appearance of fractures involving the maxillary sinus on the left as well as the nasal bones. Electronically authenticated by: NIK JIMENEZ Date: 11/27/2023 01:02 Lab Data Lab results reviewed: Yes I reviewed the patient's lab results Labs: Lab Results 11/26/23 11/26/23 11/27/23 Range/Units 21:37 22:15 00:37 WBC 11.1 H (4.0-11.0) 10^3/uL RBC 5.71 (4.70-6.10) 10^6/uL Hgb 15.6 (14.0-18.0) g/dL Hct 49.1 (42.0-54.0) % MCV 86.0 (80.0-94.0) fL MCH 27.3 (25.9-34.0) pg MCHC 31.8 (29.9-35.2) g/dL RDW 15.8 H (11.0-15.0) % Plt Count 147 L (150-450) 10^3/uL MPV 9.4 L (9.5-13.5) fL Seg Neuts % (Manual) 64.0 Band Neutrophils % 32.0 H (0-5) % Lymphocytes % (Manual) 2.0 L (20.5-60.0) % Atypical Lymphs % (Man) 1.0 % Monocytes % (Manual) 1.0 L (1.7-12.0) % Eosinophils % (Manual) 0.0 L (0.9-7.0) % Basophils % (Manual) 0.0 L (0.2-2.0) % Neutrophils # (Manual) 7.10 H (1.4-6.5) 10^3/uL Band Neutrophils # 3.6 H (0.0-0.3) 10^3/uL Lymphocytes # (Manual) 0.22 L (1.20-3.80) 10^3/uL Abs Atypical Lymphs Man 0.11 Monocytes # (Manual) 0.11 L (0.30-0.80) 10^3/uL Eosinophils # (Manual) 0.00 (0.00-0.70) 10^3/uL Basophils # (Manual) 0.00 (0.00-0.10) 10^3/uL Toxic Vacuolation 2+ Giant Platelets 2+ PT 14.3 H (9.0-11.6) sec INR 1.39 VBG pH 7.384 (7.330-7.430) VBG pCO2 30.3 L (40.0-52.0) mmHg Sodium 138 (136-145) mmol/L Potassium 3.3 L (3.5-5.1) mmol/L Chloride 100 (98-107) mmol/L Carbon Dioxide 19.8 L (21.0-32.0) mmol/L Anion Gap 21.5 BUN 37.0 H (7.0-18.0) mg/dL Creatinine 2.65 H (0.70-1.30) mg/dL Est GFR ( Amer) 29 L (>=60) Est GFR (Non-Af Amer) 24 L (>=60) BUN/Creatinine Ratio 14.0 Glucose 79 (74-106) mg/dL Lactate 8.4 H* 7.1 H* (0.4-2.0) mmol/L Calcium 10.6 H (8.5-10.1) mg/dL Total Bilirubin 1.7 H (0.2-1.0) mg/dL AST 85 H (15-37) U/L ALT 61 (16-63) U/L Alkaline Phosphatase 270 H (46-116) U/L Total Creatine Kinase 1463 H* (39-308) U/L Troponin I High Sens 141.7 H* 169.1 H* (4.0-76.1) pg/mL NT-Pro-B Natriuret Pep 62415.0 H* (<=900.0) pg/mL Total Protein 7.6 (6.4-8.2) g/dL Albumin 3.5 (3.4-5.0) g/dL Globulin 4.1 g/dL Albumin/Globulin Ratio 0.9 Procalcitonin 57.84 H (0.00-0.50) ng/mL TSH 0.426 (0.358-3.740) uIU/mL Urine Color (YELLOW) Urine Clarity (CLEAR) Urine pH (5.0-9.0) Ur Specific [place] (1.005-1.025) Urine Protein (NEG/TRACE) mg/dL Urine Glucose (UA) (NEGATIVE) mg/dL Urine Ketones (NEGATIVE) mg/dL Urine Occult Blood (NEGATIVE) Urine Nitrite (NEGATIVE) Urine Bilirubin (NEGATIVE) Urine Urobilinogen (0.2-1.0) EU/dL Ur Leukocyte Esterase (NEGATIVE) Urine RBC (0-2) #/HPF Urine WBC (NONE SEEN) #/HPF Ur Squamous Epith Cells (NONE/RARE) #/LPF Urine Crystals (None Seen) #/HPF Amorphous Sediment Urine Bacteria (NONE SEEN) #/HPF Urine Casts (NONE SEEN) #/LPF Hyaline Casts Fine Granular Casts Urine Mucus (NONE SEEN) Urine Sperm Ur Culture Indicated? Urine Opiates Screen (NEGATIVE) Ur Buprenorphine Scrn (NEGATIVE) Ur Oxycodone Screen (NEGATIVE) Urine Methadone Screen (NEGATIVE) Ur Barbiturates Screen (NEGATIVE) U Tricyclic Antidepress (NEGATIVE) Ur Phencyclidine Scrn (NEGATIVE) Ur Amphetamines Screen (NEGATIVE) U Methamphetamines Scrn (NEGATIVE) U Benzodiazepines Scrn (NEGATIVE) Urine Cocaine Screen (NEGATIVE) U Cannabinoids Screen (NEGATIVE) Ethanol Quant <3 mg/dL SARS-CoV-2 Ag (CV2AG) Negative (NEGATIVE) 11/27/23 Range/Units 01:15 WBC (4.0-11.0) 10^3/uL RBC (4.70-6.10) 10^6/uL Hgb (14.0-18.0) g/dL Hct (42.0-54.0) % MCV (80.0-94.0) fL MCH (25.9-34.0) pg MCHC (29.9-35.2) g/dL RDW (11.0-15.0) % Plt Count (150-450) 10^3/uL MPV (9.5-13.5) fL Seg Neuts % (Manual) Band Neutrophils % (0-5) % Lymphocytes % (Manual) (20.5-60.0) % Atypical Lymphs % (Man) % Monocytes % (Manual) (1.7-12.0) % Eosinophils % (Manual) (0.9-7.0) % Basophils % (Manual) (0.2-2.0) % Neutrophils # (Manual) (1.4-6.5) 10^3/uL Band Neutrophils # (0.0-0.3) 10^3/uL Lymphocytes # (Manual) (1.20-3.80) 10^3/uL Abs Atypical Lymphs Man Monocytes # (Manual) (0.30-0.80) 10^3/uL Eosinophils # (Manual) (0.00-0.70) 10^3/uL Basophils # (Manual) (0.00-0.10) 10^3/uL Toxic Vacuolation Giant Platelets PT (9.0-11.6) sec INR VBG pH (7.330-7.430) VBG pCO2 (40.0-52.0) mmHg Sodium (136-145) mmol/L Potassium (3.5-5.1) mmol/L Chloride (98-107) mmol/L Carbon Dioxide (21.0-32.0) mmol/L Anion Gap BUN (7.0-18.0) mg/dL Creatinine (0.70-1.30) mg/dL Est GFR ( Amer) (>=60) Est GFR (Non-Af Amer) (>=60) BUN/Creatinine Ratio Glucose (74-106) mg/dL Lactate (0.4-2.0) mmol/L Calcium (8.5-10.1) mg/dL Total Bilirubin (0.2-1.0) mg/dL AST (15-37) U/L ALT (16-63) U/L Alkaline Phosphatase (46-116) U/L Total Creatine Kinase (39-308) U/L Troponin I High Sens (4.0-76.1) pg/mL NT-Pro-B Natriuret Pep (<=900.0) pg/mL Total Protein (6.4-8.2) g/dL Albumin (3.4-5.0) g/dL Globulin g/dL Albumin/Globulin Ratio Procalcitonin (0.00-0.50) ng/mL TSH (0.358-3.740) uIU/mL Urine Color Dk. yellow (YELLOW) Urine Clarity Clear (CLEAR) Urine pH 6.0 (5.0-9.0) Ur Specific [place] 1.025 (1.005-1.025) Urine Protein 100 A (NEG/TRACE) mg/dL Urine Glucose (UA) Negative (NEGATIVE) mg/dL Urine Ketones Trace A (NEGATIVE) mg/dL Urine Occult Blood Moderate A (NEGATIVE) Urine Nitrite Negative (NEGATIVE) Urine Bilirubin Small A (NEGATIVE) Urine Urobilinogen 1.0 (0.2-1.0) EU/dL Ur Leukocyte Esterase Negative (NEGATIVE) Urine RBC 2-5 A (0-2) #/HPF Urine WBC 0-2 A (NONE SEEN) #/HPF Ur Squamous Epith Cells Rare (NONE/RARE) #/LPF Urine Crystals None seen (None Seen) #/HPF Amorphous Sediment Few Urine Bacteria None seen (NONE SEEN) #/HPF Urine Casts Seen A (NONE SEEN) #/LPF Hyaline Casts Few Fine Granular Casts Few Urine Mucus None seen (NONE SEEN) Urine Sperm Seen Ur Culture Indicated? No Urine Opiates Screen Negative (NEGATIVE) Ur Buprenorphine Scrn Negative (NEGATIVE) Ur Oxycodone Screen Negative (NEGATIVE) Urine Methadone Screen Negative (NEGATIVE) Ur Barbiturates Screen Negative (NEGATIVE) U Tricyclic Antidepress Negative (NEGATIVE) Ur Phencyclidine Scrn Negative (NEGATIVE) Ur Amphetamines Screen Negative (NEGATIVE) U Methamphetamines Scrn Negative (NEGATIVE) U Benzodiazepines Scrn Negative (NEGATIVE) Urine Cocaine Screen Negative (NEGATIVE) U Cannabinoids Screen Positive A (NEGATIVE) Ethanol Quant mg/dL SARS-CoV-2 Ag (CV2AG) (NEGATIVE) Critical Care Time Critical Care Time Total Critical Care Time: 60 Attestation: 60 min of critical care time for evaluation and treatment of critical illness in the ED Discharge Plan Discharge Chief Complaint: Weakness Clinical Impression: Sepsis, Acute kidney injury, Cholelithiasis, Acquired asplenia, Fall, Elevated troponin, Bandemia, Septic shock Patient Disposition: [facility] Time of Disposition Decision: 02:29 Discharge Location: [facility] Condition: Critical
[2023-11-26 21:46] LABS: Hematocrit 49.1 % (42.0-54.0); Hemoglobin 15.6 g/dL (14.0-18.0); Mean Corpuscular HGB Conc 31.8 g/dL (29.9-35.2); Mean Corpuscular Hemoglobin 27.3 pg (25.9-34.0); Mean Platelet Volume 9.4 fL (9.5-13.5); PCO2 VBG 30.3 mmHg (40.0-52.0); Platelet Count 147 10^3/uL (150-450); Red Blood Count 5.71 10^6/uL (4.70-6.10); Red Cell Distribution Width 15.8 % (11.0-15.0); White Blood Count 11.1 10^3/uL (4.0-11.0); pH VBG 7.384 (7.330-7.430)
--- NOTE | 2023-11-26 21:46 | XR_ITS ---
The [address] [address] Patient Name: KRISTINA HINOJOSA MRN: [id number] date: 1955 Sex: M Assigned Patient Location: ED.MAIN Current Patient Location: ED.MAIN Accession/Order Number: [id number] Exam Date: 11/26/2023 21:50 Report Date: 11/26/2023 23:07 At the request of: IBETH PAREDES Procedure: XR chest 1V XR chest 1V 11/26/2023 9:50 PM EDT CLINICAL INDICATION: Respiratory distress COMPARISON: None. TECHNIQUE: Portable semiupright AP view of the chest. FINDINGS: Prior right rotator cuff tendon repair The cardiomediastinal silhouette and pulmonary vasculature are within normal limits. Patchy groundglass opacities seen in the right lower lung zone. Nodular opacity seen in the right lower lung zone suggestive of a nipple shadow. No pneumothorax or pleural effusion. No displaced rib fractures. Osseous structures demonstrate degenerative changes. Soft tissues are grossly normal. XR/XR chest 1V IMPRESSION: Patchy ground glass opacities in the right lower lung zone which may represent atelectasis or pneumonia. Electronically authenticated by: SUMAYA KATE Date: 11/26/2023 23:07
[2023-11-26] MEDS: 0.9 % SODIUM CHLORIDE 1,000 ML 1000 ML IV ×2 (21:50→22:32)
[2023-11-26] MEDS: ONDANSETRON PF 4 MG/2 ML VIAL IV (21:57)
[2023-11-26] MEDS: LORAZEPAM 2 MG/ML VIAL 0.5 MG IV ×2 (21:57→23:36)
[2023-11-26] MEDS: ACETAMINOPHEN 650 MG RECTAL SUPPOSITORY PR (21:58)
[2023-11-26 22:03] LABS: Alanine Aminotransferase 61 U/L (16-63); Albumin Globulin Ratio 0.9; Albumin Level 3.5 g/dL (3.4-5.0); Alkaline Phosphatase 270 U/L (46-116); Anion Gap 21.5; Aspartate Amino Transferase 85 U/L (15-37); Bilirubin Total 1.7 mg/dL (0.2-1.0); Calcium 10.6 mg/dL (8.5-10.1); Carbon Dioxide 19.8 mmol/L (21.0-32.0); Chloride 100 mmol/L (98-107); Estimated GFR (African America 29 (>=60); Estimated GFR (Non-African Ame 24 (>=60); Globulin 4.1 g/dL; Glucose 79 mg/dL (74-106); Potassium 3.3 mmol/L (3.5-5.1); Sodium 138 mmol/L (136-145); Total Protein 7.6 g/dL (6.4-8.2)
[2023-11-26 22:08] LABS: INR 1.39; Prothrombin Time 14.3 sec (9.0-11.6)
--- NOTE | 2023-11-26 22:10 | CT_ITS ---
The [address] [address] Patient Name: KRISTINA HINOJOSA MRN: [id number] date: 1955 Sex: M Assigned Patient Location: ER Current Patient Location: [facility] Accession/Order Number: [id number] Exam Date: 11/26/2023 23:15 Report Date: 11/27/2023 00:57 At the request of: IBETH PAREDES Procedure: CT abdomen pelvis wo con EXAM: CT chest wo con, CT abdomen pelvis wo con, CT cervical spine wo con HISTORY: fall acute dysphagia. Vomiting. Weakness. COMPARISON: None. TECHNIQUE: Nonenhanced CT imaging of the cervical spine, chest, abdomen and pelvis was performed with sagittal and coronal reconstructions. Dose reduction techniques were achieved by using automated exposure control and/or adjustment of mA and/or kV according to patient size and/or use of iterative reconstruction technique. FINDINGS: CT CERVICAL SPINE: No acute osseous or articular abnormality is seen. There is are chronic fractures involving the tips of the C7 and T1 spinous processes. Nuchal calcifications are incidentally noted in the posterior neck soft tissues. The cervical vertebral bodies are normal in height and alignment. There is severe degenerative disc disease at C4-C7. Skull base alignment is normal. The articular facets are normally aligned with multilevel facet arthrosis and uncovertebral joint hypertrophy resulting in bilateral neural foraminal stenosis. Neural foraminal stenosis is severe at C3-C4 and moderately severe at C4-C7 bilaterally. There is mild spinal canal stenosis at C5-C6. The imaged sphenoid sinuses and mastoid air cells are clear. There is a rim calcified left thyroid lobe lesion measuring 1.1 cm, with a 1.7 cm hypodense lesion in the posterior left thyroid lobe on image 7. CT CHEST: The exam is limited by the lack of IV contrast. No mediastinal injury is seen. The heart is unremarkable. There is no coronary arterial calcification or pericardial effusion. There are very mild aortic calcifications without aneurysm. The lungs are degraded by motion artifact. There is mild dependent atelectasis in the posterior lower lobes. No pulmonary contusion, pleural fluid or pneumothorax is seen. There are nonacute incompletely healed fractures involving the left third through seventh anterolateral ribs. There is a mild anterior compression fracture involving the superior endplate of T4. No acute osseous injury is seen in the chest. CT ABDOMEN: The abdomen is degraded by motion artifact as well as beam attenuation artifact from the patient being scanned with his arms at his sides. It is further limited by the lack of IV contrast. Solid organ lesions or acute abnormalities could be missed. Cholelithiasis is noted with mild gallbladder wall thickening. There is no biliary ductal dilatation. Age-related pancreatic atrophy is noted. 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 The liver, adrenal glands, kidneys, stomach and small bowel are grossly unremarkable. There are mild to moderate aortic and iliac calcifications without aneurysm. The IVC is unremarkable. CT PELVIS: No acute pelvic organ injury is seen. The pelvic small bowel loops, colon and urinary bladder are unremarkable. The prostate is enlarged with mild calcification. The appendix is not seen. No free fluid, loculated fluid, free air, soft tissue gas or acute osseous injury is seen in the abdomen or pelvis. CT/CT abdomen pelvis wo con IMPRESSION: 1. No acute cervical spine findings. Chronic changes are described above. 2. Allowing for exam limitations due to motion artifact, beam attenuation and the lack of contrast, no acute traumatic change is seen in the chest, abdomen or pelvis. 3. Cholelithiasis with mild nonspecific gallbladder wall thickening. If there is clinical concern for cholecystitis, further evaluation with a nuclear HIDA scan could be considered. 4. Splenectomy. 5. Prostatomegaly. 6. Nonspecific left thyroid lobe lesions as above. Elective thyroid ultrasound could further evaluate. Electronically authenticated by: SOCO NGUYEN Date: 11/27/2023 00:57
--- NOTE | 2023-11-26 22:10 | CT_ITS ---
[address] [address] Patient Name: KRISTINA HINOJOSA MRN: [id number] date: 1955 Sex: M Assigned Patient Location: ER Current Patient Location: .[facility] Accession/Order Number: [id number] Exam Date: 11/26/2023 23:15 Report Date: 11/27/2023 00:57 At the request of: IBETH PAREDES Procedure: CT chest wo con EXAM: CT chest wo con, CT abdomen pelvis wo con, CT cervical spine wo con HISTORY: fall acute dysphagia. Vomiting. Weakness. COMPARISON: None. TECHNIQUE: Nonenhanced CT imaging of the cervical spine, chest, abdomen and pelvis was performed with sagittal and coronal reconstructions. Dose reduction techniques were achieved by using automated exposure control and/or adjustment of mA and/or kV according to patient size and/or use of iterative reconstruction technique. FINDINGS: CT CERVICAL SPINE: No acute osseous or articular abnormality is seen. There is are chronic fractures involving the tips of the C7 and T1 spinous processes. Nuchal calcifications are incidentally noted in the posterior neck soft tissues. The cervical vertebral bodies are normal in height and alignment. There is severe degenerative disc disease at C4-C7. Skull base alignment is normal. The articular facets are normally aligned with multilevel facet arthrosis and uncovertebral joint hypertrophy resulting in bilateral neural foraminal stenosis. Neural foraminal stenosis is severe at C3-C4 and moderately severe at C4-C7 bilaterally. There is mild spinal canal stenosis at C5-C6. The imaged sphenoid sinuses and mastoid air cells are clear. There is a rim calcified left thyroid lobe lesion measuring 1.1 cm, with a 1.7 cm hypodense lesion in the posterior left thyroid lobe on image 7. CT CHEST: The exam is limited by the lack of IV contrast. No mediastinal injury is seen. The heart is unremarkable. There is no coronary arterial calcification or pericardial effusion. There are very mild aortic calcifications without aneurysm. The lungs are degraded by motion artifact. There is mild dependent atelectasis in the posterior lower lobes. No pulmonary contusion, pleural fluid or pneumothorax is seen. There are nonacute incompletely healed fractures involving the left third through seventh anterolateral ribs. There is a mild anterior compression fracture involving the superior endplate of T4. No acute osseous injury is seen in the chest. CT ABDOMEN: The abdomen is degraded by motion artifact as well as beam attenuation artifact from the patient being scanned with his arms at his sides. It is further limited by the lack of IV contrast. Solid organ lesions or acute abnormalities could be missed. Cholelithiasis is noted with mild gallbladder wall thickening. There is no biliary ductal dilatation. Age-related pancreatic atrophy is noted. 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 The liver, adrenal glands, kidneys, stomach and small bowel are grossly unremarkable. There are mild to moderate aortic and iliac calcifications without aneurysm. The IVC is unremarkable. CT PELVIS: No acute pelvic organ injury is seen. The pelvic small bowel loops, colon and urinary bladder are unremarkable. The prostate is enlarged with mild calcification. The appendix is not seen. No free fluid, loculated fluid, free air, soft tissue gas or acute osseous injury is seen in the abdomen or pelvis. CT/CT chest wo con IMPRESSION: 1. No acute cervical spine findings. Chronic changes are described above. 2. Allowing for exam limitations due to motion artifact, beam attenuation and the lack of contrast, no acute traumatic change is seen in the chest, abdomen or pelvis. 3. Cholelithiasis with mild nonspecific gallbladder wall thickening. If there is clinical concern for cholecystitis, further evaluation with a nuclear HIDA scan could be considered. 4. Splenectomy. 5. Prostatomegaly. 6. Nonspecific left thyroid lobe lesions as above. Elective thyroid ultrasound could further evaluate. Electronically authenticated by: SOCO NGUYEN Date: 11/27/2023 00:57
[2023-11-26 22:12] LABS: Thyroid Stimulating Hormone 0.426 uIU/mL (0.358-3.740)
[2023-11-26 22:14] LABS: Creatine Kinase 1463 U/L (39-308); Ethanol <3 mg/dL
[2023-11-26 22:15] LABS: Troponin I High Sensitivity 141.7 pg/mL (4.0-76.1)
[2023-11-26 22:16] LABS: PROCALCITONIN 57.84 ng/mL (0.00-0.50)
[2023-11-26 22:30] LABS: Atypical Lymphocytes Abs Man 0.11; Band Neutrophils Absolute 3.6 10^3/uL (0.0-0.3); Lymphocytes Absolute Manual 0.22 10^3/uL (1.20-3.80); Monocytes Absolute Manual 0.11 10^3/uL (0.30-0.80)
[2023-11-26 22:32] LABS: Giant Platelets 2+
[2023-11-26 22:33] LABS: Toxic Vacuolation 2+
[2023-11-26 22:53] LABS: Lactate/Lactic Acid 8.4 mmol/L (0.4-2.0)
[2023-11-26] MEDS: LEVOFLOXACIN IN DEXTROSE 5 % 500 MG/100 ML PIGGYBACK 100 MG IV (22:54)
[2023-11-26 23:13] LABS: Internal Control Within Normal Limits; SARS-CoV-2 Ag NEGATIVE (NEGATIVE)
[2023-11-26] MEDS: NOREPINEPHRINE BITARTRATE/D5W 4 MG/250 ML PREMIX 30 MG IV (23:52)
[2023-11-27 00:22] VITALS: BP 86/66; PULSE 129; TEMP 37.7; O2SAT 94
[2023-11-27] MEDS: METRONIDAZOLE/SODIUM CHLORIDE 500 MG/100 ML PREMIX 100 MG IV (01:02)
[2023-11-27] MEDS: LIDOCAINE 2% JELLY 10 ML UR (01:04)
[2023-11-27] MEDS: LORAZEPAM 2 MG/ML VIAL 0.5 MG IV (01:05)
[2023-11-27 01:07] VITALS: PULSE 46; O2SAT 96
[2023-11-27 01:18] LABS: Lactate/Lactic Acid 7.1 mmol/L (0.4-2.0); Troponin I High Sensitivity 169.1 pg/mL (4.0-76.1)
[2023-11-27 01:20] VITALS: BP 110/71; PULSE 124; O2SAT 93
[2023-11-27 01:29] LABS: Bilirubin Urine SMALL (NEGATIVE); Blood Urine MODERATE (NEGATIVE); Clarity Urine CLEAR (CLEAR); Color Urine DK. YELLOW (YELLOW); Glucose Urine UA NEGATIVE (NEGATIVE); Ketones Urine TRACE mg/dL (NEGATIVE); Leukocyte Esterase Urine NEGATIVE (NEGATIVE); Nitrite Urine NEGATIVE (NEGATIVE); Protein Urine 100 mg/dL (NEG/TRACE); Specific Gravity Urine 1.025 (1.005-1.025)
[2023-11-27 01:34] LABS: Urine Microscopic Indicated YES
[2023-11-27 01:39] LABS: Amorphous Sediment Urine FEW; Bacteria Urine NONE SEEN #/HPF (NONE SEEN); Cast Seen? SEEN #/LPF (NONE SEEN); Crystals Seen? None Seen #/HPF (None Seen); Hyaline Casts Urine FEW; Mucus Urine NONE SEEN (NONE SEEN); Squamous Epithelial Cell Urine RARE #/LPF (NONE/RARE); WBC Urine 0-2 #/HPF (NONE SEEN)
[2023-11-27 01:40] LABS: Amphetamine Screen Urine NEGATIVE (NEGATIVE); Barbiturates Screen Urine NEGATIVE (NEGATIVE); Benzodiazepines Screen Urine NEGATIVE (NEGATIVE); Buprenorphine Screen Urine NEGATIVE (NEGATIVE); Cannabinoid Screen Urine POSITIVE (NEGATIVE); Cocaine Screen Urine NEGATIVE (NEGATIVE); Fine Granular Casts Urine FEW; Methadone Screen Urine NEGATIVE (NEGATIVE); Methamphetamines Screen Urine NEGATIVE (NEGATIVE); Opiate Screen Urine NEGATIVE (NEGATIVE); Oxycodone Screen Urine NEGATIVE (NEGATIVE); Phencyclidine Screen Urine NEGATIVE (NEGATIVE); Sperm Urine SEEN; Tricyclic Antidepressant Urine NEGATIVE (NEGATIVE); Urine Culture Indicated NO
[2023-11-27] MEDS: VANCOMYCIN HCL 1,000 MG in 0.9 % SODIUM CHLORIDE 500 ML 250 MG IV (02:35)
[2023-11-27] MEDS: MORPHINE SULFATE 4 MG/ML VIAL IV (02:39)
[2023-11-27 02:46] VITALS: BP 102/75; PULSE 137; O2SAT 93
[2023-11-27] MEDS: ONDANSETRON PF 4 MG/2 ML VIAL IV (03:10)
[2023-11-27 03:45] VITALS: RESP 14; O2SAT 97
[2023-11-27 03:50] VITALS: BP 93/68; PULSE 149; O2SAT 93
== END 2023-11-27 04:00 | disposition short-term general hospital (02) ==
PROVIDERS: Physician Assistant; Emergency Provider Emergency Medicine; PCP Nurse Practitioner Family
DX: A41.9 Sepsis, unspecified organism (principal); N17.9 Acute kidney failure, unspecified; K80.20 Calculus of gallbladder without cholecystitis without obstruction; Z90.81 Acquired absence of spleen; R79.89 Other specified abnormal findings of blood chemistry; R65.21 Severe sepsis with septic shock; Z91.81 History of falling; Z20.822 Contact with and (suspected) exposure to COVID-19; Z79.899 Other long term (current) drug therapy
CPT/HCPCS: 36415; 51702; 70450; 70486; 71045; 71250; 72125; 74176; 80053; 80307; 80320; 81001; 82550; 82800; 83605; 83880; 84145; 84443; 84484; 85007; 85027; 85610; 87040; 87811; 93005; 94660; 96365; 96366; 96368; 96375; 96376; 99285; J1836; J2060; J2270; J2405; J3370